=== PATIENT | female | born 1980 | race Caucasian/White ===

== ENCOUNTER 2018-01-19 08:30 | Emergency (ER) | payer MEDICAID, SELFPAY ==
[2018-01-19 09:30] VITALS: BP 139/98; PULSE 85; RESP 16; TEMP 37.9; O2SAT 98
--- NOTE | 2018-01-19 09:42 | DI.US_ITS ---
SYMPTOM/DIAGNOSIS: RT POST POPLITEAL PAIN, ? DVT DUPLEX VENOUS ULTRASOUND RIGHT LOWER EXTREMITY: Duplex venous ultrasound of the right lower extremity was performed according to the usual protocol. There is no evidence of deep venous thrombosis. There is a Robrets's cyst which contains septations and debris measuring about 55 by 36 by 21 mm. in diameter.
[2018-01-19] MEDS: Acetaminophen 500 MG TAB 1000 MG PO (10:02)
[2018-01-19] MEDS: Ibuprofen 800 MG TAB PO (10:02)
[2018-01-19 11:17] VITALS: BP 124/82; PULSE 75; RESP 16; TEMP 36.4; O2SAT 95
--- NOTE | 2018-01-19 11:31 | ED.GENADUL_ITS ---
Discharge Plan Disposition Patient Disposition: HOME Condition: Good Discharge Details Chief Complaint: Vascular Clinical Impression: Roberts cyst, Muscle strain Primary Care Provider: Carter Garcia ED Provider: Ezekiel Huff Home Meds and New Rx's Prescriptions: No Action lizness 150 mcg PO HS RF: 0 Discharge Instructions Instructions: Muscle Strain (ED), Bakers Cyst (ED) Additional Instructions: Please take 1000 mg of Tylenol every 6 hours and 800 mg of ibuprofen every 6 hours for improvement of your pain. Please use ice or warm compresses to the back aspect of your knee for the pain. Please avoid any straining, or significant vigorous physical activity utilizing your right lower leg. If you notice any worsening of your symptoms, or any new symptoms such as vomiting, you notice that your foot turns blue, worsening pain in your leg or your foot, lack of sensation in your foot, diarrhea, fever, chills, shortness of breath, chest pain, numbness, weakness, or fainting , please return immediately to the emergency department for reevaluation. Please follow up with your primary care provider as soon as possible for reassessment and reevaluation. As always, it was a pleasure participating in your medical care today. Referrals: Carter Garcia MD [Primary Care Provider] - Medical Decision Making This is a pleasant 37-year-old female with a past medical history of lupus and irritable bowel syndrome who presents today for evaluation of right posterior knee pain. It seemed to start after she was restraining a person at her work, and experienced a small amount of trauma at that time. Physical exam demonstrates mild swelling and tenderness in the posterior popliteal space, concerning for potential Roberts's cyst. However because of her questionable family history of DVT and her signs and symptoms we did get an ultrasound to rule this out. Ultrasound was performed and demonstrates no evidence of DVT, however there is evidence of a notable Roberts's cyst. I feel the patient is most likely suffering from a combination of superficial phlebitis with an associated Roberts's cyst. She may have a mild ligamentous injury from her initial inciting event which could be complicating her symptoms as well. I feel that she can be safely discharged home with Tylenol Motrin and ice. Patient is able to ambulate well, she will be discharged home with close follow- up with her PCP. We discussed red flags which to return I have extensively reviewed the treatment plan and discharge instructions with the patient. I have addressed all patient concerns at this time. The patient was made aware of what symptoms to monitor for that would warrant a return to the emergency department. Discussed the plan with the patient, they demonstrate verbal understanding and agreement with our assessment and plan at this time. HPI General Date/Time Provider Initiated Documentation: 01/19/18 09:42 . HPI Narrative: This is a pleasant 37-year-old female with a past medical history of hysterectomy with tubal ligation, lupus and irritable bowel syndrome, she takes no current medical therapy for her lupus. It is in the very mild early stages. Patient presents today with right posterior knee pain. 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 It is worsened with palpation and movement. It is slightly improved by Tylenol and Motrin last doses were last 90s. Denies PE risk factors such as recent long car rides, immobilization, recent surgery, prior history of DVT or PE, , morbid obesity, exogenous estrogen and smoking, hemoptysis, history of cancer. Patient does have a questionable family history of blood clots though. Patient denies any unilateral swelling of her lower extremity, except for some mild swelling and ropiness on her posterior right popliteal area. Patient denies any systemic symptoms of fever, chills, chest pain, shortness of breath, numbness. She has no other complaints at this time. She denies any aggravating or modifying factors. She denies any IV or illicit drug use. Related Data Home Medications Medication Instructions Recorded Confirmed Lizness 150 mcg PO HS 06/05/17 01/19/18 Allergies Allergy/AdvReac Type Severity Reaction Status Date / Time valerian Allergy Severe Unverified 01/19/18 11:01 zolpidem tartrate Allergy Severe Unverified 01/19/18 11:01 [From Fabricio] Latex, Natural Rubber Allergy Mild Unverified 01/19/18 11:01 Penicillins Allergy Mild Unverified 01/19/18 11:01 codeine Allergy critical Unverified 01/19/18 11:01 General Stated Complaint: Vascular ARLETTE: 4 Review of Systems Review of Systems All systems reviewed & are unremarkable except as noted in HPI and below PFSH Chest pain Dysuria Female pelvic inflammatory disease Night sweats Polycystic ovarian syndrome Vaginal high risk human papillomavirus (HPV) DNA test positive Family History Mother Colitis Depression Diverticula of colon Mental disorder Cerebrovascular accident Thyroid disease Father Diabetes Depression Heart disease Mental disorder Sister Diverticula of colon Fibromyalgia Section with Tubal ligation (04/27/10) section Cholecystectomy (01/07/98) Colonoscopy - MAC (07/03/08) D+C (09/17/13) Dilation and curettage EGD - MAC Endometrial Ablation (10/17/14) Repair of umbilical hernia (05/21/09) Family History Mother Colitis Depression Diverticula of colon Mental disorder Cerebrovascular accident Thyroid disease Father Diabetes Depression Heart disease Mental disorder Sister Diverticula of colon Fibromyalgia Medical History Chest pain Dysuria Female pelvic inflammatory disease Night sweats Polycystic ovarian syndrome Vaginal high risk human papillomavirus (HPV) DNA test positive Social History Smoking/Tobacco Use Status: Never Surgical History Section with Tubal ligation (04/27/10) section Cholecystectomy (01/07/98) Colonoscopy - MAC (07/03/08) D+C (09/17/13) Dilation and curettage EGD - MAC Endometrial Ablation (10/17/14) Repair of umbilical hernia (05/21/09) Social History Smoking/Tobacco Use Status: Never Exam Narrative Exam Narrative: 1.Const: Well-nourished, Well-developed, appearing stated age 2.Eyes: PERRL, no conjunctival injection, and symmetrical lids. 3.ENT: Atraumatic external nose and ears. Moist MM. Neck: Symmetric, trachea midline, No thyromegaly. 4.CVS: +S1/S2, No murmurs or gallops. Peripheral pulses 2+ and equal in all extremities. Brisk capillary refill in all extremities. 5.RESP: Unlabored respiratory effort. Clear to auscultation bilaterally. No wheezes rales or rhonchi 6.GI: Soft, Nontender/Nondistended, No hepatosplenomegaly. No guarding or rebound. 7.MSK: Normocephalic/Atraumatic, Extremities w/o deformity. No cyanosis or clubbing, Normal movement of all extremities, however there is some limited range of motion for flexion and extension of the knee secondary to pain. Pain in the posterior popliteal space is worsened with dorsiflexion and plantarflexion of the foot. Range of motion is otherwise normal, no evidence of ligamentous laxity for varus, valgus, anterior and posterior stressing. Compartments are all soft. Dorsalis pedis and posterior tibial pulses are +2 bilaterally. No evidence of cyanosis, capillary refill is brisk. No tenderness over the foot, or proximal thigh. There is a small amount of swelling in the posterior popliteal space suggestive of Roberts's cyst, with an associated small amount of tender ropiness just medial to that as well. No evidence of bruising or trauma. Normal sensation throughout otherwise. Patient does have 2 or 3 small punctate lesions on her toes bilaterally, which she states is synonymous with her history of lupus. She states these are chronic and not acute. No evidence of Osler nodes or Janeway lesions. 8.Skin: Warm, Dry. No rashes or lesions. 9.Neuro: court reporter II-XII grossly intact. Sensation grossly intact, no focal neurologic deficits. 10.Psych: (AAO) x3. Appropriate mood and affect Course Vital Signs Temperature 37.9 C H 01/19/18 09:30 Pulse 85 01/19/18 09:30 Respiratory Rate 16 01/19/18 09:30 Blood Pressure 139/98 H 01/19/18 09:30 Pulse Oximetry 98 01/19/18 09:30 Temperature 37.9 C H 01/19/18 09:30 Temperature Source Skin 01/19/18 09:30 Pulse 85 01/19/18 09:30 Respiratory Rate 16 01/19/18 09:30 Respiratory Effort 01/19/18 11:02 Blood Pressure 139/98 H 01/19/18 09:30 Blood Pressure Position Sitting 01/19/18 09:30 Pulse Oximetry 98 01/19/18 09:30 Oxygen Delivery Method Room Air 01/19/18 09:30 Oxygen Flow Rate 0 01/19/18 09:30 Pain Level 5 01/19/18 09:30
== END 2018-01-19 11:24 | disposition home or self-care (01) ==
LOC: ER 11:22
PROVIDERS: Emergency Provider Student in an Organized Health Care Education/Training Program; PCP Internal Medicine
DX: M71.21 Synovial cyst of popliteal space [Baker], right knee (principal); S86.911A Strain of unspecified muscle(s) and tendon(s) at lower leg level, right leg, initial encounter; X50.9XXA Other and unspecified overexertion or strenuous movements or postures, initial encounter; Y99.0 Civilian activity done for income or pay
CPT/HCPCS: 99284; 93971; 99285

== ENCOUNTER 2018-02-08 09:38 | Outpatient (CLI) | payer MEDICAID, SELFPAY ==
--- NOTE | 2018-02-08 09:21 | DI.RAD_ITS ---
SYMPTOM/DIAGNOSIS: INJURY RIGHT KNEE: The joint spaces are well maintained. Minimal periarticular hypertrophic changes are noted. The findings are consistent with minimal DJD. There is no evidence of a superimposed acute fracture or dislocation.
== END 2018-02-08 09:58 ==
PROVIDERS: PCP Internal Medicine; Visit Provider Physician Assistant Surgical
DX: M25.561 Pain in right knee (principal); M17.11 Unilateral primary osteoarthritis, right knee
CPT/HCPCS: 73562

== ENCOUNTER 2018-05-14 14:26 | Outpatient (CLI) | payer MEDICAID, SELFPAY ==
[2018-05-14 15:08] LABS: Lactate-non-spesis 1.1 mmol/l (0.6-1.4)
[2018-05-15 09:38] LABS: Carboxyhemoglobin (LRH) 4.3 % (0.5-1.5%)
== END 2018-05-14 14:46 ==
PROVIDERS: PCP Internal Medicine; Visit Provider Nurse Practitioner Family
DX: Z77.29 Contact with and (suspected) exposure to other hazardous substances (principal)
CPT/HCPCS: 36415; 82375; 83605

== ENCOUNTER 2018-08-13 16:17 | Outpatient (REF) | payer MEDICAID, SELFPAY ==
[2018-08-13 21:23] LABS: Abs Immature Grans 0.03 k/cumm (0.0-0.09); Absolute Basophil Count 0.02 k/cumm (0.0-0.2); Absolute Eosinophil Count 0.23 k/cumm (0.0-0.7); Absolute Lymphocyte Count 1.52 k/cumm (1.2-3.4); Absolute Monocyte Count 0.63 k/cumm (0.11-0.7); Absolute Neutrophil Count 4.86 k/cumm (1.2-6.7); Basophils % 0.3; Eosinophils % 3.2; HCT 42.3 % (36.0-46.0); HGB 14.9 g/dL (12.0-15.5); Immature Grans % 0.4; Lymphocytes % 20.9; Mean Corp. HGB Concentration 35.2 g/dL (32.0-36.0); Mean Corpuscular Hemoglobin 31.5 pg (27.0-33.0); Mean Corpuscular Volume 89.4 fL (80-95); Mean Platelet Volume 10.4 fL (8.0-11.0); Monocytes % 8.6; Neutrophils % 66.6; Platelet Count 272 x1000/uL (130-400); RBC 4.73 m/cumm (4.00-5.20); RBC Distribution Width 12.9 % (11.7-14.6); White Blood Cell Count 7.29 k/cumm (4.4-10.8)
[2018-08-13 21:39] LABS: ALT 26 U/L (12-78); AST 18 U/L (15-37); Albumin 3.9 g/dL (3.4-5.0); Alkaline Phosphatase 69 U/L (46-116); Anion Gap 12.7 mmol/L (3-11); BUN 17 mg/dL (7-18); Bilirubin, Total 0.5 mg/dL (0.2-1.0); CO2 23.3 mmol/L (21.0-32.0); CREATININE 0.69 mg/dL (0.55-1.02); Calcium 9.1 mg/dL (8.5-10.1); Chloride 105 mmol/L (98-107); Glucose 96 mg/dL (70-100); Potassium 4.2 mmol/L (3.5-5.1); Sodium 141 mmol/L (136-145)
== END 2018-08-13 16:37 ==
LOC: NCHCN 16:17
PROVIDERS: PCP Internal Medicine; Visit Provider Nurse Practitioner Family
DX: R10.9 Unspecified abdominal pain (principal); R20.2 Paresthesia of skin
CPT/HCPCS: 80053; 85025

== ENCOUNTER 2018-08-20 00:58 | Outpatient (CLI) | payer MEDICAID, SELFPAY ==
--- NOTE | 2018-08-20 08:00 | DI.US_ITS ---
SYMPTOM/DIAGNOSIS: ABD PAIN, R10.9 UMBILICAL ABNORMALITY Q89.9 ? HERNIA ABDOMEN ULTRASOUND: The periumbilical region was scanned. No hernia was identified by ultrasound. The liver is normal in size. There may be slight fatty infiltration. The patient is status post cholecystectomy. There is no biliary dilatation. The kidneys, spleen and pancreas as well as aorta are unremarkable. There is no ascites. IMPRESSION: Negative abdomen ultrasound. No periumbilical hernia is identified.
== END 2018-08-20 01:18 ==
PROVIDERS: PCP Internal Medicine; Visit Provider Nurse Practitioner Family
DX: R10.33 Periumbilical pain (principal); Z90.49 Acquired absence of other specified parts of digestive tract
CPT/HCPCS: 76700

== ENCOUNTER 2018-09-07 01:05 | Outpatient (CLI) | payer MEDICAID, SELFPAY ==
--- NOTE | 2018-09-07 12:51 | DI.CT_ITS ---
SYMPTOM/DIAGNOSIS: H/O UMBILICAL HERNIA REPAIR WITH PAIN, R10.[address]: CT scan of the abdomen and pelvis was performed following the uneventful administration of intravenous and oral contrast material. There are no priors for comparison. The visualized lung bases are clear. The liver is normal in size. No suspicious hepatic mass is seen. The portal, superior mesenteric and splenic veins are patent. The patient is status post cholecystectomy. There is no biliary ductal dilatation. The pancreas, spleen and adrenal glands are unremarkable. The kidneys show normal and symmetric enhancement. No evidence of a solid renal mass or obstruction. The urinary bladder is intact. Reproductive organs are unremarkable. There are bilateral ovarian cysts present. The aorta is of normal caliber. No significant abdominal or pelvic adenopathy, ascites or pneumoperitoneum is present. The bowel shows no evidence of obstruction or inflammation. There are no findings of an acute appendicitis present. There is no evidence of an anterior abdominal wall hernia or umbilical hernia. Degenerative changes are seen in the spine. IMPRESSION: 1. No evidence of an umbilical hernia or umbilical abnormality. 2. No evidence of an acute abdomen or pelvis.
[2018-09-07] MEDS: Omnipaque 350 MG/ML 100 ML BTL IJ (14:36)
[2018-09-07] MEDS: Omnipaque 350 MG/ML 50 ML BTL PO (14:39)
== END 2018-09-07 01:25 ==
PROVIDERS: PCP Internal Medicine; Visit Provider Surgery
DX: R10.33 Periumbilical pain (principal); Z98.890 Other specified postprocedural states; Z90.49 Acquired absence of other specified parts of digestive tract
CPT/HCPCS: 74177; J3490; Q9967

== ENCOUNTER 2018-10-04 11:20 | Day surgery (SDC) | payer MEDICAID, SELFPAY ==
[2018-10-04 11:48] VITALS: BP 126/86; PULSE 66; RESP 18; TEMP 37.2; O2SAT 100
[2018-10-04] MEDS: Lactated Ringers 1,000 ML 80 ML IV ×2 (12:01→14:30)
[2018-10-04] MEDS: CLINDAMYCIN 900 MG/50 ML BAG 50 MG IVPB (13:36)
[2018-10-04] MEDS: Bupivacaine 0.5% Pres-Free 30 ML VIAL (14:33)
[2018-10-04] MEDS: Lidocaine 2% Multi-Dose 50 ML VIAL (14:33)
--- NOTE | 2018-10-04 14:50 | W.PM.DSUDISC ---
Discharge Plan Disposition Patient Disposition: HOME Condition: Good Discharge Details Attending Provider: Selena Goncalves Primary Care Provider: Carter Garcia Home Meds and New Rx's Prescriptions: Continued lizess 150 mcg PO HS RF: 0 Excedrin Tension Headache 500-65 mg Tablet 2 tab PO PRN PRNRF: 0 ibuprofen 200 mg Capsule 400 mg PO PRN PRNRF: 0 Discharge Instructions Additional Instructions: A small hernia was identified and repaired The skin is closed with a dissolvable stitch. The top dressing can be removed tomorrow and the steri strips stick for about a week. May use ice, ibuprofen and Tylenol for pain Activity:: Do not lift more than 15# for one month Remove Dressings/Wound Care:: 24 hours Shower/Bathe:: 24 hours Diet:: As Tolerated Discharge Orders Discharge Orders: Discharge Order (Routine); Ordered 10/04/18 Ordered By: Selena Goncalves DS: Diagnosis Discharge Diagnosis (1) Umbilical hernia without mention of obstruction or gangrene: Status: Acute (2) H/O umbilical hernia repair:
[2018-10-04 15:15] VITALS: BP 115/67; PULSE 59; RESP 16; TEMP 36.6; O2SAT 100
[2018-10-04] MEDS: HYDROcodone 5/Acetaminophen 325 TAB PO (15:19)
--- NOTE | 2018-10-05 10:15 | ROE_ITS ---
DATE OF PROCEDURE: October 04, 2018 PREOPERATIVE DIAGNOSIS: Umbilical pain. POSTOPERATIVE DIAGNOSIS: Recurrent umbilical hernia. PROCEDURE: Recurrent umbilical hernia repair. SURGEON: Selena Goncalves M.D. ANESTHESIA: Local and sedation. INDICATIONS: This is a 38-year-old woman who had a primary repair of an umbilical hernia in 2008. S he reports pain at the site, especially with lifting. She is more tender above the umbilicus, althou gh a recurrent hernia is not felt. She had a CT scan of the abdomen and pelvis that suggested a poss ible fascial defect, although it was fairly subtle. PROCEDURE: The patient was placed supine on the operating table and her periumbilical region was pre pped and draped sterilely. The prior incision was transverse just above the umbilicus. I utilized t he same incision to avoid a T-shaped scar. The skin here was infiltrated with local anesthetic and t he prior incision/scar excised with a small ellipse. Subcutaneous tissue was divided with cautery do wn to the level of the fascia. I at first inspected the area that had been marked preoperatively and did not find any abnormality here. A little bit lower there was a braided suture knot that I remove d as a possible source for pain. I then freed up the umbilicus from its posterior attachments using cautery, with care taken not to enter the umbilicus. Further exploration did reveal a fascial defect with preperitoneal fat coming through it. The size of defect was about that of an almond. This was freed up from the surrounding tissue and reduced through a fascial defect measuring about 5 mm. Thi s was closed with two interrupted #2-0 PDS sutures. The wound was irrigated. There was good hemosta sis. The subcutaneous tissue and dermis were closed with interrupted, buried #4-0 Monocryl sutures a nd the skin closed with a running #4-0 Monocryl subcuticular stitch. She tolerated the procedure wel l and was stable to recovery. cc: Carter Garcia M.D.
== END 2018-10-04 15:52 | disposition home or self-care (01) ==
PROVIDERS: PCP Internal Medicine; Visit Provider Surgery
PROC: (CPT 49585; principal; 2018-10-04 13:30)
DX: K42.9 Umbilical hernia without obstruction or gangrene (principal)
CPT/HCPCS: 49585

== ENCOUNTER 2018-10-05 13:44 | Emergency (ER) | payer MEDICAID, SELFPAY ==
[2018-10-05 13:49] VITALS: PULSE 77; TEMP 37.1
[2018-10-05 13:50] VITALS: BP 140/89; PULSE 80; RESP 16; O2SAT 99
--- NOTE | 2018-10-05 14:05 | W.ED.GENAD ---
Discharge Plan Disposition Patient Disposition: HOME Condition: Stable Discharge Details Chief Complaint: Abd Prob Clinical Impression: Postoperative abdominal pain Primary Care Provider: Carter Garcia ED Provider: Ricki Garcia Home Meds and New Rx's Prescriptions: New oxycodone-acetaminophen [Percocet] 5-325 mg tablet 1 tab PO Q6H PRN (Reason: pain) Qty: 8 RF: 0 ondansetron 4 mg tablet,disintegrating 4 mg PO Q6H PRN (Reason: nausea and vomiting) Qty: 10 RF: 0 Continued lizess 150 mcg PO HS RF: 0 Excedrin Tension Headache 500-65 mg Tablet 2 tab PO PRN PRNRF: 0 ibuprofen 200 mg Capsule 400 mg PO PRN PRNRF: 0 Discharge Instructions Instructions: Abdominal Pain (ED) Additional Instructions: Please slowly advance her diet as tolerated and stay well-hydrated. Return to the emergency department immediately for any new or significant worsening of symptoms otherwise take pain meds and nausea meds as needed. Follow-up with general surgery on Monday for reassessment. Referrals: Selena Goncalves MD [ [facility] STAFF PHYSICIAN] - (Follow-up with general surgeon on Monday for reassessment) Medical Decision Making Patient presenting to the emergency department chief complaint of abdominal pain and bloating postoperatively. Patient states that she had a hernia repair performed yesterday but has noted significant abdominal distention and bloating over the last 24 hours along with continuing to be unable to tolerate any p.o. intake without vomiting. Patient states subjective chills and fever. Patient denies any chest pain, difficulty breathing, or urinary symptoms. Plan to check labs, give IV fluids, treat pain and nausea symptomatically, speak with general surgeon Dr. Goncalves Spoke with Dr. Goncalves pending results of patient's information and she stated procedure was uneventful and otherwise non-worrisome so at this time did not recommend any CT imaging but did state plain film abdomen is reasonable to start with. Review of labs show a very mild elevation of WBCs and otherwise nondiagnostic CMP and normal lipase. Plain film imaging shows no acute findings noted. Patient was reassessed and states improvement of nausea but still significant amount of pain and chills. Dr. Goncalves was able to come see the patient the emergency department and feels this is typical postoperative pain and discomfort which I do not disagree with that. Patient was placed upon Percocet after coronary of the drug database which shows no worrisome findings. Patient also given prescription for Zofran. Close return precautions were discussed otherwise patient to follow-up with general surgery office on Monday. After discussion of diagnosis and plan of care patient has no further needs, questions, or concerns and states clear understanding to return to the emergency department for any worsening symptoms. HPI General Mode of arrival: ambulatory. Date/Time Provider Initiated Documentation: 10/05/18 14:02. Limitations to Documentation: no limitations. Information obtained by: patient and RN notes reviewed. History of Present Illness 38 year old F presents to the emergency department with the chief complaint of Postoperative abdominal pain, described as moderate, with intensity rated at 8. Quality is described as aching and sharp, and is localized to the abdomen. Patient started experiencing this day(s) (1) and it has been constant. Patient did receive the following treatments prior to arrival, NSAID Related Data Home Medications Medication Instructions Recorded Confirmed lizess 150 mcg PO HS 09/03/18 10/04/18 Excedrin Tension Headache 2 tab PO PRN PRN 10/04/18 10/04/18 ibuprofen 400 mg PO PRN PRN 10/04/18 10/04/18 ondansetron 4 mg PO Q6H PRN #10 tab 10/05/18 oxycodone-acetaminophen [Percocet] 1 tab PO Q6H PRN #8 tab 10/05/18 Previous Rx's Medication Instructions Recorded ondansetron 4 mg PO Q6H PRN #10 tab 10/05/18 oxycodone-acetaminophen [Percocet] 1 tab PO Q6H PRN #8 tab 10/05/18 Allergies Allergy/AdvReac Type Severity Reaction Status Date / Time codeine Allergy Severe Hives, Verified 10/04/18 11:45 violent angry Latex, Natural Rubber Allergy Severe If its Verified 10/04/18 11:45 around my mouth I swell, any other area, I swell valerian Allergy Severe Hives Verified 10/04/18 11:45 zolpidem tartrate Allergy Severe minor Verified 10/04/18 11:45 [From Ambien] stroke Penicillins Allergy Mild internal Verified 10/04/18 11:45 bleeding, constipation General Stated Complaint: Abd Prob ARLETTE: 2 Review of Systems Constitutional Reports chills, Reports fever(s) and Reports poor appetite Cardiovascular Denies chest pain and Denies dyspnea Respiratory Denies cough and Denies dyspnea Gastrointestinal Reports as per HPI, Reports abdominal pain, Denies melena, Denies change in bowel habits, Denies constipation, Denies diarrhea, Reports nausea and Reports vomiting Genitourinary Denies dysuria Integumentary/Breasts Denies rash [facility] Medical History Abdominal pain (Acute) Anxiety and depression (Acute) Carbon monoxide exposure (Acute) Chest pain Dyspepsia (Acute) Dysuria Fatigue (Acute) Female pelvic inflammatory disease Generalized headaches (Acute) IBS (irritable bowel syndrome) (Chronic) Natural gas exposure (Acute) Night sweats Paresthesia of both hands (Acute) Polycystic ovarian syndrome Umbilical abnormality (Acute) Umbilical hernia without mention of obstruction or gangrene (Acute) Vaginal high risk human papillomavirus (HPV) DNA test positive Surgical History section Section with Tubal ligation (04/27/10) Cholecystectomy (01/07/98) Colonoscopy - MAC (07/03/08) D+C (09/17/13) Dilation and curettage EGD - MAC Endometrial Ablation (10/17/14) H/O umbilical hernia repair (Acute) Repair of umbilical hernia (05/21/09) Family History Mother Colitis Depression Diverticula of colon Mental disorder Stroke Thyroid disease Father Diabetes Depression Heart disease Mental disorder Sister Diverticula of colon Fibromyalgia Social History Smoking/Tobacco Use Status: Never Alcohol Intake: current Alcohol Intake frequency: holidays/special occasions only Alcohol type: wine Drug use: Never Substance use type: does not use Details: last night wine 1 glass Do you feel safe at home: Yes Do you feel safe in your relationship?: Yes Exam Const General: cooperative Orientation: alert, awake and oriented x3 Resp Effort & Inspection: normal respiratory effort and able to speak in complete sentences Auscultation: clear to auscultation bilaterally Cardio Rate: regular rate Rhythm: regular rhythm Heart Sounds: S1 normal and S2 normal GI Inspection: incision (Surgical hernia with ecchymosis surrounding area) Palpation: soft, no hepatosplenomegaly, not firm, no masses, no pulsatile masses, not rigid, no splenomegaly and tender (Diffuse) Auscultation: normal bowel sounds Back/Spine/Pelvis Back: no CVA tenderness Neuro General: alert, awake, oriented x3, gait normal and moves all extremities Course Vital Signs Temperature 37.1 C 10/05/18 13:49 Pulse 77 10/05/18 13:49 Temperature 37.1 C 10/05/18 13:49 Pulse 77 10/05/18 13:49
--- NOTE | 2018-10-05 14:10 | DI.RAD_ITS ---
SYMPTOMS/DIAGNOSIS: ABDOMINAL PAIN AND BLOATING 1 DAY POSTOP PA CHEST: The heart is normal in size. The lungs are clear. The mediastinal structures and pleura appear intact. CONCLUSION: Normal chest. ABDOMEN: Two views were obtained. There are vascular clips in the right upper quadrant consistent with previous cholecystectomy. The bowel gas pattern is unremarkable. No organomegaly seen. No urinary tract calcification seen. CONCLUSION: No evidence of acute disease.
[2018-10-05] MEDS: Ondansetron 4 MG/2 ML VIAL IVP (14:12)
[2018-10-05] MEDS: Normal Saline 1,000 ML 1000 ML IV (14:13)
[2018-10-05] MEDS: MORPHine 10 MG/ML VIAL 4 MG IVP (14:13)
[2018-10-05 14:28] LABS: Abs Immature Grans 0.03 k/cumm (0.0-0.09); Absolute Basophil Count 0.01 k/cumm (0.0-0.2); Absolute Lymphocyte Count 1.59 k/cumm (1.2-3.4); Absolute Monocyte Count 0.89 k/cumm (0.11-0.7); Basophils % 0.1; Eosinophils % 0.4; HCT 39.7 % (36.0-46.0); HGB 13.6 g/dL (12.0-15.5); Immature Grans % 0.3; Lymphocytes % 14.1; Mean Corp. HGB Concentration 34.3 g/dL (32.0-36.0); Mean Corpuscular Hemoglobin 30.7 pg (27.0-33.0); Mean Corpuscular Volume 89.6 fL (80-95); Mean Platelet Volume 10.2 fL (8.0-11.0); Monocytes % 7.9; Neutrophils % 77.2; Platelet Count 236 x1000/uL (130-400); RBC 4.43 m/cumm (4.00-5.20); RBC Distribution Width 12.7 % (11.7-14.6); White Blood Cell Count 11.26 k/cumm (4.4-10.8)
[2018-10-05 14:32] LABS: Absolute Eosinophil Count 0.05 k/cumm (0.0-0.7); Absolute Neutrophil Count 8.69 k/cumm (1.2-6.7)
[2018-10-05 14:43] LABS: ALT 23 U/L (12-78); AST 8 U/L (15-37); Albumin 3.4 g/dL (3.4-5.0); Alkaline Phosphatase 51 U/L (46-116); Anion Gap 8.6 mmol/L (3-11); BUN 11 mg/dL (7-18); Bilirubin, Total 0.5 mg/dL (0.2-1.0); CO2 25.4 mmol/L (21.0-32.0); CREATININE 0.92 mg/dL (0.55-1.02); Calcium 8.3 mg/dL (8.5-10.1); Chloride 107 mmol/L (98-107); Glucose 91 mg/dL (70-100); Lipase 245 U/L (73-393); Potassium 3.6 mmol/L (3.5-5.1); Sodium 141 mmol/L (136-145); Total Protein 6.7 g/dL (6.4-8.2)
[2018-10-05 15:41] VITALS: BP 138/67; PULSE 67; RESP 14; TEMP 36.6; O2SAT 99
== END 2018-10-05 15:41 | disposition home or self-care (01) ==
PROVIDERS: Emergency Provider Nurse Practitioner Family; PCP Internal Medicine
DX: G89.18 Other acute postprocedural pain (principal)
CPT/HCPCS: 36415; 80053; 83690; 96361; 96374; 96375; 99284; 74022; 81003; 85025; J2270; J2405

== ENCOUNTER 2018-10-15 16:30 | Outpatient (REF) | payer MEDICAID, SELFPAY ==
--- NOTE | 2018-10-15 16:00 | PAPFT_PTH ---
PATIENT: Jenise Ortiz LOC: [facility] U#:[id number] AGE/SX: 38/F ROOM: RE10/15/[address]: Candy Rogel : 1980 BED: DIS: 10/15/2018 SPEC #: [id number] RECD: 10/15/18 17:37 STATUS: NAINA REMaisha #: [id number] VINCE: 10/15/18 16:[address]: Candy Rogel DEPT: [facility] Cytology RECD BY: Marisol Portillo ENTERED: 10/15/18 17:37 SP TYPE: PAPFT OTHR DR: Carter Garcia Tissues: 1 - CX/ENDOCX FOR PAP SMEARS Procedures: PAP THIN PREP/UVM Screening HPV DNA PROBE Comments: [id number]
== END 2018-10-15 16:50 ==
LOC: LBN 16:30
PROVIDERS: PCP Internal Medicine; Visit Provider Obstetrics & Gynecology Gynecology
DX: Z12.4 Encounter for screening for malignant neoplasm of cervix (principal); Z11.51 Encounter for screening for human papillomavirus (HPV)
CPT/HCPCS: 88142; 87624

== ENCOUNTER 2018-10-19 00:24 | Outpatient (CLI) | payer MEDICAID, SELFPAY ==
--- NOTE | 2018-10-19 13:06 | DI.COMBO_ITS ---
SYMPTOM/DIAGNOSIS: LT BREAST LUMP,N63.20 MAMMOGRAMS AND LEFT BREAST ULTRASOUND: Mammograms were interpreted according to the usual protocol including computer analysis with CAD system, tomosynthesis and C view imaging. The patient notes a palpable abnormality in the upper outer quadrant of the left breast. This is a baseline exam. A marker was placed over the palpable abnormality. The breasts are composed of heterogeneously dense fibroglandular tissue, breast density, Category C. In the area marked, there are two adjacent circumscribed nodules versus a single bi-lobed nodule. There are no suspicious features. The findings could represent an intramammary lymph node versus two small adjacent cysts. Left breast ultrasound shows a superficial hypoechoic, ovoid, circumscribed nodule measuring 8 by 7 by 4 cm. The findings could represent a proteinaceous cyst, fibroadenoma or lymph node. IMPRESSION: Category 3, probably benign mammogram and left breast ultrasound. A 6 month follow up ultrasound is recommended. MQSA ASSESSMENT OF FINDINGS: Probably benign. Six month follow-up recommended. Category 3. Patient will receive a letter notifying them of these results. Bi-RADS category C. The breasts are heterogeneously dense, which may obscure small masses.
== END 2018-10-19 00:44 ==
PROVIDERS: PCP Internal Medicine; Visit Provider Obstetrics & Gynecology Gynecology
DX: N63.20 Unspecified lump in the left breast, unspecified quadrant (principal); R92.8 Other abnormal and inconclusive findings on diagnostic imaging of breast
CPT/HCPCS: 76642; 77062; 77066; G0279

== ENCOUNTER 2018-11-16 16:21 | Outpatient (REF) | payer MEDICAID, SELFPAY ==
--- NOTE | 2018-11-16 14:40 | ENDO_PTH ---
PATIENT: Jenise Ortiz LOC: [facility] U#:[id number] AGE/SX: 38/F ROOM: RE11/16/[address]: Candy Rogel : 1980 BED: DIS: 11/16/2018 SPEC #: [id number] RECD: 11/16/18 16:25 STATUS: NAINA REMaisha #: [id number] VINCE: 11/16/18 14:[address]: Candy Rogel DEPT: Surgical Specimen RECD BY: Marisol Portlilo ENTERED: 11/16/18 16:25 SP TYPE: Endo OTHR DR: Carter Garcia Tissues: 1 - ENDOCERVICAL BX/CURRETTE Procedures: GROSS AND MICRO LEVEL 4 Comments: [id number]
== END 2018-11-16 16:41 ==
LOC: LBN 16:21
PROVIDERS: PCP Internal Medicine; Visit Provider Obstetrics & Gynecology Gynecology
DX: N88.8 Other specified noninflammatory disorders of cervix uteri (principal); R87.610 Atypical squamous cells of undetermined significance on cytologic smear of cervix (ASC-US); R87.810 Cervical high risk human papillomavirus (HPV) DNA test positive
CPT/HCPCS: 88305

== ENCOUNTER 2019-03-03 14:10 | Emergency (ER) | payer MEDICAID, SELFPAY ==
[2019-03-03 14:14] VITALS: BP 140/79; PULSE 65; RESP 18; TEMP 36.2; O2SAT 100
--- NOTE | 2019-03-03 14:16 | W.ED.GENAD ---
Discharge Plan Disposition Patient Disposition: HOME Condition: Good Discharge Details Chief Complaint: Orthopedic Clinical Impression: Pain in right shoulder Primary Care Provider: Carter Garcia ED Provider: Tonia Palomo Home Meds and New Rx's Prescriptions: New prednisone 50 mg tablet 50 mg PO DAILY Qty: 4 RF: 0 Continued Ex-Lax Maximum Strength 25 mg tablet 50 mg PO DAILY RF: 0 linzess 150 mcg PO HS RF: 0 Excedrin Tension Headache 500-65 mg Tablet 2 tab PO PRN PRNRF: 0 ibuprofen 200 mg Capsule 400 mg PO PRN PRNRF: 0 Discharge Instructions Instructions: Prednisone (By mouth), Shoulder Pain (ED) Additional Instructions: Encourage water intake. Encourage rest of your shoulder. Try to avoid overhead activities, particularly lifting. I would like you to continue with the passive exercises as demonstrated to help prevent frozen shoulder. Please take the prednisone as prescribed to help with inflammatory source of discomfort. You may use a sling if in public or concerned for overuse but otherwise, please try to abstain. Referral for orthopedics has been placed. Please call them tomorrow to schedule follow-up appointment, number listed below. Referral for physical therapy is attached. If you develop fever/chills, increased pain, weakness or other new/worsening symptoms please seek care urgently once again. Stand Alone Forms: Physical Therapy Referral Referrals: Carlo Corea MD [ [facility] STAFF PHYSICIAN] - Discharge Data Discharge Date/Time-TO BE ENTERED AT DEPARTURE: 03/03/19 16:19 Medical Decision Making Patient is a 38-year-old [id number]-vgdalpby female presents today with chief complaint of right shoulder pain. She reports that she has had intermittent right shoulder pain with popping over the past several months. She reports that this pain was greatly exacerbated today when she had a more severe pop. She denies any single inciting incident. Did not fall or have any known trauma. 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 She reports that she is had multiple dislocations. States that she is able to hit and the shoulder goes back into place. When further questioning the patient, she indicates the superior aspect of the shoulder is area of maximal discomfort and states that pressing on this or hitting this area can help with discomfort. She has been seen by a chiropractor for this. Patient reports that she has a known history of carpal tunnel in the right hand. She denies any recent fevers or chills. Patient is status post tubal ligation and ablation. On exam, patient does appear uncomfortable. Pain seems to be maximal with forward elevation. She is able to forward elevate to approximately 130 degrees but has stopped secondary to discomfort. Both external and internal rotation is limited. No notable deformity. Pain elicited maximally with palpation over the trapezius. She also has discomfort over the subacromial space and AC joint. Further testing of the shoulder is very difficult and limited secondary to the patient's discomfort. No neurologic deficit is noted on exam patient has been using Tylenol and ibuprofen help with discomfort. She has not been evaluated for this historically. No imaging has been obtained. Plan to obtain x-ray of the right shoulder. Discussed these findings with the patient. FINDINGS: Bones/joints: Normal. Soft tissues: Normal. IMPRESSION: No acute findings. Advised that the pain she is eliciting with movements as well as location is concerning for impingement syndrome, muscle spasm. Pain is so diffuse however, I am hesitant to perform any type of injection at this point I will refer her to orthopedics. As I believe this is likely inflammatory driven and secondary to overuse, plan for treatment with prednisone. She has been in this historically and believes she tolerated this well. We did discuss possible side effects. She was given first dose here. Advised to continue with ibuprofen Tylenol. Passive range of motion to help prevent adhesive capsulitis was given demonstrated for the patient. We will give her sling only to use and on public. She reports that today, while at a birthday constitution party multiple people try to shake her hand thus increasing her discomfort. However, advised that she try to keep this off as much possible. She will contact orthopedics tomorrow to schedule follow-up appointment. All of her questions and concerns were addressed and she is in agreement with this plan. [facility] General Mode of arrival: ambulatory. Date/Time Provider Initiated Documentation: 03/03/19 14:16. Limitations to Documentation: no limitations. Information obtained by: patient and RN notes reviewed. History of Present Illness 38 year old F presents to the emergency department with the chief complaint of right shoulder pain, described as moderate and similar to prior episodes (acute on chronic pain), with intensity rated at 7. Quality is described as stabbing, and is localized to the right and upper extremity. Patient reports no radiation. Patient started experiencing this month(s) and it has been intermittent. 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 Patient notes no other symptoms.; denies chest pain, fever/chills, rash and weakness. Patient did receive the following treatments prior to arrival, NSAID Related Data Home Medications Medication Instructions Recorded Confirmed Excedrin Tension Headache 2 tab PO PRN PRN 10/04/18 03/03/19 ibuprofen 400 mg PO PRN PRN 10/04/18 03/03/19 sennosides 25 mg tablet 50 mg PO DAILY tab 11/27/18 03/03/19 linzess 150 mcg PO HS 12/05/18 03/03/19 prednisone 50 mg PO DAILY #4 tab 03/03/19 Previous Rx's Medication Instructions Recorded prednisone 50 mg PO DAILY #4 tab 03/03/19 Allergies Allergy/AdvReac Type Severity Reaction Status Date / Time codeine Allergy Severe Hives, Verified 03/03/19 14:18 violent angry Latex, Natural Rubber Allergy Severe If its Verified 03/03/19 14:18 around my mouth I swell, any other area, I swell valerian Allergy Severe Hives Verified 03/03/19 14:18 zolpidem tartrate Allergy Severe minor Verified 03/03/19 14:18 [From Ambien] stroke Penicillins Allergy Mild internal Verified 03/03/19 14:18 bleeding, constipation General ARLETTE: 3 Review of Systems Constitutional Constitutional: Reports as per HPI, Denies chills, Denies fever(s), Denies headache(s) and Denies weakness ENT Ears, Nose, Mouth, and Throat: Denies headache(s) Cardiovascular Cardiovascular: Reports as per HPI Respiratory Respiratory: Reports as per HPI and Denies cough Musculoskeletal Musculoskeletal: Reports as per HPI and Denies tingling Integumentary/Breasts Skin/Breast: Reports as per HPI, Denies rash and Denies wounds Neurologic Neurologic: Reports as per HPI, Denies headache(s), Denies tingling, Denies paresthesias and Denies weakness [facility] Medical History Abdominal pain (Acute) Anxiety and depression (Acute) Bilateral carpal tunnel syndrome (Acute) Carbon monoxide exposure (Acute) Chest pain Dyspepsia (Acute) Dysuria Fatigue (Acute) Female pelvic inflammatory disease Generalized headaches (Acute) IBS (irritable bowel syndrome) (Chronic) Left breast lump (Acute ~10/2018) 6x4mm. Pt will have repeat mammo 04/2019. Natural gas exposure (Acute) Night sweats Pap smear of cervix shows high risk HPV present (Acute ~10/2018) 10/2018. ECC benign. Plan: repeat test 2019. Paresthesia of both hands (Acute) Polycystic ovarian syndrome Umbilical abnormality (Acute) Umbilical hernia without mention of obstruction or gangrene (Acute) Vaginal candidiasis (Acute) Vaginal high risk human papillomavirus (HPV) DNA test positive Surgical History section Section with Tubal ligation (04/27/10) Cholecystectomy (01/07/98) Colonoscopy - MAC (07/03/08) D+C (09/17/13) Dilation and curettage Pt reports 4 D&Cs. 3 pregnancies, 2 c/s. EGD - MAC Endometrial Ablation (10/17/14) Pt has referred to the ablation as a partial hysterectomy. H/O umbilical hernia repair (Acute) 10/04/18, Dr Selena Goncalves, [facility] Repair of umbilical hernia (05/21/09) Social History Smoking/Tobacco Use Status: Never Alcohol Intake: current Alcohol Intake frequency: holidays/special occasions only Alcohol type: wine Drug use: Never Substance use type: does not use Number of Children: 2 Seatbelt use: always Do you feel safe at home: Yes Do you feel safe in your relationship?: Yes History History 3 Para Hx # Term Pregnancies 2 Multiple births Hx # Pregnancies Ectopic pregnancies AB induced Hx Number of Living Children AB spontaneous Exam Const General: cooperative, healthy appearing, uncomfortable (patient appears uncomfrotable), no acute distress, well developed and well groomed Nutritional Appearance: average body habitus and well nourished Orientation: alert and awake Resp Effort & Inspection: normal respiratory effort, able to speak in complete sentences and no respiratory distress Cardio Rate: regular rate Rhythm: regular rhythm Skin General skin exam: no rashes or lesions noted Lesions: no lesions Rashes: no rashes Trauma: no lacerations or abrasions Neuro General: alert and awake Cognition: normal cognition Speech: speech normal Gait: normal gait Motor: muscle tone normal throughout Sensory Exam: no sensory deficits noted Extrem Right upper extremity: normal to inspection, normal capillary refill, no joint enlargement, shoulder/upper arm (initially had kinesiotaping in place) Details: normal to inspection, tenderness (Diffusely tender, and maximal on superior aspect of the trapezius) and axillary nerve sensory function normal; no swelling, ROM limited (Limited forward elevation to approximately 130 degrees. External rotation and internal rotation limited), no abrasions, no lacerations, no ecchymosis, no crepitus, no deformity and no unusual warmth, elbow/forearm Details: normal to inspection, normal ROM and distal pulses intact; no tenderness, no swelling and no deformity, wrist Details: normal to inspection, normal ROM, normal vascular exam, radial pulse present and ulnar pulse present; no tenderness and no swelling and hand Details: normal to inspection, normal capillary refill, neuromotor exam normal, neurosensory exam normal and tendon exam normal; no tenderness; ROM limited Psych Appearance: grossly normal and well kempt Mental Status: mental status grossly normal Speech and Movement: speech and movement normal
--- NOTE | 2019-03-03 15:12 | DI.RAD_ITS ---
EXAM: XR SHOULDER RT COMPLETE 2+V INDICATION: acute on chronic pain. COMPARISON: No exams were available for comparison TECHNIQUE: 2D digital imaging was performed. FINDINGS: No acute fracture or dislocation is present. There are mild degenerative changes at the right acromi oclavicular joint. The glenohumeral joint is unremarkable. Bones are normally mineralized. The sof t tissues are unremarkable. IMPRESSION: No acute abnormality.
--- NOTE | 2019-03-03 15:41 | DI.VRAD_ITS ---
PROCEDURE INFORMATION: Exam: XR Right Shoulder Exam date and time: 03/03/2019 3:16 PM Age: 38 years old Clinical indication: Other: Acute on chronic pain TECHNIQUE: Imaging protocol: XR Right shoulder. Views: 2 or more views. COMPARISON: No relevant prior studies available. FINDINGS: Bones/joints: Normal. Soft tissues: Normal. IMPRESSION: No acute findings. Dictated and Authenticated by: Mayra Saravia MD. Ordering:TONI Randall MD
[2019-03-03] MEDS: predniSONE 10 MG TAB 50 MG PO (16:13)
== END 2019-03-03 16:19 | disposition home or self-care (01) ==
PROVIDERS: Emergency Provider Physician Assistant; PCP Internal Medicine
DX: M25.511 Pain in right shoulder (principal)
CPT/HCPCS: 99284; 73030; 99283; J7512; L3650

== ENCOUNTER 2019-03-20 08:25 | Outpatient (CLI) | payer MEDICAID, SELFPAY ==
--- NOTE | 2019-03-20 16:16 | DI.RAD_ITS ---
EXAM: XR CERVICAL SP GODINEZ TRAUMA 2-3V CLINICAL HISTORY: neck and shoulder pain TECHNIQUE: COMPARISON: No exams were available for comparison FINDINGS: Two views were obtained. There is a slight cervical kyphosis. Intervertebral disc spaces are well m aintained. No significant bony seen. IMPRESSION:
== END 2019-03-20 08:45 ==
PROVIDERS: PCP Internal Medicine; Visit Provider Physician Assistant
DX: M54.2 Cervicalgia (principal); M25.519 Pain in unspecified shoulder; M40.202 Unspecified kyphosis, cervical region
CPT/HCPCS: 72040

== ENCOUNTER 2019-03-28 01:34 | Outpatient (CLI) | payer MEDICAID, SELFPAY ==
--- NOTE | 2019-03-28 10:23 | DI.MRI_ITS ---
EXAM: MR CERVICAL SPINE WO CLINICAL HISTORY: cervical radiculopathy, M54.12. TECHNIQUE: Multiplanar multisequence MRI was performed. COMPARISON: No exams were available for comparison FINDINGS: MR examination of the cervical region was performed according to the usual protocol. No significant bony signal abnormality seen. Incidental presumed small hemangioma or fatty rest of T1 vertebral bod y. No bony central canal spinal stenosis seen. No neural foraminal stenosis. No disc herniation identi fied. Spinal cord shows normal signal and is of normal diameter throughout. Visualized posterior fo ssa structures appear intact. IMPRESSION: Negative cervical spine MRI.
--- NOTE | 2019-03-28 10:25 | DI.MRI_ITS ---
EXAM: MR UPPER JOINT RT WO CLINICAL HISTORY: right shoulder pain, M25.511. TECHNIQUE: Multiplanar multisequence MRI was performed. COMPARISON: No exams were available for comparison FINDINGS: There is hypertrophic change at the acromioclavicular joint with associated small joint effusion and abnormal signal of the distal aspect of the clavicle and the acromion. Inferior osteophytes impinge on myotendinous junction region of supraspinatus. No subscapularis bursa collection. No significant tendinosis of the supraspinatus. No other bony signal abnormality seen. Glenoid labrum grossly intact by noncontrast criteria. Subsc apularis and infraspinatus appear intact, no significant tendinosis, no tear seen. Biceps tendon and anchor appear normal. Normal appearance of the bicipital tendon in the bicipital g roove. IMPRESSION: AC joint hypertrophic changes with impingement on supraspinatus myotendinous junction region. No oth er significant findings.
== END 2019-03-28 01:54 ==
PROVIDERS: PCP Internal Medicine; Visit Provider Physician Assistant
DX: M25.511 Pain in right shoulder (principal); M19.011 Primary osteoarthritis, right shoulder; M75.41 Impingement syndrome of right shoulder; M54.12 Radiculopathy, cervical region; M54.2 Cervicalgia
CPT/HCPCS: 72141; 73221

== ENCOUNTER 2019-06-26 16:05 | Outpatient (CLI) | payer MEDICAID, SELFPAY ==
--- NOTE | 2019-06-26 15:30 | DI.US_ITS ---
EXAM: US PELVIS TRANSVAGINAL CLINICAL HISTORY: Severe Right Lower Quadrant pain, pelvic AND PERINEAL pain, R10.2. TECHNIQUE: Transabdominal and transvaginal pelvic ultrasound was performed using standard protocol. COMPARISON: No exams were available for comparison FINDINGS: KIDNEYS: Kidneys are symmetric in size. No evidence of renal calculi. No evidence of hydronephrosis. No renal mass or cyst identified. UTERUS: Position: Retroverted. Size: 6.2 x 3.5 x 5.7 cm Endometrium: 0.6 cm. Normal for patient's menstrual status. Myometrium: Well-circumscribed 1.5 x 1.5 x 1.3 cm hyperechoic mass within the myometrium. This likel y reflects a uterine fibroid. Cervix: Unremarkable. OVARIES: Right: 3.2 x 2 x 1.8 cm Cyst or mass: Small follicular cysts are present. Left: 3.2 x 1.6 x 1.7 cm Cyst or mass: Small follicular cysts are present. DOPPLER: Color: Symmetric and uniform flow to both ovaries. No hyperemia. Duplex: Normal ovarian arterial waveforms visualized. CUL-DE-SAC: Free fluid: None. Other: There is a tubular structure medial to the right ovary containing debris and a fluid debris le rodrigo. IMPRESSION: 1. Normal sonographic appearance of the kidneys. 2. Normal-appearing uterus with endometrial stripe within normal limits. 1.5 cm hyperechoic mass wit hin the myometrium suspicious for uterine fibroid. 3. Unremarkable bilateral ovaries. 4. Tubular structure in the right adnexa medial to the right ovary containing debris and fluid debris level. Findings are suspicious for pyosalpinx/salpingitis/PID. Abscess cannot be excluded. DATA REPOSITORY:
== END 2019-06-26 16:25 ==
PROVIDERS: PCP Internal Medicine; Visit Provider Obstetrics & Gynecology
DX: R10.2 Pelvic and perineal pain (principal); R10.31 Right lower quadrant pain; D25.9 Leiomyoma of uterus, unspecified
CPT/HCPCS: 76830; 76856

== ENCOUNTER 2019-07-02 13:57 | Inpatient (IN) | payer MEDICAID, SELFPAY ==
--- NOTE | 2019-07-02 | DI.CT_ITS ---
EXAM: CT ABDOMEN PELVIS W CLINICAL HISTORY: TUBO-OVARIAN ABSCESS COMPARISON: CT CT ABDOMEN PELVIS W from 09/07/2018 FINDINGS: CT examination of the abdomen and pelvis was performed with a bolus infusion of 100 cc of Omnipaque 3 50 and ingestion of dilute barium. Images obtained through the lung bases are unremarkable. Liver and spleen appear normal. Gallbladder has been surgically removed. No biliary dilatation. Un remarkable appearance of the pancreas. Adrenals and kidneys appear normal. No evidence of urinary tract calcification or obstruction. Abdominal aorta is of normal diameter and major visceral branches appear intact. No significant abdominal wall hernia. No significant abdominal or pelvic adenopathy. Appendix is normal. No evidence of diverticulitis or bowel obstruction. Uterus contains small enhancing lesions posteriorly consistent with fibroids. There is fluid attenua tion in what appears to be a dilated right fallopian tube consistent with pyosalpinx, as clinically s uggested. Left fallopian tube may be dilated as well, left pyosalpinx not excluded. Left ovarian cyst noted me asuring about 21 millimeters, small functional cysts versus dominant follicle. No significant free fluid identified in the pelvis or elsewhere in the peritoneal cavity. IMPRESSION: Findings consistent with right pyosalpinx, as clinically suspected. Left pyosalpinx not excluded but less likely. No free fluid or abscess of the pelvis. No adenopathy identified.
[2019-07-02 14:27] VITALS: BP 136/85; PULSE 67; RESP 18; TEMP 36.7; O2SAT 97
--- NOTE | 2019-07-02 14:34 | HPE_ITS ---
Date of service: 07/02/19 Time of Service: 14:34 Assessment and Plan Assessment and plan (1) Pelvic pain: Start date: 06/18/19 Status: Acute (2) Tubo-ovarian abscess: Start date: 06/26/19 Status: Acute Assessment and plan: Finally admitted to the hospital for IV hydration, IV pain medication, antiemetics, laboratory studies, diagnostic imaging. Should be converted from oral to IV antibiotic therapy. She has the potential for surgical intervention including total abdominal hysterectomy with or without bilateral early salpingectomy possible salpingo-oophorectomy. (3) Pelvic fullness: Start date: 06/18/19 Status: Acute History of Present Illness History of Present Illness Chief Complaint: Severe abdominal pain Narrative: Jenise is a 39-year-old female who I saw in the office late last week with right pelvic and ovarian pain. She describes this as severe in nature and worsening over approximately the past 10 days. She denied fever or chills at that point she was able to tolerate oral intake and her initial work-up for her pelvic pain included pelvic ultrasound. There was suspicion of a right-sided fluid collection with some debris possibility of tubo-ovarian abscess. In light of this fact she was placed empirically on oral antibiotic therapy including Flagyl and doxycycline. I did check in on her over the weekend she was having no fevers at that point though feeling somewhat chilled. Subsequent to this she was unable to tolerate the remainder of her antibiotics and presented for her follow-up visit today. On her way up to the office she did have a syncopal episode with no injury noted. Due to this, and failed outpatient conservative management meant for suspected tubo-ovarian abscess decision was made to admit her to the hospital for IV antibiotics, imaging, and the potential for surgical intervention in the next 24 to 48 hours. Review of Systems Narrative: Bg is it worsening of her abdominal pain. She is currently unable to tolerate p.o. intake. Her most recent bowel movement was this morning, which was somewhat abnormal for her. She does have irritable bowel syndrome and has been running more towards constipation than diarrhea recently. She states that she has had chills though no documented fever of greater than 100. Constitutional Constitutional: Reports anorexia, Reports chills, Reports lethargy, Reports malaise, Reports night sweats and Reports poor appetite ENT Ears, Nose, Mouth, and Throat: Reports system reviewed and no additional complaints, except as documented and Reports dizziness Cardiovascular Cardiovascular: Reports system reviewed and no additional complaints, except as documented, Reports syncope and Denies dyspnea Respiratory Respiratory: Denies chest congestion, Denies cough and Denies dyspnea Gastrointestinal Gastrointestinal: Reports abdominal pain, Reports bloating, Reports constipation, Reports cramping, Reports early satiety, Denies loose stools and Reports nausea Genitourinary Genitourinary: Reports amenorrhea and Reports vaginal discharge (Watery) Musculoskeletal Musculoskeletal: Reports system reviewed and no additional complaints, except as documented Neurologic Neurologic: Reports dizziness and Reports syncope Psychiatric Psychiatric: Reports system reviewed and no additional complaints, except as documented Hematologic/Lymphatic Hematologic/Lymphatic: Reports system reviewed and no additional complaints, except as documented Allergic/Immunologic Allergic/Immunologic: Reports system reviewed and no additional complaints, except as documented [facility] Medical History Abdominal pain (Acute) Anxiety and depression (Acute) Biceps tendonitis on right (Acute) Bilateral carpal tunnel syndrome (Acute) Bursitis of right shoulder (Acute) Carbon monoxide exposure (Acute) Cervical radiculopathy (Acute) Chest pain Cubital 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 Pt will have repeat mammo 04/2019. Natural gas exposure (Acute) Night sweats Pap smear of cervix shows high risk HPV present (Acute ~10/2018) 10/2018. ECC benign. Plan: repeat test 2019. Paresthesia of both hands (Acute) Polycystic ovarian syndrome Rotator cuff impingement syndrome of right shoulder (Acute) Umbilical abnormality (Acute) Umbilical hernia without mention of obstruction or gangrene (Acute) Vaginal candidiasis (Acute) Vaginal high risk human papillomavirus (HPV) DNA test positive Surgical History section Section with Tubal ligation (04/27/10) Cholecystectomy (01/07/98) Colonoscopy - MAC (07/03/08) D+C (09/17/13) Dilation and curettage Pt reports 4 D&Cs. 3 pregnancies, 2 c/s. EGD - MAC Endometrial Ablation (10/17/14) Pt has referred to the ablation as a partial hysterectomy. H/O umbilical hernia repair (Acute) 10/04/18, Dr Selena Goncalves, [facility] Repair of umbilical hernia (05/21/09) Social History Smoking/Tobacco Use Status: Never Alcohol Intake: current Alcohol Intake frequency: holidays/special occasions only Alcohol type: wine Drug use: Never Substance use type: does not use Details: Number of Children: 2 Seatbelt use: always Do you feel safe at home: Yes Do you feel safe in your relationship?: Yes Female Reproductive History Menstrual Age of Menarche: 12 control method: permanent sterilization History History 3 Para Hx # Term Pregnancies 2 Multiple births Hx # Pregnancies Ectopic pregnancies AB induced Hx Number of Living Children AB spontaneous Meds Home Medications and Allergies Home Medications Medication Instructions Recorded Confirmed Type Excedrin Tension Headache 2 tab PO PRN PRN 10/04/18 07/02/19 History ibuprofen 400 mg PO PRN PRN 10/04/18 07/02/19 History linzess 150 mcg PO HS 12/05/18 07/02/19 History oxycodone-acetaminophen 5 mg-325 1 tab PO Q6H PRN #14 tab MDD 6 06/26/19 07/02/19 Rx mg tablet doxycycline hyclate 100 mg capsule 100 mg PO BID #28 cap 06/27/19 07/02/19 Rx fluconazole 150 mg tablet 150 mg PO ONCE #2 tab 06/27/19 07/02/19 Rx metronidazole 500 mg tablet 500 mg PO Q12H #28 tab 06/27/19 07/02/19 Rx Allergies Allergy/AdvReac Type Severity Reaction Status Date / Time codeine Allergy Severe Hives, Verified 07/02/19 13:18 violent angry Latex, Natural Rubber Allergy Severe If its Verified 07/02/19 13:18 around my mouth I swell, any other area, I swell valerian Allergy Severe Hives Verified 07/02/19 13:18 zolpidem tartrate Allergy Severe minor Verified 07/02/19 13:18 [From Ambien] stroke Penicillins Allergy Mild internal Verified 07/02/19 13:18 bleeding, constipation prednisone Allergy Mild Blisters Verified 07/02/19 13:18 in mouth, abdominal pain Exam Const General: well groomed, in distress, ill appearing and well hydrated Nutritional Appearance: average body habitus Orientation: alert and oriented x3 HENMT Head: normal to inspection, atraumatic and no abrasions Face and sinus: normal facial exam Eyes General: appearance normal, both eyes and all related structures Neck Neck: normal visual inspection Thyroid: thyroid normal Chest Chest: normal inspection of the chest Resp Effort & Inspection: normal respiratory effort Auscultation: clear to auscultation bilaterally, no crackles, no rales, no rhonchi and no wheezes Cardio Rhythm: regular rhythm Heart Sounds: S1 normal and S2 normal GI Inspection: normal to inspection, distended and incision Palpation: guarding and tender Neuro General: patient alert and patient oriented x3 Extrem General: edema (minimal) Psych Appearance: grossly normal and well kempt Results Labs Result diagrams: 07/02/19 14:08 07/02/19 14:09 Last Vital Signs Temp 98.1 F 07/02/19 14:27 Pulse 67 07/02/19 14:27 Resp 18 07/02/19 14:27 BP 136/85 07/02/19 14:27 Pulse Ox 97 07/02/19 14:27 COVID-19 Screening Traveled to [place] from one of the affected countries or regions?: NO Recent travel in the [place] within the last 14 days?: No Recent out of the country travel within the last 14 days?: No Exposure or possible exposure to illness during travel?: No Had IN PERSON contact w/suspected or confirmed C-19 person: No Have you had the following symptoms in the past few days?: No Symptoms noted since travel?: No Symptoms
[2019-07-02] MEDS: MORPHine 2 MG/ML SYR IVP ×3 (15:11→22:14)
[2019-07-02] MEDS: Ondansetron 4 MG/2 ML VIAL IVP (15:11)
[2019-07-02 15:19] LABS: Lactate 0.9 mmol/L (0.6-1.4)
[2019-07-02 15:21] LABS: Abs Immature Grans 0.03 k/cumm (0.0-0.09); Absolute Basophil Count 0.02 k/cumm (0.0-0.2); Absolute Eosinophil Count 0.11 k/cumm (0.0-0.7); Absolute Lymphocyte Count 1.28 k/cumm (1.2-3.4); Absolute Monocyte Count 0.67 k/cumm (0.11-0.7); Absolute Neutrophil Count 4.33 k/cumm (1.2-6.7); Basophils % 0.3; Eosinophils % 1.7; HCT 45.2 % (36.0-46.0); HGB 15.4 g/dL (12.0-15.5); Immature Grans % 0.5 %; Lymphocytes % 19.9; Mean Corp. HGB Concentration 34.1 g/dL (32.0-36.0); Mean Corpuscular Hemoglobin 31.1 pg (27.0-33.0); Mean Corpuscular Volume 91.3 fL (80-95); Mean Platelet Volume 9.8 fL (8.0-11.0); Monocytes % 10.4; Neutrophils % 67.2; Platelet Count 213 x1000/uL (130-400); RBC 4.95 m/cumm (4.00-5.20); RBC Distribution Width 12.9 % (11.7-14.6); White Blood Cell Count 6.44 k/cumm (4.4-10.8)
[2019-07-02] MEDS: Lactated Ringers 250 ML 500 ML IV (15:24)
[2019-07-02 15:37] LABS: ALT 42 U/L (14-59); AST 24 U/L (15-37); Albumin 3.9 g/dL (3.4-5.0); Alkaline Phosphatase 56 U/L (46-116); Anion Gap 6.3 mmol/L (3-11); BUN 10 mg/dL (7-18); Bilirubin, Total 0.5 mg/dL (0.2-1.0); CO2 28.7 mmol/L (21.0-32.0); CREATININE 0.75 mg/dL (0.55-1.02); Calcium 8.9 mg/dL (8.5-10.1); Chloride 102 mmol/L (98-107); Glucose 92 mg/dL (74-106); Potassium 3.9 mmol/L (3.5-5.1); Sodium 137 mmol/L (136-145); Total Protein 7.3 g/dL (6.4-8.2)
[2019-07-02] MEDS: Lactated Ringers 1,000 ML 125 ML IV (16:00)
[2019-07-02 16:02] LABS: HCG Qual (Serum) Negative
[2019-07-02] MEDS: cefOXitin 2 GM in Normal Saline 50 ML 100 ML IVPB ×2 (16:11→22:14)
[2019-07-02] MEDS: Omnipaque 350 MG/ML 100 ML BTL IV (16:27)
[2019-07-02] MEDS: Normal Saline - Diluent 50 ML VIAL IV (17:01)
[2019-07-02] MEDS: Normal Saline Flush 10 ML SYR IVP (17:26)
--- NOTE | 2019-07-02 17:37 | DI.VRAD_ITS ---
PROCEDURE INFORMATION: Exam: CT Abdomen And Pelvis With Contrast Exam date and time: 07/02/2019 2:11 PM Age: 39 years old Clinical indication: Abdominal tenderness; Abdominal pain; Patient HX: Tubal ovarian abcess TECHNIQUE: Imaging protocol: Computed tomography of the abdomen and pelvis with intravenous contrast. Radiation optimization: All CT scans at this facility use at least one of these dose optimization techniques: automated exposure control; mA and/or kV adjustment per patient size (includes targeted exams where dose is matched to clinical indication); or iterative reconstruction. Contrast material: OMNIPAQUE 350; Contrast volume: 100 ml; Contrast route: IV; Other contrast: Oral, ; COMPARISON: CT ABDOMEN PELVIS W 09/07/2018 2:14 PM FINDINGS: Lungs: Bibasilar atelectasis. Liver: The liver is normal. Gallbladder and bile ducts: The gallbladder is surgically absent. Mild intrahepatic biliary ductal dilation is within normal limits for post cholecystectomy state. Pancreas: The pancreas is normal. Spleen: The spleen is normal. Adrenals: The adrenal glands are normal. Kidneys and ureters: The kidneys are normal. Stomach and bowel: Unremarkable. No obstruction. No mucosal thickening. Appendix: No evidence of appendicitis. Intraperitoneal space: Trace pelvic free fluid. Vasculature: Unremarkable. No abdominal aortic aneurysm. Lymph nodes: Unremarkable. No enlarged lymph nodes. Bladder: Unremarkable as visualized. Reproductive: Hyperenhancement of the mildly dilated fluid-filled right fallopian tube (best appreciated on coronal series 6 image 77 through 63). Similar appearing 1.6 cm peripherally enhancing hypodense lesion in the right posterior myometrium favored to represent a fibroid. Additional subcentimeter peripherally enhancing hypodense lesion within the left posterior aspect of the myometrium. Left adnexal cyst is likely physiologic. Bones/joints: Unremarkable. No acute fracture. Soft tissues: Unremarkable. IMPRESSION: Mildly dilated hyperenhancing fluid-filled right fallopian tube suggestive of pyosalpinx in the setting reported pelvic infection. Dictated and Authenticated by: Dante Ward MD. Ordering:NATASHA Pineda MD
[2019-07-02] MEDS: DOXYCYCLINE 100 MG in Normal Saline 100 ML IVPB (18:06)
[2019-07-02 19:05] LABS: Lactate 0.7 mmol/L (0.6-1.4)
[2019-07-02 19:41] VITALS: BP 136/77; PULSE 61; RESP 19; TEMP 36.8; O2SAT 98
[2019-07-02 22:02] LABS: Lactate 0.6 mmol/L (0.6-1.4)
[2019-07-02 23:11] VITALS: BP 138/93; PULSE 62; RESP 19; TEMP 36.9; O2SAT 98
[2019-07-03] MEDS: MORPHine 2 MG/ML SYR IVP ×3 (00:08→06:15)
[2019-07-03] MEDS: Normal Saline Flush 10 ML SYR IVP ×2 (00:08→16:00)
[2019-07-03] MEDS: Lactated Ringers 1,000 ML 125 ML IV ×3 (00:08→17:59)
[2019-07-03] MEDS: Ondansetron 4 MG/2 ML VIAL IVP (03:09)
[2019-07-03] MEDS: cefOXitin 2 GM in Normal Saline 50 ML 100 ML IVPB ×4 (03:37→22:23)
[2019-07-03 03:42] VITALS: BP 101/64; PULSE 56; RESP 19; TEMP 36.9; O2SAT 98
[2019-07-03] MEDS: DOXYCYCLINE 100 MG in Normal Saline 100 ML IVPB (06:15)
[2019-07-03 07:58] VITALS: BP 129/79; PULSE 66; RESP 18; TEMP 36.4; O2SAT 96
--- NOTE | 2019-07-03 08:18 | W.PM.PROGNOT ---
Date of Service Date of service: 07/03/19 Time of Service: 08:19 Assessment and Plan Assessment and plan (1) Tubo-ovarian abscess: Status: Acute Assessment and plan: Continue antibiotic therapy today. Her doxycycline will be transitioned to oral to assess both tolerance and decrease irritation from her IV site. Await her morning CBC to evaluate her white blood cell count. Continue strict I and O. Continue IV hydration. We will continue to evaluate her vital signs, and pain level. If she has significant improvement with clearance of her bowels, we will wait surgical intervention until a further date. (2) Pelvic fullness: Status: Acute (3) Pelvic pain: Status: Acute (4) IBS (irritable bowel syndrome): Status: Chronic Assessment and plan: We will add her home medication, Linzess on a nightly basis (5) Constipation by delayed colonic transit: Status: Acute Assessment and plan: Magnesium citrate once now and once this afternoon to assist in bowel movements Subjective Subjective Interval history since last seen: Patient was seen and examined this morning. She states that throughout the night she has had continued pain however it is somewhat better with pain medication and antiemetics. She states that she is ravenously hungry this morning and denies fevers or chills. She does have a mild frontal headache, which may be related to her her morphine use and lack of caffeine this morning. She does have concerns that her son's birthday is tomorrow, he turns 11, and she is hopeful that she will be able to be present with him. She did sleep last night without significant difficulty. Exam Const General: cooperative, healthy appearing and no acute distress Nutritional Appearance: average body habitus Eyes General: appearance normal, both eyes and all related structures Resp Effort & Inspection: normal respiratory effort, no cough and not tachypneic Auscultation: clear to auscultation bilaterally, no rales, no rhonchi and no wheezes Cardio Palpation: normal PMI Rate: regular rate Rhythm: regular rhythm Heart Sounds: S1 normal, S2 normal and no murmurs GI Inspection: normal to inspection Palpation: soft, not firm, no guarding and tender in the LLQ and in the RLQ Percussion: normal to percussion Auscultation: normal bowel sounds Psych Appearance: grossly normal Mental Status: mental status grossly normal Speech and Movement: speech and movement normal Objective Objective Clinical Data: Vital Signs Temperature 97.5 F L 07/03/19 07:58 Temperature Source Tympanic 07/03/19 07:58 Pulse 66 07/03/19 07:58 Pulse Rhythm Regular 07/03/19 05:10 Respiratory Rate 18 07/03/19 07:58 Respiratory Effort Non-Labored 07/03/19 05:10 Respiratory Depth Normal 07/03/19 05:10 Respiratory Pattern Normal 07/03/19 05:10 Blood Pressure 129/79 07/03/19 07:58 Pulse Oximetry 96 07/03/19 07:58 Oxygen Delivery Method Room Air 07/03/19 07:58 Oxygen Flow Rate 0 07/03/19 07:58 Pain Level 10 07/03/19 07:58 Intake & Output 07/02/19 07/02/19 07/03/19 11:59 23:59 11:59 Intake Total 1093.750 / 1093.750 677.084 / 677.084 Output Total 1150 / 1150 Balance -56.250 / -56.250 677.084 / 677.084 Weight 170 lb 6.677 oz Intake: IV 1093.750 / 1093.750 677.084 / 677.084 Output: Urine 1150 / 1150 Other: Urine Color Yellow Urine Appearance Clear Clear Voiding Methods Toilet Laboratory Results WBC 6.44 k/cumm (4.4-10.8) 07/02/19 15:00 RBC 4.95 m/cumm (4.00-5.20) 07/02/19 15:00 Hgb 15.4 g/dL (12.0-15.5) 07/02/19 15:00 Hct 45.2 % (36.0-46.0) 07/02/19 15:00 MCV 91.3 fL (80-95) 07/02/19 15:00 MCH 31.1 pg (27.0-33.0) 07/02/19 15:00 MCHC 34.1 g/dL (32.0-36.0) 07/02/19 15:00 RDW 12.9 % (11.7-14.6) 07/02/19 15:00 Plt Count 213 x1000/uL (130-400) 07/02/19 15:00 MPV 9.8 fL (8.0-11.0) 07/02/19 15:00 Immature Gran % 0.5 % 07/02/19 15:00 Neutrophils % 67.2 07/02/19 15:00 Lymphocytes % 19.9 07/02/19 15:00 Monocytes % 10.4 07/02/19 15:00 Eosinophils % 1.7 07/02/19 15:00 Basophils % 0.3 07/02/19 15:00 Absolute Neutrophils 4.33 k/cumm (1.2-6.7) 07/02/19 15:00 Absolute Lymphocytes 1.28 k/cumm (1.2-3.4) 07/02/19 15:00 Absolute Monocytes 0.67 k/cumm (0.11-0.7) 07/02/19 15:00 Absolute Eosinophils 0.11 k/cumm (0.0-0.7) 07/02/19 15:00 Absolute Basophils 0.02 k/cumm (0.0-0.2) 07/02/19 15:00 Sodium 137 mmol/L (136-145) 07/02/19 15:00 Potassium 3.9 mmol/L (3.5-5.1) 07/02/19 15:00 Chloride 102 mmol/L (98-107) 07/02/19 15:00 Carbon Dioxide 28.7 mmol/L (21.0-32.0) 07/02/19 15:00 Anion Gap 6.3 mmol/L (3-11) 07/02/19 15:00 BUN 10 mg/dL (7-18) 07/02/19 15:00 Creatinine 0.75 mg/dL (0.55-1.02) 07/02/19 15:00 Estimated GFR/1.73 m2 >= 60.00 (mL/min/1.73m2) 07/02/19 15:00 Glucose 92 mg/dL (74-106) 07/02/19 15:00 Lactate 0.6 mmol/L (0.6-1.4) 07/02/19 22:00 Calcium 8.9 mg/dL (8.5-10.1) 07/02/19 15:00 Total Bilirubin 0.5 mg/dL (0.2-1.0) 07/02/19 15:00 AST 24 U/L (15-37) 07/02/19 15:00 ALT 42 U/L (14-59) 07/02/19 15:00 Alkaline Phosphatase 56 U/L (46-116) 07/02/19 15:00 Total Protein 7.3 g/dL (6.4-8.2) 07/02/19 15:00 Albumin 3.9 g/dL (3.4-5.0) 07/02/19 15:00 Serum HCG, Qual Negative 07/02/19 15:00 Beta HCG, Quant Cancelled 07/02/19 14:11
[2019-07-03 08:29] LABS: COVID-19 RT-PCR UVMMC Result Negative (Negative)
[2019-07-03 09:39] LABS: HCT 38.5 % (36.0-46.0); HGB 12.8 g/dL (12.0-15.5); Mean Corp. HGB Concentration 33.2 g/dL (32.0-36.0); Mean Corpuscular Hemoglobin 30.8 pg (27.0-33.0); Mean Corpuscular Volume 92.5 fL (80-95); Mean Platelet Volume 9.6 fL (8.0-11.0); Platelet Count 185 x1000/uL (130-400); RBC 4.16 m/cumm (4.00-5.20); RBC Distribution Width 12.7 % (11.7-14.6); White Blood Cell Count 4.21 k/cumm (4.4-10.8)
[2019-07-03] MEDS: Doxycycline Hyclate 100 MG CAP PO ×2 (09:43→19:29)
[2019-07-03] MEDS: Magnesium Citrate 300 ML BTL 150 ML PO (09:44)
[2019-07-03 12:00] VITALS: BP 116/56; PULSE 58; RESP 16; TEMP 36.5; O2SAT 98
--- NOTE | 2019-07-03 12:02 | INITIAL_ITS ---
- If Service Date Differs Date of service: 07/03/19 Time of Service: 16:36 Care Management Initial Assess REASON FOR HOSPITALIZATION:: Turbo Ovarian Abcess PAST MEDICAL HISTORY/PAST SURGICAL HISTORY:: Abdominal pain, anxiety and depression, bicep tendonitis on right, bilat carpal tunnel syndrome, bursitis of right shoulder, carbon monoxide exposure, cervical radiculopathy, chest pain, constipation by delayed colonic transit, cubital tunnel syndrome on right, dyspepsia, dysuria, fatigue, female pelvic inflammatory disease, generalized headache, IBS, left breast lump, natural gas exposure, night sweats, HPV, paresthesia of both hands, plycystic ovarian syndrome, rotator cuff impingement syndrome of right shoulder, tubo-ovarian abscess, umbilical abnormality, umbilical hernia without obstruction or gangrene, vaginal candidiasis, with tubal ligation, cholecystectomy, colonoscopy MAC, D+C, EGD MAC, endometrial ablation, umbilical hernia repair PREVIOUS FUNCTIONAL STATUS/SOCIAL/FAMILY SUPPORTS:: Jenise resides in [place], with her four children and her fiance. Her mother resides right down the road from her and is supportive. 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 CURRENT FUNCTIONAL STATUS:: Jenise is sitting up in bed, pleasant in interaction and forthcoming with information. She reports this was an unplanned admission as she lost consiousness at [facility] at an outpatient appointment. Has patient been provided with information about the portal?: Yes Did the patient sign up for the portal?: No CODE STATUS:: Full Code INSURANCE COVERAGE / FINANCIAL ISSUES:: [employer] CURRENT HOME/COMMUNITY SERVICES/EQUIPMENT:: No current services or equipment. PRIMARY CARE PHYSICIAN:: Carter Garcia POTENTIAL DISCHARGE NEEDS:: Follow up appointment with PCP. PATIENT/FAMILY EDUCATION NEEDS:: Review discharge instructions, discuss Ask Me Three. ANTICIPATED BARRIERS TO DISCHARGE:: None identified at this time. TRANSPORTATION:: Via private vehicle with family. PLAN:: Jenise will return home when ready per MD. She will follow up with her PCP and plan of care as prescribed, she will transport via private vehicle with family.
--- NOTE | 2019-07-03 12:52 | PGE_ITS ---
Date of Service Date of service: 07/03/19 Time of Service: 12:52 Subjective Subjective Interval history since last seen: Patient is seen this afternoon. She is feeling somewhat better. Her abdominal pain and discomfort is improving. She does have a mild headache which is also improving after caffeine. She is eating a regular diet which she is tolerating nicely. She has had 1 dose of magnesium citrate and will take her Linzess shortly. She is hopeful that she will continue to feel better and be able to be discharged home tomorrow. We will continue to monitor her vital signs I's and O's and repeat CBC tomorrow. If these are all stable, we would consider discharge on oral medications with follow-up shortly in the office for planning of surgical intervention in the next 2 to 3 weeks. Objective Objective Clinical Data: Abnormal lab results 07/03/19 Range/Units 09:33 WBC 4.21 L D (4.4-10.8) k/cumm Vital Signs Temperature 97.7 F 07/03/19 12:00 Temperature Source Tympanic 07/03/19 12:00 Pulse 58 L 07/03/19 12:00 Pulse Rhythm Regular 07/03/19 08:30 Respiratory Rate 16 07/03/19 12:00 Respiratory Effort Non-Labored 07/03/19 08:30 Respiratory Depth Normal 07/03/19 08:30 Respiratory Pattern Normal 07/03/19 08:30 Blood Pressure 116/56 L 07/03/19 12:00 Pulse Oximetry 98 07/03/19 12:00 Oxygen Delivery Method Room Air 07/03/19 12:00 Oxygen Flow Rate 0 07/03/19 12:00 Pain Level 8 07/03/19 12:00 Intake & Output 07/02/19 07/03/19 07/03/19 23:59 11:59 23:59 Intake Total 1093.750 / 0584.755 3211.084 / 1442.084 Output Total 1150 / 1150 900 / 900 Balance -56.250 / -56.250 542.084 / 542.084 Weight 170 lb 6.677 oz Intake: IV 1093.750 / 0778.244 0604.084 / 1202.084 Oral 240 / 240 Output: Urine 1150 / 1150 900 / 900 Other: Urine Color Yellow Yellow Urine Appearance Clear Clear Urine Odor None Voiding Methods Toilet Toilet Laboratory Results WBC 4.21 k/cumm (4.4-10.8) L D 07/03/19 09:33 RBC 4.16 m/cumm (4.00-5.20) 07/03/19 09:33 Hgb 12.8 g/dL (12.0-15.5) D 07/03/19 09:33 Hct 38.5 % (36.0-46.0) 07/03/19 09: MCV 92.5 fL (80-95) 07/03/19 09: MCH 30.8 pg (27.0-33.0) 07/03/19 09: MCHC 33.2 g/dL (32.0-36.0) 07/03/19 09: RDW 12.7 % (11.7-14.6) 07/03/19 09:33 Plt Count 185 x1000/uL (130-400) 07/03/19 09: MPV 9.6 fL (8.0-11.0) 07/03/19 09:33 Immature Gran % 0.5 % 07/02/19 15:00 Neutrophils % 67.2 07/02/19 15:00 Lymphocytes % 19.9 07/02/19 15:00 Monocytes % 10.4 07/02/19 15:00 Eosinophils % 1.7 07/02/19 15:00 Basophils % 0.3 07/02/19 15:00 Absolute Neutrophils 4.33 k/cumm (1.2-6.7) 07/02/19 15:00 Absolute Lymphocytes 1.28 k/cumm (1.2-3.4) 07/02/19 15:00 Absolute Monocytes 0.67 k/cumm (0.11-0.7) 07/02/19 15:00 Absolute Eosinophils 0.11 k/cumm (0.0-0.7) 07/02/19 15:00 Absolute Basophils 0.02 k/cumm (0.0-0.2) 07/02/19 15:00 Sodium 137 mmol/L (136-145) 07/02/19 15:00 Potassium 3.9 mmol/L (3.5-5.1) 07/02/19 15:00 Chloride 102 mmol/L (98-107) 07/02/19 15:00 Carbon Dioxide 28.7 mmol/L (21.0-32.0) 07/02/19 15:00 Anion Gap 6.3 mmol/L (3-11) 07/02/19 15:00 BUN 10 mg/dL (7-18) 07/02/19 15:00 Creatinine 0.75 mg/dL (0.55-1.02) 07/02/19 15:00 Estimated GFR/1.73 m2 >= 60.00 (mL/min/1.73m2) 07/02/19 15:00 Glucose 92 mg/dL (74-106) 07/02/19 15:00 Lactate 0.6 mmol/L (0.6-1.4) 07/02/19 22:00 Calcium 8.9 mg/dL (8.5-10.1) 07/02/19 15:00 Total Bilirubin 0.5 mg/dL (0.2-1.0) 07/02/19 15:00 AST 24 U/L (15-37) 07/02/19 15:00 ALT 42 U/L (14-59) 07/02/19 15:00 Alkaline Phosphatase 56 U/L (46-116) 07/02/19 15:00 Total Protein 7.3 g/dL (6.4-8.2) 07/02/19 15:00 Albumin 3.9 g/dL (3.4-5.0) 07/02/19 15:00 Serum HCG, Qual Negative 07/02/19 15:00 Beta HCG, Quant Cancelled 07/02/19 14:11 COVID-19 PCR Negative (Negative) 07/02/19 17:45 Nasopharyn COVID-19 PCR Not Applicable 07/02/19 17:45 Ref Test Perform Site [facility] hospital lab 07/02/19 17:45
--- NOTE | 2019-07-03 13:20 | CHAPLAIN ---
Jenise was sitting up in bed when I visited. She was pleasant and thanked me for checking in, but did not seem interested in further conversation. She said she has been in touch with her children by phone and that has been helpful to her.
--- NOTE | 2019-07-03 13:43 | PHA.REVIEW ---
Pharmacy Admission Review - Admission Clinical Review (Last Updated 07/03/19 @ 08:22 by Miriam Saravia DO) Constipation by delayed colonic transit (Acute) Tubo-ovarian abscess (Acute) Pelvic fullness (Acute) Pelvic pain (Acute) codeine Allergy (Severe, Verified 07/02/19 13:18) Hives, violent angry Latex, Natural Rubber Allergy (Severe, Verified 07/02/19 13:18) If its around my mouth I swell, any other area, I swell valerian Allergy (Severe, Verified 07/02/19 13:18) Hives zolpidem tartrate [From Ambien] Allergy (Severe, Verified 07/02/19 13:18) minor stroke Penicillins Allergy (Mild, Verified 07/02/19 13:18) internal bleeding, constipation prednisone Allergy (Mild, Verified 07/02/19 13:18) Blisters in mouth, abdominal pain Height 6 ft Weight 77.3 kg - Comments Comments/Follow Ups: Doxycycline transitioned to PO today. IV CEfoxitn continues - Renal Dosing Renal Dosing: BUN 10 mg/dL (7-18) 07/02/19 15:00 Creatinine 0.75 mg/dL (0.55-1.02) 07/02/19 15:00 - Anticoagulation Anticoagulation: Hgb 12.8 g/dL (12.0-15.5) D 07/03/19 09:33 Hct 38.5 % (36.0-46.0) 07/03/19 09:33 Plt Count 185 x1000/uL (130-400) 07/03/19 09:33 Creatinine 0.75 mg/dL (0.55-1.02) 07/02/19 15:00 DVT Prohphylaxis: N/A Therapeutic Anticoagulation: N/A - Opiate Usage Evaluate Pain Scale/Pains Meds: Reviewed (IV Morphine) Scheduled Bowel Reg ordered if on Opiates?: Yes - Relevant Labs Sodium 137 mmol/L (136-145) 07/02/19 15:00 Potassium 3.9 mmol/L (3.5-5.1) 07/02/19 15:00 Chloride 102 mmol/L (98-107) 07/02/19 15:00 - DM Control DM Control: Glucose 92 mg/dL (74-106) 07/02/19 15:00 Insulin Dosing: N/A - Heart Failure/CO EF%, CRYSTAL's, B-Blockers, Diuretics: N/A - BP Control BP Control: Blood Pressure 116/56 Blood Pressure 129/79 Blood Pressure 101/64 If elevated: N/A - Qtc Review If Elevated: N/A - IV to PO Switch IV Medications: Reviewed (Cefoxitin still IV) - Current meds Current Medication Order Review: Reviewed (Emily PLASENCIA & Kahlil) - Comments Comments/Follow Ups: PROBABLE DISCHARGE HOME TOMORROW
[2019-07-03 15:23] VITALS: BP 136/84; PULSE 49; RESP 18; TEMP 36.6; O2SAT 98
[2019-07-03 18:57] VITALS: BP 117/73; PULSE 50; RESP 18; TEMP 37.1; O2SAT 100
[2019-07-03 20:31] VITALS: PULSE 58
[2019-07-04 00:07] VITALS: BP 133/85; PULSE 54; RESP 19; TEMP 36.8; O2SAT 98
[2019-07-04] MEDS: Lactated Ringers 1,000 ML 125 ML IV (02:03)
[2019-07-04] MEDS: cefOXitin 2 GM in Normal Saline 50 ML 100 ML IVPB (04:11)
[2019-07-04 04:20] VITALS: BP 126/77; PULSE 60; RESP 16; TEMP 36.6; O2SAT 96
--- NOTE | 2019-07-04 06:49 | PGE_ITS ---
Date of Service Date of service: 07/04/19 Time of Service: 06:49 Assessment and Plan Assessment and plan (1) Tubo-ovarian abscess: Status: Acute Assessment and plan: She is tolerating antibiotics without difficulty. She will complete a 14-day course of antibiotic therapy. She will be seen back in the office in approximately 2 weeks time for further evaluation. She underst ands to call the office sooner if she has any concerns or issues. We will plan on surgical exploration with at minimum bilateral salpingectomy, possible hysterectomy in the future. (2) Pelvic fullness: Status: Acute Assessment and plan: Resolved (3) Pelvic pain: Status: Acute Assessment and plan: Resolved (4) IBS (irritable bowel syndrome): Status: Chronic Assessment and plan: Improved. Continues on Linzess. 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 We may be able to optimize her irritable bowel syndrome regime with outpatient therapy. (5) Constipation by delayed colonic transit: Status: Acute Assessment and plan: Resolved Subjective Subjective Patient reports: feels better, tolerating a regular diet and voiding w/o difficulty Interval history since last seen: Son was seen this morning. She states that she is feeling fantastic. She has had bowel movements, is voiding well, and tolerating an oral diet without. She has no fevers or chills. She has had no nausea or vomiting. Her abdominal discomfort is nearly resolved. Exam Narrative Exam Narrative: On examination this morning and review of her vital signs, vital signs are stable she is alert and oriented. She is comfortable and in no acute distress her abdomen is soft and nontender there is no evidence of rebound rigidity or guarding. Extremities show scant edema which is improved since previous admission. Objective Objective Clinical Data: Abnormal lab results 07/03/19 Range/Units 09:33 WBC 4.21 L D (4.4-10.8) k/cumm Vital Signs Temperature 97.9 F 07/04/19 04:20 Temperature Source Tympanic 07/04/19 04:20 Pulse 60 07/04/19 04:20 Pulse Rhythm Regular 07/04/19 04:20 Respiratory Rate 16 07/04/19 04:20 Respiratory Effort 07/04/19 04:20 Respiratory Depth Normal 07/04/19 04:20 Respiratory Pattern Normal 07/04/19 04:20 Blood Pressure 126/77 07/04/19 04:20 Pulse Oximetry 96 07/04/19 04:20 Oxygen Delivery Method Room Air 07/04/19 04:20 Oxygen Flow Rate 0 07/04/19 04:20 Pain Level 0 07/04/19 04:20 Intake & Output 07/03/19 07/03/19 07/04/19 11:59 23:59 11:59 Intake Total 1442.084 / 3682.084 2240 / 3682.084 1450 / 1450 Output Total 900 / 2300 1400 / 2300 1450 / 1450 Balance 542.084 / 1382.084 840 / 1382.084 0 / 0 Intake: IV 1202.084 / 2352.084 1150 / 2352.084 1000 / 1000 Oral 240 / 1330 1090 / 1330 450 / 450 Output: Urine 900 / 2300 1400 / 2300 1450 / 1450 Other: Urine Color Yellow Yellow Yellow Urine Appearance Clear Clear Clear Urine Odor None Normal Comment PUT OUT 1,450CC CLEAR YELLOW URINE FROM 2300 TO NOW 0420. Stool Size Small Stool Characteristics Liquid Brown Voiding Methods Toilet Toilet Toilet Laboratory Results WBC 4.21 k/cumm (4.4-10.8) L D 07/03/19 09:33 RBC 4.16 m/cumm (4.00-5.20) 07/03/19 09:33 Hgb 12.8 g/dL (12.0-15.5) D 07/03/19 09:33 Hct 38.5 % (36.0-46.0) 07/03/19 09:33 MCV 92.5 fL (80-95) 07/03/19 09:33 MCH 30.8 pg (27.0-33.0) 07/03/19 09:33 MCHC 33.2 g/dL (32.0-36.0) 07/03/19 09:33 RDW 12.7 % (11.7-14.6) 07/03/19 09:33 Plt Count 185 x1000/uL (130-400) 07/03/19 09:33 MPV 9.6 fL (8.0-11.0) 07/03/19 09:33 Immature Gran % 0.5 % 07/02/19 15:00 Neutrophils % 67.2 07/02/19 15:00 Lymphocytes % 19.9 07/02/19 15:00 Monocytes % 10.4 07/02/19 15:00 Eosinophils % 1.7 07/02/19 15:00 Basophils % 0.3 07/02/19 15:00 Absolute Neutrophils 4.33 k/cumm (1.2-6.7) 07/02/19 15:00 Absolute Lymphocytes 1.28 k/cumm (1.2-3.4) 07/02/19 15:00 Absolute Monocytes 0.67 k/cumm (0.11-0.7) 07/02/19 15:00 Absolute Eosinophils 0.11 k/cumm (0.0-0.7) 07/02/19 15:00 Absolute Basophils 0.02 k/cumm (0.0-0.2) 07/02/19 15:00 Sodium 137 mmol/L (136-145) 07/02/19 15:00 Potassium 3.9 mmol/L (3.5-5.1) 07/02/19 15:00 Chloride 102 mmol/L (98-107) 07/02/19 15:00 Carbon Dioxide 28.7 mmol/L (21.0-32.0) 07/02/19 15:00 Anion Gap 6.3 mmol/L (3-11) 07/02/19 15:00 BUN 10 mg/dL (7-18) 07/02/19 15:00 Creatinine 0.75 mg/dL (0.55-1.02) 07/02/19 15:00 Estimated GFR/1.73 m2 >= 60.00 (mL/min/1.73m2) 07/02/19 15:00 Glucose 92 mg/dL (74-106) 07/02/19 15:00 Lactate 0.6 mmol/L (0.6-1.4) 07/02/19 22:00 Calcium 8.9 mg/dL (8.5-10.1) 07/02/19 15:00 Total Bilirubin 0.5 mg/dL (0.2-1.0) 07/02/19 15:00 AST 24 U/L (15-37) 07/02/19 15:00 ALT 42 U/L (14-59) 07/02/19 15:00 Alkaline Phosphatase 56 U/L (46-116) 07/02/19 15:00 Total Protein 7.3 g/dL (6.4-8.2) 07/02/19 15:00 Albumin 3.9 g/dL (3.4-5.0) 07/02/19 15:00 Serum HCG, Qual Negative 07/02/19 15:00 Beta HCG, Quant Cancelled 07/02/19 14:11 COVID-19 PCR Negative (Negative) 07/02/19 17:45 Nasopharyn COVID-19 PCR Not Applicable 07/02/19 17:45 Ref Test Perform Site [facility] hospital lab 07/02/19 17:45
--- NOTE | 2019-07-04 07:13 | DSE_ITS ---
Date of service: 07/04/19 Time of Service: 07:13 DS: Diagnosis Discharge Diagnosis (1) Tubo-ovarian abscess: Status: Acute (2) Pelvic fullness: Status: Acute (3) Pelvic pain: Status: Acute (4) IBS (irritable bowel syndrome): Status: Chronic (5) Constipation by delayed colonic transit: Status: Acute Discharge Plan Disposition Patient Disposition: HOME Condition: Good Discharge Details Reason For Visit: TUBO OVARIAN ABCESS Admit Date/Time: 07/02/19 13:57 Admit Provider: Miriam Saravia Attending Provider: Miriam Saravia Primary Care Provider: Carter Garcia Hospital Course Hospital Course: Jenise was admitted to the hospital after failed outpatient management for suspected tubo-ovarian abscess. Her outpatient course was complicated by the fact that she also has irritable bowel syndrome and is prone to constipation. At home she was unable to tolerate oral intake including antibiotics and pain medication. She was admitted for IV hydration, IV antibiotic therapy, serial laboratory studies, and pain control. She had a good response to IV pain medication. CT scan that was performed revealed fluid collection in the right adnexa consistent with small possible tubo-ovarian abscess. She also had a significant amount of colonic stool. She had bowel preparation done which relieved her constipation and her abdominal pain. She was able to tolerate oral antibiotics oral pain medication and a regular diet and was discharged to home to complete her course of therapy. Home Meds and New Rx's Prescriptions: New amoxicillin-pot clavulanate 1,000-62.5 mg tablet extended release 12 hr 1 tab PO BID 7 Days Qty: 14 RF: 0 oxycodone-acetaminophen [Percocet] 5-325 mg tablet 1 tab PO Q6H PRNQty: 10 RF: 0 Continued oxycodone-acetaminophen [Percocet] 5-325 mg tablet 1 tab PO Q6H MDD 6 PRN (Reason: pain) Qty: 14 RF: 0 doxycycline hyclate 100 mg capsule 100 mg PO BID Qty: 28 RF: 0 fluconazole [Diflucan] 150 mg tablet 150 mg PO ONCE Qty: 2 RF: 2 linzess 150 mcg PO HS RF: 0 Excedrin Tension Headache 500-65 mg Tablet 2 tab PO PRN PRNRF: 0 ibuprofen 200 mg Capsule 400 mg PO PRN PRNRF: 0 Discontinued metronidazole [Flagyl] 500 mg tablet 500 mg PO Q12H Qty: 28 RF: 0 Discharge Instructions Instructions: Ovarian Abscess (DC) Care Plan Goals: Completion of 14 days of oral antibiotics Stand Alone Forms: Nursing Discharge Form Referrals: Miriam Saravia DO [OSTEOPATHIC DOCTOR] - (Call the office after 8:00 to be seen within 2 weeks) Activity:: Activity as Tolerated Activity:: Activity as Tolerated Equipment/Supplies:: No Equipment Needed Diet:: As Tolerated Discharge Orders Discharge Orders: Discharge Order (Routine); Ordered 07/04/19 Ordered By: Miriam Saravia Discharge Data Discharge Comment: Discharge to home today. Discharge Physician: Miriam Saravia DS: Summary Status at Discharge Functional status at discharge: independent ambulation Overall status at discharge: patient is back to baseline Mental Status: mental status grossly normal Speech and Movement: speech and movement normal Mood: congruent mood Affect: normal affect Exam Psych Mental Status: mental status grossly normal Speech and Movement: speech and movement normal Mood: congruent mood Affect: normal affect DS: Data Vitals/I&O Vitals and I&O: Vital Signs Temperature 97.9 F 07/04/19 04:20 Temperature Source Tympanic 07/04/19 04:20 Pulse 60 07/04/19 04:20 Pulse Rhythm Regular 07/04/19 04:20 Respiratory Rate 16 07/04/19 04:20 Respiratory Effort 07/04/19 04:20 Respiratory Depth Normal 07/04/19 04:20 Respiratory Pattern Normal 07/04/19 04:20 Blood Pressure 126/77 07/04/19 04:20 Pulse Oximetry 96 07/04/19 04:20 Oxygen Delivery Method Room Air 07/04/19 04:20 Oxygen Flow Rate 0 07/04/19 04:20 Pain Level 0 07/04/19 04:20 Intake & Output 07/03/19 07/03/19 07/04/19 11:59 23:59 11:59 Intake Total 1442.084 / 3682.084 2240 / 3682.084 1450 / 1450 Output Total 900 / 2300 1400 / 2300 1450 / 1450 Balance 542.084 / 1382.084 840 / 1382.084 0 / 0 Intake: IV 1202.084 / 2352.084 1150 / 2352.084 1000 / 1000 Oral 240 / 1330 1090 / 1330 450 / 450 Output: Urine 900 / 2300 1400 / 2300 1450 / 1450 Other: Urine Color Yellow Yellow Yellow Urine Appearance Clear Clear Clear Urine Odor None Normal Comment PUT OUT 1,450CC CLEAR YELLOW URINE FROM 2300 TO NOW 0420. Stool Size Small Stool Characteristics Liquid Brown Voiding Methods Toilet Toilet Toilet Data Completed and Pending Labs on day of discharge: Labs from last 24 hours 07/03/19 07/02/19 09:33 17:45 WBC 4.21 L D RBC 4.16 Hgb 12.8 D Hct 38.5 MCV 92.5 MCH 30.8 MCHC 33.2 RDW 12.7 Plt Count 185 MPV 9.6 COVID-19 PCR Negative Nasopharyn COVID-19 PCR Not Applicable Ref Test Perform Site [facility] Medical History Abdominal pain (Acute) Anxiety and depression (Acute) Biceps tendonitis on right (Acute) Bilateral carpal tunnel syndrome (Acute) Bursitis of right shoulder (Acute) Carbon monoxide exposure (Acute) Cervical radiculopathy (Acute) Chest pain Constipation by delayed colonic transit (Acute) Cubital tunnel syndrome on right (Acute) Dyspepsia (Acute) Dysuria Fatigue (Acute) Female pelvic inflammatory disease Generalized headaches (Acute) IBS (irritable bowel syndrome) (Chronic) IBS (irritable bowel syndrome) (Chronic) Left breast lump (Acute ~10/2018) 6x4mm. Pt will have repeat mammo 04/2019. Natural gas exposure (Acute) Night sweats Pap smear of cervix shows high risk HPV present (Acute ~10/2018) 10/2018. ECC benign. Plan: repeat test 2019. Paresthesia of both hands (Acute) Polycystic ovarian syndrome Rotator cuff impingement syndrome of right shoulder (Acute) Tubo-ovarian abscess (Acute) Umbilical abnormality (Acute) Umbilical hernia without mention of obstruction or gangrene (Acute) Vaginal candidiasis (Acute) Vaginal high risk human papillomavirus (HPV) DNA test positive Surgical History section Section with Tubal ligation (04/27/10) Cholecystectomy (01/07/98) Colonoscopy - MAC (07/03/08) D+C (09/17/13) Dilation and curettage Pt reports 4 D&Cs. 3 pregnancies, 2 c/s. EGD - MAC Endometrial Ablation (10/17/14) Pt has referred to the ablation as a partial hysterectomy. H/O umbilical hernia repair (Acute) 10/04/18, Dr Selena Goncalves, [facility] Repair of umbilical hernia (05/21/09) Family History Mother Colitis Depression Diverticula of colon Mental disorder Stroke Grandparents on mother and father's size Thyroid disease Father Diabetes Depression Heart disease Mental disorder Sister Diverticula of colon Fibromyalgia Social History Smoking/Tobacco Use Status: Never Alcohol Intake: current Alcohol Intake frequency: holidays/special occasions only Alcohol type: wine Drug use: Never Substance use type: does not use Details: Number of Children: 2 Seatbelt use: always Do you feel safe at home: Yes Do you feel safe in your relationship?: Yes Female Reproductive History Menstrual Age of Menarche: 12 control method: permanent sterilization History History 3 Para Hx # Term Pregnancies 2 Multiple births Hx # Pregnancies Ectopic pregnancies AB induced Hx Number of Living Children AB spontaneous
--- NOTE | 2019-07-04 08:55 | PDOC.CMDIS ---
LACE Index Scoring Tool - Questions: Length of Stay (in days): 2 Acuity (Admit via E.D.?): No Comorbidities: Any Tumor E.D. Visits: 1 - Answers: Total Score: 5 Risk of Readmission: Low Risk Care Management Discharge Reason for Hospitalization: Turbo Ovarian Abcess Discharge Plan: Jenise will return home when ready per MD. She will continue oral antibiotic course, follow up with her PCP and Surgical services, as well as her plan of care as prescribed. She will transport via private vehicle with her fiance. Patient/Family Education Needs: Review discharge instructions, discuss Ask Me Three.
== END 2019-07-04 07:36 | disposition home or self-care (01) | DRG 759 ==
PROVIDERS: Admitting Provider Obstetrics & Gynecology; PCP Internal Medicine; Visit Provider Obstetrics & Gynecology
DX: N70.03 Acute salpingitis and oophoritis (principal); R10.2 Pelvic and perineal pain; K58.1 Irritable bowel syndrome with constipation; R51 Headache
CPT/HCPCS: 80053; 85027; 99222; 99232; 99238; NC; U0003; 74177; 83605; 84702; 84703; 85025; J2270; J2405; J3490

== ENCOUNTER 2019-07-19 02:38 | Outpatient (CLI) | payer MEDICAID, SELFPAY | END 2019-07-19 02:58 | PROVIDERS: PCP Internal Medicine; Visit Provider Obstetrics & Gynecology | DX: R55 Syncope and collapse (principal) | CPT/HCPCS: 93005; 93010 ==

== ENCOUNTER 2019-07-29 03:10 | Outpatient (CLI) | payer MEDICAID, SELFPAY ==
[2019-07-29 11:24] LABS: Abs Immature Grans 0.03 k/cumm (0.0-0.09); Absolute Basophil Count 0.01 k/cumm (0.0-0.2); Absolute Eosinophil Count 0.11 k/cumm (0.0-0.7); Absolute Lymphocyte Count 1.26 k/cumm (1.2-3.4); Absolute Monocyte Count 0.49 k/cumm (0.11-0.7); Absolute Neutrophil Count 4.37 k/cumm (1.2-6.7); Basophils % 0.2; Eosinophils % 1.8; HCT 41.1 % (36.0-46.0); HGB 14.3 g/dL (12.0-15.5); Immature Grans % 0.5 %; Lymphocytes % 20.1; Mean Corp. HGB Concentration 34.8 g/dL (32.0-36.0); Mean Corpuscular Hemoglobin 31.3 pg (27.0-33.0); Mean Corpuscular Volume 89.9 fL (80-95); Mean Platelet Volume 9.7 fL (8.0-11.0); Monocytes % 7.8; Neutrophils % 69.6; Platelet Count 221 x1000/uL (130-400); RBC 4.57 m/cumm (4.00-5.20); RBC Distribution Width 12.8 % (11.7-14.6); White Blood Cell Count 6.27 k/cumm (4.4-10.8)
[2019-07-29 11:43] LABS: HCG Qual (Urine) Negative
== END 2019-07-29 03:30 ==
PROVIDERS: PCP Internal Medicine; Visit Provider Obstetrics & Gynecology
DX: N70.93 Salpingitis and oophoritis, unspecified (principal); Z01.818 Encounter for other preprocedural examination
CPT/HCPCS: 86850; 86900; 86901; 81025; 85025

== ENCOUNTER 2019-07-29 08:02 | Outpatient (CLI) | payer MEDICAID, SELFPAY ==
[2019-07-29 21:20] LABS: COVID-19 RT-PCR UVMMC Result Negative (Negative)
== END 2019-07-29 08:22 ==
PROVIDERS: PCP Internal Medicine; Visit Provider Obstetrics & Gynecology
DX: Z11.59 Encounter for screening for other viral diseases (principal); Z01.818 Encounter for other preprocedural examination
CPT/HCPCS: U0003

== ENCOUNTER 2019-07-31 07:07 | Inpatient (IN) | payer MEDICAID, SELFPAY ==
--- NOTE | 2019-07-30 06:55 | HPE_ITS ---
Date of service: 07/16/19 Assessment and Plan Assessment and plan (1) Tubo-ovarian abscess: Status: Acute Assessment and plan: Plan is for laparoscopically assisted vaginal hysterectomy with bilateral salpingectomy, possible total abdominal hysterectomy with bilateral helping oophorectomy. Risks benefits and alternatives of the procedure have been explained to the patient including infection, bleeding, injury to surrounding organs, risk of anesthesia, risk of thromboembolic disorders, potential . Patient also understands that if there is significant scar tissue conversion to an open laparotomy for completion of hysterectomy with bilateral salpingectomy, possible bilateral salpingo- oophorectomy will be performed. Baseline laboratory studies including CBC type and screen will be performed along with urine test and EKG. (2) Pelvic pain: Status: Acute Assessment and plan: As above (3) Pelvic fullness: Status: Acute Assessment and plan: As above History of Present Illness History of Present Illness Chief Complaint: Pelvic pain, suspect tubo-ovarian abscess Narrative: Patient is a 39-year-old female who was initially seen by me in the office approximately 6 weeks prior. She presented with exquisite right lower quadrant pain and discomfort. On her evaluation pelvic ultrasound confirmed approximately 3 cm fluid collection in the right adnexa suspicious for tubo-ovarian abscess. Do this fact she was initially treated empirically with outpatient therapy which she failed due to poor pain control and inability to tolerate oral antibiotics due to nausea and vomiting. Subsequent to that she was admitted to the hospital, received 48 hours of IV antibiotics and had market improvement. Her clinical presentation is confounded by the fact that she has irritable bowel syndrome with slow motility transit and chronic constipation which may can be contributing to her pain. CT of the pelvis confirmed fluid collection and significant amount of stool present throughout the GI tract. She did receive a bowel prep at that point and had significant improvement in her pain. She was discharged home to complete her 14-day course of oral antibiotic therapy. She was seen back in the office with persistent crampy lower pelvic pain and discomfort and wishes definitive therapy. The discussion regarding hysterectomy with bilateral salpingectomy and possible total abdominal hysterectomy with bilateral salpingo-oophorectomy were discussed. Full informed consent was obtained. Review of Systems Narrative: Significant right lower quadrant and lower pelvic pain and discomfo rt. Occasional chills. No documented fever. Good regulation of her bowel movements with the use of Linzess. Patient has had no menstrual cycles due to previous endometrial ablation. Constitutional Constitutional: Reports night sweats and Reports poor appetite Eyes Eyes: Reports system reviewed and no additional complaints, except as documented and Denies loss of vision ENT Ears, Nose, Mouth, and Throat: Reports system reviewed and no additional complaints, except as documented Cardiovascular Cardiovascular: Reports system reviewed and no additional complaints, except as documented, Denies chest pain, Reports syncope and Denies dyspnea Respiratory Respiratory: Reports system reviewed and no additional complaints, except as documented and Denies dyspnea Gastrointestinal Comments: Patient has history of chronic constipation. More recently her bowel movements have been better controlled with the use of Linzess. She occasionally feels bloated and has significant abdominal crampiness. Genitourinary Genitourinary: Denies abnormal vaginal bleeding, Reports amenorrhea, Reports pelvic pain, Denies urinary urgency, Denies vaginal discharge and Denies vaginal odor Musculoskeletal Musculoskeletal: Reports system reviewed and no additional complaints, except as documented Integumentary/Breasts Skin/Breast: Reports system reviewed and no additional complaints, except as documented Neurologic Neurologic: Reports system reviewed and no additional complaints, except as documented, Reports syncope, Denies localized weakness, Denies loss of vision and Denies convulsions Comments: Patient is occasional syncopal episodes associated with severe crampy lower abdominal pain. Psychiatric Psychiatric: Reports system reviewed and no additional complaints, except as doc umented Endocrine Endocrine: Reports system reviewed and no additional complaints, except as documented Hematologic/Lymphatic Hematologic/Lymphatic: Reports system reviewed and no additional complaints, except as documented [facility] Medical History Abdominal pain (Acute) Anxiety and depression (Acute) Biceps tendonitis on right (Acute) Bilateral carpal tunnel syndrome (Acute) Bursitis of right shoulder (Acute) Carbon monoxide exposure (Acute) Cervical radiculopathy (Acute) Chest pain With high anxiety would give me chest pain Constipation by delayed colonic transit (Acute) Cubital tunnel syndrome on right (Acute) Dyspepsia (Acute) Dysuria Fatigue (Acute) Female pelvic inflammatory disease Generalized headaches (Acute) IBS (irritable bowel syndrome) (Chronic) IBS (irritable bowel syndrome) (Chronic) Left breast lump (Acute ~10/2018) 6x4mm. Pt will have repeat mammo 04/2019. Natural gas exposure (Acute) Night sweats Pap smear of cervix shows high risk HPV present (Acute ~10/2018) 10/2018. ECC benign. Plan: repeat test 2019. Paresthesia of both hands (Acute) Polycystic ovarian syndrome Rotator cuff impingement syndrome of right shoulder (Acute) Tubo-ovarian abscess (Acute) Umbilical abnormality (Acute) Umbilical hernia without mention of obstruction or gangrene (Acute) Vaginal candidiasis (Acute) Vaginal high risk human papillomavirus (HPV) DNA test positive Surgical History section Section with Tubal ligation (04/27/10) Cholecystectomy (01/07/98) Colonoscopy - MAC (07/03/08) D+C (09/17/13) Dilation and curettage Pt reports 4 D&Cs. 3 pregnancies, 2 c/s. EGD - MAC Endometrial Ablation (10/17/14) Pt has referred to the ablation as a partial hysterectomy. H/O umbilical hernia repair (Acute) 10/04/18, Dr Selena Goncalves, [facility] Repair of umbilical hernia (05/21/09) Social History Smoking/Tobacco Use Status: Former Tobacco Use Quit Date: 02/21/12 Alcohol Intake: current Alcohol Intake frequency: a few times a month Alcohol type: wine Drug use: Never Substance use type: does not use Details: Number of Children: 2 Seatbelt use: always Do you feel safe at home: Yes Do you feel safe in your relationship?: Yes Female Reproductive History Menstrual Age of Menarche: 12 control method: permanent sterilization History History 3 Para Hx # Term Pregnancies 2 Multiple births Hx # Pregnancies Ectopic pregnancies AB induced Hx Number of Living Children AB spontaneous Meds Home Medications and Allergies Home Medications Medication Instructions Recorded Confirmed Type Excedrin Tension Headache 2 tab PO PRN PRN 10/04/18 07/29/19 History ibuprofen 400 mg PO PRN PRN 10/04/18 07/29/19 History linzess 150 mcg PO HS 12/05/18 07/29/19 History doxycycline hyclate 100 mg capsule 100 mg PO BID #28 cap 06/27/19 07/29/19 Rx fluconazole 150 mg tablet 150 mg PO ONCE #2 tab 06/27/19 07/29/19 Rx oxycodone-acetaminophen 5 mg-325 1 tab PO Q6H PRN #10 tab MDD 6 07/25/19 07/29/19 Rx mg tablet Allergies Allergy/AdvReac Type Severity Reaction Status Date / Time codeine Allergy Severe Hives, Verified 07/29/19 14:44 violent angry Latex, Natural Rubber Allergy Severe If its Verified 07/29/19 14:44 around my mouth I swell, any other area, I swell valerian Allergy Severe Hives Verified 07/29/19 14:44 zolpidem tartrate Allergy Severe minor Verified 07/29/19 14:44 [From Ambien] stroke Penicillins Allergy Mild internal Verified 07/29/19 14:44 bleeding, constipation prednisone Allergy Mild Blisters Verified 07/29/19 14:44 in mouth, abdominal pain Exam Const General: healthy appearing and comfortable Nutritional Appearance: average body habitus Orientation: alert and oriented x3 HENMT Head: normal to inspection Eyes General: appearance normal, both eyes and all related structures Neck Neck: normal visual inspection Thyroid: thyroid normal and no masses Resp Effort & Inspection: normal respiratory effort Auscultation: clear to auscultation bilaterally, no rales, no rhonchi and no wheezes Cardio Rate: regular rate Heart Sounds: S1 normal, S2 normal and no murmurs GI Inspection: normal to inspection Palpation: soft, not firm, no guarding and no hernias Auscultation: normal bowel sounds Other: Prior section and umbilical hernia repair scars are present External Female Exam: normal external appearance Speculum Exam - Vagina: normal appearance of the vagina Speculum Exam - Cervix: normal appearance of the cervix Bimanual Exam- Vagina & Uterus: uterine size normal Bimanual Exam- Adnexa, other: normal, tender, No cystocele and No vaginal apex descent Other: Generalized tenderness with deep palpation particularly in the right lower quadrant Skin General skin exam: no rashes or lesions noted Neuro General: patient alert, patient awake and patient oriented x3 Cognition: normal cognition Speech: speech normal Gait: normal gait Motor: muscle tone normal throughout Extrem General: normal to inspection Psych Appearance: grossly normal Mental Status: mental status grossly normal Speech and Movement: speech and movement normal Mood: congruent mood Affect: normal affect Attitude: cooperative Thought Process: normal COVID-19 Screening In the past 14 days, have you traveled outside of [place] or [place]?: NO Had IN PERSON contact w/suspected or confirmed C-19 person: No
[2019-07-31] VITALS (18 sets, daily range): BP systolic 86–119; BP diastolic 35–82; PULSE 59–74; RESP 12–24; TEMP 36.4–36.7; O2SAT 95–100
[2019-07-31] MEDS: Lactated Ringers 1,000 ML 125 ML IV ×3 (08:07→20:22)
[2019-07-31] MEDS: Sodium Citrate 30 ML CUP PO (08:17)
[2019-07-31] MEDS: ceFAZolin 2 GM/50 ML BAG IVPB (10:40)
--- NOTE | 2019-07-31 12:34 | UTER_PTH ---
PATIENT: Jenise Ortiz LOC: OBS U#:[id number] AGE/SX: 39/F ROOM: OBS.306 RE07/31/[address]: Miriam Saravia DO : 1980 BED: A DIS: 08/01/2019 SPEC #: [id number] RECD: 07/31/19 15:48 STATUS: SOUT REQ #: [id number] VINCE: 07/31/19 12:[address]: Miriam Saravia DEPT: Surgical Specimen RECD BY: Marisol Portillo ENTERED: 07/31/19 15:49 SP TYPE: UTER OTHR DR: Carter Garcia Tissues: 1 - UTERUS W OR W/O OVARIES(NOT TUMOR/PROLAPSE) Procedures: IMMUNOPEROXIDASE STAIN GROSS AND MICRO LEVEL 5 Comments: [id number]
[2019-07-31] MEDS: Ketorolac 30 MG/ML VIAL IVP (13:42)
--- NOTE | 2019-07-31 13:44 | W.PM.OP ---
Date of service: 07/31/19 Time of Service: 13:45 Operative Note Operative Note DATE OF PROCEDURE: 07/31/19 PRE-OP DIAGNOSIS: Pelvic Pain. Tubo-ovarian abscess POST-OP DIAGNOSIS: same Pelvic adhesions PROCEDURE: Laparoscopically assisted vaginal hysterectomy with bilateral salpingectomy, intraoperative cystoscopy SURGEON: Miriam Saravia ASSISTING SURGEON: Chau Marroquin ANESTHESIA: GETA ESTIMATED BLOOD LOSS: 100 PATHOLOGY: other (Bilateral tubes, uterus, cervix) COMPLICATIONS: None Patient was transported to: PACU Patient's condition: stable Indications: Significant pelvic pain and suspicion for tubo-ovarian abscess Findings: Normal ovaries bilaterally, 2 cm dilation of the right fallopian tube, left ovarian tube normal with evidence of bilateral tubal ligation. Retroverted uterus with evidence of intramural fibroid. Adhesions of bladder to the lower uterine segment. Small omental adhesion to the anterior abdominal wall Procedure Description: After full informed consent was obtained, patient was taken the operating room with IV running. She was placed in the seated position an intrathecal narcotic administration for postoperative pain control was performed. She is then placed in the dorsal supine position and endotracheal intubation performed with administration of general anesthesia with ease. She at this point she is placed in the modified dorsal lithotomy position and prepped and draped in usual sterile fashion. Exam under anesthesia revealed a uterus that was a small mobile and midline. Flores catheter was inserted for continuous bladder drainage. At this point weighted speculum was placed in the posterior vaginal vault and a single-tooth tenaculum used to grasp the anterior lip of the cervix. A Hulka uterine manipulator was inserted through the cervical loss for uterine manipulation. At this point attention was then turned to the abdomen where a small infraumbilical skin incision was made. The fascia was then identified tented up and entered sharply. The posterior fascial sheath was also visualized tented up and entered sharply and S retractors placed. The Saldana sleeve was placed directly into the abdomen and with a CO2 gas of maximum pressure of 15 mmHg pneumoperitoneum was created. With direct visualization the camera the abdomen was found to be completely atraumatic. There is noted to be a very small adhesion of the anterior omentum to the anterior abdominal wall. At this point a left and right lower quadrant trocar site was placed under direct visualization after infiltration of 2% Marcaine with epinephrine. At this point the uterus was then elevated and to the entire abdomen and pelvis inspected. Findings were as above. The right fallopian tube was then elevated and its pedicle pedicle cauterized and transected. Right round ligament was identified cauterized and transected allowing entry into the broad ligament the anterior sheath of the broad ligament was and with meticulous sharp dissection the bladder flap was created. Attention at this point was then turned to the left fallopian tube which was elevated transected and ligated at its pedicle. Left round ligament identified tented up and entered at cautery used subsequent transection allowed entry into the broad ligament. At this point the anterior sheath again was elevated and the remainder of the bladder flap was created. With gentle dissection the bladder was dissected away from the lower uterine segment. At this point attention was then turned to the vaginal vault CO2 gas and lites have been turned off and discontinued and vaginally a posterior weighted speculum was placed into the posterior vaginal vault. The previous manipulator was removed and the anterior and posterior leaf of the cervix was grasped with a Royal clamp. A circumferential incision was made with the cautery and extended. At this point the posterior peritoneum was identified and entered sharply and the weighted speculum was placed within. The right and left uterosacral cardinal complex were clamped transected and ligated a tag was placed. Attention was then turned to the right uterine vessels which were clamped transected and ligated similar procedure carried on the left uterine pedicle. This allowed delivery of the cervix uterus and attached fallopian tubes through the vaginal vault. All pedicles were inspected and found to be hemostatic. The vaginal cuff was then closed using 0 Vicryl suture in a running locked fashion and found to be hemostatic. Patient had received 1 ampoule of indigo carmine for ease in identifying ureteric orifices during cystoscopy. Attention was then turned to the abdomen where CO2 gas was used to insufflate the abdomen all pedicles were inspected and found to be hemostatic pneumoperitoneum was then released and CO2 gas discontinued. Cystoscopy performed with a 70 degree scope showing intact bladder and dome without evidence of trauma and appropriately functioning bilateral ureteric orifices. The abdominal incisions were closed using 4-0 Monocryl suture in a subcuticular fashion after the Saldana port was closed with Vicryl suture. Steri-Strips and Band-Aids were placed. Patient returned to the supine position and was taken to recovery room in stable condition. Findings were as previous Blood loss [address] catheter in [address] draining blue-tinged urine Complications are none apparent
[2019-07-31] MEDS: oxyCODONE 5 mg/Acetaminophen 325 mg TAB PO (16:25)
--- NOTE | 2019-07-31 16:54 | W.PM.PROGNOT ---
Date of Service Date of service: 07/31/19 Time of Service: 16:54 Assessment and Plan Assessment and plan (1) S/P laparoscopic assisted vaginal hysterectomy (LAVH): Status: Acute Assessment and plan: Postoperative day #0 status post laparoscopically assisted vaginal hysterectomy with bilateral salpingectomy, doing well. Subjective Subjective Patient reports: pain is less; denies diarrhea and shortness of breath Interval history since last seen: Patient was seen this evening. Vital signs reviewed and are normal. Urine output is brisk. She is having minimal pain. Her home medication, Linzess was ordered. Flores catheter will be discontinued later this evening. I encouraged ambulation, incentive spirometer, and diet as tolerated. Anticipation would be for discharge home in the morning if stable Objective Objective Clinical Data: Vital Signs Temperature 97.9 F 07/31/19 14:15 Pulse 61 07/31/19 15:20 Pulse Rhythm Regular 07/31/19 07:38 Respiratory Rate 16 07/31/19 15:20 Respiratory Depth Deep 07/31/19 07:38 Blood Pressure 86/51 L 07/31/19 15:20 Pulse Oximetry 100 07/31/19 15:20 Oxygen Delivery Method Room Air 07/31/19 15:00 Oxygen Flow Rate 0 07/31/19 15:00 Pain Level 8 07/31/19 16:25 Intake & Output 07/30/19 07/31/19 07/31/19 23:59 11:59 23:59 Intake Total 50 / 1150 1100 / 1150 Output Total 100 / 100 Balance 50 / 1050 1000 / 1050 Weight 175 lb 14.862 oz Intake: IV 50 / 1150 1100 / 1150 Output: Estimated Blood Loss 100 / 100 Other: Urine Color Yellow Urine Appearance Clear Emesis Description None
[2019-07-31] MEDS: Ibuprofen 600 MG TAB PO (22:13)
[2019-07-31] MEDS: oxyCODONE 5 mg/Acetaminophen 325 mg TAB 2 TAB PO (22:49)
--- NOTE | 2019-07-31 23:12 | NUR.NOTE ---
Spoke to Tejas Escalante regarding percocet order and if it was okay to give on top of intrathecal and he said yes per OBGYN's discretion and close monitoring. Spoke to Dr. Rogel and per Dr. Rogel okay to give one time 2 tab percocet dose now @ 6133.
[2019-08-01 00:49] VITALS: PULSE 60; RESP 16; O2SAT 97
[2019-08-01 01:07] VITALS: PULSE 677; RESP 18; O2SAT 98
[2019-08-01 03:36] VITALS: PULSE 58; RESP 16; O2SAT 97
[2019-08-01] MEDS: Lactated Ringers 1,000 ML 125 ML IV (04:01)
[2019-08-01] MEDS: Ketorolac 30 MG/ML VIAL IVP (04:02)
[2019-08-01 06:08] VITALS: BP 102/64; TEMP 36.5
[2019-08-01 07:06] LABS: Abs Immature Grans 0.05 k/cumm (0.0-0.09); Absolute Basophil Count 0.01 k/cumm (0.0-0.2); Absolute Lymphocyte Count 1.34 k/cumm (1.2-3.4); Absolute Monocyte Count 1.31 k/cumm (0.11-0.7); Absolute Neutrophil Count 8.99 k/cumm (1.2-6.7); Basophils % 0.1; Eosinophils % 0.3; HCT 35.6 % (36.0-46.0); HGB 11.8 g/dL (12.0-15.5); Immature Grans % 0.4 %; Lymphocytes % 11.4; Mean Corp. HGB Concentration 33.1 g/dL (32.0-36.0); Mean Corpuscular Hemoglobin 30.6 pg (27.0-33.0); Mean Corpuscular Volume 92.5 fL (80-95); Mean Platelet Volume 10.4 fL (8.0-11.0); Monocytes % 11.2; Neutrophils % 76.6; Platelet Count 188 x1000/uL (130-400); RBC 3.85 m/cumm (4.00-5.20); RBC Distribution Width 12.6 % (11.7-14.6); White Blood Cell Count 11.73 k/cumm (4.4-10.8)
[2019-08-01 07:08] LABS: Absolute Eosinophil Count 0.04 k/cumm (0.0-0.7)
--- NOTE | 2019-08-01 07:22 | W.PM.PROGNOT ---
Date of Service Date of service: 08/01/19 Time of Service: 07:22 Assessment and Plan Assessment and plan (1) S/P laparoscopic assisted vaginal hysterectomy (LAVH): Status: Acute Assessment and plan: Postoperative day 1 status post laparoscopically assisted vaginal hysterectomy with bilateral salpingectomy. Doing well, discharge home today. Subjective Subjective Interval history since last seen: Bg was seen in the office this morning she is doing well. She is having regular bowel movements and tolerating regular diet. She has no fevers or chills. Pain is well controlled Exam Const General: cooperative HENMT Head: normal to inspection Resp Effort & Inspection: normal respiratory effort Auscultation: no rales, no rhonchi and no wheezes Cardio Palpation: normal PMI Rhythm: regular rhythm Heart Sounds: S1 normal, S2 normal and no murmurs GI Inspection: normal to inspection Palpation: soft Auscultation: normal bowel sounds Other: Incisions are dressed and healing well minimal surrounding ecchymosis Objective Objective Clinical Data: Abnormal lab results 08/01/19 Range/Units 06:00 WBC 11.73 H (4.4-10.8) k/cumm RBC 3.85 L (4.00-5.20) m/cumm Hgb 11.8 L D (12.0-15.5) g/dL Hct 35.6 L (36.0-46.0) % Absolute Neutrophils 8.99 H (1.2-6.7) k/cumm Absolute Monocytes 1.31 H (0.11-0.7) k/cumm Vital Signs Temperature 97.7 F 08/01/19 06:08 Temperature Source Oral 08/01/19 06:08 Pulse 58 L 08/01/19 03:36 Pulse Rhythm Regular 07/31/19 19:20 Respiratory Rate 16 08/01/19 03:36 Respiratory Effort 07/31/19 21:25 Respiratory Depth Normal 07/31/19 21:25 Respiratory Pattern Normal 07/31/19 21:25 Blood Pressure 102/64 08/01/19 06:08 Pulse Oximetry 97 08/01/19 03:36 Oxygen Delivery Method Room Air 08/01/19 03:36 Oxygen Flow Rate 0 08/01/19 03:36 Pain Level 2 08/01/19 03:36 Comment 08/01/19 06:08 Intake & Output 07/31/19 07/31/19 08/01/19 11:59 23:59 11:59 Intake Total 50 / 2753.75 2703.75 / 2753.75 3581.25 / 3581.25 Output Total 700 / 700 600 / 600 Balance 50 2052.75 2002. / 2052.75 2981.25 / 2981.25 Weight 175 lb 14.862 oz Intake: IV 50 / 1892.75 1843.75 / 189.75 2831.25 / 2831.25 Oral 860 / 860 750 / 750 Output: Urine 600 / 600 600 / 600 Estimated Blood Loss 100 / 100 Other: Urine Color Yellow Indigo Dark Perlita Urine Appearance Clear Clear Clear Urine Odor Normal Comment blue Stool Size Moderate Emesis Description None Voiding Methods Indwelling Catheter Toilet Laboratory Results WBC 11.73 k/cumm (4.4-10.8) H 08/01/19 06:00 RBC 3.85 m/cumm (4.00-5.20) L 08/01/19 06:00 Hgb 11.8 g/dL (12.0-15.5) L D 08/01/19 06:00 Hct 35.6 % (36.0-46.0) L 08/01/19 06:00 MCV 92.5 fL (80-95) 08/01/19 06:00 MCH 30.6 pg (27.0-33.0) 08/01/19 06:00 MCHC 33.1 g/dL (32.0-36.0) 08/01/19 06:00 RDW 12.6 % (11.7-14.6) 08/01/19 06:00 Plt Count 188 x1000/uL (130-400) 08/01/19 06:00 MPV 10.4 fL (8.0-11.0) 08/01/19 06:00 Immature Gran % 0.4 % 08/01/19 06:00 Neutrophils % 76.6 08/01/19 06:00 Lymphocytes % 11.4 08/01/19 06:00 Monocytes % 11.2 08/01/19 06:00 Eosinophils % 0.3 08/01/19 06:00 Basophils % 0.1 08/01/19 06:00 Absolute Neutrophils 8.99 k/cumm (1.2-6.7) H 08/01/19 06:00 Absolute Lymphocytes 1.34 k/cumm (1.2-3.4) 08/01/19 06:00 Absolute Monocytes 1.31 k/cumm (0.11-0.7) H 08/01/19 06:00 Absolute Eosinophils 0.04 k/cumm (0.0-0.7) 08/01/19 06:00 Absolute Basophils 0.01 k/cumm (0.0-0.2) 08/01/19 06:00
--- NOTE | 2019-08-01 07:24 | W.PM.DSUDISC ---
Discharge Plan Discharge Details Reason For Visit: [facility] Admit Date/Time: 07/31/19 07:07 Admit Provider: Miriam Saravia Attending Provider: Miriam Saravia Primary Care Provider: Carter Garcia Home Meds and New Rx's Prescriptions: No Action doxycycline hyclate 100 mg capsule 100 mg PO BID Qty: 28 RF: 0 fluconazole [Diflucan] 150 mg tablet 150 mg PO ONCE Qty: 2 RF: 2 linzess 150 mcg PO HS RF: 0 oxycodone-acetaminophen [Percocet] 5-325 mg tablet 1 tab PO Q6H MDD 6 PRN (Reason: pain) Qty: 10 RF: 0 Excedrin Tension Headache 500-65 mg Tablet 2 tab PO PRN PRNRF: 0 ibuprofen 200 mg Capsule 400 mg PO PRN PRNRF: 0 DS: Diagnosis Discharge Diagnosis (1) S/P laparoscopic assisted vaginal hysterectomy (LAVH): Status: Acute
--- NOTE | 2019-08-01 07:25 | W.PM.DS.N ---
Date of service: 08/01/19 Time of Service: 07:25 DS: Diagnosis Discharge Diagnosis (1) S/P laparoscopic assisted vaginal hysterectomy (LAVH): Status: Acute Discharge Plan Disposition Patient Disposition: HOME Condition: Good Discharge Details Reason For Visit: LAVH Admit Date/Time: 07/31/19 07:07 Admit Provider: Miriam Saravia Attending Provider: Miriam Saravia Primary Care Provider: Carter Garcia Hospital Course Hospital Course: Patient underwent uncomplicated laparoscopically assisted vaginal hysterectomy with bilateral salpingectomy. She was ambulating, tolerating regular diet and oral pain medication with stable vital signs postoperative day #1 when she was discharged home. Home Meds and New Rx's Prescriptions: New ibuprofen [Motrin IB] 200 mg capsule 600 mg PO Q6H PRN (Reason: pain) Qty: 30 RF: 1 oxycodone-acetaminophen [Percocet] 5-325 mg tablet 1 tab PO Q6H PRNQty: 7 RF: 0 Continued linzess 150 mcg PO HS RF: 0 oxycodone-acetaminophen [Percocet] 5-325 mg tablet 1 tab PO Q6H MDD 6 PRN (Reason: pain) Qty: 10 RF: 0 Excedrin Tension Headache 500-65 mg Tablet 2 tab PO PRN PRNRF: 0 Discontinued doxycycline hyclate 100 mg capsule 100 mg PO BID Qty: 28 RF: 0 fluconazole [Diflucan] 150 mg tablet 150 mg PO ONCE Qty: 2 RF: 2 ibuprofen 200 mg Capsule 400 mg PO PRN PRNRF: 0 Discharge Instructions Additional Instructions: Pelvic rest for [address] while on narcotics. No heavy lifting greater than 10 pounds for 6 weeks. Activity:: Activity as Tolerated Equipment/Supplies:: No Equipment Needed Diet:: As Tolerated Discharge Orders Discharge Orders: Discharge Order (Routine); Ordered 08/01/19 Ordered By: Miriam Saravia DS: Summary Status at Discharge Functional status at discharge: independent ambulation Overall status at discharge: patient is back to baseline Mental Status: mental status grossly normal Speech and Movement: speech and movement normal Mood: congruent mood Affect: normal affect Exam Psych Mental Status: mental status grossly normal Speech and Movement: speech and movement normal Mood: congruent mood Affect: normal affect DS: Data Vitals/I&O Vitals and I&O: Vital Signs Temperature 97.7 F 08/01/19 06:08 Temperature Source Oral 08/01/19 06:08 Pulse 58 L 08/01/19 03:36 Pulse Rhythm Regular 07/31/19 19:20 Respiratory Rate 16 08/01/19 03:36 Respiratory Effort 07/31/19 21:25 Respiratory Depth Normal 07/31/19 21:25 Respiratory Pattern Normal 07/31/19 21:25 Blood Pressure 102/64 08/01/19 06:08 Pulse Oximetry 97 08/01/19 03:36 Oxygen Delivery Method Room Air 08/01/19 03:36 Oxygen Flow Rate 0 08/01/19 03:36 Pain Level 2 08/01/19 03:36 Comment 08/01/19 06:08 Intake & Output 07/31/19 07/31/19 08/01/19 11:59 23:59 11:59 Intake Total 50 / 2753.75 2703.75 / 2753.75 3581.25 / 3581.25 Output Total 700 / 700 600 / 600 Balance 50 / 2053.75 2003.75 / 3.75 2981.25 / 2981.25 Weight 175 lb 14.862 oz Intake: IV 50 / 1893.75 1843.75 / 1893.75 2831.25 / 2831.25 Oral 860 / 860 750 / 750 Output: Urine 600 / 600 600 / 600 Estimated Blood Loss 100 / 100 Other: Urine Color Yellow Indigo Dark Perlita Urine Appearance Clear Clear Clear Urine Odor Normal Comment blue Stool Size Moderate Emesis Description None Voiding Methods Indwelling Catheter Toilet Data Completed and Pending Labs on day of discharge: Labs from last 24 hours 08/01/19 06:00 WBC 11.73 H RBC 3.85 L Hgb 11.8 L D Hct 35.6 L MCV 92.5 MCH 30.6 MCHC 33.1 RDW 12.6 Plt Count 188 MPV 10.4 Immature Gran % 0.4 Neutrophils % 76.6 Lymphocytes % 11.4 Monocytes % 11.2 Eosinophils % 0.3 Basophils % 0.1 Absolute Neutrophils 8.99 H Absolute Lymphocytes 1.34 Absolute Monocytes 1.31 H Absolute Eosinophils 0.04 Absolute Basophils 0.01 PFSH Medical History Abdominal pain (Acute) Anxiety and depression (Acute) Biceps tendonitis on right (Acute) Bilateral carpal tunnel syndrome (Acute) Bursitis of right shoulder (Acute) Carbon monoxide exposure (Acute) Cervical radiculopathy (Acute) Chest pain With high anxiety would give me chest pain Constipation by delayed colonic transit (Acute) Cubital tunnel syndrome on right (Acute) Dyspepsia (Acute) Dysuria Fatigue (Acute) Female pelvic inflammatory disease Generalized headaches (Acute) IBS (irritable bowel syndrome) (Chronic) IBS (irritable bowel syndrome) (Chronic) Left breast lump (Acute ~10/2018) 6x4mm. Pt will have repeat mammo 04/2019. Natural gas exposure (Acute) Night sweats Pap smear of cervix shows high risk HPV present (Acute ~10/2018) 10/2018. ECC benign. Plan: repeat test 2019. Paresthesia of both hands (Acute) Polycystic ovarian syndrome Rotator cuff impingement syndrome of right shoulder (Acute) Tubo-ovarian abscess (Acute) Umbilical abnormality (Acute) Umbilical hernia without mention of obstruction or gangrene (Acute) Vaginal candidiasis (Acute) Vaginal high risk human papillomavirus (HPV) DNA test positive Surgical History section Section with Tubal ligation (04/27/10) Cholecystectomy (01/07/98) Colonoscopy - MAC (07/03/08) D+C (09/17/13) Dilation and curettage Pt reports 4 D&Cs. 3 pregnancies, 2 c/s. EGD - MAC Endometrial Ablation (10/17/14) Pt has referred to the ablation as a partial hysterectomy. H/O umbilical hernia repair (Acute) 10/04/18, Dr Selena Goncalves, [facility] Repair of umbilical hernia (05/21/09) S/P laparoscopic assisted vaginal hysterectomy (LAVH) (Acute) Family History Mother Colitis Depression Diverticula of colon Mental disorder Stroke Grandparents on mother and father's size Thyroid disease Father Diabetes Depression Heart disease Mental disorder Sister Diverticula of colon Fibromyalgia Social History Smoking/Tobacco Use Status: Former Tobacco Use Quit Date: 02/21/12 Alcohol Intake: current Alcohol Intake frequency: a few times a month Alcohol type: wine Drug use: Never Substance use type: does not use Details: Number of Children: 2 Seatbelt use: always Do you feel safe at home: Yes Do you feel safe in your relationship?: Yes Female Reproductive History Menstrual Age of Menarche: 12 control method: permanent sterilization History History 3 Para Hx # Term Pregnancies 2 Multiple births Hx # Pregnancies Ectopic pregnancies AB induced Hx Number of Living Children AB spontaneous
== END 2019-08-01 08:10 | disposition home or self-care (01) | DRG 743 ==
LOC: SUR 15:54 → PDS 15:58 → OBS 15:58
PROVIDERS: Admitting Provider Obstetrics & Gynecology; PCP Internal Medicine; Visit Provider Obstetrics & Gynecology
PROC: 0UT9FZZ Resection of Uterus, Via Natural or Artificial Opening With Percutaneous Endoscopic Assistance (ICD-10-PCS; CPT 58552; principal; 2019-07-31 09:00)
PROC: 0TJB8ZZ Inspection of Bladder, Via Natural or Artificial Opening Endoscopic (ICD-10-PCS; CPT 52000; 2019-07-31 09:00)
DX: N70.13 Chronic salpingitis and oophoritis (principal); R10.31 Right lower quadrant pain; D25.1 Intramural leiomyoma of uterus; Z90.710 Acquired absence of both cervix and uterus
CPT/HCPCS: 58552; 36415; 99233; 99238; NC; 85025; 88307; 88361; J0171; J0690; J1100; J1885; J2001; J2250; J2405; J2704; J3010; J3475

== ENCOUNTER 2019-09-08 20:59 | Emergency (ER) | payer MEDICAID, SELFPAY ==
[2019-09-08 21:06] VITALS: BP 134/91; PULSE 89; RESP 22; TEMP 37.2; O2SAT 99
--- NOTE | 2019-09-08 21:15 | DI.CT_ITS ---
EXAM: CT ABDOMEN PELVIS W CLINICAL HISTORY: periumbilical pain, recent hysto, febrile, vomitin TECHNIQUE: Imaging Protocol: Axial computed tomography images with coronal and sagittal reformatted images were created and reviewed CONTRAST MATERIAL: Intravenous: Omnipaque 350 Contrast volume:100 mL Oral: No COMPARISON: CT CT ABDOMEN PELVIS W from 07/02/2019 FINDINGS: ABDOMEN: Lung Bases: Dependent atelectasis in the lung bases. Liver: Normal density. No measurable mass. 19.7 cm in length. Portal, Superior Mesenteric, and Splenic Veins: Unremarkable. Gallbladder and Biliary Tract: Status post cholecystectomy. No biliary ductal dilatation. Pancreas: Normal density, no abnormal calcifications or inflammatory process. Spleen: Normal. 11.5 cm in length. Adrenals: No masses seen. Kidneys: Normal size, contour and axis. No radiodense stones or obstructive uropathy. No masses seen. Abdominal Aorta: Abdominal portion non-dilated. Mild atherosclerosis. Bowel: No evidence of bowel obstruction. Appendix is unremarkable. Apparent bowel wall thickening in the descending and sigmoid colon which likely reflects under distension. No pericolonic inflammator y changes are seen. Peritoneal Cavity: No ascites, collection or mesenteric inflammatory response. Lymph Nodes: No significant abdominal or pelvic adenopathy. Bones: Mild degenerative changes in the spine. Soft Tissues: Unremarkable. PELVIS: Bladder: Symmetric distention, no gross wall thickening. Reproductive Organs: Status post hysterectomy. Physiologic 1.6 cm right ovarian cyst. Lymph Nodes: Within normal limits. Bones: Degenerative changes are in the spine. IMPRESSION: 1. No definite acute abdominal or pelvic process. 2. Apparent bowel wall thickening in the colon which likely reflects under distension. No pericoloni c inflammatory changes are seen. 3. 1.6 cm physiologic right ovarian cyst. RADIATION DOSE DELIVERED: Total DLP DATA REPOSITORY: All CT scans at this facility are submitted to the National Radiology Data Registry (NRDR) Dose Index Registry (DIR) with the [employer] (A[employer]). RADIATION OPTIMIZATION: All CT scans at this facility use at least one of these dose optimization te chniques: automated exposure control; mA and/or kV adjustment per patient size (includes targeted exa ms where dose is matched to clinical indication); or iterative reconstruction.
[2019-09-08] MEDS: Normal Saline 1,000 ML 1000 ML IV (21:43)
[2019-09-08 21:58] LABS: Abs Immature Grans 0.04 k/cumm (0.0-0.09); Absolute Basophil Count 0.02 k/cumm (0.0-0.2); Absolute Eosinophil Count 0.16 k/cumm (0.0-0.7); Absolute Lymphocyte Count 1.65 k/cumm (1.2-3.4); Absolute Monocyte Count 0.72 k/cumm (0.11-0.7); Absolute Neutrophil Count 4.62 k/cumm (1.2-6.7); Basophils % 0.3; Eosinophils % 2.2; HCT 40.2 % (36.0-46.0); Immature Grans % 0.6 %; Lymphocytes % 22.9; Mean Corp. HGB Concentration 34.8 g/dL (32.0-36.0); Mean Corpuscular Hemoglobin 31.4 pg (27.0-33.0); Mean Corpuscular Volume 90.1 fL (80-95); Platelet Count 242 x1000/uL (130-400); RBC 4.46 m/cumm (4.00-5.20); RBC Distribution Width 13.4 % (11.7-14.6); White Blood Cell Count 7.21 k/cumm (4.4-10.8)
[2019-09-08 22:01] LABS: Lactate 0.9 mmol/L (0.6-1.4)
[2019-09-08] MEDS: ACETAMINOPHEN 1,000 MG/100 ML BTL 400 MG IVPB (22:13)
[2019-09-08] MEDS: Omnipaque 350 MG/ML 100 ML BTL IJ (22:14)
[2019-09-08] MEDS: Normal Saline - Diluent 50 ML VIAL IV (22:14)
[2019-09-08 22:16] LABS: ALT 21 U/L (14-59); AST 14 U/L (15-37); Albumin 3.8 g/dL (3.4-5.0); Alkaline Phosphatase 60 U/L (46-116); Anion Gap 13.2 mmol/L (3-11); BUN 17 mg/dL (7-18); Bilirubin, Total 0.5 mg/dL (0.2-1.0); CO2 21.8 mmol/L (21.0-32.0); Calcium 8.8 mg/dL (8.5-10.1); Chloride 103 mmol/L (98-107); Glucose 93 mg/dL (74-106); Potassium 3.8 mmol/L (3.5-5.1); Sodium 138 mmol/L (136-145); Total Protein 7.1 g/dL (6.4-8.2)
--- NOTE | 2019-09-08 22:26 | DI.VRAD_ITS ---
PROCEDURE INFORMATION: Exam: CT Abdomen And Pelvis With Contrast Exam date and time: 09/08/2019 9:19 PM Age: 39 years old Clinical indication: Localized; Other: Rlq and left sided abdominal pain; Prior surgery; Surgery date: 1-6 months; Surgery type: Hysterectomy 5 weeks ago, multiple hernia repair last being last year; Patient HX: Pain, bloating and burning in left side abdomen and rlq, febrile, vomiting, HX of ibs TECHNIQUE: Imaging protocol: Computed tomography of the abdomen and pelvis with intravenous contrast. Radiation optimization: All CT scans at this facility use at least one of these dose optimization techniques: automated exposure control; mA and/or kV adjustment per patient size (includes targeted exams where dose is matched to clinical indication); or iterative reconstruction. Contrast material: OMNIPAQUE 350; Contrast volume: 100 ml; Contrast route: INTRAVENOUS (IV); COMPARISON: CT ABDOMEN PELVIS W 07/02/2019 4:37 PM FINDINGS: Lungs: Linear opacities in the lung bases consistent with mild basilar atalectasis. Liver: Liver is at the upper limits of normal for size, 19.7 cm craniocaudad. No mass. Gallbladder and bile ducts: Gallbladder is surgically absent with mild, expected degree of common bile duct dilation. Pancreas: Unremarkable. No ductal dilation. Spleen: Spleen is at the upper limits of normal for size, 11.7 cm craniocaudad, stable to prior. No splenic mass. Adrenals: Unremarkable. No mass. Kidneys and ureters: Unremarkable. No hydronephrosis. Ureters are normal in course and caliber. Stomach and bowel: There are scattered areas of focal mural thickening of the descending and sigmoid colon, most pronounced within the proximal sigmoid colon (series 4, image 74), however predominantly involving segments of underdistended colon limiting evaluation. There is fecalization of the terminal ileum. No evidence of bowel obstruction. Appendix: Within normal limits. Intraperitoneal space: Trace low-attenuation free fluid in the pelvis, favor physiologic. No pneumoperitoneum or abdominal ascites Vasculature: Within normal limits. No abdominal aortic aneurysm or dissection. Lymph nodes: There are few scattered prominent but non pathologically enlarged retroperitoneal lymph nodes with preserved reniform shape and fatty chastity, possibly reactive lymph nodes. No mesenteric adenopathy. Bladder: Unremarkable as visualized. Reproductive: Uterus is surgically absent. There is crenulated, peripherally enhancing 1.6 cm hypodensity in the right adnexa most compatible with corpus luteum, benign finding. Bones/joints: Unremarkable. No acute fracture. Soft tissues: Postsurgical changes of prior ventral abdominal wall hernia repair with likely postsurgical fibrotic stranding of the ventral, midline subcutaneous fat at the umbilicus. IMPRESSION: 1. Scattered areas of nonfocal mural thickening of the descending colon and sigmoid colon, most pronounced within the proximal sigmoid colon concerning for acute colitis versus acute exacerbation of Inflammatory Bowel Disease with the appropriate clinical history. Correlate with symptoms. No significant pericolonic fluid collection. 2. Fecalization of the terminal ileum without evidence of bowel obstruction. Could represent incidental finding , however also could be seen in association with enteritis and/or inflammatory bowel disease. Correlate clinically. 3. Crenulated, peripherally enhancing 1.6 cm right adnexal hypodensity most compatible with corpus luteum, benign finding. 4. Unchanged borderline splenomegaly. Dictated and Authenticated by: Tejas Cuenca MD. Ordering:JUAN Falcon MD
[2019-09-08] MEDS: Ondansetron 4 MG/2 ML VIAL IVP (23:01)
[2019-09-08 23:46] VITALS: BP 133/85; PULSE 70; RESP 16; TEMP 36.6; O2SAT 99
--- NOTE | 2019-09-08 23:46 | W.ED.GENAD ---
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 Gradually advance her diet after this. Please take the antibiotic as directed. Please take the Zofran as needed for nausea. If you notice any worsening of your symptoms, or any new symptoms such as vomiting, diarrhea, fever, chills, shortness of breath, chest pain, numbness, weakness, or fainting , please return immediately to the emergency department for reevaluation. Please follow up with your primary care provider as soon as possible for reassessment and reevaluation. As always, it was a pleasure participating in your medical care today. Referrals: Carter Garcia MD [Primary Care Provider] - Discharge Data Discharge Date/Time-TO BE ENTERED AT DEPARTURE: 09/09/19 00:30 Medical Decision Making 39-year-old female with a past medical history of irritable bowel syndrome on Linzess, 2 C-sections, cholecystectomy, 2 hernia repairs, and a total hysterectomy 5 weeks ago. She presents today for evaluation abdominal pain. Patient states that for the last 5 days she has had mild abdominal pain nausea and some intermittent vomiting. It worsened tonight as she felt bloating in her abdomen, as well as what she describes as a burning sensation in her mid to upper abdomen. Vomiting has been nonbilious, she denies any hematemesis. She denies any severe diarrhea or hematochezia. She did increase her Linzess over the last day or so to help with the pain but this is not changed her symptoms. She denies any other sick contacts. She denies any other complaints with this story. She denies any urinary symptoms. She denies any recent antibiotics or foreign travel. Physical exam demonstrates a tender abdomen, no evidence of vaginal bleeding or discharge. No redness or signs of focal infection. Laboratory work-up demonstrates no white count, no bandemia. No left shift. Electrolytes stable. Anion gap slightly elevated at 13.2, she was rehydrated with 1 L of normal saline. Urinalysis negative. CT scan shows evidence concerning for mild colitis versus inflammatory bowel disease no evidence of clear obstruction. Suspect enteritis. After medications patient was feeling much better. She was rehydrated, she was able to tolerate p.o. well without complication. Out of an abundance of precaution we will start the patient on moxifloxacin for mild colitis. First dose was given here in the ED. Recommend liquid diet for the next few days, and close follow-up. I did discuss the option of admission, and at this time the patient would prefer to go home, and does agree to return if any of her symptoms worsen or do not improve. She does have follow-up with her PCP and surgeon outpatient already, recommend she maintain this and follow-up closely. I have extensively reviewed the treatment plan and discharge instructions with the patient. I have addressed all patient concerns at this time. The patient was made aware of what symptoms to monitor for that would warrant a return to the emergency department. Discussed the plan with the patient, they demonstrate verbal understanding and agreement with our assessment and plan at this time. IMPRESSION: 1. Scattered areas of nonfocal mural thickening of the descending colon and sigmoid colon, most pronounced within the proximal sigmoid colon concerning for acute colitis versus acute exacerbation of Inflammatory Bowel Disease with the appropriate clinical history. Correlate with symptoms. No significant pericolonic fluid collection. 2. Fecalization of the terminal ileum without evidence of bowel obstruction. Could represent incidental finding , however also could be seen in association with enteritis and/or inflammatory bowel disease. Correlate clinically. 3. Crenulated, peripherally enhancing 1.6 cm right adnexal hypodensity most compatible with corpus luteum, benign finding. 4. Unchanged borderline splenomegaly. Thank you for allowing us to participate in the care of your patient. Dictated and Authenticated by: Tejas Cuenca MD 09/08/2019 10:25 PM Eastern Time ([place] & [place]) HPI General Date/Time Provider Initiated Documentation: 09/08/19 21:09. HPI Narrative: 39-year-old female with a past medical history of irritable bowel syndrome on Linzess, 2 C-sections, cholecystectomy, 2 hernia repairs, and a total hysterectomy 5 weeks ago. She presents today for evaluation abdominal pain. Patient states that for the last 5 days she has had mild abdominal pain nausea and some intermittent vomiting. It worsened tonight as she felt bloating in her abdomen, as well as what she describes as a burning sensation in her mid to upper abdomen. Vomiting has been nonbilious, she denies any hematemesis. She denies any severe diarrhea or hematochezia. She did increase her Linzess over the last day or so to help with the pain but this is not changed her symptoms. She denies any other sick contacts. She denies any other complaints with this story. She denies any urinary symptoms. She denies any recent antibiotics or foreign travel. Related Data Home Medications Medication Instructions Recorded Confirmed Excedrin Tension Headache 2 tab PO PRN PRN 10/04/18 09/08/19 linzess 300 mcg PO HS 12/05/18 09/08/19 ibuprofen [Motrin IB] 600 mg PO Q6H PRN #30 cap 08/01/19 09/08/19 moxifloxacin 400 mg PO DAILY 7 Days #7 tab 09/08/19 ondansetron HCl [Zofran] 4 mg PO Q8H #7 tab 09/09/19 Previous Rx's Medication Instructions Recorded ibuprofen [Motrin IB] 600 mg PO Q6H PRN #30 cap 08/01/19 moxifloxacin 400 mg PO DAILY 7 Days #7 tab 09/08/19 ondansetron HCl [Zofran] 4 mg PO Q8H #7 tab 09/09/19 Allergies Allergy/AdvReac Type Severity Reaction Status Date / Time codeine Allergy Severe Hives, Verified 09/08/19 21:11 violent angry Latex, Natural Rubber Allergy Severe If its Verified 08/30/19 09:22 around my mouth I swell, any other area, I swell valerian Allergy Severe Hives Verified 09/08/19 21:11 zolpidem tartrate Allergy Severe minor Verified 09/08/19 21:11 [From Ambien] stroke Penicillins Allergy Mild internal Verified 09/08/19 21:11 bleeding, constipation prednisone AdvReac Mild Blisters Verified 09/08/19 21:11 in mouth, abdominal pain 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: 3 Review of Systems All systems reviewed & are unremarkable except as noted in HPI and below PFSH Medical History Abdominal pain (Acute) Anxiety and depression (Acute) Biceps tendonitis on right (Acute) Bilateral carpal tunnel syndrome (Acute) Bursitis of right shoulder (Acute) Carbon monoxide exposure (Acute) Cervical radiculopathy (Acute) Chest pain With high anxiety would give me chest pain Constipation by delayed colonic transit (Acute) Cubital tunnel syndrome on right (Acute) Dyspepsia (Acute) Dysuria Fatigue (Acute) Female pelvic inflammatory disease Generalized headaches (Acute) IBS (irritable bowel syndrome) (Chronic) IBS (irritable bowel syndrome) (Chronic) Left breast lump (Acute ~10/2018) 6x4mm. Pt will have repeat mammo 04/2019. Natural gas exposure (Acute) Night sweats Pap smear of cervix shows high risk HPV present (Acute ~10/2018) 10/2018. ECC benign. Plan: repeat test 2019. Paresthesia of both hands (Acute) Polycystic ovarian syndrome Rotator cuff impingement syndrome of right shoulder (Acute) Tubo-ovarian abscess (Acute) Umbilical abnormality (Acute) Umbilical hernia without mention of obstruction or gangrene (Acute) Vaginal candidiasis (Acute) Vaginal high risk human papillomavirus (HPV) DNA test positive Surgical History section Section with Tubal ligation (04/27/10) Cholecystectomy (01/07/98) Colonoscopy - MAC (07/03/08) D+C (09/17/13) Dilation and curettage Pt reports 4 D&Cs. 3 pregnancies, 2 c/s. EGD - MAC Endometrial Ablation (10/17/14) Pt has referred to the ablation as a partial hysterectomy. H/O umbilical hernia repair (Acute) 10/04/18, Dr Selena Goncalves, [facility] Repair of umbilical hernia (05/21/09) S/P laparoscopic assisted vaginal hysterectomy ([facility]) (Acute) Family History Mother Colitis Depression Diverticula of colon Mental disorder Stroke Grandparents on mother and father's size Thyroid disease Father Diabetes Depression Heart disease Mental disorder Sister Diverticula of colon Fibromyalgia Social History Smoking/Tobacco Use Status: Former Tobacco Use Quit Date: 02/21/12 Alcohol Intake: current Alcohol Intake frequency: a few times a month Alcohol type: wine Drug use: Never Substance use type: does not use Details: Number of Children: 2 Seatbelt use: always Do you feel safe at home: Yes Do you feel safe in your relationship?: Yes Female Reproductive History Menstrual Age of Menarche: 12 control method: permanent sterilization History History 3 Para Hx # Term Pregnancies 2 Multiple births Hx # Pregnancies Ectopic pregnancies AB induced Hx Number of Living Children AB spontaneous Exam Narrative Exam Narrative: 1.Const: Well-nourished, Well-developed, appearing stated age 2.Eyes: PERRL, no conjunctival injection, and symmetrical lids. 3.ENT: Atraumatic external nose and ears. Moist MM. Neck: Symmetric, trachea midline, No thyromegaly. 4.CVS: +S1/S2, No murmurs or gallops. Peripheral pulses 2+ and equal in all extremities. Brisk capillary refill in all extremities. 5.RESP: Unlabored respiratory effort. Clear to auscultation bilaterally. No wheezes rales or rhonchi 6.GI: Soft, minimal bloating but no distention, mild pain throughout, primarily in the supraumbilical regions bilaterally. No guarding or rebound. No flank or CVA tenderness. No suprapubic or pelvic tenderness whatsoever. Surgical incision sites are all clean dry intact with no evidence of infection. 7.MSK: Normocephalic/Atraumatic, Extremities w/o deformity or ttp No cyanosis or clubbing, Normal movement of all extremities 8.Skin: Warm, Dry. No rashes or lesions. 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 Sensation grossly intact, no focal neurologic deficits. 10.Psych: (AAO) x3. Appropriate mood and affect Course Vital Signs Vital signs: Vital Signs Temperature 37.2 C 09/08/19 21:06 Pulse 89 09/08/19 21:06 Respiratory Rate 22 09/08/19 21:06 Blood Pressure 134/91 H 09/08/19 21:06 Pulse Oximetry 99 09/08/19 21:06 Temperature 37.2 C 09/08/19 21:06 Temperature Source Skin 09/08/19 21:06 Pulse 89 09/08/19 21:06 Respiratory Rate 22 09/08/19 21:06 Respiratory Effort Non-Labored 09/08/19 21:15 Blood Pressure 134/91 H 09/08/19 21:06 Blood Pressure Position Sitting 09/08/19 21:06 Pulse Oximetry 99 09/08/19 21:06 Oxygen Delivery Method Room Air 09/08/19 21:06 Oxygen Flow Rate 0 09/08/19 21:06 Pain Level 10 09/08/19 21:49 Lab/Test Results Lab/Test Results: 09/08/19 21:32 Blood Blood Culture - Pending 09/08/19 21:32 Blood Blood Culture - Pending Laboratory Tests Range/Units 09/08/19 09/08/19 09/08/19 21:32 21:32 21:32 WBC (4.4-10.8) k/cumm 7.21 RBC (4.00-5.20) m/cumm 4.46 Hgb (12.0-15.5) g/dL 14.0 Hct (36.0-46.0) % 40.2 MCV (80-95) fL 90.1 MCH (27.0-33.0) pg 31.4 MCHC (32.0-36.0) g/dL 34.8 RDW (11.7-14.6) % 13.4 Plt Count (130-400) x1000/uL 242 MPV (8.0-11.0) fL 10.0 Immature Gran % % 0.6 Neutrophils % 64.0 Lymphocytes % 22.9 Monocytes % 10.0 Eosinophils % 2.2 Basophils % 0.3 Absolute Neutrophils (1.2-6.7) k/cumm 4.62 Absolute Lymphocytes (1.2-3.4) k/cumm 1.65 Absolute Monocytes (0.11-0.7) k/cumm 0.72 H Absolute Eosinophils (0.0-0.7) k/cumm 0.16 Absolute Basophils (0.0-0.2) k/cumm 0.02 Sodium (136-145) mmol/L 138 Potassium (3.5-5.1) mmol/L 3.8 Chloride (98-107) mmol/L 103 Carbon Dioxide (21.0-32.0) mmol/L 21.8 Anion Gap (3-11) mmol/L 13.2 H BUN (7-18) mg/dL 17 Creatinine (0.55-1.02) mg/dL 0.80 Estimated GFR/1.73 m2 (mL/min/1.73m2) >= 60.00 Glucose (74-106) mg/dL 93 Lactate (0.6-1.4) mmol/L 0.9 Calcium (8.5-10.1) mg/dL 8.8 Total Bilirubin (0.2-1.0) mg/dL 0.5 AST (15-37) U/L 14 L ALT (14-59) U/L 21 Alkaline Phosphatase (46-116) U/L 60 Total Protein (6.4-8.2) g/dL 7.1 Albumin (3.4-5.0) g/dL 3.8
[2019-09-09 00:21] LABS: Bilirubin Negative (Negative); Blood Negative (Negative); Clarity Clear (Clear); Glucose Negative (Negative); Ketones Negative (Negative); Leukocyte Esterase Negative (Negative); Nitrite Negative (Negative); Specific Gravity 1.015 (1.005-1.025); Urobilinogen 0.2 EU/dL (Up TO 0.2); pH 5.5 (5-8)
== END 2019-09-09 00:30 | disposition home or self-care (01) ==
PROVIDERS: Emergency Provider Student in an Organized Health Care Education/Training Program; PCP Internal Medicine
DX: R10.32 Left lower quadrant pain (principal); K52.9 Noninfective gastroenteritis and colitis, unspecified; R11.2 Nausea with vomiting, unspecified; K58.9 Irritable bowel syndrome, unspecified
CPT/HCPCS: 80053; 87040; 96361; 96374; 96375; 96376; 99285; 74177; 81003; 83605; 85025; J0131; J2405; J3490

== ENCOUNTER 2019-12-20 13:42 | Outpatient (REF) | payer MEDICAID, SELFPAY ==
[2019-12-25 02:31] LABS: Patient Race White; SARS-CoV-2 RNA Undetected (Undetected); SARS-CoV-2 Specimen Source Nasal
== END 2019-12-20 14:02 ==
LOC: NCHCN 13:42
PROVIDERS: PCP Internal Medicine; Visit Provider Nurse Practitioner Family
DX: Z20.828 Contact with and (suspected) exposure to other viral communicable diseases (principal)
CPT/HCPCS: U0003

== ENCOUNTER 2020-03-24 15:06 | Outpatient (REF) | payer MEDICAID, SELFPAY ==
[2020-03-24 14:19] LABS: Abs Immature Grans 0.03 10^3/uL (0.0-0.06); Absolute Basophil Count 0.03 10^3/uL (0.0-0.2); Absolute Lymphocyte Count 1.35 10^3/uL (1.2-3.4); Absolute Monocyte Count 0.49 10^3/uL (0.1-0.8); Absolute Neutrophil Count 4.03 10^3/uL (1.2-6.7); Basophils % 0.5; Eosinophils % 1.7; HCT 41.2 % (36.0-46.0); Immature Grans % 0.5; Lymphocytes % 22.4; MCH 30.4 pg (27.0-33.0); MCV 89.6 fL (80-95); MPV 10.1 fL (8.0-11.0); Monocytes % 8.1; Neutrophils % 66.8; Nucleated RBC 0 %; Platelet Count 249 10^3/uL (130-400); RDW 12.6 % (11.7-14.6); RDW-SD 41.1 fL; WBC 6.03 10^3/uL (4.4-10.8)
[2020-03-24 14:52] LABS: ALT 26 U/L (14-59); AST 17 U/L (15-37); Albumin 3.8 g/dL (3.4-5.0); Alkaline Phosphatase 60 U/L (46-116); BUN 16 mg/dL (7-18); Bilirubin, Total 0.4 mg/dL (0.2-1.0); C-Reactive Protein 0.19 mg/dL (0.0-0.3); CREATININE 0.7 mg/dL (0.55-1.02); Calcium 8.8 mg/dL (8.5-10.1); Chloride 105 mmol/L (98-107); Creatine Kinase 213 U/L (26-192); Glucose 102 mg/dL (74-106); Potassium 4.3 mmol/L (3.5-5.1); Sodium 139 mmol/L (136-145); TSH 1.56 uIU/mL (0.36-3.74); Total Protein 6.7 g/dL (6.4-8.2)
[2020-03-24 14:57] LABS: ESR 17 mm/hr (0-20)
[2020-03-25 09:30] LABS: Cyclic Citrullinated Peptide <2.5 U/mL (<5.0)
[2020-03-25 12:23] LABS: ANA Interpretation Negative (Negative)
== END 2020-03-24 15:07 | disposition home or self-care (01) ==
LOC: NCHCN 15:06
PROVIDERS: PCP Internal Medicine; Visit Provider Internal Medicine
DX: G47.01 Insomnia due to medical condition (principal); G56.03 Carpal tunnel syndrome, bilateral upper limbs; M25.511 Pain in right shoulder; M79.10 Myalgia, unspecified site
CPT/HCPCS: 80053; 82550; 85652; 86200; 84443; 85025; 86038; 86140

== ENCOUNTER 2020-05-05 15:47 | Outpatient (REF) | payer MEDICAID, SELFPAY ==
[2020-05-07 18:23] LABS: Myoglobin, S 55 mcg/L (<=90)
== END 2020-05-05 15:48 | disposition home or self-care (01) ==
LOC: NCHCN 15:47
PROVIDERS: PCP Internal Medicine; Visit Provider Internal Medicine
DX: R63.5 Abnormal weight gain (principal); G47.10 Hypersomnia, unspecified; M79.18 Myalgia, other site; M25.511 Pain in right shoulder
CPT/HCPCS: 82085; 83874

== ENCOUNTER 2020-07-03 08:32 | Outpatient (REF) | payer MEDICAID, SELFPAY ==
[2020-07-08 13:09] LABS: Midnight Cortisol 85 ng/dL (<100)
== END 2020-07-04 15:42 | disposition home or self-care (01) ==
LOC: NCHCN 08:32
PROVIDERS: PCP Internal Medicine; Visit Provider Internal Medicine
DX: R63.5 Abnormal weight gain (principal); M79.18 Myalgia, other site
CPT/HCPCS: 82530

== ENCOUNTER 2020-07-30 01:56 | Outpatient (CLI) | payer MEDICAID, SELFPAY ==
--- NOTE | 2020-07-30 08:15 | DI.MAMMO_ITS ---
Exam(s) MAMMO DIAGNOSTIC BI EXAM: MAMMO DIAGNOSTIC BI CLINICAL HISTORY: hx left breast lump, f/u,N63.20 TECHNIQUE: Mammograms were interpreted according to the usual protocol including computer analysis w [employer] CAD system, tomosynthesis and C-view imaging. COMPARISON: 2019 mammogram and ultrasound FINDINGS: The breasts are composed of heterogeneously dense fibroglandular densities, Breast Density category C . No suspicious masses or suspicious microcalcifications are seen. There has been interval decrease in size of the previously noted circumscribed nodule in the medial left breast. There are no suspiciou s features. No new masses are seen. No skin thickening or abnormal axillary lymph nodes are seen. IMPRESSION: BI-RADS Cat 2 - Benign Findings Yearly screening mammography is recommended. Breast Density Category C, heterogeneously Dense. The mammogram demonstrates the patient's breast tissue is dense. Dense breast tissue is very common a nd is not abnormal but dense breast tissue can make it harder to find cancer on a mammogram. Also, de nse breast tissue may increase breast cancer risk. This information about the result of the mammogram report was provided to the patient to raise their awareness. Use this report when you speak with the patient about their risks for breast cancer, which includes their family history. At that time, you may recommend additional screening tests (Ultrasound or MRI) as they might be useful based on their r isk. A negative radiographic report should not delay biopsy if a dominant or clinically suspicious mass is present. Up to ten percent of cancers are not identified on mammography. A negative report may reinforce clinical impression. Adenosis and dense breasts may obscure an underlying neoplasm. False positive reports average 6 to 10%.
--- NOTE | 2020-07-30 08:15 | DI.US_ITS ---
Exam(s) US PELVIS TRANSVAGINAL EXAM: US PELVIS TRANSVAGINAL CLINICAL HISTORY: s/p hyst, R sided pelvic pain, bloating,R10.2,R14.0 TECHNIQUE: Transabdominal and transvaginal imaging was performed using standard protocol. COMPARISON: CT CT ABDOMEN PELVIS W from 09/08/[address] ABDOMEN PELVIS W from 09/08/2019 FINDINGS: KIDNEYS: Kidneys are symmetric in size. No evidence of renal calculi. No evidence of hydronephrosis. No renal mass or cyst identified. UTERUS: Status post hysterectomy. . OVARIES: Right: Cyst or mass: 2.3 cm cyst versus dominant follicle. No suspicious mass. Left: Cyst or mass: None. DOPPLER: Color: Symmetric and uniform flow to both ovaries. No hyperemia. Duplex: Normal ovarian arterial waveforms visualized. CUL-DE-SAC: Free fluid: None. IMPRESSION: Status post hysterectomy. Unremarkable bilateral ovaries. DATA REPOSITORY:
== END 2020-07-30 02:16 ==
PROVIDERS: PCP Internal Medicine; Visit Provider Nurse Practitioner Women's Health
DX: R10.2 Pelvic and perineal pain (principal); R14.0 Abdominal distension (gaseous); Z90.710 Acquired absence of both cervix and uterus; N63.21 Unspecified lump in the left breast, upper outer quadrant
CPT/HCPCS: 77062; 77066; 76830; 76856; G0279

== ENCOUNTER 2020-10-07 11:08 | Emergency (ER) | payer MEDICAID, SELFPAY ==
[2020-10-07 11:15] VITALS: BP 166/104; PULSE 89; RESP 14; TEMP 36.8; O2SAT 96
--- NOTE | 2020-10-07 11:30 | DI.CT_ITS ---
Exam(s) CT HEAD CERVICAL SPINE WO EXAM: CT HEAD CERVICAL SPINE WO CLINICAL HISTORY: c4 tenderness. TECHNIQUE: Imaging Protocol: Axial computed tomography images with coronal and sagittal reformatted images were created and reviewed COMPARISON: No exams were available for comparison FINDINGS: BRAIN: There are no skull fractures nor fluid in the visualized paranasal sinuses. There is no evidence of intracranial hemorrhage, mass effect, or shift of midline structures. There are no extra-axial fluid collections. The ventricles are not enlarged or shifted and there is no blo od within the ventricular system nor within the basal cisterns. CERVICAL SPINE: There is no evidence of fracture nor listhesis. No significant prevertebral soft tissue swelling. There is no significant facet joint malalignment. No significant osseous lesions evident. IMPRESSION: No acute intracranial findings on this noninfused CT scan of the brain. No evidence of cervical spine fracture, malalignment, nor acute compromise of the cervical spinal can al. RADIATION DOSE DELIVERED: 1,153.19mGy.cm Total DLP DATA REPOSITORY: All CT scans at this facility are submitted to the National Radiology Data Registry (NRDR) Dose Index Registry (DIR) with the [employer] ([employer]). RADIATION OPTIMIZATION: All CT scans at this facility use at least one of these dose optimization te chniques: automated exposure control; mA and/or kV adjustment per patient size (includes targeted exa ms where dose is matched to clinical indication); or iterative reconstruction.
--- NOTE | 2020-10-07 11:30 | DI.RAD_ITS ---
Exam(s) XR LUMBAR SPINE COMPLETE EXAM: XR LUMBAR SPINE COMPLETE CLINICAL HISTORY: pain post fall. TECHNIQUE: 2D digital imaging was performed. COMPARISON: CR XR HIP LT COMPLETE AP PELVIS from 10/07/2020 CR XR HIP LT COMPLETE AP PELVIS from 10/07/2020 FINDINGS: No evidence of fracture or listhesis. No pars defect. No transverse process fractures. No scoliosis. Bone density normal. No osseous lesions. Disc spac es exhibit normal height. IMPRESSION: No fracture. DATA REPOSITORY: RADIATION DOSE DELIVERED:
--- NOTE | 2020-10-07 11:30 | DI.RAD_ITS ---
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 TECHNIQUE: 2D digital imaging was performed. COMPARISON: No exams were available for comparison FINDINGS: No evidence of pelvic nor hip fracture. No degenerative changes. Sacroiliac joints and symphysis pu bis appear unremarkable. IMPRESSION: No fracture evident DATA REPOSITORY: RADIATION DOSE DELIVERED:
--- NOTE | 2020-10-07 11:50 | ED.GENADUL_ITS ---
Discharge Plan Disposition Patient Disposition: HOME Condition: Stable Discharge Details Clinical Impression: Cervicalgia, Left hip pain, Lumbar spine pain Primary Care Provider: Carter Garcia ED Provider: Marisol Valencia Home Meds and New Rx's Prescriptions: New orphenadrine citrate 100 mg tablet extended release 100 mg PO BID Qty: 10 RF: 0 lidocaine [Lidoderm] 5 % adhesive patch,medicated 1 patch topical DAILY Qty: 15 RF: 0 Continued Linzess 290 mcg capsule 450 mcg PO DAILY PRNRF: 0 Ex-Lax Maximum Strength 25 mg tablet 50 mg PO QHS RF: 0 Excedrin Tension Headache 500-65 mg Tablet 2 tab PO PRN PRNRF: 0 ibuprofen [Motrin IB] 200 mg capsule 600 mg PO Q6H PRN (Reason: pain) Qty: 30 RF: 1 No Action bisacodyl [Dulcolax (bisacodyl)] 5 mg tablet,delayed release (DR/EC) 5 mg PO ONCE Qty: 4 RF: 0 polyethylene glycol 3350 17 gram/dose powder 17 g PO ONCE Qty: 238 RF: 0 Discharge Instructions Instructions: Low Back Strain (ED), Leg Pain (ED), Neck Pain (ED) Additional Instructions: Ibuprofen 600 mg every 8 hours with food Tylenol 1 g every 6 hours as needed for pain Take oxycodone sparingly, this medication is addictive and you should not operate a vehicle for 8 hours after taking Norflex or oxycodone Return earlier with new or worsening complaints Discharge Data Discharge Date/Time-TO BE ENTERED AT DEPARTURE: 10/07/20 13:06 Medical Decision Making X-ray results of lumbar spine and pelvis/left hip discussed with Dr. Arciniega, radiologist without evidence of acute process Patient ambulatory with antalgic but steady gait Cervical spine CT and head CT did not show acute abnormality Given 4 tabs of oxycodone for home should she need it, risk of addiction discussed Nurse prescription for musculoskeletal pain and Lidoderm applied Return precautions discussed and patient expressed understanding Discharged home in stable condition with stable vitals Medical Records Medical records reviewed: Yes I reviewed the patient's medical records. HPI General Mode of arrival: ambulatory . Date/Time Provider Initiated Documentation: 10/07/20 11:22 . Limitations to Documentation: no limitations . Information obtained by: patient . HPI Narrative: This 40-year-old female presents with reports of fall. She was rolling a large bale of hay and lost her balance, going backwards and hitting her head on the ground and her pelvis on the metal cable. Denies loss of consciousness. Denies any history of anticoagulation. Denies chance of . Denies any chest pain or short ness of breath. Did have a loss of consciousness. Reports cervical pain. Denies any strength or sensation change. Related Data Home Medications Medication Instructions Recorded Confirmed Excedrin Tension Headache 2 tab PO PRN PRN 10/04/18 10/08/20 ibuprofen [Motrin IB] 600 mg PO Q6H PRN #30 cap 08/01/19 10/08/20 linaclotide 290 mcg capsule 450 mcg PO DAILY PRN cap 07/01/20 10/08/20 sennosides 25 mg tablet 50 mg PO QHS tab 09/15/20 10/08/20 lidocaine [Lidoderm] 1 patch TOPICAL DAILY #15 ea 10/07/20 10/08/20 orphenadrine citrate 100 mg PO BID #10 tab 10/07/20 10/08/20 bisacodyl 5 mg tablet,delayed 5 mg PO ONCE #4 tab 10/08/20 release polyethylene glycol 3350 17 17 g PO ONCE #238 g 10/08/20 gram/dose oral powder Previous Rx's Medication Instructions Recorded ibuprofen [Motrin IB] 600 mg PO Q6H PRN #30 cap 08/01/19 lidocaine [Lidoderm] 1 patch TOPICAL DAILY #15 ea 10/07/20 orphenadrine citrate 100 mg PO BID #10 tab 10/07/20 bisacodyl 5 mg tablet,delayed 5 mg PO ONCE #4 tab 10/08/20 release polyethylene glycol 3350 17 17 g PO ONCE #238 g 10/08/20 gram/dose oral powder Allergies Allergy/AdvReac Type Severity Reaction Status Date / Time codeine Allergy Severe Hives, Verified 10/08/20 11:33 violent angry Latex, Natural Rubber Allergy Severe If its Verified 10/08/20 11:33 around my mouth I swell, any other area, I swell valerian Allergy Severe Hives Verified 10/08/20 11:33 zolpidem tartrate Allergy Severe minor Verified 10/08/20 11:33 [From Ambien] stroke Penicillins Allergy Mild internal Verified 10/08/20 11:33 bleeding, constipation prednisone AdvReac Mild Blisters Verified 10/08/20 11:33 in mouth, abdominal pain General Stated Complaint: Orthopedic ARLETTE: 3 Review of Systems All systems reviewed & are unremarkable except as noted in HPI and below [facility] Medical History (Updated 10/07/20 @ 12:44 by JOCELYN Delgado) Abdominal pain Anxiety and depression Biceps tendonitis on right Bilateral carpal tunnel syndrome Bursitis of right shoulder Carbon monoxide exposure Cervical radiculopathy Chest pain With high anxiety would give me chest pain Constipation by delayed colonic transit Cubital tunnel syndrome on right Fatigue Generalized headaches IBS (irritable bowel syndrome) Left breast lump (~10/2018) 6x4mm. Pt will have repeat mammo 04/2019. Natural gas exposure Night sweats Paresthesia of both hands Rotator cuff impingement syndrome of right shoulder Umbilical abnormality Umbilical hernia without mention of obstruction or gangrene Surgical History section Section with Tubal ligation (04/27/10) Cholecystectomy (01/07/98) Colonoscopy - MAC (07/03/08) D+C (09/17/13) Dilation and curettage Pt reports 4 D&Cs. 3 pregnancies, 2 c/s. EGD - MAC Endometrial Ablation (10/17/14) Pt has referred to the ablation as a partial hysterectomy. H/O umbilical hernia repair 10/04/18, Dr Selena Goncalves, [facility] Repair of umbilical hernia (05/21/09) S/P laparoscopic assisted vaginal hysterectomy ([facility]) Family History Mother Colitis Depression Diverticula of colon Mental disorder Stroke Grandparents on mother and father's size Thyroid disease Father Diabetes Depression Heart disease Mental disorder Sister Diverticula of colon Fibromyalgia Social History Smoking/Tobacco Use Status: Former Tobacco Use Quit Date: 02/21/12 Smoking risk assessment performed?: Yes Alcohol Intake: current Alcohol Intake frequency: holidays/special occasions only Alcohol type: wine Drug use: Never Substance use type: does not use Number of Children: 2 Current gender identity: female Seatbelt use: always Do you feel safe at home: Yes Do you feel safe in your relationship?: Yes Female Reproductive History Menstrual Age of Menarche: 12 control method: permanent sterilization Menopause type: surgical History History 3 Para Hx # Term Pregnancies 2 Multiple births Hx # Pregnancies Ectopic pregnancies AB induced Hx Number of Living Children AB spontaneous Exam Const General: cooperative and no acute distress HENMT Other: No hemotympanum, small hematoma noted to the occipital region, no bogginess or step-off Eyes Pupils: PERRL EOM: EOM intact bilaterally Neck Other: Mild paraspinal tenderness, no midline tenderness, no visible sign of trauma Chest Chest: normal inspection of the chest Other: No palpable tenderness or crepitus Resp Effort & Inspection: normal respiratory effort Auscultation: clear to auscultation bilaterally Other: Lungs clear to auscultation bilaterally No flail chest Cardio Rate: regular rate Rhythm: regular rhythm GI Other: No CVA tenderness, no abdominal bruit or pulsatile mass, no intra- abdominal tenderness, no visible evidence of trauma Back/Spine/Pelvis Other: Tenderness with palpation to lumbar spine and left hip, sacroiliac tenderness as well, no visible evidence of trauma Neuro General: patient alert and patient oriented x3 Cranial Nerves: CN's II-XI intact bilaterally Speech: speech normal Gait: normal gait Sensory Exam: no sensory deficits noted Other: GCS 15, alert and oriented x4, strength and sensation intact distally Psych Appearance: grossly normal and well kempt Speech and Movement: speech and movement normal Course Vital Signs Vital signs: Vital Signs Temperature 36.8 C 10/07/20 11:15 Pulse 89 10/07/20 11:15 Respiratory Rate 14 10/07/20 11:15 Blood Pressure 166/104 H 10/07/20 11:15 Pulse Oximetry 96 10/07/20 11:15 Temperature 36.8 C 10/07/20 11:15 Temperature Source Oral 10/07/20 11:15 Pulse 89 10/07/20 11:15 Respiratory Rate 14 10/07/20 11:15 Respiratory Effort Non-Labored 10/07/20 11:22 Blood Pressure 166/104 H 10/07/20 11:15 Blood Pressure Position Standing 10/07/20 11:15 Pulse Oximetry 96 10/07/20 11:15 Oxygen Delivery Method Room Air 10/07/20 11:15 Oxygen Flow Rate 0 10/07/20 11:15 Pain Level 6 10/07/20 11:24 Comment 10/07/20 11:15
[2020-10-07] MEDS: oxyCODONE 10 MG TAB PO (12:55)
[2020-10-07 12:56] VITALS: BP 148/60; PULSE 89; RESP 14; TEMP 36.8; O2SAT 96
== END 2020-10-07 13:06 | disposition home or self-care (01) ==
PROVIDERS: Emergency Provider Physician Assistant; PCP Internal Medicine
DX: M54.2 Cervicalgia (principal); M25.552 Pain in left hip; M54.5 Low back pain; W01.198A Fall on same level from slipping, tripping and stumbling with subsequent striking against other object, initial encounter
CPT/HCPCS: 99285; 70450; 72110; 72125; 73502; 99284

== ENCOUNTER 2020-10-16 08:11 | Day surgery (SDC) | payer MEDICAID, SELFPAY ==
--- NOTE | 2020-10-15 15:37 | PDOC.DSDIS_ITS ---
Discharge Plan Disposition Patient Disposition: HOME Condition: Good Discharge Details Reason For Visit: colon scope Attending Provider: Idalmis Addison Primary Care Provider: Carter Garcia Home Meds and New Rx's Prescriptions: No Action Linzess 290 mcg capsule 450 mcg PO DAILY PRNRF: 0 Ex-Lax Maximum Strength 25 mg tablet 50 mg PO QHS RF: 0 Excedrin Tension Headache 500-65 mg Tablet 2 tab PO PRN PRNRF: 0 ibuprofen [Motrin IB] 200 mg capsule 600 mg PO Q6H PRN (Reason: pain) Qty: 30 RF: 1 Discharge Instructions Additional Instructions: DSU Colonoscopy Post- Op Instructions Instructions for Everyone who is given Anesthesia: For your safety, please do the following for the next twenty-four (24) hours: *Do Not operate a motor vehicle (car, truck, motorcycle, etc.) *Do Not drink alcoholic beverages or use any recreational drugs for the first 24 hours or while taking pain medications. The medications in your body may have a reaction that can be dangerous. *Do Not make any important decisions or sign any important papers. Findings: x2 small polyps otherwise normal Follow up: My office will send a letter in 2 to 3 weeks detailing the findings of the biopsy's, and when to repeat the colonoscopy. 1. No lifting over 20 pounds or strenuous activity for the first 24 hours after your procedure. After 24 hours there are no restrictions on your activity but you may feel fatigued for a few days. 2. After you arrive home you may have a light meal and return to your normal diet as you can tolerate it without feeling sick to your stomach. 3. You may have a bloated, gaseous feeling in your belly (abdomen) after a colonoscopy. Passing gas and belching will help. Walking or lying down on your left side with your knees flexed may relieve the discomfort. Call the office at [phone] (Office) or [phone] (Hospital) right away if you notice any of the following: a.Vomiting of blood or ?coffee ground stools?. b.Rectal bleeding 1Tbsp, blood clots or continuous bleeding. c.Severe belly (abdominal) pain. d.A hard distended belly (abdomen) and an inability to pass gas. 4. Please don?t expect to have a normal BM (bowel movement) for 2-3 days after your procedure. 5. If there are questions regarding the findings of your procedure, please contact your doctor 6. If you are unable to contact your doctor with a problem, contact the hospital at [phone]. 7. Continue all your regular medications unless directed otherwise. I understand the above instructions and have no questions. Signature of Patient or Adult Escort Name of Responsible Adult Escort Signature of Nurse Date/Time Discharge Orders Discharge Orders: Discharge Order (Routine); Ordered 10/15/20 Ordered By: Idalmis Addison DS: Diagnosis Discharge Diagnosis (1) IBS (irritable bowel syndrome): Status: Chronic (2) Melanosis coli: Status: Acute (3) Colon polyp: Status: Acute
--- NOTE | 2020-10-15 15:37 | W.COLOREPORT ---
Date of service: 10/16/20 Time of Service: 09:54 Colonoscopy Report Date of procedure: 10/16/20 Pre-op diagnosis general: black tarry stools/IBS-C/abnl CT/RLQ pain Post-op diagnosis procedure note: same (x2 small polyps & melanosis coli ) Anesthesia Type: General LMA/ETT Estimated blood loss (mL): 0 Pathology: none sent Complications: None Disposition: same day Prep: Miralax/Dulcolax Retraction Time: 10 Procedure Description: After informed consent was obtained the patient was taken to the procedure room and placed in a left decubitous position. Monitors were applied and a time out was done. The patients name, date of , procedure, allergies to medications and metal in their body was reviewed. The patient was then sedated. Once sedated and comfortable a rectal exam was done. External exam: Shows x1 small external hemorrhoid. Internal exam revealed a normal sphincter tone and no palpable masses. The scope was then introduced and retrofelexed. Grade 1 internal hemorrhoids x1 were identified. The scope was then advanced to the cecum without difficulty. The TI and appendiceal orifice were identified. The prep was poor?the kwan of the colon were coated with thick material. 2 L of saline was used to lavage the colon, but polyps less than 5 mm may have been missed. She has signs of melanosis coli in the cecum. Biopsy was taken of the cecum. She is a<5 mm flat polyp in the cecum and one at 90 cm. These are removed with a cold biting forcep. Biopsies are taken of the cecum 70 cm 40 cm and the rectum. All specimens are removed and no bleeding is noted. There are no AVMs or Ddiverticula. The scope was then slowly retracted over 10 minutes back into the rectum. The scope was removed and the patient was woken up and taken back to Same day surgery in stable condition. The patient tolerated the procedure well and there were no immediate complications. Follow up: The patient should follow up in 10 years, path pd, unless they develop changes in bowel habits or other new gastrointestinal complaints.
[2020-10-16 08:22] VITALS: BP 131/86; PULSE 85; RESP 16; TEMP 36.7; O2SAT 95
[2020-10-16] MEDS: Lactated Ringers 1,000 ML 80 ML IV (08:51)
--- NOTE | 2020-10-16 08:52 | W.ANESPRE ---
General Info Date of Service Date Performed: 10/16/20 Height: 6 ft Weight: 89.5 kg Body Mass Index (BMI): 26.7 Surgical Procedure: Operation Date: 10/16/20 09:05 Proposed Procedures Side Surgeon kati Addison, Meds Allergies and Home Medications Allergies Allergy/AdvReac Type Severity Reaction Status Date / Time codeine Allergy Severe Hives, Verified 10/16/20 08:20 violent angry Latex, Natural Rubber Allergy Severe If its Verified 10/16/20 08:20 around my mouth I swell, any other area, I swell valerian Allergy Severe Hives Verified 10/16/20 08:20 zolpidem tartrate Allergy Severe minor Verified 10/16/20 08:20 [From Ambien] stroke Penicillins Allergy Mild internal Verified 10/16/20 08:20 bleeding, constipation prednisone AdvReac Mild Blisters Verified 10/16/20 08:20 in mouth, abdominal pain Home Medication Medication Instructions Recorded Excedrin Tension Headache 2 tab PO PRN PRN 10/04/18 ibuprofen [Motrin IB] 600 mg PO Q6H PRN #30 cap 08/01/19 linaclotide 290 mcg capsule 450 mcg PO DAILY PRN cap 07/01/20 sennosides 25 mg tablet 50 mg PO QHS tab 09/15/20 Current Visit Medications: Current Medications Generic Name Dose Route Start Last Admin Trade Name Freq PRN Reason Stop Dose Admin Hyoscyamine Sulfate 0.125 mg 10/15/20 15:37 Hyoscyamine 0.125 Mg Sl/Oral/Chew SL DIRECTED PRN Ringer's Solution 1,000 mls @ 80 mls/hr 10/16/20 06:00 10/16/20 08:51 IV 11/14/20 23:59 80 mls/hr INFUSION JOVANNY Administration IV Miscellaneous Supplies 1 each 10/16/20 06:00 Iv Access IV 11/14/20 23:59 DIRECTED JOVANNY Ondansetron HCl 4 mg 10/15/20 15:37 Ondansetron 4 Mg/2 Ml Vial IVP Q4H PRN PRN Nausea / Vomiting Sodium Chloride 0 ml 10/16/20 06:00 Normal Saline Flush 10 Ml Syr IV 11/14/20 23:59 PRN PRN PFSH Active Problems Active Problems: Problem Status Onset Code IBS (irritable bowel syndrome) K58.9 Weight gain R63.5 Myalgia M79.10 Pedal edema R60.0 Fatty liver disease, nonalcoholic K76.0 Bakers cyst M71.20 Chronic headaches R51.9, G89.29 Polycystic ovary disease E28.2 Cervicalgia M54.2 Left hip pain M25.552 Lumbar spine pain M54.5 Constipation by delayed colonic transit K59.01 Cubital tunnel syndrome on right G56.21 Rotator cuff impingement syndrome of right shoulder M75.41 Bursitis of right shoulder M75.51 Cervical radiculopathy M54.12 Biceps tendonitis on right M75.21 Bilateral carpal tunnel syndrome G56.03 Left breast lump ~10/2018 N63.20 Umbilical hernia without mention of obstruction or gangrene K42.9 Medical History Medical History Abdominal pain Anesthesia complication Per pt. stated when she had her hysterectomy, my heart stopped. 07/31/19 here @ [facility]. Anxiety and depression Biceps tendonitis on right Bilateral carpal tunnel syndrome Bursitis of right shoulder Carbon monoxide exposure Cervical radiculopathy Chest pain With high anxiety would give me chest pain Constipation by delayed colonic transit Cubital tunnel syndrome on right Fatigue Generalized headaches IBS (irritable bowel syndrome) Left breast lump (~10/2018) 6x4mm. Pt will have repeat mammo 04/2019. Natural gas exposure Night sweats Paresthesia of both hands Rotator cuff impingement syndrome of right shoulder Umbilical abnormality Umbilical hernia without mention of obstruction or gangrene Surgical History Surgical History section Section with Tubal ligation (04/27/10) Cholecystectomy (01/07/98) Colonoscopy - MAC (07/03/08) D+C (09/17/13) Dilation and curettage Pt reports 4 D&Cs. 3 pregnancies, 2 c/s. EGD - MAC Endometrial Ablation (10/17/14) Pt has referred to the ablation as a partial hysterectomy. H/O umbilical hernia repair 10/04/18, Dr Selena Goncalves, [facility] Repair of umbilical hernia (05/21/09) S/P laparoscopic assisted vaginal hysterectomy ([facility]) Tobacco Smoking/Tobacco Use Status: Former Tobacco Use Passive smoking exposure: No Alcohol Alcohol Intake: current Alcohol intake frequency: holidays/special occasions only Alcohol type: wine Substance Use Substance use: Never Substance use type: does not use Prental History History 3 Para Hx # Term Pregnancies 2 Multiple births Hx # Pregnancies Ectopic pregnancies AB induced Hx Number of Living Children AB spontaneous Vital Signs and Lab Results Vital Signs Most Recent Vital Signs in EMR: Most Recent Vital Signs Temp Pulse Resp BP Pulse Ox 36.7 C 85 16 131/86 95 10/16/20 08:22 10/16/20 08:22 10/16/20 08:22 10/16/20 08:22 10/16/20 08:22 Lab Results Result Diagrams: 10/16/20 09:00 Blood Type / Crossmatch: No Data to Display Complete Blood Count: No Data to Display Complete Metabolic Panel: No Data to Display Liver Function Panel: No Data to Display Coagulation Panel: No Data to Display Cardiac Panel: No Data to Display Arterial Blood Gas: No Data to Display Venous Blood Gas: No Data to Display Pancreas Panel: No Data to Display Thyroid Panel: No Data to Display Infectious Disease: No Data to Display Blood Cultures: No Data to Display Toxicology Panel: No Data to Display Panel: No Data to Display Anesthesia Assessment and Plan Anesthesia History Personal History: No History of Anesthesia Complications Family History: No Family History of Anesthesia Complications Exercise Tolerance Exercise Tolerance: Metabolic Equivalents>4 Pertinent Negatives Pertinent Negatives: No Symptoms of GERD, No Major Cardiovascular Symptoms or Complaints, No Major Pulmonary Symptoms or Complaints and No History of CVA/TIA Cardiac & Pulmonary Exam Cardiac Exam: Normal S1/S2 Heart Sounds Pulmonary Exam: Clear Bilateral Breath Sounds Airway Exam Known Difficult Airway: No Mallampati Class: 2 Mouth Opening: Normal (> 3cm) Thyromental Distance: Greater than 3 cm Neck Range of Motion: Full ROM Neck Circumference: Normal Teeth Condition: Normal Dentition ASA Classification ASA Score: ASA 2 Emergency Case?: No NPO Status NPO Status: NPO Clears >2 hours, Solids >8 hours Status Status: Not Relevant due to Medical History Anesthesia Plan Resuscitation Status: Full Code Anesthesia Technique: General Anesthesia Airway Planned: Natural Airway Monitors Used: Standard Monitors
[2020-10-16 09:03] VITALS: BMI 26.7
--- NOTE | 2020-10-16 09:30 | BOWEL_PTH ---
PATIENT: Jenise Ortiz LOC: [facility] U#:[id number] AGE/SX: 40/F ROOM: RE10/16/[address]: Idalmis Addison : 1980 BED: DIS: 10/16/2020 SPEC #: [id number] RECD: 10/16/20 12:25 STATUS: NAINA REMaisha #: [id number] VINCE: 10/16/20 09:[address]: Idalmis Addison DEPT: Surgical Specimen RECD BY: Marisol Portillo ENTERED: 10/16/20 12:27 SP TYPE: Bowel OTHR DR: Carter Garcia Tissues: 1 - BIOPSY BOWEL 2 - BIOPSY BOWEL 3 - BIOPSY BOWEL 4 - BIOPSY BOWEL 5 - BIOPSY BOWEL 6 - BIOPSY BOWEL Procedures: GROSS AND MICRO LEVEL 4 Comments: [id number]
[2020-10-16 09:54] VITALS: BP 100/63; PULSE 67; RESP 14; TEMP 36.5; O2SAT 100
[2020-10-16] MEDS: Hyoscyamine 0.125 MG SL/ORAL/CHEW SL (10:10)
--- NOTE | 2020-10-16 10:19 | W.ANESPOSTOP ---
Postoperative Evaluation Date, Time and Location Date Performed: 10/16/20 Time Performed: 09:55 Patient Location: Day Surgery Unit Vital Signs Most Recent Imported Vital Signs: Most Recent Vital Signs Temp Pulse Resp BP Pulse Ox 36.5 C 67 14 100/63 100 10/16/20 09:54 10/16/20 09:54 10/16/20 09:54 10/16/20 09:54 10/16/20 09:54 Pain Score Most Recent Pain Score: Most Recent Pain Score Pain Level 0 10/16/20 09:54 Assessment Mental Status: Awake (Alert & Oriented to Patient Baseline) Airway and Respiratory Function: Patent airway with normal (patient baseline) respiratory exam Cardiovascular Function: Hemodynamically Stable Hydration Status: Adequately Hydrated Nausea & Vomiting: No Nausea or Vomiting Pain: Pain is tolerable per patient Peripheral Nerve Block: Patient did not receive a nerve block
[2020-10-16 10:30] VITALS: BP 120/90; PULSE 78; RESP 16; TEMP 36.5; O2SAT 98
[2020-10-16 11:26] LABS: Abs Immature Grans 0.04 10^3/uL (0.0-0.06); Absolute Basophil Count 0.02 10^3/uL (0.0-0.2); Absolute Lymphocyte Count 1.39 10^3/uL (1.2-3.4); Absolute Monocyte Count 0.47 10^3/uL (0.1-0.8); Absolute Neutrophil Count 5.39 10^3/uL (1.2-6.7); Basophils % 0.3; Eosinophils % 1.3; HCT 39.9 % (36.0-46.0); HGB 13.4 g/dL (11.2-15.7); Immature Grans % 0.5; Lymphocytes % 18.8; MCH 29.8 pg (27.0-33.0); MCHC 33.6 % (32.0-36.0); MCV 88.7 fL (80-95); MPV 9.2 fL (8.0-11.0); Monocytes % 6.3; Neutrophils % 72.8; Nucleated RBC 0 %; Platelet Count 222 10^3/uL (130-400); RDW 12.7 % (11.7-14.6); RDW-SD 41.6 fL; WBC 7.41 10^3/uL (4.4-10.8)
== END 2020-10-16 11:30 | disposition home or self-care (01) ==
PROVIDERS: PCP Internal Medicine; Visit Provider Surgery
PROC: 0DJD8ZZ Inspection of Lower Intestinal Tract, Via Natural or Artificial Opening Endoscopic (ICD-10-PCS; CPT 45378; principal; 2020-10-16 09:00)
DX: K58.1 Irritable bowel syndrome with constipation (principal); D12.0 Benign neoplasm of cecum; D12.3 Benign neoplasm of transverse colon; K63.89 Other specified diseases of intestine
CPT/HCPCS: 45380; 36415; 88305; 85025; J3490

== ENCOUNTER 2020-10-28 02:45 | Outpatient (CLI) | payer MEDICAID, SELFPAY ==
--- NOTE | 2020-10-28 | DI.US_ITS ---
Exam(s) US ABDOMEN EXAM: US ABDOMEN CLINICAL HISTORY: FATTY LIVER DISEASE, K76.0 TECHNIQUE: Ultrasound of complete upper abdomen performed using standard protocol. COMPARISON: Abdominal CT scan August 2019 FINDINGS: There is no ascites evident. LIVER: Liver size is upper normal. There are no discrete focal hepatic lesions identified. GALLBLADDER/BILIARY: Gallbladder surgically absent. The common hepatic duct isnot dilated, measuring 2mm at the level of britt hepatis. PANCREAS: There is no evidence of pancreatic mass nor dilatation of the pancreatic duct. SPLEEN: The spleen is not enlarged and there are no intrasplenic lesions evident. KIDNEYS:Kidneys exhibit normal size with no evidence of solid mass, calculus, nor hydronephrosis. No cortical cysts evident. ABDOMINAL AORTA: There is no evidence of abdominal aortic aneurysm. IVC: Normal diameter where visualized. IMPRESSION: 1. The gallbladder surgically absent. The biliary tree is not dilated. 2. No other significant ultrasound findings in the upper abdomen. 3. There is no ascites. DATA REPOSITORY:
== END 2020-10-28 03:05 ==
PROVIDERS: PCP Internal Medicine; Visit Provider Nurse Practitioner Family
DX: K76.0 Fatty (change of) liver, not elsewhere classified (principal); Z90.49 Acquired absence of other specified parts of digestive tract
CPT/HCPCS: 76700

== ENCOUNTER 2020-11-23 17:02 | Outpatient (REF) | payer MEDICAID, SELFPAY | END 2020-11-23 17:03 | disposition home or self-care (01) | LOC: NCHCN 17:02 | PROVIDERS: PCP Internal Medicine; Visit Provider Nurse Practitioner Family | DX: N39.3 Stress incontinence (female) (male) (principal); R82.998 Other abnormal findings in urine | CPT/HCPCS: 87086 ==

== ENCOUNTER 2020-12-28 13:34 | Outpatient (CLI) | payer MEDICAID, SELFPAY ==
--- NOTE | 2020-12-28 13:30 | DI.RAD_ITS ---
Exam(s) XR KNEE LT 3V AP,LAT,CAESAR EXAM: XR KNEE LT 3V AP,LAT,CAESAR CLINICAL HISTORY: eval L knee pain/meeks's cyst. TECHNIQUE: 2D digital imaging was performed of the left knee. Four images were obtained. AP, later al and PA tunnel views were obtained. COMPARISON: CR XR KNEE RT 3V AP,LAT,CAESAR from 12/28/2020 FINDINGS: BONES: No acute fracture is present. No bony destructive lesion is seen. JOINTS: The knee is normally aligned. There is tricompartment periarticular spurring. There is mild narrowing of the medial femoral tibial joint. There is a small suprapatellar joint effusion. SOFT TISSUE: Normal. IMPRESSION: Mild degenerative changes of the left knee. DATA REPOSITORY: RADIATION DOSE DELIVERED:
--- NOTE | 2020-12-28 13:30 | DI.RAD_ITS ---
Exam(s) XR KNEE RT 3V AP,LAT,CAESAR EXAM: XR KNEE RT 3V AP,LAT,CAESAR CLINICAL HISTORY: f/u R knee pain, mekes's cyst. TECHNIQUE: 2D digital imaging was performed of the right knee. Three views obtained. AP, lateral an d PA tunnel views were obtained. COMPARISON: CR XR knee RT 3V AP,lat,caesar from 02/08/2018 CR XR knee RT 3V AP,lat,caesar from 02/08/2018 FINDINGS: BONES: No acute fracture is present. No bony destructive lesion is seen. JOINTS: The knee is normally aligned. Mild spurring is seen at the proximal tibia. No joint effusio n is seen. SOFT TISSUE: Normal. IMPRESSION: Mild degenerative changes of the right knee. DATA REPOSITORY: RADIATION DOSE DELIVERED:
== END 2020-12-28 13:35 | disposition home or self-care (01) ==
LOC: DIORS 13:34
PROVIDERS: PCP Internal Medicine; Referring Provider Internal Medicine; Visit Provider Student in an Organized Health Care Education/Training Program
DX: M25.561 Pain in right knee (principal); M25.562 Pain in left knee; M25.462 Effusion, left knee; M17.0 Bilateral primary osteoarthritis of knee
CPT/HCPCS: 73562

== ENCOUNTER 2021-01-13 02:04 | Outpatient (CLI) | payer MEDICAID, SELFPAY ==
--- NOTE | 2021-01-13 07:15 | DI.MRI_ITS ---
Exam(s) MR LOWER JOINT RT WO EXAM: MR LOWER JOINT RT WO CLINICAL HISTORY: RIGHT KNEE PAIN,M25.561 TECHNIQUE: Multiplanar multisequence MRI was performed.. COMPARISON: No exams were available for comparison FINDINGS: MR examination of the knee was performed according to the usual protocol. There is no significant knee joint effusion. There is Roberts's cyst with a multiloculated superior extension measuring up to about 9 x 2 cm in diam eter on sagittal images. No significant bony signal abnormality seen. Medial tibiofemoral joint: The articular cartilage of the femur and tibia appears well maintained. T he meniscus and attachments appear intact. The medial collateral ligament appears intact. No speech therapy teacher omedial corner injury seen. Lateral tibiofemoral joint: The articular cartilage of the femur and tibia appears well maintained. The lateral meniscus has an apparent nondisplaced posterior horn tear.. The lateral collateral ligam ent complex and posterolateral corner structures appear intact. Patellofemoral joint and extensor mechanism: The patellar articular are cartilage appears mildly roug h and with minimally abnormal signal. Trochlear cartilage grossly unremarkable.. The superior and i nferior patellar fat pads appear normal with no signal abnormality. The quadriceps tendon and patellar tendon appear intact with no evidence of a tear or significant nick ma. The medial and lateral retinacula appear intact. Cruciate ligaments: Cruciate ligaments and attachments appear normal with no evidence of a tear. Tibiofibular joint: No specific abnormality involving the tibiofibular joint. IMPRESSION: Lateral meniscal posterior horn nondisplaced tear. Roberts's cyst with loculated superior extension measuring up to about 9 x 2 cm in diameter on sagittal images. Grade 1 chondromalacia patellar cartilage. DATA REPOSITORY:
== END 2021-01-13 02:24 ==
PROVIDERS: PCP Internal Medicine; Visit Provider Student in an Organized Health Care Education/Training Program
DX: M25.561 Pain in right knee (principal); M22.41 Chondromalacia patellae, right knee; S83.281A Other tear of lateral meniscus, current injury, right knee, initial encounter; M71.21 Synovial cyst of popliteal space [Baker], right knee
CPT/HCPCS: 73721

== ENCOUNTER 2021-03-12 13:04 | Outpatient (REF) | payer MEDICAID, SELFPAY ==
[2021-03-12 19:42] LABS: Abs Immature Grans 0.02 10^3/uL (0.0-0.06); Absolute Basophil Count 0.01 10^3/uL (0.0-0.2); Absolute Eosinophil Count 0.07 10^3/uL (0.0-0.7); Absolute Lymphocyte Count 0.66 10^3/uL (1.2-3.4); Absolute Monocyte Count 0.45 10^3/uL (0.1-0.8); Absolute Neutrophil Count 3.09 10^3/uL (1.2-6.7); Basophils % 0.2; Eosinophils % 1.6; HCT 40.8 % (36.0-46.0); HGB 13.8 g/dL (11.2-15.7); Immature Grans % 0.5; Lymphocytes % 15.3; MCH 29.1 pg (27.0-33.0); MCHC 33.8 % (32.0-36.0); MCV 85.9 fL (80-95); MPV 10.1 fL (8.0-11.0); Monocytes % 10.5; Neutrophils % 71.9; Nucleated RBC 0 %; Platelet Count 244 10^3/uL (130-400); RBC 4.75 10^6/uL (3.93-5.22); RDW-SD 40.5 fL
[2021-03-12 20:16] LABS: ALT 39 U/L (14-59); AST 26 U/L (15-37); Albumin 3.7 g/dL (3.4-5.0); Alkaline Phosphatase 71 U/L (46-116); Anion Gap 10.7 mmol/L (3-11); BUN 12 mg/dL (7-18); Bilirubin, Total 0.7 mg/dL (0.2-1.0); CO2 23.3 mmol/L (21.0-32.0); CREATININE 0.8 mg/dL (0.55-1.02); Calcium 8.6 mg/dL (8.5-10.1); Chloride 105 mmol/L (98-107); Ferritin 88 ng/mL (8-252); Glucose 91 mg/dL (74-106); Potassium 3.8 mmol/L (3.5-5.1); Sodium 139 mmol/L (136-145); Total Protein 6.6 g/dL (6.4-8.2)
== END 2021-03-12 13:05 | disposition home or self-care (01) ==
LOC: NCHCN 13:04
PROVIDERS: PCP Internal Medicine; Visit Provider Nurse Practitioner Family
DX: K92.1 Melena (principal); R51.9 Headache, unspecified; R60.0 Localized edema; F41.8 Other specified anxiety disorders; K58.9 Irritable bowel syndrome, unspecified; R03.0 Elevated blood-pressure reading, without diagnosis of hypertension
CPT/HCPCS: 80053; 82728; 85025

== ENCOUNTER 2021-05-24 17:32 | Emergency (ER) | payer MEDICAID, SELFPAY ==
[2021-05-24 17:40] VITALS: BP 138/96; PULSE 73; RESP 16; TEMP 36.7; O2SAT 99
--- NOTE | 2021-05-24 18:00 | DI.RAD_ITS ---
Exam(s) XR PORTABLE CHEST AP EXAM: XR PORTABLE CHEST AP CLINICAL HISTORY: Cough, sputum production. TECHNIQUE: 2D digital imaging was performed. COMPARISON: CR XR ABD FLAT UPRIGHT PA CHEST from 10/05/2018 FINDINGS: Single AP portable view. Heart size is upper normal. The mediastinum is not widened. There is now prominent infiltrate in the right midlung zone and left infrahilar region also appears m ore prominent than previous. No pleural effusions. IMPRESSION: Prominent right mid lung infiltrate. Also left infrahilar infiltrate.No pleural effusions DATA REPOSITORY: RADIATION DOSE DELIVERED: All CT scans at this facility use at least one of these dose optimization techniques: automated exposure control; mA and/or kV adjustment per patient size (includes targeted e xams where dose is matched to clinical indication); or iterative reconstruction.
--- NOTE | 2021-05-24 18:16 | ED.GENADUL_ITS ---
Discharge Plan Disposition Patient Disposition: HOME Condition: Improving Discharge Details Clinical Impression: Right middle lobe pneumonia Primary Care Provider: Carter Garcia ED Provider: Rick Chahal Home Meds and New Rx's Prescriptions: New guaifenesin [Mucinex] 600 mg tablet extended release 12hr 600 mg PO Q12H PRNQty: 10 0RF cefdinir 300 mg capsule 300 mg PO Q12H 10 Days Qty: 20 0RF Continued ibuprofen [Motrin IB] 200 mg capsule 600 mg PO Q6H PRN (Reason: pain) Qty: 30 1RF acetaminophen 500 mg Tablet 1,000 mg PO Q6H PRN0RF amitriptyline 25 mg tablet 25 mg PO HS 0RF Label Comments: TAKE 1 TABLET BY MOUTH AT BEDTIME omega-3 fatty acids Capsule 2,000 mg PO HS 0RF magnesium Tablet 1,000 tab PO HS 0RF Linzess 145 mcg capsule 145 mcg PO HS 0RF Label Comments: TAKE 1 TO 2 CAPSULES BY MOUTH AT BEDTIME Discharge Instructions Instructions: Pneumonia (ED) Additional Instructions: Home to rest. Please take antibiotics as prescribed, next dose will be tomorrow. Tylenol if needed for aches, pains, fever. Return to the emergency department for any acute concerns. Follow-up with regular doctor if not improving in 1 week's time. Your SARS-CoV-2 PCR, RSV, influenza screen was negative this evening Medical Decision Making This is a 41-year-old female who presents with days of cough, congestion, production of sputum, general malaise, body ache, mild headache and sinus pain and pressure. No known sick contacts, she is immunized and boosted against COVID-19. She arrives to the ER alert, pleasant interactive, afebrile and oxygenating normally. Differential diagnosis includes bronchitis, viral syndrome, pneumonitis. Patient IV access established, fluids initiated, given ketorolac, referred for laboratories with urinalysis, COVID-19 swab, chest x-ray. Chest x-ray reveals right middle lobe infiltrate. Slight left infrahilar infiltrate. Laboratories: White blood cell count 5, hematocrit 40, platelets 240. Chemistries was reassuring, urinalysis unremarkable. SARS-CoV-2/influenza/RSV swabs were negative. Patient given ceftriaxone I will place her on oral cephalosporin. She is stable, improved, appropriate discharged home HPI General Mode of arrival: ambulatory . Date/Time Provider Initiated Documentation: 05/24/21 17:32 . Limitations to Documentation: no limitations . Information obtained by: patient . History of Present Illness 41 year old F presents to the emergency department with the chief complaint of Flulike illness for 3 days, described as moderate, Quality is described as dull, and is localized to the chest. Patient reports no radiation. Patient started experiencing this hour(s) and it has been constant. improves with No relieving factors improve symptom(s), No exacerbating factors reported . Patient notes cough, fever/chills, headaches, loss of appetite, malaise and weakness; denies shortness of breath and syncope. Patient did receive the following treatments prior to arrival, none Related Data Home Medications Medication Instructions Recorded Confirmed ibuprofen 200 mg capsule (Motrin 600 mg PO Q6H PRN #30 cap 08/01/19 05/24/21 IB) acetaminophen 500 mg tablet 1,000 mg PO Q6H PRN 05/24/21 05/24/21 amitriptyline 25 mg tablet 25 mg PO HS 05/24/21 05/24/21 cefdinir 300 mg capsule 300 mg PO Q12H 10 Days #20 cap 05/24/21 guaifenesin 600 mg tablet, 600 mg PO Q12H PRN #10 tab 05/24/21 extended release 12 hr (Mucinex) linaclotide 145 mcg capsule 145 mcg PO HS 05/24/21 05/24/21 (Linzess) magnesium 1,000 tab PO HS 05/24/21 05/24/21 omega-3 fatty acids 2,000 mg PO HS 05/24/21 05/24/21 Previous Rx's Medication Instructions Recorded ibuprofen 200 mg capsule (Motrin 600 mg PO Q6H PRN #30 cap 08/01/19 IB) cefdinir 300 mg capsule 300 mg PO Q12H 10 Days #20 cap 05/24/21 guaifenesin 600 mg tablet, 600 mg PO Q12H PRN #10 tab 05/24/21 extended release 12 hr (Mucinex) Allergies Allergy/AdvReac Type Severity Reaction Status Date / Time codeine Allergy Severe Hives, Verified 05/24/21 17:49 violent angry Latex, Natural Rubber Allergy Severe If its Verified 05/24/21 17:49 around my mouth I swell, any other area, I swell valerian Allergy Severe Hives Verified 05/24/21 17:49 zolpidem tartrate Allergy Severe minor Verified 05/24/21 17:49 [From Ambien] stroke Penicillins Allergy Mild internal Verified 05/24/21 17:49 bleeding, constipation prednisone AdvReac Mild Blisters Verified 05/24/21 17:49 in mouth, abdominal pain General Stated Complaint: [employer] ARLETTE: 3 Review of Systems Narrative: Immunized and boosted against COVID-19. No burning of urination. Had transient vaginal discharge yesterday, loose stool. No known sick contacts. No recent travel. Has positive cough, congestion, production of sputum, sinus pressure. 8 systems were reviewed and otherwise negative PFSH All Active Problems (Updated 05/24/21 @ 19:15 by Rick Chahal MD) Right middle lobe pneumonia (Acute) Synovial cyst of popliteal space [Roberts], left knee (Acute) Internal derangement of right knee (Acute) Tubular adenoma (Acute ~10/16/20) Colon polyp (Acute) Melanosis coli (Acute) IBS (irritable bowel syndrome) (Chronic) Weight gain (Acute) Myalgia (Acute) Pedal edema (Acute) Fatty liver disease, nonalcoholic (Acute) Bakers cyst (Acute) Chronic headaches (Acute) Polycystic ovary disease (Acute) Cervicalgia (Acute) Left hip pain (Acute) Lumbar spine pain (Acute) Constipation by delayed colonic transit (Acute) Cubital tunnel syndrome on right (Acute) Rotator cuff impingement syndrome of right shoulder (Acute) Bursitis of right shoulder (Acute) Cervical radiculopathy (Acute) Biceps tendonitis on right (Acute) Bilateral carpal tunnel syndrome (Acute) Left breast lump (Acute ~10/2018) 6x4mm. Pt will have repeat mammo 04/2019. Umbilical hernia without mention of obstruction or gangrene (Acute) Medical History Abdominal pain Anesthesia complication Per pt. stated when she had her hysterectomy, my heart stopped. 07/31/19 here @ [facility]. Anxiety and depression Anxiety with depression Arthralgia Roberts's cyst of knee Black stools Carbon monoxide exposure Carpal tunnel syndrome Chest pain With high anxiety would give me chest pain Cough Dysuria Elevated blood pressure reading Fatigue Fatty liver Generalized headaches Headache History of IBS Hx of head injury IBS (irritable bowel syndrome) Insomnia Memory loss Natural gas exposure Near syncope Night sweats Paresthesia of both hands Right shoulder pain Stress incontinence Umbilical abnormality Surgical History section Section with Tubal ligation (04/27/10) Cholecystectomy (01/07/98) Colonoscopy - MAC (07/03/08) D+C (09/17/13) Dilation and curettage Pt reports 4 D&Cs. 3 pregnancies, 2 c/s. EGD - MAC Endometrial Ablation (10/17/14) Pt has referred to the ablation as a partial hysterectomy. H/O umbilical hernia repair 10/04/18, Dr Selena Goncalves, [facility] H/O: hysterectomy History of colonoscopy with polypectomy (~10/16/20) Repair of umbilical hernia (05/21/09) S/P laparoscopic assisted vaginal hysterectomy ([facility]) Family History Mother Colitis Depression Diverticula of colon Mental disorder Stroke Grandparents on mother and father's size Thyroid disease Father Diabetes Depression Heart disease Mental disorder Sister Diverticula of colon Fibromyalgia Social History Smoking/Tobacco Use Status: Former Tobacco Use Quit Date: 02/21/12 Smoking risk assessment performed?: Yes Alcohol Intake: current Alcohol Intake frequency: holidays/special occasions only Alcohol type: wine Drug use: Never Substance use type: does not use Number of Children: 2 Current gender identity: female Seatbelt use: always Do you feel safe at home: Yes Do you feel safe in your relationship?: Yes Female Reproductive History Menstrual Age of Menarche: 12 control method: permanent sterilization Menopause type: surgical History History 3 Para Hx # Term Pregnancies 2 Multiple births Hx # Pregnancies Ectopic pregnancies AB induced Hx Number of Living Children AB spontaneous Exam Narrative Exam Narrative: GEN: awake, alert, oriented 3. Pleasant, well groomed, interactive. HEAD: Normocephalic, atraumatic ENT: Mucous membranes moist, oropharynx unremarkable, tympanic membranes slightly distended and fluid-filled, no erythema or bulging, external ear exam unremarkable EYES: PERRL, EOMI NECK: Full ROM, no WILLARD, no menigismus CHEST/RESP: Nontender, clear to auscultation bilateral, no wheeze/rhonchi/rales. Cough noted. CARDIOVASCULAR: RRR, no murmur, rub carla. 2+ Rad pulse bilateral ABDOMEN: Soft, nontender, no mass. +Bowel sounds EXT: Full ROM, no edema, no rash Neuro: Grossly normal neurologic exam, conversant, interactive. Psych: Speech fluent, thoughts congruent, affect normal Course Vital Signs Vital signs: Vital Signs Temperature 36.7 C 05/24/21 17:40 Pulse 73 05/24/21 17:40 Respiratory Rate 16 05/24/21 17:40 Blood Pressure 138/96 H 05/24/21 17:40 Pulse Oximetry 99 05/24/21 17:40 Temperature 36.7 C 05/24/21 17:40 Temperature Source Temporal Artery Scan 05/24/21 17:40 Pulse 73 05/24/21 17:40 Respiratory Rate 16 05/24/21 17:40 Respiratory Effort 05/24/21 18:09 Blood Pressure 138/96 H 05/24/21 17:40 Blood Pressure Position Sitting 05/24/21 17:40 Pulse Oximetry 99 05/24/21 17:40 Oxygen Delivery Method Room Air 05/24/21 17:40 Oxygen Flow Rate 0 05/24/21 17:40 Pain Level 4 05/24/21 17:40
[2021-05-24 18:54] VITALS: O2SAT 99
[2021-05-24 18:58] LABS: Abs Immature Grans 0.03 10^3/uL (0.0-0.06); Absolute Basophil Count 0.03 10^3/uL (0.0-0.2); Absolute Eosinophil Count 0.09 10^3/uL (0.0-0.7); Absolute Lymphocyte Count 0.74 10^3/uL (1.2-3.4); Absolute Neutrophil Count 4.25 10^3/uL (1.2-6.7); Basophils % 0.5; Eosinophils % 1.6; HGB 13.6 g/dL (11.2-15.7); Immature Grans % 0.5; Lymphocytes % 12.9; MCH 29.4 pg (27.0-33.0); MCV 86.4 fL (80-95); MPV 9.3 fL (8.0-11.0); Monocytes % 10.5; Nucleated RBC 0 %; Platelet Count 240 10^3/uL (130-400); RBC 4.63 10^6/uL (3.93-5.22); RDW 13.1 % (11.7-14.6); RDW-SD 40.9 fL; WBC 5.74 10^3/uL (4.4-10.8)
[2021-05-24 19:00] VITALS: O2SAT 98
--- NOTE | 2021-05-24 19:04 | DI.VRAD_ITS ---
PROCEDURE INFORMATION: Exam: XR Chest Exam date and time: 05/24/2021 6:36 PM Age: 41 years old Clinical indication: Patient HX: Cough, sputum production TECHNIQUE: Imaging protocol: XR of the chest. Views: 1 view. COMPARISON: CR XR ABD FLAT UPRIGHT PA CHEST 10/05/2018 2:29 PM FINDINGS: Lungs: There is a new small patchy consolidation in the right mid lung. Smaller patchy consolidations are seen in the left perihilar region and in the right upper lung. The appearance is suspicious for multifocal pneumonia. Pleural spaces: Unremarkable. No pleural effusion or pneumothorax. Heart/Mediastinum: Heart size is normal. Cardiomediastinal contours are stable and satisfactory. Bones/joints: No acute osseous abnormality. IMPRESSION: New bilateral pulmonary consolidations, most prominent in the right midlung, suspicious for multifocal pneumonia. Dictated and Authenticated by: Carolyn Smalls MD. Ordering:BERNY Cabrera MD
[2021-05-24] MEDS: Normal Saline 1,000 ML 1000 ML IV (19:35)
[2021-05-24] MEDS: cefTRIAXone 1 GM/50 ML BAG IVPB (19:35)
[2021-05-24] MEDS: Ketorolac 15 MG/ML VIAL IVP (19:35)
[2021-05-24 19:40] LABS: Bilirubin Negative (Negative); Blood Negative (Negative); Clarity Clear (Clear); Glucose Negative (Negative); Ketones Negative (Negative); Leukocyte Esterase Negative (Negative); Nitrite Negative (Negative); Specific Gravity 1.025 (1.005-1.025); Urobilinogen 0.2 EU/dL (Up TO 0.2)
[2021-05-24 19:48] LABS: ALT 31 U/L (14-59); AST 19 U/L (15-37); Albumin 3.7 g/dL (3.4-5.0); Alkaline Phosphatase 63 U/L (46-116); Anion Gap 10.2 mmol/L (3-11); BUN 13 mg/dL (7-18); Bilirubin, Total 0.4 mg/dL (0.2-1.0); CO2 25.8 mmol/L (21.0-32.0); CREATININE 0.7 mg/dL (0.55-1.02); Calcium 9.4 mg/dL (8.5-10.1); Chloride 103 mmol/L (98-107); Glucose 83 mg/dL (74-106); Potassium 4.1 mmol/L (3.5-5.1); Sodium 139 mmol/L (136-145); Total Protein 6.6 g/dL (6.4-8.2)
[2021-05-24 19:56] LABS: COVID-19 PCR Negative (Negative); Influenza A PCR Negative (Negative); Influenza B PCR Negative (Negative); RSV PCR Negative (Negative)
[2021-05-24 20:19] VITALS: BP 142/86; PULSE 65; TEMP 36.9; O2SAT 99
== END 2021-05-24 20:20 | disposition home or self-care (01) ==
PROVIDERS: Emergency Provider Emergency Medicine; PCP Internal Medicine
DX: J18.9 Pneumonia, unspecified organism (principal); R05.1 Acute cough; Z20.822 Contact with and (suspected) exposure to COVID-19
CPT/HCPCS: 80053; 87637; 96361; 96365; 96375; 99284; 71045; 81003; 85025; J0696; J1885

== ENCOUNTER 2021-07-23 16:15 | Outpatient (REF) | payer MEDICAID, SELFPAY ==
--- OUTSIDE RECORDS SUMMARY | 2021-07-23 16:17 | XMS_ITS | Encounter Summary ---
:1980 Author Organization [facility] Address [address] [place] [address] Care Team Providers Name Role Phone Harry Aguirre MD Primary Care Provider Unavailable Unknown, Provider Primary Care Provider Encounter Details Date Type Department Care Team Description 10/05/2016 Historical Results [facility] [place], Only [facility] [place] [facility] [place] [facility] [place] [address] [place] [address] [address] [place] [id number] Social History Tobacco Use Types Packs/Day Years Used Date Never Assessed Sex Assigned at Date Recorded Not on file documented as of this encounter Plan of Treatment Not on filedocumented as of this encounter Procedures Procedure Name Priority Date/Time Associated Comments Diagnosis HUMAN PAPILLOMAVIRUS Routine 10/05/2016 9:19 Resu lts for this (HPV) DETECTION-HIGH EDT procedu re are in RISK TYPES the results section. PAP TEST Routine 10/05/2016 Results for thi s procedure are i n the results section. documented in this encounter Results HUMAN PAPILLOMAVIRUS (HPV) DETECTION-HIGH RISK TYPES (10/05/2016 9:19 EDT) Human Papillomavirus POS [facility] (HPV) Detection-High Comment: [facility] Types Positive for one or more of HPV types 16, 18, 31, 33, 35, 39, 45, 51, 52, 56, 58, 59, 66, or 68. Method: Cervista HPV HR (High Risk) DNA test. Specimen Performing Organization Address City/State/[facility] Code Phon e Number [facility] [address] [place] [address] [facility] PAP TEST (10/05/2016) Specimen Narrative [facility] - 017 9:47 EDT Name: JENISE GARCIA ? : [birth year] ?Age/Sex: 38/F ?Unit#: [id number] ? Loc: AGO ? Status: REG POV ?? Reg Date: 10/05/16 ? Pt.Phone Number : ? Specimen: [id number] ?STA TUS: SOUT ?Spec Date:10/05/16 ? Physician Copies: ?[place] DO Tissues: ? Cervical/Endo Pap ?Carter Garcia ? CPT: 93775 ?? Units: ??1 ? CYTOLOGY DIAGNOSIS SPECIMEN ADEQUACY: ?Satisfactory for evaluation. Transformation zone component present. GENERAL CATEGORIZATION: ?Epithelial Cell Abnormality. 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 RECOMMENDATIONS/COMMENTS: ??Recommend gisella rosen the Updated consensus guidelines algorithms for managing abnormal cervical cancer sc reening tests and cancer precursors Management algorithms have been distributed and are also available online at www.ASCCP.org/consensus.shtml. ?HPV DNA RESULTS ? LABORATORY ?? Date ? Time Test ?Result ?? Flag ?Normal Range ?? 08/16/17 0919 HPV DNA RESULT ??POS ? Positive for on e or more of HPV types 16, 18, 31, 33, 35, ? 39, 45, 51, 52, 56, 58, 59, 66, or 68. ? Method: Cervist a HPV HR (High Risk) DNA test. ORDER QUERIES: LMP: 09/29/16- WNL ?Pregna nt? N Post ? N ??PREVIOUS ATYPICAL: Y BCP/HRT? N Rad Rx? N IUD? N ??PAP PLUS HPV? Y ??REFLEX TO HR-HPV IF ASCUS N REFLEX TO HPV 16/18 IF HPV POS/PAP NEG Y HPV REGARDLESS? N ??RFLX HPV IF LSIL ?? Signed ____(signature on file)____ Chitra Ferrell M.D. 10/12/16 ?? By the signature above, the attending ph ysician certifies that he/she has personally conducted a gross and/or microscopic exa mination of the described specimens and rendered or confirmed the above diagnosi s. Test Performed by [facility], [address] [place] [address] Charge Authorizer: Jacqueline Harden MD PHD Performing Organization Address City/State/ZIP Code Phon e Number [facility] [address] [place], [place] [id number] [place] [address] LAB documented in this encounter Visit Diagnoses Not on filedocumented in this encounter Care Teams Mask Inspector Relationship Specialty Start Date End Date Harry Aguirre MD PCP - General 06/21/08 Unknown, MD Stephen PCP - General 10/16/18 07/29/19 documented as of this encounter
--- OUTSIDE RECORDS SUMMARY | 2021-07-23 16:17 | XMS_ITS | Encounter Summary ---
:1980 Author Organization [facility] Address [address] [place] [address] Care Team Providers Name Role Phone Unavailable Primary Care Provider Unavailable Encounter Details Date Type Department Care Team Description 03/31/1999 Hospital Encounter [facility], Emergency Department - [place], Main [place] [address] [place] [address] Social History Tobacco Use Types Packs/Day Years Used Date Never Assessed Sex Assigned at Date Recorded Not on file documented as of this encounter Discharge Disposition Disposition Code Departure Means Destination Home or Self Care documented in this encounter Plan of Treatment Not on filedocumented as of this encounter Procedures Procedure Name Priority Date/Time Associated Comments Diagnosis RAD US TRANSVAGINAL Routine 03/31/1999 20:52 Resu lts for this EST procedure are i n the results section. documented in this encounter Results RAD US TRANSVAGINAL (03/31/1999 20:52 EST) Anatomical Region Laterality Modality Other Specimen Impressions [facility] - 12/30/2008 12 :10 EST IMPRESSION: 1. 1 cm, hyperechoic region within the l eft ovary, with possible small central hypoechoic core that suggests a cute hemorrhagic cyst. A follow-up ultrasound is recommended fol lowing the next menstrual period to confirm resolution and to exc lude other etiologies of this lesion.. 2. Otherwise, unremarkable ultrasound of the pelvis. The attending radiologist has reviewed t he images and concurs with the findings described above. /law Narrative [facility] - 12/30/2008 12 :10 EST LLQ PAIN R/O LT OV CYST TRANSVAGINAL ULTRASOUND OF THE PELVIS HISTORY: Left lower quadrant pain; rule out left ovarian cyst. History of ruptured cysts in the past. COMPARISON: There are no comparison film s. FINDINGS: An initial transabdominal view was unsatisfactory because of an empty bladder. The study was immed iately converted to a transvaginal ultrasound of the pelvis an d real-time ultrasonographic examination of the pelvic organs was con ducted. The uterus is homogeneous in echogenicity with a amanda l endometrial stripe. The uterus is markedly retroverted. The fund us measures approximately 3.9 cm transverse. The right ovary is id entified and measures approximately 2.7 x 1.8 x 2.2 cm. It is normal in echogenicity with several peripheral follicles. No free fl uid is seen around the adnexa or in the cul-de-sac. The left ovary is also identified and measures approximately 2.0 x 4.3 x 2.5 cm. There are several follicles at the periphery. There is also a small, ill-de fined, hyperechoic but uniform region within the parenchyma ally t measures approximately 1 cm. On several views, there appears to be a hypoechoic core. This is suggestive of an acute hemorrhagic cyst. There is a tiny amount of free fluid adjacent to the lef t adnexa. There is marked tenderness to probe pressure in the left ovary. There are good Doppler arterial and venous waveforms ob tained from both ovaries. The left ovary may appear mildly hyperemic g lobally when compared to the right. Both kidneys were examined and ap pear normal. The right kidney measures 10 cm in length and the left kidney 10.3 cm. There is no evidence for hydronephrosis. Procedure Note Carter Adair CNM / Fernando, Enid Garcia MD - 12/30/2008 LLQ PAIN R/O LT OV CYST TRANSVAGINAL ULTRASOUND OF THE PELVIS HISTORY: Left lower quadrant pain; rule out left ovarian cyst. History of ruptured cysts in the past. COMPARISON: There are no comparison film s. FINDINGS: An initial transabdominal view was unsatisfactory because of an empty bladder. The study was immed iately converted to a transvaginal ultrasound of the pelvis an d real-time ultrasonographic examination of the pelvic organs was con ducted. The uterus is homogeneous in echogenicity with a amanda l endometrial stripe. The uterus is markedly retroverted. The fund us measures approximately 3.9 cm transverse. The right ovary is id entified and measures approximately 2.7 x 1.8 x 2.2 cm. It is normal in echogenicity with several peripheral follicles. No free fl uid is seen around the adnexa or in the cul-de-sac. The left ovary is also identified and measures approximately 2.0 x 4.3 x 2.5 cm. There are several follicles at the periphery. There is also a small, ill-de fined, hyperechoic but uniform region within the parenchyma ally t measures approximately 1 cm. On several views, there appears to be a hypoechoic core. This is suggestive of an acute hemorrhagic cyst. There is a tiny amount of free fluid adjacent to the lef t adnexa. There is marked tenderness to probe pressure in the left ovary. There are good Doppler arterial and venous waveforms ob tained from both ovaries. The left ovary may appear mildly hyperemic g lobally when compared to the right. Both kidneys were examined and ap pear normal. The right kidney measures 10 cm in length and the left kidney 10.3 cm. There is no evidence for hydronephrosis. IMPRESSION IMPRESSION: 1. 1 cm, hyperechoic region within the l eft ovary, with possible small central hypoechoic core that suggests a cute hemorrhagic cyst. A follow-up ultrasound is recommended fol lowing the next menstrual period to confirm resolution and to exc lude other etiologies of this lesion.. 2. Otherwise, unremarkable ultrasound of the pelvis. The attending radiologist has reviewed t he images and concurs with the findings described above. /law Performing Organization Address City/State/ZIP Code Phon e Number [facility] [address] [facility] [place] [address] [facility] [address] [place], [place] [address] documented in this encounter Visit Diagnoses Not on filedocumented in this encounter
--- OUTSIDE RECORDS SUMMARY | 2021-07-23 16:17 | XMS_ITS | Clinical Summary ---
:1980 Author Organization [facility] Address [address] [place] [address] Care Team Providers Name Role Phone Carter Garcia MD Primary Care Provider Social History Tobacco Use Types Packs/Day Years Used Date Never Assessed Sex Assigned at Date Recorded Not on file Plan of Treatment Health Maintenance Due Date Last Done Comments COVID-19 Vaccine (1) 1992 Insurance Payer Benefit Plan Subscriber ID Effective Phone Address Typ e / Group Dates MEDICAID ACO MEDICAID ACO [id number] 2021-Pres [phone] [address] Medicaid [place] [address] [place] [id number] Care Teams Window Sash Installer Relationship Specialty Start Date End Date Carter Garcia MD PCP - General 07/30/19 [address] [place] [address]
--- OUTSIDE RECORDS SUMMARY | 2021-07-23 16:17 | XMS_ITS | Encounter Summary ---
:1980 Author Organization [facility] Address [address] [place] [address] Care Team Providers Name Role Phone Harry Aguirre MD Primary Care Provider Unavailable Unknown, Provider Primary Care Provider Encounter Details Date Type Department Care Team Description 07/09/2017 Historical Results [facility] - Ulices Umana, Hattie [facility] [facility] Lab - [place] Lorie Neil MD [address] [place] [address] [place] [phone] Social History Tobacco Use Types Packs/Day Years Used Date Never Assessed Sex Assigned at Date Recorded Not on file documented as of this encounter Plan of Treatment Not on filedocumented as of this encounter Procedures Procedure Name Priority Date/Time Associated Diagnosis Comme nts 5HIAAQ,URINE - [facility] Routine 07/09/2017 9:48 EDT R esults for this procedure are i n the results section. documented in this encounter Results 5HIAAQ,URINE - [facility] (07/09/2017 9:48 EDT) 5HIAA,URINE - 4.9 <=8.0 mg/24 [facility] h [facility] COLLECTION 24 () h [facility] D[facility]ATION [facility] URINE VOLUME 975 () mL [facility] Comment: [facility] ADDITIONAL INFORMATION ------ Liquid Chromatography-Tandem Mass Spectrometry (LC-MS/ MS). Values obtained from different assay methods or kits m ay be different and cannot be used interchangeably. The resu lts cannot be interpreted as absolute evidence for the pre sence or absence of malignant disease. This test was developed and its performance characteri stics determined by [facility] in a manner consistent with CLIA requirements. This test has not been cleared or approv ed by the U.S. Food and Drug Administration. Test Performed by: [facility] - [address] [facility] - 018 14:52 EDT STARTED 07/08 @0945 ENDED 07/09 @0948 Performing Organization Address City/State/[facility] Code Phon e Number [facility] [address] [place], [place] [id number] [place] [address] LAB documented in this encounter Visit Diagnoses Not on filedocumented in this encounter Care Teams Ratings Analyst Relationship Specialty Start Date End Date Harry Aguirre MD PCP - General 06/21/08 Unknown, MD Stephen PCP - General 10/16/18 07/29/19 documented as of this encounter
--- OUTSIDE RECORDS SUMMARY | 2021-07-23 16:17 | XMS_ITS | Encounter Summary ---
:1980 Author Organization [facility] Address [address] [place] [address] Care Team Providers Name Role Phone Harry Aguirre MD Primary Care Provider Unavailable Unknown, Provider Primary Care Provider Encounter Details Date Type Department Care Team Description 10/15/2018 Results Only [facility] Yolanda Blevins MD [phone] [facility] ,[address] [address] (Wo rk) Social History Tobacco Use Types Packs/Day Years Used Date Never Assessed Sex Assigned at Date Recorded Not on file documented as of this encounter Plan of Treatment Not on filedocumented as of this encounter Procedures Procedure Name Priority Date/Time Associated Diagnosis Comme nts PAP TEST- RESULT Routine 10/15/2018 0:00 EDT Resu lts for this ONLY procedure are i n the results section. documented in this encounter Results PAP TEST- RESULT ONLY (10/15/2018 0:00 EDT) Pathology Report: CYTOPATHOLOGY REPORT [facility] Reports generated via electronic interface contain marilee ginal data; SERVICES however they are lacking the format of the original re port. Caution should be taken when reading/interpreting unfo rmatted reports. Name: ? Virgil GARCIA ? Accession #: ? [id number] ? : ? 1980 (Age: [age]) ??F ?Collect Date: ? 10/15/2018 ? Location: ? [facility] ? Receive Date: ? 10/17/19 19 ? Provider: YOLANDA BLEVINS MD Copy to: LORA ESPINAL MD ? Final Report SPECIMEN ADEQUACY ? Satisfactory for Evaluation - transformation zone component present GENERAL CATEGORIZATION ? Negative for Intraepithelial Lesion or Malignan cy ?? Specimen/Source: ??Pap Test, Cervix/Endocervix, ThinPr ep Imaging System with manual evaluation Document reviewed and electronically signed by: ? Terri Stephens, [facility](ASCP) ? Report ??Date: 10/23/2018 08:25 HPV with Pap Test ? Date Ordered: ? 10/23/2018 ? Status: ?? S igned Out ?Date Complete: ? 10/24/2018 ? By: ??Sys tem Interface ? Date Reported: ? 10/24/2018 ? Interpretation RESULT: POSITIVE FOR HIGH OR INTERMEDIATE RISK HPV. E6 OR E7 mRNA from one or more types of HPV types 16,1 8,31, 33,35,39,45,51,52,56,58,59,66, and 68 is detected by stud master/mistress mediated amplification. High and intermediate risk HPV types are associated wi th most squamous intraepithelial lesions and cervical can cers. Comments Document reviewed and electronically signed by: ? System Interface ? Report date: 10/24/2018 By the signature above, the attending physician certif ies that he/she has personally conducted a gross and/or microscopic examin ation of the described specimens and rendered or confirmed the above diagnosi s. End of Report Specimen Performing Organization Address City/State/ZIP Code Phon e Number [facility] [address] [place] [address] SERVICES documented in this encounter Visit Diagnoses Not on filedocumented in this encounter Care Teams Special Events Director Relationship Specialty Start Date End Date Harry Aguirre MD PCP - General 06/21/08 Unknown, Provider, PCP - General 10/16/18 07/29/19 documented as of this encounter
--- OUTSIDE RECORDS SUMMARY | 2021-07-23 16:17 | XMS_ITS | Encounter Summary ---
:1980 Author Organization [facility] Address [address] [place] [address] Care Team Providers Name Role Phone Harry Aguirre MD Primary Care Provider Unavailable Unknown, Provider Primary Care Provider Encounter Details Date Type Department Care Team Description 06/25/2014 Historical Results [facility] - Stan Reaves, Only [facility] [place] Resul ts DO [address] [place] [address] [address], [address] [place] [address] Social History Tobacco Use Types Packs/Day Years Used Date Never Assessed Sex Assigned at Date Recorded Not on file documented as of this encounter Plan of Treatment Not on filedocumented as of this encounter Procedures Procedure Name Priority Date/Time Associated Comments Diagnosis US PELVIS 06/25/2014 11:56 Results for this TRANSVAGINAL EDT procedure are i n the results section. documented in this encounter Results US PELVIS TRANSVAGINAL (06/25/2014 11:56 EDT) Specimen Narrative [facility] - 06/25/2014 12:03 EDT ? EXAM: ULTRASOUND/TRANSVAGINAL - MANAGER SPANISH W/ DO EX. D/ (1051) ? CLINICAL INFORMATION: ? PELVIC PAIN ? INDICATION: Pain. ? TECHNIQUE: ?Transvaginal pelv ic ultrasound. Color flow Doppler ? imaging was obtained. ? COMPARISON: 10/22/2013. ? FINDINGS: ?The uterus measure s 8.2 x 4.5 x 6.6 centimeters. The ? endometrium measures 8.2 mm in th ickness. The uterine parenchyma is ? unremarkable. ??No free fluid is seen in the cul-de-sac. The right ? ovary measures 3.4 x 2.5 x 2.4 cm . Multiple bilateral small anechoic ? right ovarian follicles are noted . These follicles are peripherally ? aligned.The left ovary measures 4 .0 x 2.3 x 3.1 cm. there is a 2.4 cm ? involuting left ovarian cyst. ? IMPRESSION: ? 1. ??No uterine abnormality detec tiarra. ? 2. Subcentimeter peripherally arr anged bilateral ovarian follicles. ? This can be seen with PCOS. Pleas e correlate clinically. ? 3. Involuting 2.4 cm left ovarian cyst and tiny indeterminate 5 mm ? echogenic right ovarian focus. Th is may reflect a tiny hemorrhagic ? cyst. ? REPORT SIGNED IN OTHER VENDOR SYSTEM 06/25/2014 ?Reported B y: Marcos Collins MD ? CC: ? Transcribed Date/Time: 06/25/2014 (1203) ? Service Department Manager: ? Printed Date/Time: 07/30/2018 (22 00) ? PAGE 1 ? Jami d Report ? Procedure Note Marcos Collins MD - 12/25/2018 EXAM: ULTRASOUND/TRANSVAGINAL - MANAGER SPANISH W/ DO EX. D/ (1051) CLINICAL INFORMATION: PELVIC PAIN INDICATION: Pain. TECHNIQUE: Transvaginal pelvic ultrasou nd. Color flow Doppler imaging was obtained. COMPARISON: 10/22/2013. FINDINGS: The uterus measures 8.2 x 4.5 x 6.6 centimeters. The endometrium measures 8.2 mm in thicknes s. The uterine parenchyma is unremarkable. No free fluid is seen in the cul-de-sac. The right ovary measures 3.4 x 2.5 x 2.4 cm. Mult iple bilateral small anechoic right ovarian follicles are noted. Thes e follicles are peripherally aligned.The left ovary measures 4.0 x 2 .3 x 3.1 cm. there is a 2.4 cm involuting left ovarian cyst. IMPRESSION: 1. No uterine abnormality detected. 2. Subcentimeter peripherally arranged bilateral ovarian follicles. This can be seen with PCOS. Please tim elate clinically. 3. Involuting 2.4 cm left ovarian cyst and tiny indeterminate 5 mm echogenic right ovarian focus. This may reflect a tiny hemorrhagic cyst. REPORT SIGNED IN OTHER VENDOR SYSTEM 06/25/2014 Reported By: Marcos Collins MD CC: Transcribed Date/Time: 06/25/2014 (6777 ) Service Department Manager: Printed Date/Time: 07/30/2018 (7655) PAGE 1 Signed Report Performing Organization Address City/State/ZIP Code Phon e Number [facility] documented in this encounter Visit Diagnoses Not on filedocumented in this encounter Care Teams Publicity Agent Relationship Specialty Start Date End Date Harry Aguirre MD PCP - General 06/21/08 Unknown, MD Stephen PCP - General 10/16/18 07/29/19 documented as of this encounter
--- OUTSIDE RECORDS SUMMARY | 2021-07-23 16:17 | XMS_ITS | Encounter Summary ---
:1980 Author Organization [facility] Address [address] [place] [address] Care Team Providers Name Role Phone Harry Aguirre MD Primary Care Provider Unavailable Unknown, Provider Primary Care Provider Encounter Details Date Type Department Care Team Description 02/04/2016 Historical Results [facility] - Tarun Mott, Only [facility] Lab - Main [address] [facility] [address] [place] [address] [place], [place] [phone] (Wo rk) Social History Tobacco Use Types Packs/Day Years Used Date Never Assessed Sex Assigned at Date Recorded Not on file documented as of this encounter Plan of Treatment Not on filedocumented as of this encounter Procedures Procedure Name Priority Date/Time Associated Diagnosis Comme [facility] SURGICAL PATHOLOGY Routine 02/04/2016 11:10 Resul ts for this EST procedure are i n the results section. documented in this encounter Results SURGICAL PATHOLOGY (02/04/2016 11:10 EST) Specimen Narrative [facility] - 016 17:08 EST Name: PADMINI GARCIAN Anastasia ? : 80 ?Age/Sex: 38/F ?Unit#: [id number] ? Loc: END ? Status: DEP CLI ?? Reg Date: 02/04/16 ? Pt.Phone Number : ? Specimen: [id number] ? STA TUS: SOUT ?Spec Date:02/04/16 ? Physician Copies: ?Tarun Mott MD ?? Tissues: A ?? Endoscopy specimen (ESOPHA GEAL) ?Carter Garcia ? CPT: 83703 ?? Units: ??1 ?FINAL DIAGNOSIS ? ESOPHAGUS, BIOPSY; ? - Squamous mucosa with no specifi c pathologic features. ? - No histologic evidence of eosin ophilic esophagitis. ? GROSS DESCRIPTION ? Received in formalin labeled with the patient's name and Esophageal bx are ? seven mucosal tissue fragments ra nging in size from 0.3 to 0.8 cm. es 2 NM ?? PREOP DX/CLINICAL HISTORY ?DYSPHAGIA Signed ____(signature on file)____ Jacqueline Gilbert M.D. 02/10/16 By the signature above, the attending ph ysician certifies that he/she has personally conducted a gross and/or microscopic exa mination of the described specimens and rendered or confirmed the above diagnosi s. Test Performed by [facility], [address] [place] [address] [address] Handler/ Deputy: Jacqueline Harden MD PHD Performing Organization Address City/State/[facility] Code Phon e Number [facility] [address] [place] [address] LAB documented in this encounter Visit Diagnoses Not on filedocumented in this encounter Care Teams Claims Adjuster Relationship Specialty Start Date End Date Harry Aguirre MD PCP - General 06/21/08 Unknown, MD Stephen PCP - General 10/16/18 07/29/19 documented as of this encounter
--- OUTSIDE RECORDS SUMMARY | 2021-07-23 16:17 | XMS_ITS | Encounter Summary ---
:1980 Author Organization [facility] Address [address] [place] [address] Care Team Providers Name Role Phone Harry Aguirre MD Primary Care Provider Unavailable Unknown, Provider Primary Care Provider Encounter Details Date Type Department Care Team Description 07/04/2017 Historical Results [facility] - Ulices Umana, Only [facility] - Main [facility] Lorie Neil MD [address] [facility] [address] [place] [address] [place] [phone] Social History Tobacco Use Types Packs/Day Years Used Date Never Assessed Sex Assigned at Date Recorded Not on file documented as of this encounter Plan of Treatment Not on filedocumented as of this encounter Procedures Procedure Name Priority Date/Time Associated Comments Diagnosis LUTEINIZING HORMONE Routine 07/04/2017 7:19 Resul ts for this (LH) IHC CHG EDT procedure are i n the results section. documented in this encounter Results LUTEINIZING HORMONE (LH) IHC CHG (07/04/2017 7:19 EDT) Pathologist Sig nature LH 6.7 () mIU/ml [facility] Comment: [facility]ENTER LAB Follicular: ??1.9-12.5 Midcycle Peak: ??8.7-76.3 Luteal: ??0.5-16.9 Postmenopausal: ??15.9-54.0 Test Performed by: THE [address] [address] Specimen Narrative [facility] - 018 14:46 EDT Does PT Have a Latex Allergy? YES Performing Organization Address City/State/ZIP Code Phon e Number [facility] [address] [place] [address] [facility] documented in this encounter Visit Diagnoses Not on filedocumented in this encounter Care Teams Wire Loop Machine Operator Relationship Specialty Start Date End Date Harry Aguirre MD PCP - General 06/21/08 Unknown, Provider, PCP - General 10/16/18 07/29/19 documented as of this encounter
--- OUTSIDE RECORDS SUMMARY | 2021-07-23 16:17 | XMS_ITS | Encounter Summary ---
:1980 Author Organization [facility] Address [address] [place] [address] Care Team Providers Name Role Phone Harry Aguirre MD Primary Care Provider Unavailable Unknown, Provider Primary Care Provider Encounter Details Date Type Department Care Team Description 07/08/2017 Historical Results [facility] - Ulices Umana, Only [facility] Lab - [place] Lorie Neil MD [address] [facility] [address] [place] [address] [place] [phone] Social History Tobacco Use Types Packs/Day Years Used Date Never Assessed Sex Assigned at Date Recorded Not on file documented as of this encounter Plan of Treatment Not on filedocumented as of this encounter Procedures Procedure Name Priority Date/Time Associated Diagnosis Comme nts CREATININE, URINE Routine 07/08/2017 7:10 EDT Res ults for this 24HR procedure are i n the results section. documented in this encounter Results CREATININE, URINE 24HR (07/08/2017 7:10 EDT) Pathologist Sig nature Creatinine, Urine 24 1.67 0.6 - 2.49 [facility] hr g/24hr CENTER LAB Specimen Narrative [facility] - 018 14:27 EDT STARTED 07/07 @0830 ENDED 07/08 @0710 Performing Organization Address City/State/ZIP Code Phon e Number [facility] [address] [place] [address] [facility] documented in this encounter Visit Diagnoses Not on filedocumented in this encounter Care Teams Clinical Transformation Specialist Relationship Specialty Start Date End Date Harry Aguirre MD PCP - General 06/21/08 Unknown, Provider, PCP - General 10/16/18 07/29/19 documented as of this encounter
--- OUTSIDE RECORDS SUMMARY | 2021-07-23 16:17 | XMS_ITS | Encounter Summary ---
:1980 Author Organization [facility] Address [address] [place] [address] Care Team Providers Name Role Phone Harry Aguirre MD Primary Care Provider Unavailable Unknown, Provider Primary Care Provider Encounter Details Date Type Department Care Team Description 07/04/2017 Historical Results [facility] - Ulices Umana, [place]att[place] [facility] Lab - [place] Lorie Neil MD [address] [place] [address] [place] [phone] Social History Tobacco Use Types Packs/Day Years Used Date Never Assessed Sex Assigned at Date Recorded Not on file documented as of this encounter Plan of Treatment Not on filedocumented as of this encounter Procedures Procedure Name Priority Date/Time Associated Diagnosis Comme nts INSULIN-LIKE GROWTH Routine 07/04/2017 7:19 EDT R esults for this FACTOR 1 procedure are i n the results section. documented in this encounter Results INSULIN-LIKE GROWTH FACTOR 1 (07/04/2017 7:19 EDT) INSULIN-LIKE 251 54 - [address] [facility] GROWTH FACTOR I - ng/mL [facility] ILGF Z-SCORE - 1.96 -2.0 - 2.0 [facility] Comment: JONATHAN [facility] ADDITIONAL INFORMATION ------ This test was developed and its performance characteri stics determined by [facility] in a manner consistent with CLIA requirements. This test has not been cleared or approv ed by the U.S. Food and Drug Administration. Test Performed by: [facility] - [facility] [address] [place] [address] Specimen Narrative [facility] - 018 14:46 EDT Does PT Have a Latex Allergy? YES Performing Organization Address City/State/ZIP Code Phon e Number [facility] [address] [place] [address] [facility] documented in this encounter Visit Diagnoses Not on filedocumented in this encounter Care Teams Director Of Hotel Operations Relationship Specialty Start Date End Date Harry Aguirre MD PCP - General 06/21/08 Unknown, MD Stephen PCP - General 10/16/18 07/29/19 documented as of this encounter
--- OUTSIDE RECORDS SUMMARY | 2021-07-23 16:17 | XMS_ITS | Encounter Summary ---
:1980 Author Organization [facility] Address [address] [place] [address] Care Team Providers Name Role Phone Harry Aguirre MD Primary Care Provider Unavailable Unknown, Provider Primary Care Provider Encounter Details Date Type Department Care Team Description 07/04/2017 Historical Results [facility] - Ulices Umana, Only [facility] Lab - [place] Lorie Neil MD [address] [facility] [address] [place] [address] [place] [phone] Social History Tobacco Use Types Packs/Day Years Used Date Never Assessed Sex Assigned at Date Recorded Not on file documented as of this encounter Plan of Treatment Not on filedocumented as of this encounter Procedures Procedure Name Priority Date/Time Associated Diagnosis Comme nts FSH Routine 07/04/2017 7:19 EDT Results for this procedure are i n the results section . documented in this encounter Results FSH (07/04/2017 7:19 EDT) Pathologist Sig nature FSH - [facility] 3.5 () mIU/ml [facility] Comment: [facility]ENTER LAB Follicular: ??2.5-10.2 Mid-Cycle Peak: ??3.4-33.4 Luteal: ??1.5-9.1 Postmenopausal: ??23.0-116.3 Test Performed by: THE [address] [address] Specimen Narrative [facility] - 018 14:46 EDT Does PT Have a Latex Allergy? YES Performing Organization Address City/State/ZIP Code Phon e Number [facility] [address] [place], [place] [phone] [place] [address] LAB documented in this encounter Visit Diagnoses Not on filedocumented in this encounter Care Teams Pomology Teacher Relationship Specialty Start Date End Date Harry Aguirre MD PCP - General 06/21/08 Unknown, Provider, PCP - General 10/16/18 07/29/19 documented as of this encounter
--- OUTSIDE RECORDS SUMMARY | 2021-07-23 16:17 | XMS_ITS | Encounter Summary ---
:1980 Author Organization [facility] Address [address] [place] [address] Care Team Providers Name Role Phone Unavailable Primary Care Provider Unavailable Encounter Details Date Type Department Care Team Description 04/27/1999 Hospital Encounter [facility], Emergency Department - [place], Main [place] [address] [place], [place] [phone] Social History Tobacco Use Types Packs/Day Years Used Date Never Assessed Sex Assigned at Date Recorded Not on file documented as of this encounter Discharge Disposition Disposition Code Departure Means Destination Home or Self Care documented in this encounter Plan of Treatment Not on filedocumented as of this encounter Visit Diagnoses Not on filedocumented in this encounter
--- OUTSIDE RECORDS SUMMARY | 2021-07-23 16:17 | XMS_ITS | Encounter Summary ---
:1980 Author Organization [facility] Address [address] [place] [address] Care Team Providers Name Role Phone Harry Aguirre MD Primary Care Provider Unavailable Encounter Details Date Type Department Care Team Description 06/15/2015 Hospital Encounter [facility] - Unknown, [facility] [phone] [place] [address] (Work) [place] [address] Social History Tobacco Use Types Packs/Day Years Used Date Never Assessed Sex Assigned at Date Recorded Not on file documented as of this encounter Discharge Disposition Disposition Code Departure Means Destination Home or Self Half-Way documented in this encounter Plan of Treatment Not on filedocumented as of this encounter Visit Diagnoses Not on filedocumented in this encounter Care Teams Repair Manager Relationship Specialty Start Date End Date Harry Aguirre MD PCP - General 06/21/08 documented as of this encounter
--- OUTSIDE RECORDS SUMMARY | 2021-07-23 16:17 | XMS_ITS | Encounter Summary ---
:[address] [facility] Address [address] [place] [address] Care Team Providers Name Role Phone Harry Aguirre MD Primary Care Provider Unavailable Encounter Details Date Type Department Care Team Description 01/20/2015 Hospital Encounter [facility] [phone] [place] [address] (Work) [place] [address] Social History Tobacco Use Types Packs/Day Years Used Date Never Assessed Sex Assigned at Date Recorded Not on file documented as of this encounter Discharge Disposition Disposition Code Departure Means Destination Home or Self Assisted documented in this encounter Plan of Treatment Not on filedocumented as of this encounter Visit Diagnoses Not on filedocumented in this encounter Care Teams Engine Lathe Tender Relationship Specialty Start Date End Date Harry Aguirre MD PCP - General 06/21/08 documented as of this encounter
--- OUTSIDE RECORDS SUMMARY | 2021-07-23 16:17 | XMS_ITS | Encounter Summary ---
:1980 Author Organization [facility] Address [address] [place] [address] Care Team Providers Name Role Phone Harry Aguirre MD Primary Care Provider Unavailable Unknown, Provider Primary Care Provider Encounter Details Date Type Department Care Team Description 10/02/2009 Historical Results [facility] - Stan Reaves, Only [facility] [facility] Lab - Main [facility] DO [address] [place] [address] [address], [address] [place] [phone] Social History Tobacco Use Types Packs/Day Years Used Date Never Assessed Sex Assigned at Date Recorded Not on file documented as of this encounter Plan of Treatment Not on filedocumented as of this encounter Procedures Procedure Name Priority Date/Time Associated Diagnosis Comme nts PAP TEST Routine 10/02/2009 Results for thi s procedure are in the resu lts section. documented in this encounter Results PAP TEST (10/02/2009) Specimen Narrative [facility] - 010 15:36 EDT Name: JOSE,JENISE L ? : [birth year] ?Age/Sex: 38/F ?Unit#: [id number] ? Loc: AGO ? Status: REG POV ?? Reg Date: 10/02/09 ? Pt.Phone Number : ? Specimen: [id number] ?STA TUS: SOUT ?Spec Date:10/02/09 ? Physician Copies: ?Milton Reaves DO Tissues: ? Cervical/Endo Pap ?Carter Garcia ? CPT: 89291 ?? Units: ??1 ? CYTOLOGY DIAGNOSIS SPECIMEN ADEQUACY: ?Satisfactory for evaluation. Transformation zone component present. GENERAL CATEGORIZATION: ?Negative fo r Intraepithelial Lesion or Malignancy DESCRIPTIVE DIAGNOSIS: ? Negative fo r Intraepithelial Lesion or Malignancy. RECOMMENDATIONS/COMMENTS: ?None. ORDER QUERIES: LMP: 07/27/09- ?Preg nant? Y Post ? N ??PREVIOUS ATYPICAL: Y BCP/HRT? N Rad Rx? N IUD? N ??PAP PLUS HPV? N ??REFLEX TO HR-HPV IF ASCUS ?? REFLEX TO HPV 16/18 IF HPV POS/PAP NEG ?? HPV REGARDLESS?RFLX HPV IF LSIL ?? IF ASCUS DO HPV? N Signed Chase Michaels CT(ASCP) 10/06/09 By the signature above, the attending ph ysician certifies that he/she has personally conducted a gross and/or microscopic exa mination of the described specimens and rendered or confirmed the above diagnosi s. Test Performed by [facility], [address] [place] [address] Pivot End Polisher: Jacqueline Harden MD PHD Performing Organization Address City/State/ZIP Code Phon e Number [facility] [address] [place] [address] MED CENTER LAB documented in this encounter Visit Diagnoses Not on filedocumented in this encounter Care Teams Board Writer Relationship Specialty Start Date End Date Harry Aguirre MD PCP - General 06/21/08 Unknown, Provider, PCP - General 10/16/18 07/29/19 documented as of this encounter
--- OUTSIDE RECORDS SUMMARY | 2021-07-23 16:17 | XMS_ITS | Encounter Summary ---
:1980 Author Organization [facility] Address [address] [place] [address] Care Team Providers Name Role Phone Harry Aguirre MD Primary Care Provider Unavailable Unknown, Provider Primary Care Provider Encounter Details Date Type Department Care Team Description 09/17/2013 Historical Results [facility] - Stan Reaves, Only [facility] Lab - Main [facility] DO [address] [place] [address] [address], [address] [place] [address] Social History Tobacco Use Types Packs/Day Years Used Date Never Assessed Sex Assigned at Date Recorded Not on file documented as of this encounter Plan of Treatment Not on filedocumented as of this encounter Procedures Procedure Name Priority Date/Time Associated Diagnosis Comme [facility] SURGICAL PATHOLOGY Routine 09/17/2013 Results f or this procedure are i n the results section . documented in this encounter Results SURGICAL PATHOLOGY (09/17/2013) Specimen Narrative [facility] - 014 15:44 EDT Name: JENISE WALKER ?: [birth year] ?Age/Sex: 38/F ?Unit#: [id number] ? Loc: SDS ? Status: DEP SDC ?? Reg Date: 09/17/13 ? Pt.Phone Number : ? Specimen: [id number] ? STA TUS: SOUT ?Spec Date:09/17/13 ? Physician Copies: ?Milton Reaves DO Tissues: A ?? Female Reproductive System (ENDOCERVIX CURETTINGS) ? Crater Garcia ? B ?? Female Reproductive Sy stem (POLYPS) ? C ?? Female Reproductive Sy stem (ENDOMETRIUM) ? CPT: 72533 ?? Units: ??3 ?FINAL DIAGNOSIS ? A. Endocervix, curettage; ? - Benign endocervical tissue. ? B. Endometrium, polyps, biopsy; ? - Polypoid fragments of secretory endometrium. ? C. Endometrium, curettage; ? - Fragments of secretory endometr ium. ? GROSS DESCRIPTION ? A. Received in formalin labeled w ith the patient's name and ECC is an ? estimated 0.5 cc aggregate of moreno -pink tissue fragments, filtered, e.s. 1. ? B. Received in formalin labeled w ith the patient's name and polyp are ? moreno-pink tissue fragments aggrega ting 1 cc. ??Some of the fragments have ? polypoid contour, filtered, e.s. 1. ? C. Received in formalin labeled w ith the patient's name and endometrial ? curettings is an estimated 3 cc aggregate of moreno-pink tissue fragments, ? filtered, e.s. 2. ??CP ?? PREOP DX/CLINICAL HISTORY ?Dysfunctional uterine ble eding Signed ____(signature on file)____ Jacqueline Gilbert M.D. 09/18/13 By the signature above, the attending ph ysician certifies that he/she has personally conducted a gross and/or microscopic exa mination of the described specimens and rendered or confirmed the above diagnosi s. Test Performed by [facility], [address] [place] [address] Wire Chief: Jacqueline Harden MD PHD Performing Organization Address City/State/ZIP Code Phon e Number [facility] [address] [place], [place] [id number] [place] [address] LAB documented in this encounter Visit Diagnoses Not on filedocumented in this encounter Care Teams Flame Cutting Machine Operator Relationship Specialty Start Date End Date Harry Aguirre MD PCP - General 06/21/08 Unknown, Provider, PCP - General 10/16/18 07/29/19 documented as of this encounter
--- OUTSIDE RECORDS SUMMARY | 2021-07-23 16:17 | XMS_ITS | Encounter Summary ---
:1980 Author Organization [facility] Address [address] [place] [address] Care Team Providers Name Role Phone Harry Aguirre MD Primary Care Provider Unavailable Unknown, Provider Primary Care Provider Encounter Details Date Type Department Care Team Description 08/19/[address] [facility] - [place]qas [facility], Only [facility] Resul ts [address] [facility] [address] [place], [place] [address] [place] [address] [phone] Social History Tobacco Use Types Packs/Day Years Used Date Never Assessed Sex Assigned at Date Recorded Not on file documented as of this encounter Plan of Treatment Not on filedocumented as of this encounter Procedures Procedure Name Priority Date/Time Associated Diagnosis Comme nts XR ABDOMEN FLAT AND 08/19/2014 19:47 Resu lts for this UPRIGHT EDT procedure are i n the results section. documented in this encounter Results XR ABDOMEN FLAT AND UPRIGHT (08/19/2014 19:47 EDT) Specimen Narrative [facility] - 08/19/2014 19:47 EDT ? EXAM: RADIOLOGY/ABDOMEN FLAT AND UPRIGHT ??EX. D/ (1920) ? CLINICAL INFORMATION: ? ABD PAIN ? EXAM: ? XR Abdomen Complete W Decubitu s ??/Or Erect. ? CLINICAL HISTORY: ? 34 years old, female; Abd pain ? TECHNIQUE: ? X-ray abdomen complete w decub itus ??/or erect. ? EXAM DATE/TIME: ? Exam ordered 08/19/2014 6:18 PM ? COMPARISON: ? CT ABDOMEN PELVIS 09/20/2013 10: 41:49 AM ? FINDINGS: ? Included lung bases appear clear. ? No subdiaphragmatic free air. ? Surgical clips in the right upper quadrant compatible with ? cholecystectomy. ? Moderate amounts of stool and gas throughout the colon without ? signs of abnormal distention. ? No small bowel dilatation or worr isome air-fluid levels ? demonstrated. ? The liver and spleen do not appea r enlarged. ? The bones look intact and well mi neralized. ??Lumbar vertebral ? body stature is maintained. ??Casie nt calcified phleboliths within ? the left side of the pelvis. ? IMPRESSION: ? Bowel gas pattern at present not suggestive of mechanical bowel ? obstruction. ??No evidence of pne umoperitoneum. ? REPORT SIGNED IN OTHER VENDOR SYSTEM 08/19/2014 ?Reported B y: Camron Roche MD ? CC: ? Transcribed Date/Time: 08/19/2014 (1947) ? Graphic Design Intern: ? Printed Date/Time: 07/30/2018 (22 00) ? PAGE 1 ? Jami d Report ? Procedure Note Camron Roche - 12/25/2018 EXAM: RADIOLOGY/ABDOMEN FLAT AND UPRIGH T EX. D/ (192) CLINICAL INFORMATION: ABD PAIN EXAM: XR Abdomen Complete W Decubitus /Or Ere ct. CLINICAL HISTORY: 34 years old, female; Abd pain TECHNIQUE: X-ray abdomen complete w decubitus /or erect. EXAM DATE/TIME: Exam ordered 08/19/2014 6:18 PM COMPARISON: CT ABDOMEN PELVIS 09/20/2013 10:41:49 AM FINDINGS: Included lung bases appear clear. No subdiaphragmatic free air. Surgical clips in the right upper quadr ant compatible with cholecystectomy. Moderate amounts of stool and gas throu ghout the colon without signs of abnormal distention. No small bowel dilatation or worrisome air-fluid levels demonstrated. The liver and spleen do not appear enla rged. The bones look intact and well minerali zed. Lumbar vertebral body stature is maintained. Joint calci fied phleboliths within the left side of the pelvis. IMPRESSION: Bowel gas pattern at present not sugges tive of mechanical bowel obstruction. No evidence of pneumoperit oneum. REPORT SIGNED IN OTHER VENDOR SYSTEM 08/19/2014 Reported By: Camron Roche MD CC: Transcribed Date/Time: 08/19/2014 (1946 ) Graphic Design Intern: Printed Date/Time: 07/30/2018 (3992) PAGE 1 Signed Report Performing Organization Address City/State/ZIP Code Phon e Number [facility] documented in this encounter Visit Diagnoses Not on filedocumented in this encounter Care Teams Water Operator Relationship Specialty Start Date End Date Harry Aguirre MD PCP - General 06/21/08 Unknown, MD Stephen PCP - General 10/16/18 07/29/19 documented as of this encounter
--- OUTSIDE RECORDS SUMMARY | 2021-07-23 16:17 | XMS_ITS | Encounter Summary ---
:1980 Author Organization [facility] Address [address] [place] [address] Care Team Providers Name Role Phone Harry Aguirre MD Primary Care Provider Unavailable Unknown, Provider Primary Care Provider Encounter Details Date Type Department Care Team Description 07/23/2012 Historical Results [facility] - Stan Reaves, Only [facility] Lab - Main [facility] DO [address] [place] [address] [address], [address] [place] [phone] Social History Tobacco Use Types Packs/Day Years Used Date Never Assessed Sex Assigned at Date Recorded Not on file documented as of this encounter Plan of Treatment Not on filedocumented as of this encounter Procedures Procedure Name Priority Date/Time Associated Diagnosis Comme nts PAP TEST Routine 07/23/2012 8:33 EDT Results for this procedure are i n the results section . documented in this encounter Results PAP TEST (07/23/2012 8:33 EDT) Specimen Narrative [facility] - 013 12:20 EDT Name: JENISE GARCIA ? : [birth year] ?Age/Sex: 38/F ?Unit#: [id number] ? Loc: AGO ? Status: REG POV ?? Reg Date: 07/23/12 ? Pt.Phone Number : ? Specimen: [id number] ?STA TUS: SOUT ?Spec Date:07/23/12 ? Physician Copies: ?Milton Reaves DO Tissues: ? Cervical/Endo Pap ?Carter Garcia ? CPT: 54754 ?? Units: ??1 ? CYTOLOGY DIAGNOSIS SPECIMEN ADEQUACY: ?Satisfactory for evaluation. Transformation zone component present. GENERAL CATEGORIZATION: ?Negative fo r Intraepithelial Lesion or Malignancy DESCRIPTIVE DIAGNOSIS: ? Negative fo r Intraepithelial Lesion or Malignancy. RECOMMENDATIONS/COMMENTS: ?None. ORDER QUERIES: LMP: 07/11/12- WNL ?Pregna nt? N Post ? N ??PREVIOUS ATYPICAL: Y BCP/HRT? N Rad Rx? N IUD? N ??PAP PLUS HPV? N ??REFLEX TO HR-HPV IF ASCUS ?? REFLEX TO HPV 16/18 IF HPV POS/PAP NEG ?? HPV REGARDLESS?RFLX HPV IF LSIL ?? IF ASCUS DO HPV? Y Signed Goldy Zamora CT(ASCP) 07/26/12 By the signature above, the attending ph ysician certifies that he/she has personally conducted a gross and/or microscopic exa mination of the described specimens and rendered or confirmed the above diagnosi s. Test Performed by [facility], [address] [place] [id number] Investigator Cash Shortage: Jacqueline Harden MD PHD Performing Organization Address City/State/ZIP Code Phon e Number [facility] [address] [place] [id number] [facility] LAB documented in this encounter Visit Diagnoses Not on filedocumented in this encounter Care Teams Apple Peeler Operator Relationship Specialty Start Date End Date Harry Aguirre MD PCP - General 06/21/08 Unknown, Provider, PCP - General 10/16/18 07/29/19 documented as of this encounter
--- OUTSIDE RECORDS SUMMARY | 2021-07-23 16:17 | XMS_ITS | Encounter Summary ---
:[address] [facility] Address [address] [place] [address] Care Team Providers Name Role Phone Harry Aguirre MD Primary Care Provider Unavailable Unknown, Provider Primary Care Provider Encounter Details Date Type Department Care Team Description 05/23/2017 Historical Results [facility] - [place] Only [facility] Lab - Main [place], OPTICIAN [address] [place] [address] [address] [place] [address] Social History Tobacco Use Types Packs/Day Years Used Date Never Assessed Sex Assigned at Date Recorded Not on file documented as of this encounter Plan of Treatment Not on filedocumented as of this encounter Procedures Procedure Name Priority Date/Time Associated Comments Diagnosis BLOOD CULTURE - [facility] Routine 05/23/2017 16:15 Res ults for this EDT procedure are i n the results section. BLOOD CULTURE - [facility] Routine 05/23/2017 16:05 Res ults for this EDT procedure are i n the results section. COMPLETE BLOOD COUNT Routine 05/23/2017 16:05 Res ults for this WITH DIFFERENTIAL EDT procedure are in (AUTO) the results section. THYROID CASCADE Routine 05/23/2017 16:05 Results for this EDT procedure are i n the results section. MAGNESIUM Routine 05/23/2017 16:05 Results for this EDT procedure are i n the results section. COMPREHENSIVE Routine 05/23/2017 16:05 Results fo r this METABOLIC PANEL (CMP) EDT proced ure are in the results section. documented in this encounter Results BLOOD CULTURE - [facility] (05/23/2017 16:15 EDT) Pathologist Sig nature BLOOD CULTURE - [facility] LAB BLOOD CULTURE - NO GROWTH AT 5 [facility] LAB Specimen Narrative [facility] - 018 8:06 EDT COMMENT: JEFF RAMOS Does PT Have a Latex Allergy? YES Performing Organization Address City/[facility] Code Phon e Number [facility] [address] LAB BLOOD CULTURE - [facility] (05/23/2017 16:05 EDT) Pathologist Sig nature BLOOD CULTURE - [facility] LAB BLOOD CULTURE - NO GROWTH AT 5 [facility] LAB Specimen Narrative [facility] - 018 8:06 EDT COMMENT: JEFF RAMOS Does PT Have a Latex Allergy? YES Performing Organization Address [facility] Code Phon e Number [facility] [address] LAB MAGNESIUM (05/23/2017 16:05 EDT) Pathologist Sig nature Magnesium 1.70 1.7 - 2.8 mg/dL [facility] Specimen Narrative [facility] - 018 17:14 EDT Does PT Have a Latex Allergy? YES Performing Organization Address [facility] Phon e Number [facility] [address] LAB COMPREHENSIVE METABOLIC PANEL (CMP) (05/23/2017 16:05 EDT) ALBUMIN - [facility] 4.1 3.4 - 4.9 [facility] g/dL [facility] LAB ALKALINE 49 38 - 126 U/L [facility] PHOSPHATASE - [facility] LAB BILIRUBIN TOTAL 0.7 0.2 - 1.3 [facility] mg/dL [facility] BUN - [facility] 17 10 - 26 mg/dL [facility] CALCIUM - [facility] 9.7 8.5 - 10.5 [facility] mg/dL [facility] LAB Chloride 101 96 - 110 [facility] mmol/L [facility] LAB CO2 Total 26 22 - 32 mEq/L [facility] CREATININE 0.73 0.52 - 1.04 [facility] mg/dL [facility] LAB eGFR >60 [facility] Comment: [facility] Chronic renal impairment is defined as GFR <60 Multiply result by 1.210 for patients . eGFR calculated using the IDMS-traceable MDRD Study Equation. ??(effective 12/23/2013) Anion Gap 11 0 - 18 [facility] GLUCOSE - [facility] 86 70 - 100 [facility] mg/dL [facility] Potassium 4.2 3.5 - 5.0 [facility] mEq/L [facility] Sodium 138 136 - 145 [facility] mEq/L [facility] LAB TOTAL PROTEIN - 6.7 6.2 - 8.2 [facility] gm/dL [facility] LAB SGOT/AST - [facility] 28 14 - 36 U/L [facility] SGPT/ALT - [facility] 41 9 - 52 U/L [facility] Specimen Narrative [facility] - 018 17:14 EDT Does PT Have a Latex Allergy? YES Performing Organization Address City/[facility] Phon e Number [facility] [address] LAB THYROID CASCADE (05/23/2017 16:05 EDT) Pathologist Sig nature TSH 1.11 0.46 - 4.68 uIU/mL [facility] CE NTER LAB Specimen Narrative [facility] - 018 17:43 EDT COMMENT: PER RACHEL Does PT Have a Latex Allergy? YES Performing Organization Address City/[facility]/ZIP Code Phon e Number [facility] [address] LAB COMPLETE BLOOD COUNT WITH DIFFERENTIAL (AUTO) (05/23/2017 16:05 EDT) Pathologist Sig nature ABSOLUTE NEUTROPHIL 4.07 1.7 - 7.0 [facility] COUN - [facility] 10e3/ul CENTER LAB BASO # - [facility] 0.02 0.0 - 0.3 [facility] 10e3/uL CENTER LAB BASO % - [facility] 0 0 - 2 % [facility] EOS # - [facility] 0.16 0.05 - 0.5 [facility] 10e3/uL CENTER LAB EOS % - [facility] 3 0 - 5 % [facility] GRAN % - [facility] 64 40 - 80 % [facility] HEMATOCRIT - [facility] 42.3 34.0 - 47.0 % [facility] HEMOGLOBIN - [facility] 14.9 11.2 - 15.7 g/dl [facility] IG# - [facility] 0.03 0 - 0.07 10e3/uL [facility] IG% - [facility] 0.5 0 - 0.9 % [facility] LYMPH # - [facility] 1.66 0.9 - 2.9 [facility] 10e3/uL [place] [facility] LYMPH% - [facility] 26 20 - 40 % [facility] MEAN CORPUSCULAR HGB - 30.8 26 - 34 pg [facility] MEAN CORPUSCULAR HGB 35.2 31 - 36 g/dL [facility] CONC [facility] LAB MEAN CELL VOLUME - 87.6 77 - 100 fl [facility] MONO # - [facility] 0.40 0.3 - 0.9 [facility] 10e3/uL [facility] MONO% - [facility] 6 0 - 12 % [facility] PLATELET COUNT 219 150 - 400 [facility] 10e3/ul [facility] RED BLOOD COUNT - [facility] 4.83 3.8 - 5.2 [facility] 10e6/ul [facility] RED CELL DISTRI WIDTH 12.6 11.8 - 15.6 % [facility] WHITE BLOOD COUNT - 6.3 3.5 - 10.5 [facility] 10e3/ul [facility] Specimen Narrative [facility] - 018 16:42 EDT Does PT Have a Latex Allergy? YES Performing Organization Address City/State/ZIP Code Phon e Number [facility] [address] LAB documented in this encounter Visit Diagnoses Not on filedocumented in this encounter Care Teams Garden Machinery Mechanic Relationship Specialty Start Date End Date Harry Aguirre MD PCP - General 06/21/08 Unknown, MD Stephen PCP - General 10/16/18 07/29/19 documented as of this encounter
--- OUTSIDE RECORDS SUMMARY | 2021-07-23 16:17 | XMS_ITS | Encounter Summary ---
:1980 Author Organization [facility] Address [address] [place] [address] Care Team Providers Name Role Phone Harry Aguirre MD Primary Care Provider Unavailable Unknown, Provider Primary Care Provider Encounter Details Date Type Department Care Team Description 10/17/2016 Historical Results [facility] - Stan Re[place], Only [facility] Lab - Main [facility] DO [address] [place] [address] [address], [address] [place] [address] Social History Tobacco Use Types Packs/Day Years Used Date Never Assessed Sex Assigned at Date Recorded Not on file documented as of this encounter Plan of Treatment Not on filedocumented as of this encounter Procedures Procedure Name Priority Date/Time Associated Diagnosis Comme [facility] SURGICAL PATHOLOGY Routine 10/17/2016 14:43 Resul ts for this EDT procedure are i n the results section. documented in this encounter Results SURGICAL PATHOLOGY (10/17/2016 14:43 EDT) Specimen Narrative [facility] - 017 14:19 EDT PREOP LGSIL Procedure: COLPO Tissue Removed ECC AND CERVICAL BIOPSY @ 6 OCLOCK LMP: Prev.Abn Pap: NO CYCLES Name: JENISE GARCIA ? : 80 ?Age/Sex: 38/F ?Unit#: [id number] ? Loc: AGO ? Status: REG POV ?? Reg Date: 10/17/16 ? Pt.Phone Number : ? Specimen: [id number] ? STA TUS: SOUT ?Spec Date:10/17/16 ? Physician Copies: ?Milton Reaves DO Tissues: A ?? Endocervix, curettings ? Carter Garcia ? B ?? Cervix, biopsy (6 OCLO CK) ? CPT: 84582 ?? Units: ??2 ?FINAL DIAGNOSIS ? A. ??ENDOCERVIX, CURETTAGE; ? - Fragments of benign endocervica l and squamous tissue. ? - Negative for dysplasia. ? B. ??CERVIX, 6 OCLOCK, BIOPSY; ? 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 ? - See comment. ?COMMENT ? The most recent Pap smear ([id number]) s hows cells diagnostic for low-grade squamous intraepithelial lesion with a positive high risk HPV test. ??Today's biopsy shows transformation zone mucosa with a small area consistent with low-grade dysplasia. ??This area would correlate with those cells seen on Pap smear. ? GROSS DESCRIPTION ? A. ??Received in formalin labeled with the patient's name and ECC is a scant ? amount of moreno tissue fragments me asuring less than 0.1 cc, filtered. es 1 ? B. ??Received in formalin labeled with the patient's name and Cervix bx 6 ? o'clock is a piece of moreno tissue measuring 0.3 x 0.3 x 0.2 cm. es 1 NM ?? PREOP DX/CLINICAL HISTORY ?LGSIL Signed ____(signature on file)____ Chitra Ferrell M.D. 10/18/16 ?? By the signature above, the attending ph ysician certifies that he/she has personally conducted a gross and/or microscopic exa mination of the described specimens and rendered or confirmed the above diagnosi s. Test Performed by [facility], [address] [place] [address] Insurance Manager: Jacqueline Harden MD PHD Performing Organization Address City/State/ZIP Code Phon e Number [facility] [address] [place] [address] LAB documented in this encounter Visit Diagnoses Not on filedocumented in this encounter Care Teams Psychiatric Mental Health Nurse Relationship Specialty Start Date End Date Harry Aguirre MD PCP - General 06/21/08 Unknown, MD Stephen PCP - General 10/16/18 07/29/19 documented as of this encounter
--- OUTSIDE RECORDS SUMMARY | 2021-07-23 16:17 | XMS_ITS | Encounter Summary ---
:1980 Author Organization [facility] Address [address] [place] [address] Care Team Providers Name Role Phone Harry Aguirre MD Primary Care Provider Unavailable Unknown, Provider Primary Care Provider Encounter Details Date Type Department Care Team Description 04/30/2009 Historical Results [facility] - Carmen Cali, Only [facility] Lab - Main [facility] [address] [place] [address] [facility] [address] [place] [address] Social History Tobacco Use Types Packs/Day Years Used Date Never Assessed Sex Assigned at Date Recorded Not on file documented as of this encounter Plan of Treatment Not on filedocumented as of this encounter Procedures Procedure Name Priority Date/Time Associated Diagnosis Comme nts PAP TEST Routine 04/30/2009 Results for thi s procedure are in the resu lts section. documented in this encounter Results PAP TEST (04/30/2009) Specimen Narrative [facility] - 010 10:24 EDT Name: PADMINI GARCIAN Anastasia ? : 80 ?Age/Sex: 38/F ?Unit#: [id number] ? Loc: AGO ? Status: REG POV ?? Reg Date: 04/30/09 ? Pt.Phone Number : ? Specimen: [id number] ?STA TUS: SOUT ?Spec Date:04/30/09 ? Physician Copies: ?Carmen Cali ? Tissues: ? Cervical/Endo Pap ?Carter Garcia ? CPT: 58042 ?? Units: ??1 ? CYTOLOGY DIAGNOSIS SPECIMEN ADEQUACY: ?Satisfactory for evaluation. Transformation zone component present. GENERAL CATEGORIZATION: ?Negative fo r Intraepithelial Lesion or Malignancy DESCRIPTIVE DIAGNOSIS: ? Negative fo r Intraepithelial Lesion or Malignancy. RECOMMENDATIONS/COMMENTS: ?None. ORDER QUERIES: LMP: 02/01/09- ?Preg nant? Y Post ? N ??PREVIOUS ATYPICAL: Y BCP/HRT? N Rad Rx? N IUD? N ??PAP PLUS HPV? N ??REFLEX TO HR-HPV IF ASCUS ?? REFLEX TO HPV 16/18 IF HPV POS/PAP NEG ?? HPV REGARDLESS?RFLX HPV IF LSIL ?? IF ASCUS DO HPV? Y Signed Radha Koo CT(ASCP) 05/06/09 ? By the signature above, the attending ph ysician certifies that he/she has personally conducted a gross and/or microscopic exa mination of the described specimens and rendered or confirmed the above diagnosi s. Test Performed by [facility], [address] [place] [address] Production Planner Scheduler: Jacqueline Harden MD PHD Performing Organization Address City/State/ZIP Code Phon e Number [facility] [address] [place] [address] [facility] documented in this encounter Visit Diagnoses Not on filedocumented in this encounter Care Teams [employer] Relationship Specialty Start Date End Date Harry Aguirre MD PCP - General 06/21/08 Unknown, ProviderMD PCP - General 10/16/18 07/29/19 documented as of this encounter
--- OUTSIDE RECORDS SUMMARY | 2021-07-23 16:17 | XMS_ITS | Encounter Summary ---
:[address] [facility] Address [address] [place] [address] Care Team Providers Name Role Phone Harry Aguirre MD Primary Care Provider Unavailable Unknown, Provider Primary Care Provider Encounter Details Date Type Department Care Team Description 07/08/2017 Historical Results [facility] - Ulices Umana, Only [facility] - Main [facility] Lorie Neil MD [address] [facility] [address] [place] [address] [place] [id number] Social History Tobacco Use Types Packs/Day Years Used Date Never Assessed Sex Assigned at Date Recorded Not on file documented as of this encounter Plan of Treatment Not on filedocumented as of this encounter Procedures Procedure Name Priority Date/Time Associated Comments Diagnosis URINE COLLECTION Routine 07/08/2017 7:10 EDT Resu lts for this TIME - [facility] procedure are i n the results section. documented in this encounter Results URINE COLLECTION TIME - [facility] (07/08/2017 7:10 EDT) Pathologist Sig nature URINE COLLECTION TIME - 24 HOURS [facility] Specimen Narrative [facility] - 018 14:27 EDT STARTED 07/07 @0830 ENDED 07/08 @0710 Performing Organization Address City/State/ZIP Code Phon e Number [facility] [address] [place] [address] [facility] documented in this encounter Visit Diagnoses Not on filedocumented in this encounter Care Teams Bundle Tier Relationship Specialty Start Date End Date Harry Aguirre MD PCP - General 06/21/08 Unknown, Provider, PCP - General 10/16/18 07/29/19 documented as of this encounter
--- OUTSIDE RECORDS SUMMARY | 2021-07-23 16:17 | XMS_ITS | Encounter Summary ---
:1980 Author Organization [facility] Address [address] [place] [address] Care Team Providers Name Role Phone Harry Aguirre MD Primary Care Provider Unavailable Encounter Details Date Type Department Care Team Description 06/21/2008 Hospital Encounter [facility] Esme Kerr MD [facility] [address] [address] [address], [place] [id number] (Wo rk) Social History Tobacco Use Types Packs/Day Years Used Date Never Assessed Sex Assigned at Date Recorded Not on file documented as of this encounter Discharge Disposition Disposition Code Departure Means Destination Home or Self Care documented in this encounter Miscellaneous Notes ED Consult - HopkinsLuis Alberto joya - 06/21/2008 0000 EDT EMERGENCY ROOM CONSULTATION SERVICE DATE: 06/21/2008 Brittnee Rivas MD [facility] [address] [place] [address], [address] [place] [address] Rivas: Ms Carpio came to triage today because of a concern for increased weight gain. She is a 28-year-old G1, P0, at 36 weeks and 3 days, with an estimated date of confinement of July 16, 2008, based on her last menstrual period, consistent with a 9-week 5-day ultrasound. Currently, the patient presents to us because she has had a 30-pound weight gain over the last several weeks and some elevated blood pressures. She was seen by the [facility] in [facility] and has been monitored forelevated blood pressures. Entry blood pressures were normotensive, with blood pressures in the 1-teens to 120s over 60s-80s. Approximately two to three weeks ago, she had elevated blood pressures that were 140s/90s. On June 12, 2008, she completed a 24-hour urine. At that time it was 217 mg with a total volume of greater than 1.9 liters, with a creatinine level of greater than 1 gram. She had a normal HELLP (hemolysis, elevated liver enzymes, and low platelet count) panel. She sees them on a weekly basis with twice-weekly testing. Blood pressures are rarely above 140s over 80s-90s. She has had negative proteinuria. She had a growth ultrasound that was within normal limits. The plan was to continue the 24-hour urine anddiscuss possibility of development of preeclampsia. Today, the patient reports that she has no headache, visual changes, or shortness of breath. She does have a history of migraines but no history of that currently. She has no epigastric pain or right upper quadrant pain. Past Medical History: Depression, probable anxiety. Past Surgical History: Laparoscopic cholecystectomy and colonoscopy. Past Gynecologic History: History of ovarian cysts, with a history of abnormal Paps with a probable colposcopy and biopsy after delivery. No history of sexually transmitted diseases. Medications: vitamins. ALLERGIES: LATEX AND CODEINE. Objective: Vital signs: Blood pressure 118/81 to 119/90, pulse 100, temperature 36.9. General: No apparent distress. Abdomen: Soft, nontender, nondistended, no guarding, no rigidity. Extremity evaluation: 2+ edema, 2+ deep tendon reflexes. Sterile vaginal exam: Fingertip, 50%, posterior, and high. External monitor reveals a baseline of 140s, moderate variability, positive accelerations, no decelerations. Labs: UA: Specific gravity greater than 1.030, negative protein, nitrite, leukocyte esterase, negative blood. ALT 12, AST 27. LDH 451. Uric acid 5.5, BUN 9, creatinine 0.6. Fibrinogen 682. White count 1142, platelets 239, hematocrit 35.4. Assessment and Plan: The patient is a 28-year-old G1, P0, at 36 weeks and 3 days, here for concern for weight gain. The patient has some elevated blood pressures, with a diastolic of 90; however, the rest of her blood pressures are within normal limits. She has negative proteinuria. She has a 24-hour urine protein that is within normal limits at less than 300 mg and a negative HELLP panel. We discussed with her the diagnosis of gestational hypertension and the possibility of developing preeclampsia later on in . We would make the following recommendations: A. We would recommend checking a 24-hour urine protein to see if it is less than 300. If it is greater than 300, she has a diagnosis of preeclampsia. If less than 300, we would recommend that she havecontinued monitoring. B. If less than 300, we would recommend that she has testing twice-weekly and induction of labor with a favorable cervix beyond 39 weeks. We also would recommend that she has a HELLP panel withthe onset of epigastric pain or repeat 24-hour urine if she has proteinuria on dips in the office. C. If the patient has greater than 300 mg of protein, we would recommend twice- weekly testing and induction of labor at term, which would be between 37 and 38 weeks. She should have growth ultrasoundsevery three weeks. The patient was seen in our triage. She was sent home from triage on Monday, June 21, 2008, with precautions for symptoms of severe preeclampsia. Sincerely, Signed by uLis Alberto Hopkins MD 06/27/2008 13:18 Luis Alberto Hopkins MD - Luis Alberto Hopkins MD A - LW Job ID: [id number] Document ID: [id number] cc: Brittnee Rivas MD documented in this encounter Plan of Treatment Not on filedocumented as of this encounter Procedures Procedure Name Priority Date/Time Associated Comments Diagnosis URINALYSIS WITH Routine 06/21/2008 11:57 Results for this MICROSCOPIC IF EDT procedure are in POSITIVE the results section. UA REFLEX Routine 06/21/2008 11:57 Results for this EDT procedure are i n the results section. URINE CULTURE IF Routine 06/21/2008 11:57 Results for this POSITIVE EDT procedure are i n the results section. FIBRINOGEN Routine 06/21/2008 10:45 Results for this EDT procedure are i n the results section. COMPLETE BLOOD COUNT Routine 06/21/2008 10:45 Res ults for this AND DIFFERENTIAL EDT procedure a re in the results section. URIC ACID Routine 06/21/2008 10:45 Results for this EDT procedure are i n the results section. BUN Routine 06/21/2008 10:45 Results for this EDT procedure are i n the results section. ALT Routine 06/21/2008 10:45 Results for this EDT procedure are i n the results section. AST Routine 06/21/2008 10:45 Results for this EDT procedure are i n the results section. LDH Routine 06/21/2008 10:45 Results for this EDT procedure are i n the results section. CREATININE Routine 06/21/2008 10:45 Results for this EDT procedure are i n the results section. documented in this encounter Results UA REFLEX (06/21/2008 11:57 EDT) Pathologist Sig nature UA Billing Microscopic not [facility] indicated. Specimen Performing Organization Address City/[facility] Code Phon e Number [facility] [address] [place] [address] SERVICES [facility] [address] [place] [address] (ABNORMAL) URINALYSIS, CHEMICAL (06/21/2008 11:57 EDT) Color, UA Yellow [facility] Clarity, UA Clear [facility] Glucose, UA Norm NORM [facility] Bilirubin, UA Neg NEG [facility] Ketones, UA Neg NEG [facility] Specific Parks, Urine >1.030 (H) 1.005 - 1.02 [facility] Blood, UA Neg NEG [facility] pH, UA 5.0 5.0 - 9.0 [facility] Protein, UA Neg NEG [facility] Urobilinogen, Urine Norm NORM mg/dL [facility] Nitrite, UA Neg NEG [facility] Leuk Esterase Neg NEG [facility] Refractometer SG,Urine 1.022 1.005 - 1.02 [facility] Specimen Urine (substance) Performing Organization Address City/[facility]/ZIP Code Phon e Number [facility] [address] [place] [address] SERVICES [facility] [address] [place] [address] CULTURE IF UA POSITIVE (06/21/2008 11:57 EDT) Culture if Culture not [facility] Indicated indicated by urinalysis results. Specimen Urine (substance) Performing Organization Address City/State/ZIP Code Phon e Number [facility] [address] [place] [address] SERVICES [facility] [address] [place] [address] URIC ACID (06/21/2008 10:45 EDT) Pathologist Sig [facility] Uric Acid 5.5 2.2 - 7.7 mg/dl [facility] Specimen Blood specimen (specimen) Performing Organization Address City/[facility]/ZIP Code Phon e Number [facility] [address] [place] [address] SERVICES [facility] [address] [place] [address] LDH (06/21/2008 10:45 EDT) Pathologist Sig nature LDH 451 313 - 618 U/L [facility] Specimen Blood specimen (specimen) Performing Organization Address City/[facility]/ZIP Code Phon e Number [facility] [address] [place] [address] SERVICES [facility] [address] [place] [address] (ABNORMAL) HEMAGRAM AND DIFFERENTIAL (06/21/2008 10:45 EDT) Pathologist Sig nature WBC 11.48 4.0 - 12.4 K/cmm [facility] RBC 4.26 3.86 - 5.04 M/cmm [facility] Hemoglobin 12.5 11.6 - 15.2 gm/dl [facility] HCT 35.4 34.9 - 44.4 % [facility] MCV 83 81 - 98 fl [facility] MCH 29.4 26.7 - 33.3 pg [facility] MCHC 35.3 32.1 - 35.9 gm/dl [facility] PLT 239 141 - 320 K/cmm [facility] RDW-CV 15.8 (H) 11.7 - 14.6 % [facility] Neutrophils 76.0 45.5 - 79.7 % [facility] Lymphocytes 10.8 (L) 15.0 - 46.8 % [facility] Monocytes 10.9 1.8 - 12.0 % [facility] Eosinophils 1.9 0.6 - 6.9 % [facility] Basophils 0.4 0.2 - 1.4 % [facility] ABS Neutrophils 8.73 2.20 - 8.85 K/cmm [facility] ABS Lymphs 1.24 1.09 - 3.30 K/cmm [facility] ABS Monocytes 1.25 (H) 0.1 - 0.8 K/cmm [facility] ABS Eosinophils 0.22 0.03 - 0.61 K/cmm [facility] ABS Basophils 0.05 0.01 - 0.11 K/cmm [facility] Type of Diff: Automated [facility] Specimen Blood specimen (specimen) Performing Organization Address [facility]/ZIP Code Phon e Number [facility] [address] [place] [address] SERVICES [facility] [address] [place] [address] (ABNORMAL) FIBRINOGEN (06/21/2008 10:45 EDT) Pathologist Sig nature Fibrinogen 682 (H) 220 - 410 mg/dl [facility] Specimen Blood specimen (specimen) Performing Organization Address [facility]/ZIP [facility] Phon e Number [facility] [address] [place] [address] SERVICES [facility] [address] [place] [address] (ABNORMAL) CREATININE (06/21/2008 10:45 EDT) Pathologist Sig nature Creatinine 0.60 (L) 0.7 - 1.5 mg/dl [facility] GFR, Calculated >60 ml/min/1.73m2 [facility] Specimen Blood specimen (specimen) Performing Organization Address City/[facility]/ZIP Code Phon e Number [facility] [address] [place] [address] SERVICES [facility] [address] [place] [address] (ABNORMAL) BUN (06/21/2008 10:45 EDT) Pathologist Sig nature BUN 9 (L) 10 - 26 mg/dl [facility] Specimen Blood specimen (specimen) Performing Organization Address City/State/ZIP Code Phon e Number [facility] [address] [place] [address] SERVICES [facility] [address] [place] [address] AST (06/21/2008 10:45 EDT) Pathologist Sig nature AST 27 15 - 46 U/L [facility] Specimen Blood specimen (specimen) Performing Organization Address City/[facility]/ZIP Code Phon e Number [facility] [address] [place] [address] SERVICES [facility] [address] [place] [address] ALT (06/21/2008 10:45 EDT) Pathologist Sig nature ALT 12 9 - 52 U/L [facility] Specimen Blood specimen (specimen) Performing Organization Address City/[facility]/ZIP Code Phon e Number [facility] [address] [place] [address] SERVICES [facility] [address] [place] [address] documented in this encounter Visit Diagnoses Not on filedocumented in this encounter Care Teams Rn New Graduate Relationship Specialty Start Date End Date Harry Aguirre MD PCP - General 06/21/08 documented as of this encounter
--- OUTSIDE RECORDS SUMMARY | 2021-07-23 16:17 | XMS_ITS | Encounter Summary ---
:1980 Author Organization [facility] Address [address] [place] [address] Care Team Providers Name Role Phone Unavailable Primary Care Provider Unavailable Encounter Details Date Type Department Care Team Description 02/09/2000 Hospital Encounter [facility] Emergency, Emergency Department - [place], Main [place] [address] [place], [place] [id number] Social History Tobacco Use Types Packs/Day Years Used Date Never Assessed Sex Assigned at Date Recorded Not on file documented as of this encounter Discharge Disposition Disposition Code Departure Means Destination Home or Self Care documented in this encounter Plan of Treatment Not on filedocumented as of this encounter Procedures Procedure Name Priority Date/Time Associated Diagnosis Comme nts HEMAGRAM & DIFF Routine 02/09/2000 14:28 Results for this EST procedure are i n the results section. BACTERIAL CULTURE, Routine 02/09/2000 14:00 Resul ts for this GENITAL EST procedure are i n the results section. documented in this encounter Results (ABNORMAL) HEMAGRAM & DIFF (02/09/2000 14:28 EST) Pathologist Sig nature WBC 6.15 4.0 - 12.4 K/cmm [facility] RBC 4.91 3.86 - 5.04 M/cmm [facility] Hemoglobin 14.1 11.6 - 15.2 gm/dl [facility] HCT 40.5 34.9 - 44.4 % [facility] MCV 82 81 - 98 fl [facility] MCH 28.8 26.7 - 33.3 pg [facility] MCHC 34.9 32.1 - 35.9 gm/dl [facility] PLT 235 141 - 320 K/cmm [facility] RDW-CV 13.7 11.7 - 14.6 % [facility] Neutrophils 95 (H) 45.5 - 79.7 % [facility] Bands 1 % [facility] Lymphocytes 3 (L) 15.0 - 46.8 % [facility] Monocytes 1 (L) 1.8 - 12.0 % [facility] ABS Neutrophils 5.85 2.20 - 8.85 K/cmm [facility] ABS Bands 0.06 K/cmm [facility] ABS Lymphs 0.18 (L) 1.09 - 3.30 K/cmm [facility] ABS Monocytes 0.06 (L) 0.1 - 0.8 K/cmm [facility] RBC Morphology NRMA [facility] Type of Diff: Manual [facility] Specimen Performing Organization Address City/[facility]/ZIP Code Phon e Number [facility] [address] [place] [address] SERVICES [facility] [address] [place] [address] BACTERIAL CULTURE, GENITAL (02/09/2000 14:00 EST) Specimen Description Vagina [facility] Specimen submitted on a swab Result Usual vaginal [facility] molina Report Status Final [facility] [id number] Specimen Performing Organization Address City/[facility] Phon e Number [facility] [address] [place] [address] SERVICES [facility] [address] [place] [address] documented in this encounter Visit Diagnoses Not on filedocumented in this encounter
--- OUTSIDE RECORDS SUMMARY | 2021-07-23 16:17 | XMS_ITS | Encounter Summary ---
:1980 Author Organization [facility] Address [address] [place] [address] Care Team Providers Name Role Phone Harry Aguirre MD Primary Care Provider Unavailable Unknown, Provider Primary Care Provider Encounter Details Date Type Department Care Team Description 10/06/[address] [facility] - Stan Reaves, Only [facility] [place] Resul ts DO [address] [place] [address] [address], [address] [place] [address] Social History Tobacco Use Types Packs/Day Years Used Date Never Assessed Sex Assigned at Date Recorded Not on file documented as of this encounter Plan of Treatment Not on filedocumented as of this encounter Procedures Procedure Name Priority Date/Time Associated Comments Diagnosis US PELVIS 10/06/2014 16:08 Results for this TRANSVAGINAL EDT procedure are i n the results section. documented in this encounter Results US PELVIS TRANSVAGINAL (10/06/2014 16:08 EDT) Specimen Narrative RADIOLOGY - 10/06/2014 16:13 EDT ? EXAM: ULTRASOUND/TRANSVAGINAL - FORGING ROLL OPERATOR ? EX. D/ (1428) ? CLINICAL INFORMATION: ? DUB ? INDICATION: Dysfunctional uterine bleeding. ? TECHNIQUE: ?Transvaginal pelv ic ultrasound. Color flow Doppler ? imaging was obtained. ? COMPARISON: None. ? FINDINGS: ?The uterus measure s 8.2 x 5.5 x 4.4 centimeters. The ? endometrium measures 5 mm in thic kness. The uterus is retroverted. ? The uterine parenchyma is unremar kable. ??A small amount of deep ? pelvic free fluid is noted. The r ight ovary measures 3.2 x 2.3 x 2.2 ? cm. ?The left ovary measures 5.3 x 2.8 x 3.4 cm. ? The right ? ovarian parenchyma is normal in a ppearance. The left ovary contains a ? 3 cm oval simple cyst. ? IMPRESSION: ? 1. Retroverted uterus. Unremarkab le endometrial stripe. ? 2. Trace deep pelvic free fluid, can be physiologic in a patient of ? this age. ? 3. 3 cm left ovarian simple cyst. ? REPORT SIGNED IN OTHER VENDOR SYSTEM 10/06/2014 ?Reported B y: Marcos Collins MD ? CC: ? Transcribed Date/Time: 10/06/2014 (1613) ? Paper Cone Drying Machine Operator: ? Printed Date/Time: 07/31/2018 (14 06) ? PAGE 1 ? Jami d Report ? Procedure Note Marcos Collins MD - 12/25/2018 EXAM: ULTRASOUND/TRANSVAGINAL - FORGING ROLL OPERATOR EX. D/ (1428) CLINICAL INFORMATION: DUB INDICATION: Dysfunctional uterine bleed ing. TECHNIQUE: Transvaginal pelvic ultrasou nd. Color flow Doppler imaging was obtained. COMPARISON: None. FINDINGS: The uterus measures 8.2 x 5.5 x 4.4 centimeters. The endometrium measures 5 mm in thickness. The uterus is retroverted. The uterine parenchyma is unremarkable. A small amount of deep pelvic free fluid is noted. The right o vary measures 3.2 x 2.3 x 2.2 cm. The left ovary measures 5.3 x 2.8 x 3.4 cm. The right ovarian parenchyma is normal in appeara nce. The left ovary contains a 3 cm oval simple cyst. IMPRESSION: 1. Retroverted uterus. Unremarkable end ometrial stripe. 2. Trace deep pelvic free fluid, can be physiologic in a patient of this age. 3. 3 cm left ovarian simple cyst. REPORT SIGNED IN OTHER VENDOR SYSTEM 10/06/2014 Reported By: Marcos Collins MD CC: Transcribed Date/Time: 10/06/2014 (8229 ) Paper Cone Drying Machine Operator: Printed Date/Time: 07/31/2018 (9593) PAGE 1 Signed Report Performing Organization Address City/State/ZIP Code Phon e Number RADIOLOGY documented in this encounter Visit Diagnoses Not on filedocumented in this encounter Care Teams Family Specialist Relationship Specialty Start Date End Date Harry Aguirre MD PCP - General 06/21/08 Unknown, Provider, PCP - General 10/16/18 07/29/19 documented as of this encounter
--- OUTSIDE RECORDS SUMMARY | 2021-07-23 16:17 | XMS_ITS | Encounter Summary ---
:1980 Author Organization [facility] Address [address] [place] [address] Care Team Providers Name Role Phone Unknown, Provider Primary Care Provider Encounter Details Date Type Department Care Team Description 11/16/2018 Results Only [facility]- Yolanda Reeder MD [phone] [facility] ,[address] [place], [place] [phone] (Wo rk) Social History Tobacco Use Types Packs/Day Years Used Date Never Assessed Sex Assigned at Date Recorded Not on file documented as of this encounter Plan of Treatment Not on filedocumented as of this encounter Procedures Procedure Name Priority Date/Time Associated Diagnosis Comme nts SURGICAL PATHOLOGY Routine 11/16/2018 6:34 EDT Re sults for this procedure are i n the results section. documented in this encounter Results SURGICAL PATHOLOGY (11/16/2018 6:34 EDT) Pathology Report: SURGICAL PATHOLOGY REPORT [facility] Reports generated via electronic interface contain marilee ginal data; LABORATORY however they are lacking the format of the original re port. SERVICES Caution should be taken when reading/interpreting unfo rmatted reports. Name: ? Virgil GARCIA ? Accession #: ? [id number] ? : ? 1980 (Age: [age]) ??F ? Collect Date: ? 11/16/2018 ? Location: ? [facility] ? Receive Date: ? 11/17/19 19 ? Provider: YOLANDA BLEVINS MD Copy to: LORA ESPINAL MD ? Final Pathologic Diagnosis: ENDOCERVIX, CURETTAGE: - Benign endocervical glands, some with degenerative changes, and unremarkable superficial squamous cells. Document reviewed and electronically signed by: ROSA BRAMBILA MD Report ??Date: 11/21/2018 10:08 By the signature above, the attending physician certif ies that he/she has personally conducted a gross and/or microscopic examin ation of the described specimens and rendered or confirmed the above diagnosi s. Specimen(s) Received: ECC Clinical History: ASCUS (+) HPV Gross Description: ? Received in formalin labelled with proper patient identification (initials W, F) and Endo cx curettage is an aggregate of sligh tly blood tinged mucus (2.0 x 1.0 x 0.5 cm). Submitted in toto in block 1. JOCELYN Peterson (ASCP) 11/19/2018 7:37 AM End of Report Specimen Performing Organization Address City/State/ZIP Code Phon e Number [facility] [address] [place] [address] SERVICES documented in this encounter Visit Diagnoses Not on filedocumented in this encounter Care Teams Maintenance Inspector Relationship Specialty Start Date End Date Unknown, Provider, PCP - General 10/16/18 07/29/19 documented as of this encounter
--- OUTSIDE RECORDS SUMMARY | 2021-07-23 16:17 | XMS_ITS | Encounter Summary ---
:1980 Author Organization [facility] Address [address] [place] [address] Care Team Providers Name Role Phone Harry Aguirre MD Primary Care Provider Unavailable Unknown, Provider Primary Care Provider Encounter Details Date Type Department Care Team Description 07/04/2017 Historical Results [facility] - Ulices Umana, Hattie [facility] [place] [place] Lab - [place] Lorie Neil MD [address] [place] [address] [place] [phone] Social History Tobacco Use Types Packs/Day Years Used Date Never Assessed Sex Assigned at Date Recorded Not on file documented as of this encounter Plan of Treatment Not on filedocumented as of this encounter Procedures Procedure Name Priority Date/Time Associated Diagnosis Comme nts METANEPHRINES, Routine 07/04/2017 7:19 EDT Result s for this PLASMA procedure are i n the results section. TEST CANCELLED - Routine 07/04/2017 7:15 EDT Resu lts for this [facility] [place] [place] procedure are i n the results section. documented in this encounter Results METANEPHRINES, PLASMA (07/04/2017 7:19 EDT) METANEPHRINES,HECTOR <0.20 <0.50 nmol/L [facility] E PLASMA - [facility] [place] [place] Comment: MED CENTER LAB ADDITIONAL INFORMATION ------ This test was developed and its performance characteri stics determined by [facility] in a manner consistent with CLIA requirements. This test has not been cleared or approv ed by the U.S. Food and Drug Administration. Test Performed by: [facility] Laboratories - [facility] [address] [facility], [place] [address] NORMETANEPHRINES, 0.59 <0.90 nmol/L [facility] FREE PLASMA - MED CENTER LAB [facility] [place] [place] Specimen Narrative [facility] - 018 14:46 EDT Does PT Have a Latex Allergy? YES Performing Organization Address City/[facility] Phon e Number [facility] [address] [place] [address] [facility] TEST CANCELLED - [facility] [place] [place] (07/04/2017 7:15 EDT) TEST CANCELLED - SEE NOTE [facility] Comment: [facility] The following test(s) have been cancelled: TEST: ??24HR UMA,5HIAAQ,CRE REASON FOR CANCELLATION: ??SAMPLES NOT COLLECTED FOR FULL 24 HOURS OFFICE/MD NOTIFIED ??DR BENNETT Specimen Performing Organization Address City/[facility] Code Phon e Number [facility] [address] [place] [address] [facility] documented in this encounter Visit Diagnoses Not on filedocumented in this encounter Care Teams Oyster Farmer Relationship Specialty Start Date End Date Harry Aguirre MD PCP - General 06/21/08 Unknown, Provider, PCP - General 10/16/18 07/29/19 documented as of this encounter
--- OUTSIDE RECORDS SUMMARY | 2021-07-23 16:17 | XMS_ITS | Encounter Summary ---
:1980 Author Organization [facility] Address [address] [place] [address] Care Team Providers Name Role Phone Harry Aguirre MD Primary Care Provider Unavailable Unknown, Provider Primary Care Provider Encounter Details Date Type Department Care Team Description 07/20/2011 Historical Results [facility] - Stan Reaves, Only [facility] [place] [facility] DO [address] [place] [address] [address], [address] [place] [phone] Social History Tobacco Use Types Packs/Day Years Used Date Never Assessed Sex Assigned at Date Recorded Not on file documented as of this encounter Plan of Treatment Not on filedocumented as of this encounter Procedures Procedure Name Priority Date/Time Associated Diagnosis Comme nts PAP TEST Routine 07/20/2011 Results for thi s procedure are in the resu lts section. documented in this encounter Results PAP TEST (07/20/2011) Specimen Narrative [facility] - 012 12:42 EDT Name: JOSE,JENISE L ? : [birth year] ?Age/Sex: 38/F ?Unit#: [id number] ? Loc: AGO ? Status: REG POV ?? Reg Date: 07/20/11 ? Pt.Phone Number : ? Specimen: [id number] ?STA TUS: SOUT ?Spec Date:07/20/11 ? Physician Copies: ?Milton Reaves DO Tissues: ? Cervical/Endo Pap ?Carter Garcia ? CPT: 56456 ?? Units: ??1 ? CYTOLOGY DIAGNOSIS SPECIMEN ADEQUACY: ?Satisfactory for evaluation. Transformation zone component present. GENERAL CATEGORIZATION: ?Negative fo r Intraepithelial Lesion or Malignancy DESCRIPTIVE DIAGNOSIS: ? Negative fo r Intraepithelial Lesion or Malignancy. RECOMMENDATIONS/COMMENTS: ?None. ORDER QUERIES: LMP: 05/30/11 ??- IRREGULAR/ ?? ? N Post ? N ??PREVIOUS ATYPICAL: Y BCP/HRT? N Rad Rx? N IUD? Y ??PAP PLUS HPV? N ??REFLEX TO HR-HPV IF ASCUS ?? REFLEX TO HPV 16/18 IF HPV POS/PAP NEG ?? HPV REGARDLESS?RFLX HPV IF LSIL ?? IF ASCUS DO HPV? Y Signed Chase Michaels CT(ASCP) 07/22/11 By the signature above, the attending ph ysician certifies that he/she has personally conducted a gross and/or microscopic exa mination of the described specimens and rendered or confirmed the above diagnosi s. Test Performed by [facility], [address] [place] [address] Insect Control Inspector: Jacqueline Harden MD PHD Performing Organization Address City/State/ZIP Code Phon e Number [facility] [address] [place] [address] LAB documented in this encounter Visit Diagnoses Not on filedocumented in this encounter Care Teams Passenger Brakeman Relationship Specialty Start Date End Date Harry Aguirre MD PCP - General 06/21/08 Unknown, Provider, PCP - General 10/16/18 07/29/19 documented as of this encounter
--- OUTSIDE RECORDS SUMMARY | 2021-07-23 16:17 | XMS_ITS | Encounter Summary ---
:1980 Author Organization [facility] Address [address] [place] [address] Care Team Providers Name Role Phone Unavailable Primary Care Provider Unavailable Encounter Details Date Type Department Care Team Description 09/16/[address] [facility] Emergency, Emergency Department - MD [place] [facility] [place] [address] [place], [place] [id number] Social History Tobacco Use Types Packs/Day Years Used Date Never Assessed Sex Assigned at Date Recorded Not on file documented as of this encounter Discharge Disposition Disposition Code Departure Means Destination Home or Self Care documented in this encounter Plan of Treatment Not on filedocumented as of this encounter Procedures Procedure Name Priority Date/Time Associated Diagnosis Comme nts ELBOW 3 OR MORE Routine 09/16/2002 13:59 Results for this VIEWS EDT procedure are i n the results section. documented in this encounter Results ELBOW 3 OR MORE VIEWS (09/16/2002 13:59 EDT) Anatomical Region Laterality Modality Other Specimen Impressions [facility] - 11/04/2008 5: 37 EDT IMPRESSION: Normal elbow. /sb Narrative [facility] - 11/04/2008 5: 37 EDT FALL TRAUMATIC INJURY WITH PAIN R/O FX FOUR VIEW RIGHT ELBOW: 09/16/02, 1355 No comparisons. There is no significant abnormality of t he bones, joints or soft tissues. Procedure Note Daren Dyer MD - 11/04/2008 FALL TRAUMATIC INJURY WITH PAIN R/O FX FOUR VIEW RIGHT ELBOW: 09/16/02, 1355 No comparisons. There is no significant abnormality of t he bones, joints or soft tissues. IMPRESSION IMPRESSION: Normal elbow. /abel Performing Organization Address City/State/ZIP Code Phon e Number [facility] [address] [facility] [address] [facility] [address] [place], [place] [address] documented in this encounter Visit Diagnoses Not on filedocumented in this encounter
--- OUTSIDE RECORDS SUMMARY | 2021-07-23 16:17 | XMS_ITS | Encounter Summary ---
:1980 Author Organization [facility] Address [address] [place] [address] Care Team Providers Name Role Phone Harry Aguirre MD Primary Care Provider Unavailable Unknown, Provider Primary Care Provider Encounter Details Date Type Department Care Team Description 06/15/2015 Historical Results [facility] - Stan Reaves, Only [facility] Rad[facility] Resul ts DO [address] [place] [address] [address], [address] [place] [address] Social History Tobacco Use Types Packs/Day Years Used Date Never Assessed Sex Assigned at Date Recorded Not on file documented as of this encounter Plan of Treatment Not on filedocumented as of this encounter Procedures Procedure Name Priority Date/Time Associated Comments Diagnosis US PELVIS 06/15/2015 14:12 Results for this TRANSVAGINAL EDT procedure are i n the results section. documented in this encounter Results US PELVIS TRANSVAGINAL (06/15/2015 14:12 EDT) Specimen Narrative [facility] - 06/16/2015 8:20 EDT ? EXAM: ULTRASOUND/TRANSVAGINAL - FELLER MACHINE OPERATOR W/ DO EX. D/ (1107) ? CLINICAL INFORMATION: ? R10.2 PELVIC PAIN ? INDICATION: R10.2 pelvic pain. ? COMPARISON: ULTRASOUND OF PELVIS - 10/06/2014. ? TECHNIQUE: Endovaginal ultrasound of the pelvis was performed. Color ? and spectral Doppler imaging was also utilized. ? FINDINGS: ? The uterus measures 6.0 cm x 3.6 cm x 4.7 cm. The endometrial stripe ? measures 5.1 mm. The uterus is ot herwise unremarkable. ? The right ovary measures 40 mm x 27 mm x 31 mm. There are a few tiny ? follicles within the right ovary. Arterial and venous spectral ? Doppler waveforms are documented within the right ovary. ? The left ovary measures 49 mm x 2 5 mm x 20 mm. There are a few tiny ? follicles within left ovary. Lori rial and venous spectral Doppler ? waveforms are documented within t he left ovary. ? No free intraperitoneal fluid or adnexal mass is identified. ? IMPRESSION: ?? No acute pelvic pr ocess identified. ? REPORT SIGNED IN OTHER VENDOR SYSTEM 06/16/2015 ?Reported B y: Matthew Sterling MD ? CC: ? Transcribed Date/Time: 06/16/2015 (0820) ? Front End Application Developer: ? Printed Date/Time: 08/02/2018 (14 24) ? PAGE 1 ? Jami d Report ? Procedure Note Matthew Sterling MD - 12/26/2018 EXAM: ULTRASOUND/TRANSVAGINAL - FELLER MACHINE OPERATOR W/ DO EX. D/ (1107) CLINICAL INFORMATION: R10.2 PELVIC PAIN INDICATION: R10.2 pelvic pain. COMPARISON: ULTRASOUND OF PELVIS - 09/20. TECHNIQUE: Endovaginal ultrasound of th e pelvis was performed. Color and spectral Doppler imaging was also u tilized. FINDINGS: The uterus measures 6.0 cm x 3.6 cm x 4 .7 cm. The endometrial stripe measures 5.1 mm. The uterus is otherwis e unremarkable. The right ovary measures 40 mm x 27 mm x 31 mm. There are a few tiny follicles within the right ovary. Arter ial and venous spectral Doppler waveforms are documented within the right ovary. The left ovary measures 49 mm x 25 mm x 20 mm. There are a few tiny follicles within left ovary. Arterial a nd venous spectral Doppler waveforms are documented within the lef t ovary. No free intraperitoneal fluid or adnexa l mass is identified. IMPRESSION: No acute pelvic process ld ntified. REPORT SIGNED IN OTHER VENDOR SYSTEM 06/16/2015 Reported By: Matthew Sterling MD CC: Transcribed Date/Time: 06/16/2015 (0820 ) Front End Application Developer: Printed Date/Time: 08/02/2018 (4728) PAGE 1 Signed Report Performing Organization Address City/State/ZIP Code Phon e Number [facility] documented in this encounter Visit Diagnoses Not on filedocumented in this encounter Care Teams Electric Motor Repairing Supervisor Relationship Specialty Start Date End Date Harry Aguirre MD PCP - General 06/21/08 Unknown, MD Stephen PCP - General 10/16/18 07/29/19 documented as of this encounter
--- OUTSIDE RECORDS SUMMARY | 2021-07-23 16:17 | XMS_ITS | Encounter Summary ---
:1980 Author Organization [facility] Address [address] [place] [address] Care Team Providers Name Role Phone Harry Aguirre MD Primary Care Provider Unavailable Unknown, Provider Primary Care Provider Encounter Details Date Type Department Care Team Description 04/27/2010 Historical Results [facility] - Stan Reaves, Only [facility] Lab - Main [facility] DO [address] [place] [address] [address], [address] [place] [phone] Social History Tobacco Use Types Packs/Day Years Used Date Never Assessed Sex Assigned at Date Recorded Not on file documented as of this encounter Plan of Treatment Not on filedocumented as of this encounter Procedures Procedure Name Priority Date/Time Associated Diagnosis Comme [facility] SURGICAL PATHOLOGY Routine 04/27/2010 Results f or this procedure are i n the results section . documented in this encounter Results SURGICAL PATHOLOGY (04/27/2010) Specimen Narrative [facility] - 011 15:03 EDT Name: SHIRIN GARCIACARLO Oconnor ? : [birth year] ?Age/Sex: 38/F ?Unit#: [id number] ? Loc: OBS ? Status: DIS IN ? Reg Date: 04/27/10 ? Pt.Phone Number : ? Specimen: [id number] ? STA TUS: SOUT ?Spec Date:04/27/10 ? Physician Copies: ?Milton Reaves DO Tissues: A ?? Female Reproductive System (PLACENTA) ?Carter Garcia ? B ?? Female Reproductive Sy stem (RIGHT ?? LEFT TUBES) ? CPT: 15530 ?? Units: ??1 ? 05689 ? 1 ?FINAL DIAGNOSIS ? A. Placenta, membranes, and umbil ical cord; ? - Mature cazares placenta (519 grams). ? - No histopathologic features. ? - Umbilical cord with accessory v essels. ? B. Fallopian tubes, right and lef t, bilateral tubal ligation; ? - No pathologic features, complet e cross section of each obtained. ? GROSS DESCRIPTION ? A. Received in formalin labeled w ith the patient's name and placenta is a ? placenta with attached memb ranes and umbilical cord. ??The placenta is ? irregularly oval shaped with a di ameter of 17 x 16 cm and a maximum thickness ? of 3.3 cm. ??The umbilical cord s hows a solid eccentric insertion 3 cm from the ? margin and measures 52 cm long x average 1.3 cm in diameter. ??No knots, varices ? or thrombosis are present. ??Cros s sectioning shows at least 3 vessels, possibly ? more. ?? membranes are moreno-g saul, somewhat opaque but pliable. ??No mecomium ? staining is grossly evident. ??Me mbranes seem to be complete. ??The trimmed ? placenta weighs 519 grams. ??The surface is purple-durand, smooth and ? glistening with the usual pattern or arborizing vessels. ??There is mild ? vascular congestion. ??No mecomiu m is appreciated. ??The maternal surface shows ? normal cotyledonous architecture, is complete and intact. ??a Single infarct is ? found at the periphery, consistan t with old infarct. ??No central infarcts are ? identified. ??Interval sectioning shows deep red spongy parenchyma without solid ? or cystic masses, r.s. 4. ? B. Received in formalin labeled w ith the patient's name and right tube left ? tube are two segments of moreno-pin k tissue, each grossly consistent with ? fallopian tube and each measuring about 1.5 cm long x 0.7 cm in diameter. ? Cross sectioning of each shows a tubular lumen, r.s. 1. CP Patient: MARIANOSENSHIRIN ARRIAGACARLO Oconnor ? #[id number] ? (Continued) Specimen: [id number] ? Rec eived: 04/27/10 ?(Continued) ?? PREOP DX/CLINICAL HISTORY ?Prior , desires sterilization. Signed ____(signature on file)____ Jacqueline Gilbert M.D. 05/06/10 By the signature above, the attending ph ysician certifies that he/she has personally conducted a gross and/or microscopic exa mination of the described specimens and rendered or confirmed the above diagnosi s. Test Performed by [facility], [address] [id number] Document Management Consultant: Jacqueline Harden MD PHD Performing Organization Address City/State/ZIP Code Phon e Number [facility] [address] [place] [address] [facility] documented in this encounter Visit Diagnoses Not on filedocumented in this encounter Care Teams Welder Gun Relationship Specialty Start Date End Date Harry Aguirre MD PCP - General 06/21/08 Unknown, ProviderMD PCP - General 10/16/18 07/29/19 documented as of this encounter
--- OUTSIDE RECORDS SUMMARY | 2021-07-23 16:17 | XMS_ITS | Encounter Summary ---
:1980 Author Organization [facility] Address [address] [place] [address] Care Team Providers Name Role Phone Harry Aguirre MD Primary Care Provider Unavailable Unknown, Provider Primary Care Provider Encounter Details Date Type Department Care Team Description 01/20/2015 Historical Results [facility] [place], Only [facility] [address] [place], [place] [phone] [place] [address] [place] [address] Social History Tobacco Use Types Packs/Day Years Used Date Never Assessed Sex Assigned at Date Recorded Not on file documented as of this encounter Plan of Treatment Not on filedocumented as of this encounter Procedures Procedure Name Priority Date/Time Associated Diagnosis Comme nts US ABDOMEN LIMITED 01/20/2015 15:23 Resul ts for this EST procedure are i n the results section. documented in this encounter Results US ABDOMEN LIMITED (01/20/2015 15:23 EST) Specimen Narrative [facility] - 02/25/2015 11:26 EST ? EXAM: ULTRASOUND/ABDOMINAL LIMITED SINGLE EX. D/ (1523) ? CLINICAL INFORMATION: ? K42.9 RECURRENT UMBILICAL HERNIA ? INDICATION: Recurrent umbilical h ernia. In the periumbilical region ? was performed.K42.9 EXQUISITE UMB ILICAL TENDERNESS FEELS A POP ? TECHNIQUE: ??Focused ultrasound e valuation at the site of palpable ? concern ? COMPARISON: CT 09/20/2013. ? FINDINGS: Focused ultrasound eval uation throughout the umbilical and ? periumbilical region was performe d. The patient was imaged at rest ? and with Valsalva. No focal defec t in the abdominal wall is visible. ? IMPRESSION: ? 1. No umbilical hernia detected a t this time. ? REPORT SIGNED IN OTHER VENDOR SYSTEM 01/20/2015 ? Reported By: Marcos Collins MD ?Reported B y: Marcos Collins MD ? CC: ? Transcribed Date/Time: 02/25/2015 (1126) ? Tobacco Packer: DUSTY ? Printed Date/Time: 08/01/2018 (13 10) ? PAGE 1 ? Jami d Report ? Procedure Note Marcos Collins MD - 12/26/2018 EXAM: ULTRASOUND/ABDOMINAL LIMITED SING LE EX. D/ (1523) CLINICAL INFORMATION: K42.9 RECURRENT UMBILICAL HERNIA INDICATION: Recurrent umbilical hernia. In the periumbilical region was performed.K42.9 EXQUISITE UMBILICAL TENDERNESS FEELS A POP TECHNIQUE: Focused ultrasound evaluatio n at the site of palpable concern COMPARISON: CT 09/20/2013. FINDINGS: Focused ultrasound evaluation throughout the umbilical and periumbilical region was performed. The patient was imaged at rest and with Valsalva. No focal defect in t he abdominal wall is visible. IMPRESSION: 1. No umbilical hernia detected at this time. REPORT SIGNED IN OTHER VENDOR SYSTEM 01/20/2015 Reported By: Marcos Collins MD Reported By: Marcos Collins MD CC: Transcribed Date/Time: 02/25/2015 (8752 ) Tobacco Packer: DUSTY Printed Date/Time: 08/01/2018 (7255) PAGE 1 Signed Report Performing Organization Address City/State/ZIP Code Phon e Number [facility] documented in this encounter Visit Diagnoses Not on filedocumented in this encounter Care Teams Arborer Relationship Specialty Start Date End Date Harry Aguirre MD PCP - General 06/21/08 Unknown, MD Stephen PCP - General 10/16/18 07/29/19 documented as of this encounter
--- OUTSIDE RECORDS SUMMARY | 2021-07-23 16:17 | XMS_ITS | Encounter Summary ---
:1980 Author Organization [facility] Address [address] [place] [address] Care Team Providers Name Role Phone Unknown, Provider Primary Care Provider Encounter Details Date Type Department Care Team Description 11/16/2018 Hospital Encounter [facility] Rose[place] Unknown, Provider, [facility] [phone] [place] [address] (Work) [phone] Social History Tobacco Use Types Packs/Day Years Used Date Never Assessed Sex Assigned at Date Recorded Not on file documented as of this encounter Discharge Disposition Disposition Code Departure Means Destination Home or Self Residential documented in this encounter Plan of Treatment Not on filedocumented as of this encounter Visit Diagnoses Not on filedocumented in this encounter Care Teams Patient Account Analyst Relationship Specialty Start Date End Date Unknown, Provider, PCP - General 10/16/18 07/29/19 documented as of this encounter
--- OUTSIDE RECORDS SUMMARY | 2021-07-23 16:17 | XMS_ITS | Encounter Summary ---
:1980 Author Organization [facility] Address [address] [place] [address] Care Team Providers Name Role Phone Harry Aguirre MD Primary Care Provider Unavailable Unknown, Provider Primary Care Provider Encounter Details Date Type Department Care Team Description 05/21/2009 Historical Results [facility] - Stan Reaves, Only [facility] Lab - Main [facility] DO [address] [place] [address] [address], [address] [place] [phone] Social History Tobacco Use Types Packs/Day Years Used Date Never Assessed Sex Assigned at Date Recorded Not on file documented as of this encounter Plan of Treatment Not on filedocumented as of this encounter Procedures Procedure Name Priority Date/Time Associated Diagnosis Comme [facility] SURGICAL PATHOLOGY Routine 05/21/2009 Results f or this procedure are i n the results section . documented in this encounter Results SURGICAL PATHOLOGY (05/21/2009) Specimen Narrative [facility] - 010 13:44 EDT Name: SHIRIN GARCIACARLO Oconnor ? : [birth year] ?Age/Sex: 38/F ?Unit#: [id number] ? Loc: SDS ? Status: DEP SDC ?? Reg Date: 05/21/09 ? Pt.Phone Number : ? Specimen: [id number] ? STA TUS: SOUT ?Spec Date:05/21/09 ? Physician Copies: ?Milton Reaves DO Tissues: A ?? Female Reproductive System (UTERUS (PRODUCTS OF CONCEPTI) ?Carter Garcia ? B ?? Female Reproductive Sy stem (UTERUS (PRODUCTS OF CONCEPTI) ? CPT: 17379 ?? Units: ??2 ?FINAL DIAGNOSIS ? A. Products of conception; ? - Gestational sac with immature c horionic villi and trophoblastic elements. ? B. Uterine contents, curettage; ? - Fragments of decidua, gestation al type endometrium and basalis. ? GROSS DESCRIPTION ? A. Received in formalin labeled w ith the patient's name and poc is an intact ? gestational sac along with a larg e volume of blood clot. ??The gestational sac ? measures 2.5 x 2 x 1 cm. ??The cl ot aggregates 6 x 4 x 2.5 cm. ??Chorionic villi ? are identified. ??No grapelike cl usters are seen. The sac is opened to release ? clear colorless fluid, r.s. 2. ? B. Received in formalin labeled w ith the patient's name and products of ? conception is a suction collecti on device containing approximately 30 cc of ? moreno-durand tissue fragments and blo od clot. ??No definite chorionic villi are ? seen. ??No parts are found. r.s. 2. CP ?? PREOP DX/CLINICAL HISTORY ? WITH BLEEDING; MISSED Signed ____(signature on file)____ Jacqueline Gilbert M.D. 05/25/09 By the signature above, the attending ph ysician certifies that he/she has personally conducted a gross and/or microscopic exa mination of the described specimens and rendered or confirmed the above diagnosi s. Test Performed by [facility], [address] [place] [address] Storeperson: Jacqueline Harden MD PHD Performing Organization Address City/State/ZIP Code Phon e Number [facility] [address] [place] [address] LAB documented in this encounter Visit Diagnoses Not on filedocumented in this encounter Care Teams Manager Inpatient Relationship Specialty Start Date End Date Harry Aguirre MD PCP - General 5/2/09 8/ 26/19 Unknown, Provider, PCP - General 10/16/18 07/29/19 documented as of this encounter
--- OUTSIDE RECORDS SUMMARY | 2021-07-23 16:17 | XMS_ITS | Encounter Summary ---
:1980 Author Organization [facility] Address [address] [place] [address] Care Team Providers Name Role Phone Carter Garcia MD Primary Care Provider Encounter Details Date Type Department Care Team Description 07/31/2019 Lab Requisition [facility] Miriam Saravia Encounter for other Pathology & [facility] general examination Laboratory Medicine [facility] [id number] [address] [facility] [phone] [place] [address] (Work) [phone] Social History Tobacco Use Types Packs/Day Years Used Date Never Assessed Sex Assigned at Date Recorded Not on file documented as of this encounter Plan of Treatment Not on filedocumented as of this encounter Procedures Procedure Name Priority Date/Time Associated Diagnosis Comme nts SURGICAL PATHOLOGY Today 07/30/2019 12:34 Encounter for othe r Results for this EDT general examination procedur e are in the results section. documented in this encounter Results SURGICAL PATHOLOGY (07/30/2019 12:34 EDT) Final Diagnosis A. UTERUS, CERVIX, AND BILATERAL FALLOPIAN TUBES , RESECTION: [facility] Electronically - Uterine cervix with mild prolapse changes CENTER signed by Toño, - Endometrial cavity with evidence of prior ablation LABORATORY Jaclyn Garcia MD on - Myometrium with no significant pathologic abnormali ty SERVICES 08/07/2019 at 1524 - Fallopian tubes no significant pathologic abnormali ty Attestation By the signature [facility] Electronica lly below, the attending CENTER signed by Toño, physician certifies LABORATORY Jaclyn Garcia MD on that they have 1) SERVICES 08/07/2019 at 1524 personally conducted a gross and/or microscopic examination of the described specimen(s), and/or personally interpreted the results of laboratory testing of the described specimen(s), and 2) personally rendered or confirmed the above diagnosis. Diagnosis Comment Immunoperoxidase stains were performed on this case to further characterize the lesion. [facility] ANTIBODY(CLONE)(BLOCK):RESULT LABORATORY P-53 (DO-7, Leica) : (A7) Wild type SERVI TRAVIS Ki67 (MIB-1) (K2, Leica) : (A7) Low proliferation inde x NOTE: One or more of the re agents used in immunoperoxidase testing in this case may not have been cleared or approved by the U.S. Food and Drug Administration (FDA). The FDA has determined that such cl earance or approval is not n ecessary. These tests are used for clinical purposes. They should not be regarded as investigational or for research. These reagents' performance characteristics have been de termined by [facility] and/or by the referring laboratory. The positive and negative controls worked appropriately. If immunoperoxidase staining has been performed on alcoh ol fixed cytology specimens, which has not been fully validated, the assays should be interpreted with caution and correlated with clinical data. This laboratory is certified under the Clinical Laborato ry Improvement Amendments of 1988 (CLIA-88) as qualified to perform high complexity clinical laboratory testing. Clinical History Tubo-ovarian abscess; [facility] pelvic pain; pelvic CENTER fullness LABORATORY SERVICES Gross Description A. Received in formalin [facility] with proper patient identification (initials W, F) and uterus and bilateral fallopian tubes is an intact uterus and cervix (88 g, 7.5 cm cervix to fundus by 5.5 cm cor [facility] nu to cornu by 4.8 cm anteri or to posterior) with attached bilateral fimbriated, previously ligated fallopian tubes (right: 5.5 cm in length by 0.6 cm in diameter; left: 4.5 cm in length by 0.7 cm in diameter). CENTER LABORATORY The serosa is moreno-baez and d ull. The ectocervix is white and wrinkled with a patent slit-like os. The endocervix is unremarkable herringbone pattern. The endometrial canal is moderately scarred and fibr SERVICES otic. Withi the right cornu is a fluid-filled cyst (1.5 x 1.2 x 0.7 cm). The endometrium is scarred with an average thickness of approximately 0.2 cm. The myometrium is trabeculated with an average thickness of 1.6 cm. The fallopian tubes have a d ark purple hemorrhagic serosa and a single fluid- filled cyst (0.5 cm in greatest dimension) on the right fallopian tube. The right fallopian tube has a central stricture and the left fallopian tube has a stricture at one end, consistent with previous ligation. Director Biostatistics sections are submitted as follows: BLOCK KOCH A1- anterior cervix A2-A3- anterior endomyometrium A4- posterior cervix A5-A6- posterior endomyometrium with cyst A7-A8- right fimbria, longitudinally bisected and 2 cr oss sections A9-A10- left fimbria, longitudinally bisected and 2 cr oss sections 08/01/2019 11:48 Scanned Images [facility] LABORATORY SERVICES Specimen Tissue - Specimen from uterus (specimen) Performing Organization Address City/State/ZIP Code Phon e Number [facility] LABORATORY [address] [place] [address] SERVICES documented in this encounter Visit Diagnoses Diagnosis Encounter for other general examination documented in this encounter Care Teams Mainframe Systems Administrator Relationship Specialty Start Date End Date Carter Garcia MD PCP - General 07/30/19 [address] [place], [place] [id number] documented as of this encounter
--- OUTSIDE RECORDS SUMMARY | 2021-07-23 16:17 | XMS_ITS | Encounter Summary ---
:[address] [facility] Address [address] [place] [address] Care Team Providers Name Role Phone Harry Aguirre MD Primary Care Provider Unavailable Unknown, Provider Primary Care Provider Encounter Details Date Type Department Care Team Description 07/04/2017 Historical Results [facility] [place], Only [facility] Lab - Main [place] Lorie Neil MD [address] [facility] [address] [place] [address] [place] [phone] Social History Tobacco Use Types Packs/Day Years Used Date Never Assessed Sex Assigned at Date Recorded Not on file documented as of this encounter Plan of Treatment Not on filedocumented as of this encounter Procedures Procedure Name Priority Date/Time Associated Diagnosis Comme nts CALCITONIN Routine 07/04/2017 7:19 EDT Results for this procedure are i n the results section . documented in this encounter Results CALCITONIN (07/04/2017 7:19 EDT) Calcitonin <5.0 <=7.6 pg/mL [facility] Comment: [facility] ADDITIONAL INFORMATION ------ The testing method is an electrochemiluminescence assay manufactured by [employer] and performed on the Izaiah system. Values obtained with different assay methods or kits may be different and cannot be used interchangeably. Test results cannot be interpreted as absolute evidenc e for the presence or absence of malignant disease. Test Performed by: [facility] [address] [place] [address] Specimen Narrative [facility] - 018 14:46 EDT Does PT Have a Latex Allergy? YES Performing Organization Address City/State/ZIP Code Phon e Number [facility] [address] [place] [address] [facility] documented in this encounter Visit Diagnoses Not on filedocumented in this encounter Care Teams Retail Key Holder Relationship Specialty Start Date End Date Harry Aguirre MD PCP - General 06/21/08 Unknown, Provider, PCP - General 10/16/18 07/29/19 documented as of this encounter
--- OUTSIDE RECORDS SUMMARY | 2021-07-23 16:17 | XMS_ITS | Encounter Summary ---
:1980 Author Organization [facility] Address [address] [place] [address] Care Team Providers Name Role Phone Harry Aguirre MD Primary Care Provider Unavailable Encounter Details Date Type Department Care Team Description 06/25/2014 Hospital Encounter [facility] [phone] [place] [address] (Work) [place] [address] Social History Tobacco Use Types Packs/Day Years Used Date Never Assessed Sex Assigned at Date Recorded Not on file documented as of this encounter Discharge Disposition Disposition Code Departure Means Destination Home or Self Senior Living documented in this encounter Plan of Treatment Not on filedocumented as of this encounter Visit Diagnoses Not on filedocumented in this encounter Care Teams Net Web Developer Relationship Specialty Start Date End Date Harry Aguirre MD PCP - General 06/21/08 documented as of this encounter
--- OUTSIDE RECORDS SUMMARY | 2021-07-23 16:17 | XMS_ITS | Encounter Summary ---
:1980 Author Organization [facility] Address [address] [place] [address] Care Team Providers Name Role Phone Harry Aguirre MD Primary Care Provider Unavailable Unknown, Provider Primary Care Provider Encounter Details Date Type Department Care Team Description 08/12/2015 Historical Results [facility] - Stan Reaves, Only [facility] - Main [facility] DO [address] [place] [address] [address], [address] [place] [phone] Social History Tobacco Use Types Packs/Day Years Used Date Never Assessed Sex Assigned at Date Recorded Not on file documented as of this encounter Plan of Treatment Not on filedocumented as of this encounter Procedures Procedure Name Priority Date/Time Associated Diagnosis Comme nts PAP TEST Routine 08/12/2015 9:51 EDT Results for this procedure are i n the results section . documented in this encounter Results PAP TEST (08/12/2015 9:51 EDT) Specimen Narrative [facility] - 016 9:03 EDT Name: JENISE WINSTON ?: [birth year] ?Age/Sex: 38/F ?Unit#: [id number] ? Loc: AGO ? Status: REG POV ?? Reg Date: 08/12/15 ? Pt.Phone Number : ? This is an Amended or Addendum report. Any previous versions are stored [facility] and are available if necessary by calling the [facility] Pathology Dept at Specimen: [id number] ?STA TUS: SOUT ?Spec Date:08/12/15 ? Physician Copies: ?Milton Reaves DO Tissues: ? Cervical/Endo Pap ?Carter Garcia ? CPT: 39812 ?? Units: ??1 ? CYTOLOGY DIAGNOSIS SPECIMEN ADEQUACY: ?Satisfactory for evaluation. Transformation zone component present. GENERAL CATEGORIZATION: ?Epithelial Cell Abnormality. DESCRIPTIVE DIAGNOSIS: ??Squamous cell A bnormality - ? Atypical squamous cells - undetermin ed significance. RECOMMENDATIONS/COMMENTS: ??Recommend gisella rosen the Updated consensus guidelines algorithms for managing abnormal cervical cancer sc reening tests and cancer precursors Management algorithms have been distributed and are also available online at www.ASCCP.org/consensus.shtml. ?HPV DNA RESULTS ?? 08/12/15 0951 HPV DNA RESULT ??POS ? Positive for on e or more of HPV types 16, 18, 31, 33, 35, ? 39, 45, 51, 52, 56, 58, 59, 66, or 68. ? Method: David a HPV HR (High Risk) DNA test. ? HPV 16 ?? 18 GENOTYPING ?? 08/12/15933 HPV 16 DNA ?Not Done ? (Negative) ?? 08/12/15933 HPV 18 DNA ?Not Done ? (Negative) ? Unable to recov er sufficient DNA for HPV testing. Patient: JENISE WINSTON ?#[id number] ? (Continued) Specimen: [id number] ?Rec eived: 08/13/15-0951 ?(Continued) ORDER QUERIES: LMP: 09/2014 ??- 10/04ABALA ?? ? N Post ? N ??PREVIOUS ATYPICAL: Y BCP/HRT? N Rad Rx? N IUD? N ??PAP PLUS HPV? Y ??REFLEX TO HR-HPV IF ASCUS N REFLEX TO HPV 16/18 IF HPV POS/PAP NEG N HPV REGARDLESS? N ??RFLX HPV IF LSIL ?? Signed ____(signature on file)____ Chitra Ferrell M.D. 09/16/15 ?? By the signature above, the attending ph ysician certifies that he/she has personally conducted a gross and/or microscopic exa mination of the described specimens and rendered or confirmed the above diagnosi s. Test Performed by [facility], [address] [place] [address] Bottle Hop: Jacqueline Harden MD PHD Performing Organization Address City/State/ZIP Code Phon e Number [facility] [address] [place] [address] LAB documented in this encounter Visit Diagnoses Not on filedocumented in this encounter Care Teams Automotive Service Technician Relationship Specialty Start Date End Date Harry Aguirre MD PCP - General 06/21/08 Unknown, MD Stephen PCP - General 10/16/18 07/29/19 documented as of this encounter
--- OUTSIDE RECORDS SUMMARY | 2021-07-23 16:17 | XMS_ITS | Encounter Summary ---
:1980 Author Organization [facility] Address [address] [place] [address] Care Team Providers Name Role Phone Harry Aguirre MD Primary Care Provider Unavailable Unknown, Provider Primary Care Provider Encounter Details Date Type Department Care Team Description 08/14/2013 Historical Results [facility] - Stan Reaves, Only [facility] - Main [facility] DO [address] [place] [address] [address], [address] [place] [phone] Social History Tobacco Use Types Packs/Day Years Used Date Never Assessed Sex Assigned at Date Recorded Not on file documented as of this encounter Plan of Treatment Not on filedocumented as of this encounter Procedures Procedure Name Priority Date/Time Associated Diagnosis Comme nts PAP TEST Routine 08/14/2013 9:46 EDT Results for this procedure are i n the results section . documented in this encounter Results PAP TEST (08/14/2013 9:46 EDT) Specimen Narrative [facility] - 014 15:46 EDT Name: JENISE WALKER ?: [birth year] ?Age/Sex: 38/F ?Unit#: [id number] ? Loc: AGO ? Status: REG POV ?? Reg Date: 08/14/13 ? Pt.Phone Number : ? Specimen: [id number] ?STA TUS: SOUT ?Spec Date:08/14/13 ? Physician Copies: ?Milton Reaves DO Tissues: ? Cervical/Endo Pap ?Carter Garcia ? CPT: 49040 ?? Units: ??1 ? CYTOLOGY DIAGNOSIS SPECIMEN ADEQUACY: ?Satisfactory for evaluation. Transformation zone component present. GENERAL CATEGORIZATION: ?Negative fo r Intraepithelial Lesion or Malignancy DESCRIPTIVE DIAGNOSIS: ? Negative fo r Intraepithelial Lesion or Malignancy. ?HPV DNA RESULTS ?? 08/14/13 0946 HPV DNA RESULT ??NEG ? Negative for HP V types 16, 18, 31, 33, 35, 39, 45, 51, 52, ? 56, 58, 59, 66, 68. ? Method: Cervist a HPV HR (High Risk) DNA test. ORDER QUERIES: LMP: 07/16/13- WNL ?Pregna nt? N Post ? N ??PREVIOUS ATYPICAL: Y BCP/HRT? N Rad Rx? N IUD? N ??PAP PLUS HPV? Y ??REFLEX TO HR-HPV IF ASCUS N REFLEX TO HPV 16/18 IF HPV POS/PAP NEG Y HPV REGARDLESS? N ??RFLX HPV IF LSIL ?? Signed Migdalia balderasN CT(ASCP) 08/19/13 By the signature above, the attending ph ysician certifies that he/she has personally conducted a gross and/or microscopic exa mination of the described specimens and rendered or confirmed the above diagnosi s. Test Performed by [facility], [address] [place] [address] Power Line Lineman: Jacqueline Harden MD PHD Performing Organization Address City/State/[facility] Code Phon e Number [facility] [address] [place] [address] LAB documented in this encounter Visit Diagnoses Not on filedocumented in this encounter Care Teams Sales Marketing Director Relationship Specialty Start Date End Date Harry Aguirre MD PCP - General 06/21/08 Unknown, MD Stephen PCP - General 10/16/18 07/29/19 documented as of this encounter
--- OUTSIDE RECORDS SUMMARY | 2021-07-23 16:17 | XMS_ITS | Encounter Summary ---
:1980 Author Organization [facility] Address [address] [place] [address] Care Team Providers Name Role Phone Harry Aguirre MD Primary Care Provider Unavailable Encounter Details Date Type Department Care Team Description 07/18/2013 Hospital Encounter [facility] [phone] [place] [address] (Work) [place] [address] Social History Tobacco Use Types Packs/Day Years Used Date Never Assessed Sex Assigned at Date Recorded Not on file documented as of this encounter Discharge Disposition Disposition Code Departure Means Destination Home or Self Longterm documented in this encounter Plan of Treatment Not on filedocumented as of this encounter Visit Diagnoses Not on filedocumented in this encounter Care Teams Agricultural Produce Sorter Relationship Specialty Start Date End Date Harry Aguirre MD PCP - General 06/21/08 documented as of this encounter
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
--- OUTSIDE RECORDS SUMMARY | 2021-07-23 16:17 | XMS_ITS | Encounter Summary ---
:1980 Author Organization [facility] Address [address] [place] [address] Care Team Providers Name Role Phone Carter Garcia MD Primary Care Provider Encounter Details Date Type Department Care Team Description 03/24/2020 Lab Requisition [facility] Outr Resulting Lab, Pathology & Laboratory Provider [facility] [address] [id number] Social History Tobacco Use Types Packs/Day Years Used Date Never Assessed Sex Assigned at Date Recorded Not on file documented as of this encounter Plan of Treatment Not on filedocumented as of this encounter Procedures Procedure Name Priority Date/Time Associated Comments Diagnosis CCP ANTIBODIES Routine 03/24/2020 11:35 Results f or this EST procedure are i n the results section. ANTI NUCLEAR AB Routine 03/24/2020 11:35 Results for this (SUGAR), IFA EST procedure are i n the results section. documented in this encounter Results ANTI NUCLEAR AB (SUGAR), IFA (03/24/2020 11:35 EST) SUGAR Interpretation NegativeComment: Negative [facility] No titer LABORATORY SERVICES performed, SUGAR Screen is negative. Specimen Blood - Venous blood (substance) Narrative [facility] LABORATORY SERVICES - 03/25/2020 12:17 EST Results were obtained with the TameVA NOV A Lite HEp-2 SUGAR Kit by indirect immunofluorescence. Performing Organization Address City/State/ZIP Code Phon e Number [facility]ORATORY [address] [place] [address] SERVICES CCP ANTIBODIES (03/24/2020 11:35 EST) Pathologist Sig nature CCP Antibodies <2.5 <5.0 U/mL [facility] LABORAT ORY SERVICES Specimen Blood - Venous blood (substance) Performing Organization Address City/State/ZIP Code Phon e Number [facility] [address] [place] [address] SERVICES documented in this encounter Visit Diagnoses Not on filedocumented in this encounter Care Teams Marketing Finance Specialist Relationship Specialty Start Date End Date Carter Garcia MD PCP - General 07/30/19 [address] [place] [address] documented as of this encounter
== END 2021-07-23 16:16 | disposition home or self-care (01) ==
LOC: LBN 16:15
PROVIDERS: PCP Internal Medicine; Visit Provider Nurse Practitioner Family
DX: R30.0 Dysuria (principal)
CPT/HCPCS: 87077; 87086; 87186

== ENCOUNTER 2021-09-02 11:30 | Outpatient (CLI) | payer MEDICAID, SELFPAY ==
[2021-09-02 13:30] LABS: Ferritin 123 ng/mL (8-252)
== END 2021-09-02 11:31 | disposition home or self-care (01) ==
LOC: LBO 11:30
PROVIDERS: PCP Internal Medicine; Visit Provider Nurse Practitioner
DX: M25.512 Pain in left shoulder (principal); R40.0 Somnolence; G25.81 Restless legs syndrome
CPT/HCPCS: 36415; 82728

== ENCOUNTER 2021-12-27 02:07 | Outpatient (CLI) | payer MEDICAID, SELFPAY ==
--- NOTE | 2021-12-27 09:00 | DI.MAMMO_ITS ---
Exam(s) MAMMO SCREENING EXAM: MAMMO SCREENING CLINICAL HISTORY: screening, Z12.39. TECHNIQUE: Bilateral full field digital CC and MLO mammographic images were obtained with 3D tomosyn thesis and utilizing computer aided detection (CAD). COMPARISON: Prior mammograms were reviewed. FINDINGS: The fibroglandular tissue pattern is again noted be moderately dense, this somewhat decreasing the se nsitivity of the mammogram for finding in underlying lesions. Asymmetric density medially in the right breast is unchanged from prior studies. Nodular density lateral aspect left breast has decreased in size from prior study. There are no new obvious spiculated masses nor malignant-appearing microcalcification either breast. There is no significant architectural distortion nor skin thickening-retraction. IMPRESSION: Benign findings. No radiographic evidence of malignancy. BI-RADS Category 2 - Benign Findings Breast Density - Category C - Heterogeneously dense Breast density Category C or D implies that the patient has dense breast tissue. Dense breast tissue can make it harder to find cancer on a mammogram. Dense breast tissue is also associated with an incr eased risk of breast cancer. This information about the result of the mammogram report was provided to the patient to raise their awareness. Use this report when you speak with the patient about their risks for breast cancer, which includes their family history. At that time, you may recommend additional screening tests (Ultrasoun d or MRI) as these tests may add significant information. A negative radiographic report should not delay biopsy if a dominant or clinically suspicious mass is present. Up to ten percent of cancers are not identified on mammography. A negative report may reinforce clinical impression. Adenosis and dense breasts may obscure an underlying neoplasm. False positive reports average 6 to 10%. Patient will receive a letter notifying them of these results.
== END 2021-12-27 02:27 ==
PROVIDERS: PCP Internal Medicine; Visit Provider Nurse Practitioner Family
DX: Z12.31 Encounter for screening mammogram for malignant neoplasm of breast (principal)
CPT/HCPCS: 77063; 77067

== ENCOUNTER 2022-02-02 18:04 | Emergency (ER) | payer MEDICAID, SELFPAY ==
[2022-02-02 18:10] VITALS: BP 136/93; PULSE 100; RESP 18; TEMP 37; O2SAT 98
--- NOTE | 2022-02-02 20:36 | W.ED.GENAD ---
Discharge Plan Disposition Patient Disposition: Home Condition: Stable Discharge Details Clinical Impression: Viral respiratory illness Primary Care Provider: Carter Garcia ED Provider: Ricki Garcia Home Meds and New Rx's Prescriptions: New ProAir RespiClick 90 mcg/actuation aerosol powdr breath activated 2 inh inhalation Q4H PRN (Reason: shortness of breath) Qty: 1 0RF benzonatate 200 mg capsule 200 mg PO TID PRN (Reason: cough) Qty: 30 0RF Continued ibuprofen [Motrin IB] 200 mg capsule 600 mg PO Q6H PRN (Reason: pain) Qty: 30 1RF acetaminophen 500 mg Tablet 1,000 mg PO Q6H PRN amitriptyline 25 mg tablet 25 mg PO HS Label Comments: TAKE 1 TABLET BY MOUTH AT BEDTIME omega-3 fatty acids Capsule 2,000 mg PO HS magnesium Tablet 1,000 tab PO HS Linzess 145 mcg capsule 145 mcg PO HS Label Comments: TAKE 1 TO 2 CAPSULES BY MOUTH AT BEDTIME Discharge Instructions Instructions: Upper Respiratory Infection (ED) Additional Instructions: Please stay well-hydrated and get plenty of rest during viral illness. If you develop any new or significant worsening of symptoms return the emergency department for reassessment and if not improving the next week follow-up with your primary care provider for recheck. Stand Alone Forms: Work Release Referrals: Carter Garcia MD [Primary Care Provider] - 1 week (if not improving) Discharge Data Discharge Date/Time-TO BE ENTERED AT DEPARTURE: 02/02/22 21:07 Medical Decision Making Cough cold fever chest tightness since last night. States that influenza has been going through home.. Did take [id number] medication prior to coming which did help with fever. Physical exam is unremarkable beyond noting ill-appearing patient but is nontoxic. Vital signs are stable. Rapid antigen testing was performed for COVID and influenza which was negative for both. Suspect viral illness and discussed conservative management of symptoms along with return and follow-up precautions. Will prescribe patient albuterol inhaler and Tessalon Perles to see if this helps with symptoms. After discussion of diagnosis and plan of care patient has no further needs, questions, or concerns and states clear understanding to return to the emergency department for any worsening symptoms. This documentation was generated using Sharingforceation system, please disregard any oddities of phrase or misspellings. Lab Data Lab results reviewed: Yes I reviewed the patient's lab results. HPI General Mode of arrival: ambulatory. Date/Time Provider Initiated Documentation: 02/02/22 18:16. Limitations to Documentation: no limitations. Information obtained by: patient and RN notes reviewed. History of Present Illness 41 year old F presents to the emergency department with the chief complaint of cough fever chest tightness, described as moderate, Quality is described as aching, Patient started experiencing this day(s) (1) and it has been constant. Medication improves symptom(s), No exacerbating factors reported . Patient did receive the following treatments prior to arrival, other (otc cold meds) Related Data Home Medications Medication Instructions Recorded Confirmed ibuprofen 200 mg capsule (Motrin 600 mg PO Q6H PRN pain #30 caps 08/01/19 02/02/22 IB) acetaminophen 500 mg tablet 1,000 mg PO Q6H PRN 05/24/21 02/02/22 amitriptyline 25 mg tablet 25 mg PO HS 05/24/21 02/02/22 linaclotide 145 mcg capsule 145 mcg PO HS 05/24/21 02/02/22 (Linzess) magnesium 1,000 tab PO HS 05/24/21 02/02/22 omega-3 fatty acids 2,000 mg PO HS 05/24/21 02/02/22 albuterol sulfate 90 mcg/actuation 2 inh inhalation Q4H PRN shortness 02/02/22 breath activated powder inhaler of breath #1 ea (ProAir RespiClick) benzonatate 200 mg capsule 200 mg PO TID PRN cough #30 caps 02/02/22 Previous Rx's Medication Instructions Recorded ibuprofen 200 mg capsule (Motrin 600 mg PO Q6H PRN pain #30 caps 08/01/19 IB) albuterol sulfate 90 mcg/actuation 2 inh inhalation Q4H PRN shortness 02/02/22 breath activated powder inhaler of breath #1 ea (ProAir RespiClick) benzonatate 200 mg capsule 200 mg PO TID PRN cough #30 caps 02/02/22 Allergies Allergy/AdvReac Type Severity Reaction Status Date / Time codeine Allergy Severe Hives, Verified 02/02/22 18:15 violent angry Latex, Natural Rubber Allergy Severe If its Verified 02/02/22 18:15 around my mouth I swell, any other area, I swell valerian Allergy Severe Hives Verified 02/02/22 18:15 zolpidem tartrate Allergy Severe minor Verified 02/02/22 18:15 [From Ambien] stroke Penicillins Allergy Mild internal Verified 02/02/22 18:15 bleeding, constipation prednisone AdvReac Mild Blisters Verified 02/02/22 18:15 in mouth, abdominal pain General Stated Complaint: RespSymp ARLETTE: 4 Review of Systems Constitutional Constitutional: Reports body ache(s), Reports chills, Reports fever(s), Denies headache(s) and Reports malaise Eyes Eyes: Denies eye discharge ENT Ears, Nose, Mouth, and Throat: Reports as per HPI, Denies ear discharge, Denies otalgia, Denies headache(s), Reports nasal congestion, Denies nasal discharge, Denies neck pain, Denies sore throat and Denies throat swelling Cardiovascular Cardiovascular: Denies chest pain and Denies dyspnea Respiratory Respiratory: Reports chest congestion, Reports cough, Reports pain with cough and Denies dyspnea Musculoskeletal Musculoskeletal: Denies joint swelling and Denies neck pain Integumentary/Breasts Skin/Breast: Denies rash Neurologic Neurologic: Denies headache(s) Allergic/Immunologic Allergic/Immunologic: Denies throat swelling PFSH All Active Problems (Updated 02/02/22 @ 20:39 by Ricki Garcia NP) Viral respiratory illness (Acute) Synovial cyst of popliteal space [Roberts], left knee (Acute) Internal derangement of right knee (Acute) Tubular adenoma (Acute ~10/16/20) Colon polyp (Acute) Melanosis coli (Acute) IBS (irritable bowel syndrome) (Chronic) Weight gain (Acute) Myalgia (Acute) Pedal edema (Acute) Fatty liver disease, nonalcoholic (Acute) Bakers cyst (Acute) Chronic headaches (Acute) Polycystic ovary disease (Acute) Cervicalgia (Acute) Left hip pain (Acute) Lumbar spine pain (Acute) Constipation by delayed colonic transit (Acute) Cubital tunnel syndrome on right (Acute) Rotator cuff impingement syndrome of right shoulder (Acute) Bursitis of right shoulder (Acute) Cervical radiculopathy (Acute) Biceps tendonitis on right (Acute) Bilateral carpal tunnel syndrome (Acute) Left breast lump (Acute ~10/2018) 6x4mm. Pt will have repeat mammo 04/2019. Umbilical hernia without mention of obstruction or gangrene (Acute) Medical History Abdominal pain Anesthesia complication Per pt. stated when she had her hysterectomy, my heart stopped. 07/31/19 here @ [facility]. Anxiety and depression Anxiety with depression Arthralgia Roberts's cyst of knee Black stools Carbon monoxide exposure Carpal tunnel syndrome Chest pain With high anxiety would give me chest pain Cough Dysuria Elevated blood pressure reading Fatigue Fatty liver Generalized headaches Headache History of IBS Hx of head injury IBS (irritable bowel syndrome) Insomnia Memory loss Natural gas exposure Near syncope Night sweats Paresthesia of both hands Right shoulder pain Stress incontinence Umbilical abnormality Surgical History section Section with Tubal ligation (04/27/10) Cholecystectomy (01/07/98) Colonoscopy - MAC (07/03/08) D+C (09/17/13) Dilation and curettage Pt reports 4 D&Cs. 3 pregnancies, 2 c/s. EGD - MAC Endometrial Ablation (10/17/14) Pt has referred to the ablation as a partial hysterectomy. H/O umbilical hernia repair 10/04/18, Dr Selena Goncalves, [facility] H/O: hysterectomy History of colonoscopy with polypectomy (~10/16/20) Repair of umbilical hernia (05/21/09) S/P laparoscopic assisted vaginal hysterectomy ([facility]) Family History Mother Colitis Depression Diverticula of colon Mental disorder Dementia Stroke Grandparents on mother and father's size Thyroid disease Father Diabetes Depression Heart disease Mental disorder Sister Diverticula of colon Fibromyalgia Social History Smoking/Tobacco Use Status: Former Tobacco Use Quit Date: 02/21/12 Smoking risk assessment performed?: Yes Alcohol Intake: current Alcohol Intake frequency: holidays/special occasions only Alcohol type: wine Drug use: Never Substance use type: does not use Number of Children: 2 Current gender identity: female Seatbelt use: always Do you feel safe at home: Yes Do you feel safe in your relationship?: Yes Female Reproductive History Menstrual Age of Menarche: 12 control method: permanent sterilization Menopause type: surgical History History 3 Para Hx # Term Pregnancies 2 Multiple births Hx # Pregnancies Ectopic pregnancies AB induced Hx Number of Living Children AB spontaneous Exam Const General: cooperative and ill appearing acutely Orientation: alert and awake HENMT Head: normal to inspection, normocephalic and atraumatic Ears: hearing grossly normal bilaterally and TM's normal bilaterally General nose exam: external nose normal Face and sinus: no erythema Mouth: oral mucosae normal, no drooling, no muffled voice and no trismus Throat: posterior oropharynx normal Neck Neck: normal visual inspection, full ROM, no lymphadenopathy, no meningeal signs, trachea midline and supple Resp Effort & Inspection: normal respiratory effort, able to speak in complete sentences and cough Quality of cough: dry Auscultation: clear to auscultation bilaterally Cardio Rate: regular rate Rhythm: regular rhythm Heart Sounds: S1 normal, S2 normal, normal S1 and S2, no click, no gallops, no murmurs and no rubs Skin General skin exam: no rashes or lesions noted and dry skin (warm) Neuro General: patient alert, patient awake, patient oriented x3, gait normal and moves all extremities Cognition: normal cognition Speech: speech normal Course Vital Signs Vital signs: Vital Signs Temperature 37.0 C 02/02/22 18:10 Pulse 100 H 02/02/22 18:10 Respiratory Rate 18 02/02/22 18:10 Blood Pressure 136/93 H 02/02/22 18:10 Pulse Oximetry 98 02/02/22 18:10 Temperature 37.0 C 02/02/22 18:10 Temperature Source Temporal Artery Scan 02/02/22 18:10 Pulse 100 H 02/02/22 18:10 Respiratory Rate 18 02/02/22 18:10 Respiratory Effort Short of Breath 02/02/22 18:13 Respiratory Depth Normal 02/02/22 18:13 Blood Pressure 136/93 H 02/02/22 18:10 Blood Pressure Position Sitting 02/02/22 18:10 Pulse Oximetry 98 02/02/22 18:10 Oxygen Delivery Method Room Air 02/02/22 18:10 Oxygen Flow Rate 0 02/02/22 18:10 Pain Level 5 02/02/22 18:10
== END 2022-02-02 21:07 | disposition home or self-care (01) ==
PROVIDERS: Emergency Provider Nurse Practitioner Family; PCP Internal Medicine
DX: B34.9 Viral infection, unspecified (principal); R07.89 Other chest pain; R06.02 Shortness of breath
CPT/HCPCS: 99283

== ENCOUNTER 2022-04-07 16:01 | Emergency (ER) | payer MEDICAID, SELFPAY ==
[2022-04-07] VITALS (15 sets, daily range): BP systolic 124–141; BP diastolic 66–103; PULSE 63–90; RESP 20; TEMP 37.2; O2SAT 98–99
[2022-04-07] MEDS: ACETAMINOPHEN 1,000 MG/100 ML BTL 400 MG IVPB (17:03)
[2022-04-07] MEDS: Normal Saline 1,000 ML 1000 ML IV (17:03)
[2022-04-07] MEDS: Ondansetron 4 MG/2 ML VIAL IVP (17:03)
[2022-04-07 17:09] LABS: Abs Immature Grans 0.02 10^3/uL (0.0-0.06); Absolute Basophil Count 0.02 10^3/uL (0.0-0.2); Absolute Eosinophil Count 0.08 10^3/uL (0.0-0.7); Absolute Monocyte Count 0.54 10^3/uL (0.1-0.8); Absolute Neutrophil Count 2.77 10^3/uL (1.2-6.7); Basophils % 0.5; HCT 38.1 % (36.0-46.0); HGB 12.9 g/dL (11.2-15.7); Immature Grans % 0.5; Lymphocytes % 14.9; MCH 29.2 pg (27.0-33.0); MCHC 33.9 % (32.0-36.0); MCV 86 fL (80-95); MPV 9.3 fL (8.0-11.0); Monocytes % 13.4; Neutrophils % 68.7; Platelet Count 248 10^3/uL (130-400); RBC 4.42 10^6/uL (3.93-5.22); RDW 13.3 % (11.7-14.6); RDW-SD 41.6 fL; WBC 4.03 10^3/uL (4.4-10.8)
[2022-04-07 17:11] LABS: Bilirubin Negative (Negative); Blood Negative (Negative); Clarity Clear (Clear); Glucose Negative (Negative); Ketones Negative (Negative); Leukocyte Esterase Negative (Negative); Nitrite Negative (Negative); Specific Gravity >= 1.030 (1.005-1.025); Urobilinogen 0.2 EU/dL (Up TO 0.2); pH 5.5 (5-8)
[2022-04-07 17:24] LABS: ALT 26 U/L (14-59); AST 17 U/L (15-37); Albumin 3.7 g/dL (3.4-5.0); Alkaline Phosphatase 62 U/L (46-116); Anion Gap 9.9 mmol/L (3-11); BUN 13 mg/dL (7-18); Bilirubin, Total 0.6 mg/dL (0.2-1.0); CO2 25.1 mmol/L (21.0-32.0); CREATININE 0.7 mg/dL (0.55-1.02); Calcium 8.9 mg/dL (8.5-10.1); Chloride 104 mmol/L (98-107); Estimated GFR 111.36 (mL/min/1.73m2); Glucose 89 mg/dL (74-106); Lipase 74 U/L (16-77); Magnesium 2.1 mg/dL (1.8-2.4); Potassium 3.9 mmol/L (3.5-5.1); Sodium 139 mmol/L (136-145); Total Protein 6.9 g/dL (6.4-8.2)
[2022-04-07] MEDS: oxyCODONE 5 mg/Acetaminophen 325 mg TAB 1 TAB PO (18:52)
--- NOTE | 2022-04-07 20:23 | W.ED.GENAD ---
Discharge Plan Disposition Patient Disposition: Against Medical Advice Discharge Details Clinical Impression: Abdominal pain Primary Care Provider: Carter Garcia ED Provider: Marisol Valencia Home Meds and New Rx's Prescriptions: Continued acetaminophen 500 mg Tablet 1,000 mg PO Q6H PRN Linzess 145 mcg capsule 145 mcg PO HS Patient Comments: TAKE 1 TO 2 CAPSULES BY MOUTH AT BEDTIME No Action benzonatate 200 mg capsule 200 mg PO TID PRN (Reason: cough) Qty: 30 0RF doxycycline hyclate 100 mg capsule 100 mg PO BID Qty: 10 0RF albuterol sulfate 90 mcg/actuation aerosol powdr breath activated 2 inh inhalation Q4H PRN (Reason: shortness of breath or wheezing) Qty: 1 0RF Discharge Instructions Instructions: Abdominal Pain (ED) Additional Instructions: You are leaving against our medical recommendation, I apologize for the delay on imaging Please return for repeat assessment at your earliest ability Discharge Data Discharge Date/Time-TO BE ENTERED AT DEPARTURE: 04/07/22 21:20 Medical Decision Making 41-year-old female presents with right lower quadrant abdominal pain, noting she had COVID-19 approximately 2 and half weeks ago and recovered completely Has had nausea and vomiting Secondary to acuity and capacity in the emergency department there is a significant delay in obtaining CT scan and patient reports that she has to be discharged to care for her children She is fully alert and oriented, of decisional capacity She is aware that she is leaving against medical recommendation as I would like to perform CT abdomen and pelvis Her labs are reassuring and her vitals are quite stable She discharged home with recommendation to return at her earliest ability for complete assessment HPI General Date/Time Provider Initiated Documentation: 04/07/22 16:34. HPI Narrative: This 41-year-old female presents with right lower quadrant abdominal pain. Patient states that been a burning stabbing pain with nausea and vomiting for the past 3 days. Subjective fevers per patient. Denies any urinary complaints. States that she had COVID 2-1/2 weeks ago but feels as though she recovered completely. Denies any chest pain or shortness of breath. Pain exacerbated with walking per patient. Denies any chance of . Denies any blood in vomitus or stool. Related Data Home Medications Medication Instructions Recorded Confirmed acetaminophen 500 mg tablet 1,000 mg PO Q6H PRN 05/24/21 04/08/22 linaclotide 145 mcg capsule 145 mcg PO HS 05/24/21 04/08/22 (Linzess) albuterol sulfate 90 mcg/actuation 2 inh inhalation Q4H PRN shortness 04/08/22 breath activated powder inhaler of breath or wheezing #1 ea benzonatate 200 mg capsule 200 mg PO TID PRN cough #30 caps 04/08/22 doxycycline hyclate 100 mg capsule 100 mg PO BID #10 caps 04/08/22 Previous Rx's Medication Instructions Recorded albuterol sulfate 90 mcg/actuation 2 inh inhalation Q4H PRN shortness 04/08/22 breath activated powder inhaler of breath or wheezing #1 ea benzonatate 200 mg capsule 200 mg PO TID PRN cough #30 caps 04/08/22 doxycycline hyclate 100 mg capsule 100 mg PO BID #10 caps 04/08/22 Allergies Allergy/AdvReac Type Severity Reaction Status Date / Time codeine Allergy Severe Hives, Verified 04/08/22 09:15 violent angry Latex, Natural Rubber Allergy Severe If its Verified 04/08/22 09:15 around my mouth I swell, any other area, I swell valerian Allergy Severe Hives Verified 04/08/22 09:15 zolpidem tartrate Allergy Severe minor Verified 04/08/22 09:15 [From Fabricio] stroke Penicillins Allergy Mild internal Verified 04/08/22 09:15 bleeding, constipation prednisone AdvReac Mild Blisters Verified 04/08/22 09:15 in mouth, abdominal pain General Stated Complaint: Abd Prob ARLETTE: 3 PFSH All Active Problems (Updated 04/08/22 @ 12:22 by Ricki Garcia NP) Abdominal pain (Acute) Pneumonia (Acute) Abdominal pain (Acute) Synovial cyst of popliteal space [Roberts], left knee (Acute) Internal derangement of right knee (Acute) Tubular adenoma (Acute ~10/16/20) Colon polyp (Acute) Melanosis coli (Acute) IBS (irritable bowel syndrome) (Chronic) Weight gain (Acute) Myalgia (Acute) Pedal edema (Acute) Fatty liver disease, nonalcoholic (Acute) Bakers cyst (Acute) Chronic headaches (Acute) Polycystic ovary disease (Acute) Cervicalgia (Acute) Left hip pain (Acute) Lumbar spine pain (Acute) Constipation by delayed colonic transit (Acute) Cubital tunnel syndrome on right (Acute) Rotator cuff impingement syndrome of right shoulder (Acute) Bursitis of right shoulder (Acute) Cervical radiculopathy (Acute) Biceps tendonitis on right (Acute) Bilateral carpal tunnel syndrome (Acute) Left breast lump (Acute ~10/2018) 6x4mm. Pt will have repeat mammo 04/2019. Umbilical hernia without mention of obstruction or gangrene (Acute) Medical History Abdominal pain Anesthesia complication Per pt. stated when she had her hysterectomy, my heart stopped. 07/31/19 here @ [facility]. Anxiety and depression Anxiety with depression Arthralgia Roberts's cyst of knee Black stools Carbon monoxide exposure Carpal tunnel syndrome Chest pain With high anxiety would give me chest pain Cough Dysuria Elevated blood pressure reading Fatigue Fatty liver Generalized headaches Headache History of IBS Hx of head injury IBS (irritable bowel syndrome) Insomnia Memory loss Natural gas exposure Near syncope Night sweats Paresthesia of both hands Right shoulder pain Stress incontinence Umbilical abnormality Surgical History section Section with Tubal ligation (04/27/10) Cholecystectomy (01/07/98) Colonoscopy - MAC (07/03/08) D+C (09/17/13) Dilation and curettage Pt reports 4 D&Cs. 3 pregnancies, 2 c/s. EGD - MAC Endometrial Ablation (10/17/14) Pt has referred to the ablation as a partial hysterectomy. H/O umbilical hernia repair 10/04/18, Dr Selena Goncalves, [facility] H/O: hysterectomy History of colonoscopy with polypectomy (~10/16/20) Repair of umbilical hernia (05/21/09) S/P laparoscopic assisted vaginal hysterectomy ([facility]) Family History Mother Colitis Depression Diverticula of colon Mental disorder Dementia Stroke Grandparents on mother and father's size Thyroid disease Father Diabetes Depression Heart disease Mental disorder Sister Diverticula of colon Fibromyalgia Social History Smoking/Tobacco Use Status: Former Tobacco Use Quit Date: 02/21/12 Smoking risk assessment performed?: Yes Alcohol Intake: current Alcohol Intake frequency: holidays/special occasions only Alcohol type: wine Drug use: Never Substance use type: does not use Number of Children: 2 Current gender identity: female Seatbelt use: always Do you feel safe at home: Yes Do you feel safe in your relationship?: Yes Female Reproductive History Menstrual Age of Menarche: 12 control method: permanent sterilization Menopause type: surgical History History 3 Para Hx # Term Pregnancies 2 Multiple births Hx # Pregnancies Ectopic pregnancies AB induced Hx Number of Living Children AB spontaneous Exam Narrative Exam Narrative: Patient appears comfortable in room, moist mucous membranes, no scleral icterus, lungs clear to auscultation bilaterally, rate rhythm regular, tenderness in right lower quadrant and left lower quadrant, predominantly right lower quadrant without rebound or guarding, no CVA tenderness, no abdominal bruit or pulsatile mass, fully alert and oriented, no calf swelling or tenderness Course Vital Signs Vital signs: Vital Signs Temperature 37.2 C 04/07/22 16:05 Pulse 90 04/07/22 16:05 Respiratory Rate 20 04/07/22 16:05 Blood Pressure 135/76 04/07/22 16:05 Pulse Oximetry 98 04/07/22 16:05 Temperature 37.2 C 04/07/22 16:05 Temperature Source Temporal Artery Scan 04/07/22 16:05 Pulse 68 04/07/22 20:01 Respiratory Rate 20 04/07/22 16:05 Respiratory Effort Normal, Non-Labored 04/07/22 16:11 Blood Pressure 138/87 04/07/22 20:01 Blood Pressure Mean 98 04/07/22 20:01 Blood Pressure Position Sitting 04/07/22 16:05 Pulse Oximetry 99 04/07/22 19:20 Oxygen Delivery Method Room Air 04/07/22 16:05 Oxygen Flow Rate 0 04/07/22 16:05 Pain Level 4 04/07/22 20:12 Lab/Test Results Lab/Test Results: Laboratory Tests Range/Units 04/07/22 04/07/22 04/07/22 16:50 16:50 16:50 WBC (4.4-10.8) 10^3/uL 4.03 L RBC (3.93-5.22) 10^6/uL 4.42 Hgb (11.2-15.7) g/dL 12.9 Hct (36.0-46.0) % 38.1 MCV (80-95) fL 86 MCH (27.0-33.0) pg 29.2 MCHC (32.0-36.0) % 33.9 RDW (11.7-14.6) % 13.3 Plt Count (130-400) 10^3/uL 248 MPV (8.0-11.0) fL 9.3 Immature Gran % 0.5 Neutrophils % 68.7 Lymphocytes % 14.9 Monocytes % 13.4 Eosinophils % 2.0 Basophils % 0.5 Nucleated RBC % (0.0-0.3) % 0.0 Absolute Neutrophils (1.2-6.7) 10^3/uL 2.77 Absolute Lymphocytes (1.2-3.4) 10^3/uL 0.60 L Absolute Monocytes (0.1-0.8) 10^3/uL 0.54 Absolute Eosinophils (0.0-0.7) 10^3/uL 0.08 Absolute Basophils (0.0-0.2) 10^3/uL 0.02 Sodium (136-145) mmol/L 139 Potassium (3.5-5.1) mmol/L 3.9 Chloride (98-107) mmol/L 104 Carbon Dioxide (21.0-32.0) mmol/L 25.1 Anion Gap (3-11) mmol/L 9.9 BUN (7-18) mg/dL 13 Creatinine (0.55-1.02) mg/dL 0.7 Est GFR (CKD-EPI 2020) (mL/min/1.73m2) 111.36 Glucose (74-106) mg/dL 89 Calcium (8.5-10.1) mg/dL 8.9 Magnesium (1.8-2.4) mg/dL 2.1 Total Bilirubin (0.2-1.0) mg/dL 0.6 AST (15-37) U/L 17 ALT (14-59) U/L 26 Alkaline Phosphatase (46-116) U/L 62 Total Protein (6.4-8.2) g/dL 6.9 Albumin (3.4-5.0) g/dL 3.7 Lipase (16-77) U/L 74 Urine Color (Yellow) Yellow Urine Clarity (Clear) Clear Urine pH (5-8) 5.5 Ur Specific [place] (1.005-1.025) >= 1.030 H Urine Protein (Negative) mg/dL Negative Urine Ketones (Negative) mg/dL Negative Urine Blood (Negative) Negative Urine Nitrite (Negative) Negative Urine Bilirubin (Negative) Negative Urine Urobilinogen (Up TO 0.2) EU/dL 0.2 Ur Leukocyte Esterase (Negative) Negative Urine Glucose (Negative) mg/dL Negative
== END 2022-04-07 21:20 | disposition left against medical advice (07) ==
PROVIDERS: Emergency Provider Physician Assistant; PCP Internal Medicine
DX: R10.31 Right lower quadrant pain (principal); R10.813 Right lower quadrant abdominal tenderness; R10.814 Left lower quadrant abdominal tenderness; R11.2 Nausea with vomiting, unspecified; Z86.16 Personal history of COVID-19; Z87.19 Personal history of other diseases of the digestive system; Z90.49 Acquired absence of other specified parts of digestive tract; Z90.710 Acquired absence of both cervix and uterus
CPT/HCPCS: 36415; 80053; 83690; 96361; 96365; 96375; 99284; 81003; 83735; 85025; J0131; J2405

== ENCOUNTER 2022-04-08 08:55 | Emergency (ER) | payer MEDICAID, SELFPAY ==
[2022-04-08 09:01] VITALS: BP 119/74; PULSE 80; RESP 18; TEMP 37.1; O2SAT 97
--- NOTE | 2022-04-08 09:15 | DI.CT_ITS ---
Exam(s) CT ABDOMEN PELVIS W EXAM: CT ABDOMEN PELVIS W CLINICAL HISTORY: RLQ pain. TECHNIQUE: Imaging Protocol: Axial computed tomography images with coronal and sagittal reformatted images were created and reviewed CONTRAST MATERIAL: Intravenous: Omnipaque 350 Contrast volume:100 ml Oral: yes / no COMPARISON: CT CT ABDOMEN PELVIS W from 09/08/2019 CR,XR XR PORTABLE CHEST AP from 05/24/2021 FINDINGS: ABDOMEN: Lung Bases: Focal area of right lower lobe consolidation. Minimal patchy densities seen at the left lung base. Liver: Mild fatty infiltration. No measurable mass. Gallbladder and biliary tract: Status post cholecystectomy. No radiodense calculus or dilation. Pancreas: Normal density, no abnormal calcifications or inflammatory process. Spleen: Normal. Kidneys: Normal size, contour and axis. No radiodense stones or obstructive uropathy. No masses seen. Adrenal glands: No masses seen. Abdominal Aorta: Abdominal portion non-dilated. PELVIS: Bladder: No gross wall thickening. No calculi.No focal mass. Bowel: No obstruction or bowel wall thickening. Appendix normal. Peritoneal cavity: No ascites, collection or mesenteric inflammatory response. Bones: Within normal limits for age. Reproductive organs: Status post hysterectomy . Ovaries appear normal. Lymph nodes: Unremarkable. Impression: Right lower lobe infiltrate. Unremarkable CT scan of the abdomen and pelvis. Findings called to Nj Garcia of the emergency department. RADIATION DOSE DELIVERED: 1,296.89mGy.cm Total DLP DATA REPOSITORY: All CT scans at this facility are submitted to the National Radiology Data Registry (NRDR) Dose Index Registry (DIR) with the [employer] ([employer]). RADIATION OPTIMIZATION: All CT scans at this facility use at least one of these dose optimization te chniques: automated exposure control; mA and/or kV adjustment per patient size (includes targeted exa ms where dose is matched to clinical indication); or iterative reconstruction.
[2022-04-08 09:25] LABS: Abs Immature Grans 0.01 10^3/uL (0.0-0.06); Absolute Basophil Count 0.02 10^3/uL (0.0-0.2); Absolute Eosinophil Count 0.07 10^3/uL (0.0-0.7); Absolute Lymphocyte Count 0.49 10^3/uL (1.2-3.4); Absolute Monocyte Count 0.59 10^3/uL (0.1-0.8); Absolute Neutrophil Count 3.37 10^3/uL (1.2-6.7); Basophils % 0.4; Eosinophils % 1.5; HCT 37.7 % (36.0-46.0); HGB 12.7 g/dL (11.2-15.7); Immature Grans % 0.2; Lymphocytes % 10.8; MCHC 33.7 % (32.0-36.0); MCV 86 fL (80-95); MPV 9.1 fL (8.0-11.0); Neutrophils % 74.1; Platelet Count 228 10^3/uL (130-400); RBC 4.38 10^6/uL (3.93-5.22); RDW 13.2 % (11.7-14.6); RDW-SD 41.1 fL; WBC 4.55 10^3/uL (4.4-10.8)
[2022-04-08] MEDS: Normal Saline 1,000 ML 1000 ML IV (09:37)
[2022-04-08] MEDS: Ondansetron 4 MG/2 ML VIAL IVP (09:39)
[2022-04-08 09:41] LABS: ALT 26 U/L (14-59); AST 15 U/L (15-37); Albumin 3.4 g/dL (3.4-5.0); Alkaline Phosphatase 57 U/L (46-116); Anion Gap 8.2 mmol/L (3-11); BUN 9 mg/dL (7-18); Bilirubin, Total 0.5 mg/dL (0.2-1.0); CO2 24.8 mmol/L (21.0-32.0); CREATININE 0.7 mg/dL (0.55-1.02); Calcium 8.7 mg/dL (8.5-10.1); Chloride 105 mmol/L (98-107); Estimated GFR 111.36 (mL/min/1.73m2); Glucose 89 mg/dL (74-106); Lipase 66 U/L (16-77); Potassium 3.9 mmol/L (3.5-5.1); Sodium 138 mmol/L (136-145); Total Protein 6.7 g/dL (6.4-8.2)
[2022-04-08] MEDS: ACETAMINOPHEN 1,000 MG/100 ML BTL 400 MG IVPB (09:41)
[2022-04-08 09:45] LABS: Bilirubin Negative (Negative); Blood Negative (Negative); Clarity Clear (Clear); Glucose Negative (Negative); Ketones Negative (Negative); Leukocyte Esterase Negative (Negative); Nitrite Negative (Negative); Specific Gravity 1.025 (1.005-1.025); Urobilinogen 0.2 EU/dL (Up TO 0.2); pH 5.5 (5-8)
[2022-04-08] MEDS: Normal Saline - Diluent 50 ML VIAL IV (10:17)
[2022-04-08] MEDS: Omnipaque 350 MG/ML 100 ML BTL IJ (10:17)
[2022-04-08] MEDS: Normal Saline Flush 10 ML SYR IVP (10:18)
--- NOTE | 2022-04-08 10:45 | DI.RAD_ITS ---
Exam(s) XR CHEST 2V PA LATERAL EXAM: XR CHEST 2V PA LATERAL CLINICAL HISTORY: Question of pneumonia on CT TECHNIQUE: 2D digital imaging was performed. COMPARISON: CR,XR XR PORTABLE CHEST AP from 05/24/2021 FINDINGS: HEART: Normal size. Aorta: Not dilated. PULMONARY VASCULATURE: Normal. LUNGS: A small infiltrate seen in the right upper lobe. Larger infiltrate seen in right lower lobe. PLEURAL SPACE: No pleural effusion or pneumothorax. BONE:Unremarkable for age. IMPRESSION: Right upper and lower lobe pneumonia. DATA REPOSITORY: RADIATION DOSE DELIVERED:
--- NOTE | 2022-04-08 10:51 | W.ED.GENAD ---
Discharge Plan Disposition Patient Disposition: Home Discharge Details Clinical Impression: Pneumonia, Abdominal pain Primary Care Provider: Carter Garcia ED Provider: Ricki Garcia Home Meds and New Rx's Prescriptions: New benzonatate 200 mg capsule 200 mg PO TID PRN (Reason: cough) Qty: 30 0RF doxycycline hyclate 100 mg capsule 100 mg PO BID Qty: 10 0RF albuterol sulfate 90 mcg/actuation aerosol powdr breath activated 2 inh inhalation Q4H PRN (Reason: shortness of breath or wheezing) Qty: 1 0RF Continued acetaminophen 500 mg Tablet 1,000 mg PO Q6H PRN Linzess 145 mcg capsule 145 mcg PO HS Patient Comments: TAKE 1 TO 2 CAPSULES BY MOUTH AT BEDTIME Discharge Instructions Instructions: Abdominal Pain (ED), Pneumonia (ED) Additional Instructions: Continue to monitor your symptoms and return to the emergency department immediately for any new or significant worsening of your condition. Otherwise stay well-hydrated and get plenty of rest and take medication as prescribed. Please follow-up with your primary care provider as directed by their office or within the next week for reassessment. Stand Alone Forms: Work Release Referrals: Carter Garcia MD [Primary Care Provider] - Discharge Data Discharge Date/Time-TO BE ENTERED AT DEPARTURE: 04/08/22 12:39 Medical Decision Making Patient presenting to the emergency department for chief complaint of right-sided pain for the past 5 days. She was here yesterday but left prior to CT imaging but states she has been worsening over the evening. She does report some vomiting, burning type pain and small blood-tinged when wiping rectum. She does state some rectal burning and recent diarrhea. Physical exam does show soft abdomen but some guarding and tenderness to the right lower quadrant more than right upper quadrant. Exam is otherwise unremarkable. Patient does have history of fatty liver, IBS, anxiety. We will plan on checking labs and CT imaging. Pending results will give antiemetics and fluids. Patient has had hysterectomy Reviewed patient's labs and CBC shows slightly low lymphocytes otherwise unremarkable, CMP completely unremarkable with normal LFTs, lipase is also within normal limits no elevation, urine shows no signs of infection. Reviewed CT imaging with radiologist that shows no intra-abdominal pathology of concern but there is question of a right lower lobe pneumonia. We will perform chest x-ray imaging. And COVID testing. Patient is negative for COVID but chest x-ray does show an upper and lower lobe pneumonia. This may be causing some of patient's right-sided pain or discomfort so we will start her on an antibiotic. Did further discuss rectal exam due to small bleed but patient states she does have history of hemorrhoids and is deferring exam at this time. We will also prescribe patient Tessalon Perles and albuterol to help with symptoms given that she is reporting some continued cough. She does state that she had COVID greater than a week ago and thought she was resolving. We will place patient on referral for primary care follow-up. After discussion of diagnosis and plan of care patient has no further needs, questions, or concerns and states clear understanding to return to the emergency department for any worsening symptoms. This documentation was generated using [employer] system, please disregard any oddities of phrase or misspellings. Medical Records Medical records reviewed: Yes I reviewed the patient's medical records. Medical records narrative: Reviewed available ER notes from yesterday's visit Imaging Data Radiologic Study: Attestation: I personally reviewed and interpreted this imaging study as follows: Imaging: CT Scan Radiologist's impression: Exam(s) CT ABDOMEN PELVIS W EXAM: CT ABDOMEN PELVIS W CLINICAL HISTORY: RLQ pain. TECHNIQUE: Imaging Protocol: Axial computed tomography images with coronal and sagittal reformatted images were created and reviewed CONTRAST MATERIAL: Intravenous: Omnipaque 350 Contrast volume:100 ml Oral: yes / no COMPARISON: CT CT ABDOMEN PELVIS W from 09/08/2019 CR,XR XR PORTABLE CHEST AP from 05/24/2021 FINDINGS: ABDOMEN: Lung Bases: Focal area of right lower lobe consolidation. Minimal patchy densities seen at the left lung base. Liver: Mild fatty infiltration. No measurable mass. Gallbladder and biliary tract: Status post cholecystectomy. No radiodense calculus or dilation. Pancreas: Normal density, no abnormal calcifications or inflammatory process. Spleen: Normal. Kidneys: Normal size, contour and axis. No radiodense stones or obstructive uropathy. No masses seen. Adrenal glands: No masses seen. Abdominal Aorta: Abdominal portion non-dilated. PELVIS: Bladder: No gross wall thickening. No calculi.No focal mass. Bowel: No obstruction or bowel wall thickening. Appendix normal. Peritoneal cavity: No ascites, collection or mesenteric inflammatory response. Bones: Within normal limits for age. Reproductive organs: Status post hysterectomy . Ovaries appear normal. Lymph nodes: Unremarkable. Impression: Right lower lobe infiltrate. Unremarkable CT scan of the abdomen and pelvis. Radiologic Study #2: Attestation: I personally reviewed and interpreted this imaging study as follows: Imaging: X-Ray Radiologist's impression: xam(s) XR CHEST 2V PA LATERAL EXAM: XR CHEST 2V PA LATERAL CLINICAL HISTORY: Question of pneumonia on CT TECHNIQUE: 2D digital imaging was performed. COMPARISON: CR,XR XR PORTABLE CHEST AP from 05/24/2021 FINDINGS: HEART: Normal size. Aorta: Not dilated. PULMONARY VASCULATURE: Normal. LUNGS: A small infiltrate seen in the right upper lobe. Larger infiltrate seen in right lower lobe. PLEURAL SPACE: No pleural effusion or pneumothorax. BONE:Unremarkable for age. IMPRESSION: Right upper and lower lobe pneumonia. Lab Data Lab results reviewed: Yes I reviewed the patient's lab results. HPI General Mode of arrival: ambulatory. Date/Time Provider Initiated Documentation: 04/08/22 09:04. Limitations to Documentation: no limitations. Information obtained by: patient and RN notes reviewed. History of Present Illness 41 year old F presents to the emergency department with the chief complaint of Abdominal pain, described as moderate and severe, with intensity rated at 8. Quality is described as aching, and is localized to the abdomen. Patient reports no radiation. Patient started experiencing this day(s) (5) and it has been constant. No relieving factors improve symptom(s), Patient notes nausea/vomiting. Patient did receive the following treatments prior to arrival, none Related Data Home Medications Medication Instructions Recorded Confirmed acetaminophen 500 mg tablet 1,000 mg PO Q6H PRN 05/24/21 04/08/22 linaclotide 145 mcg capsule 145 mcg PO HS 05/24/21 04/08/22 (Linzess) albuterol sulfate 90 mcg/actuation 2 inh inhalation Q4H PRN shortness 04/08/22 breath activated powder inhaler of breath or wheezing #1 ea benzonatate 200 mg capsule 200 mg PO TID PRN cough #30 caps 04/08/22 doxycycline hyclate 100 mg capsule 100 mg PO BID #10 caps 04/08/22 Previous Rx's Medication Instructions Recorded albuterol sulfate 90 mcg/actuation 2 inh inhalation Q4H PRN shortness 04/08/22 breath activated powder inhaler of breath or wheezing #1 ea benzonatate 200 mg capsule 200 mg PO TID PRN cough #30 caps 04/08/22 doxycycline hyclate 100 mg capsule 100 mg PO BID #10 caps 04/08/22 Allergies Allergy/AdvReac Type Severity Reaction Status Date / Time codeine Allergy Severe Hives, Verified 04/08/22 09:15 violent angry Latex, Natural Rubber Allergy Severe If its Verified 04/08/22 09:15 around my mouth I swell, any other area, I swell valerian Allergy Severe Hives Verified 04/08/22 09:15 zolpidem tartrate Allergy Severe minor Verified 04/08/22 09:15 [From Ambien] stroke Penicillins Allergy Mild internal Verified 04/08/22 09:15 bleeding, constipation prednisone AdvReac Mild Blisters Verified 04/08/22 09:15 in mouth, abdominal pain General Stated Complaint: Abd Prob ARLETTE: 3 Review of Systems Constitutional Constitutional: Denies chills, Denies fever(s), Reports malaise and Reports poor appetite Cardiovascular Cardiovascular: Denies chest pain and Denies dyspnea Respiratory Respiratory: Denies cough and Denies dyspnea Gastrointestinal Gastrointestinal: Reports as per HPI, Reports abdominal pain, Denies melena, Reports hematochezia (With anal pressure and itching), Denies change in bowel habits, Denies constipation, Reports diarrhea, Reports nausea and Reports vomiting Genitourinary Genitourinary: Denies hematuria, Denies pelvic pain and Denies urinary urgency Integumentary/Breasts Skin/Breast: Denies rash PFSH All Active Problems (Updated 04/08/22 @ 12:22 by Ricki Garcia NP) Abdominal pain (Acute) Pneumonia (Acute) Abdominal pain (Acute) Synovial cyst of popliteal space [Roberts], left knee (Acute) Internal derangement of right knee (Acute) Tubular adenoma (Acute ~10/16/20) Colon polyp (Acute) Melanosis coli (Acute) IBS (irritable bowel syndrome) (Chronic) Weight gain (Acute) Myalgia (Acute) Pedal edema (Acute) Fatty liver disease, nonalcoholic (Acute) Bakers cyst (Acute) Chronic headaches (Acute) Polycystic ovary disease (Acute) Cervicalgia (Acute) Left hip pain (Acute) Lumbar spine pain (Acute) Constipation by delayed colonic transit (Acute) Cubital tunnel syndrome on right (Acute) Rotator cuff impingement syndrome of right shoulder (Acute) Bursitis of right shoulder (Acute) Cervical radiculopathy (Acute) Biceps tendonitis on right (Acute) Bilateral carpal tunnel syndrome (Acute) Left breast lump (Acute ~10/2018) 6x4mm. Pt will have repeat mammo 04/2019. Umbilical hernia without mention of obstruction or gangrene (Acute) Medical History Abdominal pain Anesthesia complication Per pt. stated when she had her hysterectomy, my heart stopped. 07/31/19 here @ [facility]. Anxiety and depression Anxiety with depression Arthralgia Roberts's cyst of knee Black stools Carbon monoxide exposure Carpal tunnel syndrome Chest pain With high anxiety would give me chest pain Cough Dysuria Elevated blood pressure reading Fatigue Fatty liver Generalized headaches Headache History of IBS Hx of head injury IBS (irritable bowel syndrome) Insomnia Memory loss Natural gas exposure Near syncope Night sweats Paresthesia of both hands Right shoulder pain Stress incontinence Umbilical abnormality Surgical History section Section with Tubal ligation (04/27/10) Cholecystectomy (01/07/98) Colonoscopy - MAC (07/03/08) D+C (09/17/13) Dilation and curettage Pt reports 4 D&Cs. 3 pregnancies, 2 c/s. EGD - MAC Endometrial Ablation (10/17/14) Pt has referred to the ablation as a partial hysterectomy. H/O umbilical hernia repair 10/04/18, Dr Selena Goncalves, [facility] H/O: hysterectomy History of colonoscopy with polypectomy (~10/16/20) Repair of umbilical hernia (05/21/09) S/P laparoscopic assisted vaginal hysterectomy ([facility]) Family History Mother Colitis Depression Diverticula of colon Mental disorder Dementia Stroke Grandparents on mother and father's size Thyroid disease Father Diabetes Depression Heart disease Mental disorder Sister Diverticula of colon Fibromyalgia Social History Smoking/Tobacco Use Status: Former Tobacco Use Quit Date: 02/21/12 Smoking risk assessment performed?: Yes Alcohol Intake: current Alcohol Intake frequency: holidays/special occasions only Alcohol type: wine Drug use: Never Substance use type: does not use Number of Children: 2 Current gender identity: female Seatbelt use: always Do you feel safe at home: Yes Do you feel safe in your relationship?: Yes Female Reproductive History Menstrual Age of Menarche: 12 control method: permanent sterilization Menopause type: surgical History History 3 Para Hx # Term Pregnancies 2 Multiple births Hx # Pregnancies Ectopic pregnancies AB induced Hx Number of Living Children AB spontaneous Exam Const General: cooperative Orientation: alert, awake and oriented x3 Resp Effort & Inspection: normal respiratory effort and able to speak in complete sentences Auscultation: clear to auscultation bilaterally Cardio Rate: regular rate Rhythm: regular rhythm Heart Sounds: S1 normal and S2 normal GI Inspection: normal to inspection Palpation: soft, no hepatosplenomegaly, not firm, guarding in the RLQ, no masses, no pulsatile masses, not rigid, no splenomegaly and tender in the RLQ Auscultation: normal bowel sounds General: CVA tenderness on the right Neuro General: patient alert, patient awake, patient oriented x3, gait normal and moves all extremities Course Vital Signs Vital signs: Vital Signs Temperature 37.1 C 04/08/22 09:01 Pulse 80 04/08/22 09:01 Respiratory Rate 18 04/08/22 09:01 Blood Pressure 119/74 04/08/22 09:01 Pulse Oximetry 97 04/08/22 09:01 Temperature 37.1 C 04/08/22 09:01 Temperature Source Tympanic 04/08/22 09:01 Pulse 80 04/08/22 09:01 Respiratory Rate 18 04/08/22 09:01 Respiratory Effort Normal 04/08/22 09:14 Blood Pressure 119/74 04/08/22 09:01 Blood Pressure Position Sitting 04/08/22 09:01 Pulse Oximetry 97 04/08/22 09:01 Oxygen Delivery Method Room Air 04/08/22 09:01 Oxygen Flow Rate 0 04/08/22 09:01 Pain Level 7 04/08/22 09:41 Lab/Test Results Lab/Test Results: Laboratory Tests Range/Units 04/08/22 04/08/22 04/08/22 09:19 09:19 09:35 WBC (4.4-10.8) 10^3/uL 4.55 RBC (3.93-5.22) 10^6/uL 4.38 Hgb (11.2-15.7) g/dL 12.7 Hct (36.0-46.0) % 37.7 MCV (80-95) fL 86 MCH (27.0-33.0) pg 29.0 MCHC (32.0-36.0) % 33.7 RDW (11.7-14.6) % 13.2 Plt Count (130-400) 10^3/uL 228 MPV (8.0-11.0) fL 9.1 Immature Gran % 0.2 Neutrophils % 74.1 Lymphocytes % 10.8 Monocytes % 13.0 Eosinophils % 1.5 Basophils % 0.4 Nucleated RBC % (0.0-0.3) % 0.0 Absolute Neutrophils (1.2-6.7) 10^3/uL 3.37 Absolute Lymphocytes (1.2-3.4) 10^3/uL 0.49 L Absolute Monocytes (0.1-0.8) 10^3/uL 0.59 Absolute Eosinophils (0.0-0.7) 10^3/uL 0.07 Absolute Basophils (0.0-0.2) 10^3/uL 0.02 Sodium (136-145) mmol/L 138 Potassium (3.5-5.1) mmol/L 3.9 Chloride (98-107) mmol/L 105 Carbon Dioxide (21.0-32.0) mmol/L 24.8 Anion Gap (3-11) mmol/L 8.2 BUN (7-18) mg/dL 9 Creatinine (0.55-1.02) mg/dL 0.7 Est GFR (CKD-EPI 2020) (mL/min/1.73m2) 111.36 Glucose (74-106) mg/dL 89 Calcium (8.5-10.1) mg/dL 8.7 Total Bilirubin (0.2-1.0) mg/dL 0.5 AST (15-37) U/L 15 ALT (14-59) U/L 26 Alkaline Phosphatase (46-116) U/L 57 Total Protein (6.4-8.2) g/dL 6.7 Albumin (3.4-5.0) g/dL 3.4 Lipase (16-77) U/L 66 Urine Color (Yellow) Yellow Urine Clarity (Clear) Clear Urine pH (5-8) 5.5 Ur Specific [place] (1.005-1.025) 1.025 Urine Protein (Negative) mg/dL Negative Urine Ketones (Negative) mg/dL Negative Urine Blood (Negative) Negative Urine Nitrite (Negative) Negative Urine Bilirubin (Negative) Negative Urine Urobilinogen (Up TO 0.2) EU/dL 0.2 Ur Leukocyte Esterase (Negative) Negative Urine Glucose (Negative) mg/dL Negative
[2022-04-08 11:01] LABS: Source Nasal/Nares
[2022-04-08 11:33] LABS: COVID-19 PCR Negative (Negative)
[2022-04-08 12:22] VITALS: BP 136/93; PULSE 66; RESP 20; TEMP 36.6; O2SAT 98
--- NOTE | 2022-04-08 12:42 | NUR.NOTE ---
pt has referral to PCP Dr Paiz in 1 week for f/u for dyspnea - EDNursing Note:
--- NOTE | 2022-04-08 12:46 | NUR.NOTE ---
pt has been referred to PCP in week for abdominal pain and pneumonia - EDNursing Note:
== END 2022-04-08 12:39 | disposition home or self-care (01) ==
PROVIDERS: Emergency Provider Nurse Practitioner Family; PCP Internal Medicine
DX: J18.9 Pneumonia, unspecified organism (principal); R10.9 Unspecified abdominal pain; R11.10 Vomiting, unspecified; R19.7 Diarrhea, unspecified; R10.813 Right lower quadrant abdominal tenderness; R10.811 Right upper quadrant abdominal tenderness; Z90.710 Acquired absence of both cervix and uterus; Z90.49 Acquired absence of other specified parts of digestive tract; Z20.822 Contact with and (suspected) exposure to COVID-19
CPT/HCPCS: 36415; 80053; 83690; 87635; 96361; 96365; 96375; 99285; 71046; 74177; 81003; 85025; 99284; J0131; J2405; J3490

== ENCOUNTER 2022-05-12 14:38 | Outpatient (REF) | payer MEDICAID, SELFPAY ==
[2022-05-12 21:50] LABS: HCT 39.1 % (36.0-46.0); MCH 29.7 pg (27.0-33.0); MCHC 35.8 % (32.0-36.0); MCV 83 fL (80-95); MPV 9.5 fL (8.0-11.0); Platelet Count 280 10^3/uL (130-400); RBC 4.71 10^6/uL (3.93-5.22); RDW 12.9 % (11.7-14.6); RDW-SD 38.8 fL; WBC 5.81 10^3/uL (4.4-10.8)
[2022-05-12 21:52] LABS: Iron 55 ug/dL (50-170); Total Iron Binding Capacity 260 ug/dL (250-450); Transferrin Sat 21 % (15-50)
[2022-05-12 22:20] LABS: Ferritin 160 ng/mL (8-252); Magnesium 1.9 mg/dL (1.8-2.4); TSH (W/Ref FT4) 1.13 uIU/mL (0.36-3.74); Vitamin B12 605 pg/mL (193-986)
[2022-05-13 07:40] LABS: Abs Immature Grans 0.05 10^3/uL (0.0-0.06); Absolute Basophil Count 0.03 10^3/uL (0.0-0.2); Absolute Eosinophil Count 0.07 10^3/uL (0.0-0.7); Absolute Lymphocyte Count 0.57 10^3/uL (1.2-3.4); Absolute Monocyte Count 0.58 10^3/uL (0.1-0.8); Absolute Neutrophil Count 4.55 10^3/uL (1.2-6.7); Basophils % 0.5; Eosinophils % 1.2; Immature Grans % 0.9; Lymphocytes % 9.7; Monocytes % 9.9; Neutrophils % 77.8
[2022-05-13 07:58] LABS: ALT 27 U/L (14-59); AST 18 U/L (15-37); Albumin 3.8 g/dL (3.4-5.0); Alkaline Phosphatase 69 U/L (46-116); Anion Gap 11.1 mmol/L (3-11); BUN 13 mg/dL (7-18); Bilirubin, Total 0.7 mg/dL (0.2-1.0); CO2 20.9 mmol/L (21.0-32.0); CREATININE 0.9 mg/dL (0.55-1.02); Calcium 9.4 mg/dL (8.5-10.1); Chloride 103 mmol/L (98-107); Estimated GFR 82.37 (mL/min/1.73m2); Glucose 98 mg/dL (74-106); Potassium 3.9 mmol/L (3.5-5.1); Sodium 135 mmol/L (136-145); Total Protein 7.2 g/dL (6.4-8.2)
== END 2022-05-12 14:39 | disposition home or self-care (01) ==
LOC: NCHCN 14:38
PROVIDERS: PCP Internal Medicine; Visit Provider Nurse Practitioner Family
DX: R55 Syncope and collapse (principal); R07.9 Chest pain, unspecified; R19.7 Diarrhea, unspecified
CPT/HCPCS: 80053; 85027; 82607; 82728; 83540; 83550; 83735; 84443; 85007

== ENCOUNTER 2022-05-13 01:24 | Outpatient (CLI) | payer MEDICAID, SELFPAY ==
--- NOTE | 2022-05-13 | DI.CT_ITS ---
Exam(s) CT CHEST PE CTA EXAM: CT CHEST PE CTA CLINICAL HISTORY: CHEST PAIN,R07.9,COUGH, PNEUMONIA,SYNCOPE. TECHNIQUE: Imaging Protocol: Axial CT angiography was performed with multi-slice acquisition and mu lti-planar and/or 3D reconstructions. CONTRAST MATERIAL: Intravenous: Omnipaque 350 contrast volume:100 mL COMPARISON: CR XR CHEST 2V PA LATERAL from 04/08/[address] ABDOMEN PELVIS W from 04/08/2022 FINDINGS: Tracheobronchial tree: Patent where visualized. Pulmonary parenchyma: Multifocal opacities are present in the lungs. The largest areas seen in the ri ght lower lobe. Compared to the examination from 04/08/2022 the findings appear to have progressed. No architectural distortion. Pulmonary Arteries: No evidence of filling defect to suggest pulmonary emboli. Mediastinum and Brittney: There is thoracic adenopathy present. The esophagus is unremarkable. Visualized thyroid gland: Unremarkable. Pleura: No effusion or pneumothorax. Heart: The heart is not dilated. No coronary artery calcifications are seen. No pericardial effusion. Aorta: Thoracic aorta non-dilated. No evidence of dissection. Upper abdomen: Unremarkable. Soft tissues: Unremarkable. Bones: Within normal limits for the patient's age.No aggressive osseous lesions. IMPRESSION: 1. No evidence of pulmonary embolism, thoracic aortic dissection or aneurysm. 2. Multifocal pulmonary opacities suspicious for multifocal pneumonia. A follow-up examination is re commended to document complete resolution of these findings and to exclude other etiologies. RADIATION DOSE DELIVERED: 596.75mGy.cm Total DLP DATA REPOSITORY: All CT scans at this facility are submitted to the National Radiology Data Registry (NRDR) Dose Index Registry (DIR) with the [employer] (ACR). RADIATION OPTIMIZATION: All CT scans at this facility use at least one of these dose optimization te chniques: automated exposure control; mA and/or kV adjustment per patient size (includes targeted exa ms where dose is matched to clinical indication); or iterative reconstruction.
[2022-05-13] MEDS: Normal Saline - Diluent 50 ML VIAL IJ (11:31)
[2022-05-13] MEDS: Omnipaque 350 MG/ML 500 ML BTL-Imaging package IJ (11:31)
[2022-05-13] MEDS: Normal Saline Flush 10 ML SYR IVP (11:31)
== END 2022-05-13 01:44 ==
LOC: DI 01:25
PROVIDERS: PCP Internal Medicine; Visit Provider Nurse Practitioner Family
DX: R07.89 Other chest pain (principal); R05.8 Other specified cough; R55 Syncope and collapse; J18.9 Pneumonia, unspecified organism; R53.83 Other fatigue
CPT/HCPCS: 71275

== ENCOUNTER 2022-05-13 16:24 | Outpatient (REF) | payer MEDICAID, SELFPAY ==
[2022-05-13 15:02] LABS: C Diff PCR Negative (Negative)
== END 2022-05-13 16:25 | disposition home or self-care (01) ==
LOC: NCHCN 16:24
PROVIDERS: PCP Internal Medicine; Visit Provider Internal Medicine
DX: R19.7 Diarrhea, unspecified (principal)
CPT/HCPCS: 87493

== ENCOUNTER 2022-05-16 12:07 | Emergency (ER) | payer MEDICAID, SELFPAY ==
[2022-05-16 12:17] VITALS: BP 123/95; PULSE 71; RESP 18; TEMP 36.8; O2SAT 96
--- NOTE | 2022-05-16 13:00 | DI.RAD_ITS ---
Exam(s) XR CHEST 2V PA LATERAL EXAM: XR CHEST 2V PA LATERAL CLINICAL HISTORY: peristent cough, covid in february TECHNIQUE: 2D digital imaging was performed. COMPARISON: CR XR CHEST 2V PA LATERAL from 04/08/[address] CHEST PE CTA from 05/13/2022 FINDINGS: HEART: Normal size. Aorta: Not dilated. PULMONARY VASCULATURE: Normal. LUNGS: Persistent infiltrates right upper and lower lobes. Persistent infiltrate near left hilum. F indings roughly unchanged from prior. PLEURAL SPACE: No pleural effusion or pneumothorax. BONE:Unremarkable for age. IMPRESSION: Persistent infiltrates, greatest in the right lower lobe. DATA REPOSITORY: RADIATION DOSE DELIVERED:
--- NOTE | 2022-05-16 13:21 | ED.GENADUL_ITS ---
Discharge Plan Disposition Patient Disposition: Home Discharge Details Chief Complaint: RespSymp Clinical Impression: Cough, Skin change Primary Care Provider: Carter Garcia ED Provider: Willy Jimenez Home Meds and New Rx's Prescriptions: No Action benzonatate 200 mg capsule 200 mg PO TID PRN (Reason: cough) Qty: 30 0RF doxycycline hyclate 100 mg capsule 100 mg PO BID Qty: 10 0RF albuterol sulfate 90 mcg/actuation aerosol powdr breath activated 2 inh inhalation Q4H PRN (Reason: shortness of breath or wheezing) Qty: 1 0RF acetaminophen 500 mg Tablet 1,000 mg PO Q6H PRN Linzess 145 mcg capsule 145 mcg PO HS Patient Comments: TAKE 1 TO 2 CAPSULES BY MOUTH AT BEDTIME Discharge Instructions Instructions: Chronic Cough (ED) Additional Instructions: Please follow-up with pulmonology and rheumatology as referred. Please return to the emergency department for any worsening symptoms. Medical Decision Making 42-year-old female history of irritable bowel syndrome, long COVID, presents with several months of cough refractory to antibiotics and steroids in fact steroid therapy exacerbated her IBS. Patient has completed course of Levaquin and is at the end of a course of azithromycin has been seen at outside facilities without improvement. Denies history of cardiac disease thromboembolic disease or autoimmune disease. Patient also has noted around the time of her symptoms starting skin changes to her pretibial skin she has erythematous papules/nodules to the pretibial skin with overlying excoriation consider erythema nodosum; given longstanding pulmonary symptoms must consider sarcoidosis versus tuberculosis versus HIV versus long COVID versus fungal infection versus other autoimmune condition lower suspicion for active pneumonia given afebrile dry cough with symptoms on exam most consistent with laryngitis/bronchitis. Will obtain basic labs chest x-ray QuantiFERON gold HIV swab. Will refer to pulmonology and rheumotology for further work-up HPI General Date/Time Provider Initiated Documentation: 05/16/22 12:11 . HPI Narrative: 42-year-old female history of IBS, COVID with long COVID symptomatology, presents with cough since February patient has been on multiple forms of a ntibiotic over the past several months without improvement of symptoms. Recent CT scan showing multifocal pneumonia. Patient currently completing a course of azithromycin. Patient has previously completed a course of levofloxacin; patient has had a trial of steroids however steroids caused her IBS to flare. Patient has seen multiple providers at different facilities without improvement of symptomatology. Related Data Home Medications Medication Instructions Recorded Confirmed acetaminophen 500 mg tablet 1,000 mg PO Q6H PRN 05/24/21 04/08/22 linaclotide 145 mcg capsule 145 mcg PO HS 05/24/21 04/08/22 (Linzess) albuterol sulfate 90 mcg/actuation 2 inh inhalation Q4H PRN shortness 04/08/22 breath activated powder inhaler of breath or wheezing #1 ea benzonatate 200 mg capsule 200 mg PO TID PRN cough #30 caps 04/08/22 doxycycline hyclate 100 mg capsule 100 mg PO BID #10 caps 04/08/22 Previous Rx's Medication Instructions Recorded albuterol sulfate 90 mcg/actuation 2 inh inhalation Q4H PRN shortness 04/08/22 breath activated powder inhaler of breath or wheezing #1 ea benzonatate 200 mg capsule 200 mg PO TID PRN cough #30 caps 04/08/22 doxycycline hyclate 100 mg capsule 100 mg PO BID #10 caps 04/08/22 Allergies Allergy/AdvReac Type Severity Reaction Status Date / Time codeine Allergy Severe Hives, Verified 04/08/22 09:15 violent angry Latex, Natural Rubber Allergy Severe If its Verified 04/08/22 09:15 around my mouth I swell, any other area, I swell valerian Allergy Severe Hives Verified 04/08/22 09:15 zolpidem tartrate Allergy Severe minor Verified 04/08/22 09:15 [From Ambien] stroke Penicillins Allergy Mild internal Verified 04/08/22 09:15 bleeding, constipation prednisone AdvReac Mild Blisters Verified 04/08/22 09:15 in mouth, abdominal pain General Stated Complaint: RespSymp ARLETTE: 3 Review of Systems Narrative: Review of Systems Constitutional: negative Eyes: negative ENT: negative Cardiovascular: negative Respiratory: Cough Gastrointestinal: negative : negative Musculoskeletal: negative Skin: negative Neurologic: negative Psych: negative PFSH All Active Problems (Updated 05/16/22 @ 15:24 by Willy Jimenez MD) Cough (Acute) Skin change (Acute) Synovial cyst of popliteal space [Roberts], left knee (Acute) Internal derangement of right knee (Acute) Tubular adenoma (Acute ~10/16/20) Colon polyp (Acute) Melanosis coli (Acute) IBS (irritable bowel syndrome) (Chronic) Weight gain (Acute) Myalgia (Acute) Pedal edema (Acute) Fatty liver disease, nonalcoholic (Acute) Bakers cyst (Acute) Chronic headaches (Acute) Polycystic ovary disease (Acute) Cervicalgia (Acute) Left hip pain (Acute) Lumbar spine pain (Acute) Constipation by delayed colonic transit (Acute) Cubital tunnel syndrome on right (Acute) Rotator cuff impingement syndrome of right shoulder (Acute) Bursitis of right shoulder (Acute) Cervical radiculopathy (Acute) Biceps tendonitis on right (Acute) Bilateral carpal tunnel syndrome (Acute) Left breast lump (Acute ~10/2018) 6x4mm. Pt will have repeat mammo 04/2019. Umbilical hernia without mention of obstruction or gangrene (Acute) Medical History Abdominal pain Anesthesia complication Per pt. stated when she had her hysterectomy, my heart stopped. 07/31/19 here @ [facility]. Anxiety and depression Anxiety with depression Arthralgia Roberts's cyst of knee Black stools Carbon monoxide exposure Carpal tunnel syndrome Chest pain With high anxiety would give me chest pain Cough Dysuria Elevated blood pressure reading Fatigue Fatty liver Generalized headaches Headache History of IBS Hx of head injury IBS (irritable bowel syndrome) Insomnia Memory loss Natural gas exposure Near syncope Night sweats Paresthesia of both hands Right shoulder pain Stress incontinence Umbilical abnormality Surgical History section Section with Tubal ligation (04/27/10) Cholecystectomy (01/07/98) Colonoscopy - MAC (07/03/08) D+C (09/17/13) Dilation and curettage Pt reports 4 D&Cs. 3 pregnancies, 2 c/s. EGD - MAC Endometrial Ablation (10/17/14) Pt has referred to the ablation as a partial hysterectomy. H/O umbilical hernia repair 10/04/18, Dr Selena Goncalves, [facility] H/O: hysterectomy History of colonoscopy with polypectomy (~10/16/20) Repair of umbilical hernia (05/21/09) S/P laparoscopic assisted vaginal hysterectomy ([facility]) Family History Mother Colitis Depression Diverticula of colon Mental disorder Dementia Stroke Grandparents on mother and father's size Thyroid disease Father Diabetes Depression Heart disease Mental disorder Sister Diverticula of colon Fibromyalgia Social History Smoking/Tobacco Use Status: Former Tobacco Use Quit Date: 02/21/12 Smoking risk assessment performed?: Yes Alcohol Intake: current Alcohol Intake frequency: holidays/special occasions only Alcohol type: wine Drug use: Never Substance use type: does not use Number of Children: 2 Current gender identity: female Seatbelt use: always Do you feel safe at home: Yes Do you feel safe in your relationship?: Yes Female Reproductive History Menstrual Age of Menarche: 12 control method: permanent sterilization Menopause type: surgical History History 3 Para Hx # Term Pregnancies 2 Multiple births Hx # Pregnancies Ectopic pregnancies AB induced Hx Number of Living Children AB spontaneous Exam Narrative Exam Narrative: Physical Examination General: alert, awake, cooperative, resting comfortably, no acute distress HEENT: normocephalic, atraumatic; PERRL, EOM intact, conjunctiva normal; no nasal discharge; moist mucous membranes, oral and pharyngeal mucosa normal, tolerating secretions Neck: supple, trachea midline; full ROM Chest: normal to inspection Respiratory: normal respiratory effort, speaking in full sentences, clear to auscultation, no wheezing, rales or rhonchi; voice with quality of laryngitis/bronchitis; no stridor Cardiac: regular rate, regular rhythm, S1S2 intact, no murmurs rubs or gallops Skin: Superficial erythematous papules or nodules on pretibial skin with areas of excoriation Neuro: AAOx3, normal speech, moving all extremities Psych: Appropriate mood and affect Course Vital Signs Vital signs: Vital Signs Temperature 36.8 C 05/16/22 12:17 Pulse 71 05/16/22 12:17 Respiratory Rate 18 05/16/22 12:17 Blood Pressure 123/95 H 05/16/22 12:17 Pulse Oximetry 96 05/16/22 12:17 Temperature 36.8 C 05/16/22 12:17 Temperature Source Tympanic 05/16/22 12:17 Pulse 71 05/16/22 12:17 Respiratory Rate 18 05/16/22 12:17 Respiratory Effort Normal 05/16/22 12:56 Blood Pressure 123/95 H 05/16/22 12:17 Blood Pressure Position Sitting 05/16/22 12:17 Pulse Oximetry 96 05/16/22 12:17 Oxygen Delivery Method Room Air 05/16/22 12:17 Oxygen Flow Rate 0 05/16/22 12:17 Pain Level 3 05/16/22 12:17
[2022-05-16 13:42] LABS: Abs Immature Grans 0.05 10^3/uL (0.0-0.06); Absolute Basophil Count 0.02 10^3/uL (0.0-0.2); Absolute Eosinophil Count 0.11 10^3/uL (0.0-0.7); Absolute Lymphocyte Count 0.49 10^3/uL (1.2-3.4); Absolute Monocyte Count 0.54 10^3/uL (0.1-0.8); Absolute Neutrophil Count 3.55 10^3/uL (1.2-6.7); Basophils % 0.4; Eosinophils % 2.3; HCT 38.1 % (36.0-46.0); HGB 13.5 g/dL (11.2-15.7); Immature Grans % 1.1; Lymphocytes % 10.3; MCH 29.6 pg (27.0-33.0); MCHC 35.4 % (32.0-36.0); MCV 84 fL (80-95); MPV 8.9 fL (8.0-11.0); Monocytes % 11.3; Neutrophils % 74.6; Platelet Count 276 10^3/uL (130-400); RBC 4.56 10^6/uL (3.93-5.22); RDW-SD 39.2 fL; WBC 4.76 10^3/uL (4.4-10.8)
[2022-05-16 14:13] LABS: ALT 24 U/L (14-59); AST 13 U/L (15-37); Albumin 3.5 g/dL (3.4-5.0); Alkaline Phosphatase 62 U/L (46-116); BUN 11 mg/dL (7-18); Bilirubin, Total 0.6 mg/dL (0.2-1.0); CREATININE 0.8 mg/dL (0.55-1.02); Chloride 107 mmol/L (98-107); Estimated GFR 94.28 (mL/min/1.73m2); Glucose 95 mg/dL (74-106); Sodium 139 mmol/L (136-145); Total Protein 7.1 g/dL (6.4-8.2)
[2022-05-16 14:35] LABS: HIV 1/2 Ab Rapid Negative (Negative)
[2022-05-16 15:29] VITALS: BP 122/74; PULSE 87; RESP 18; O2SAT 97
--- NOTE | 2022-05-16 17:30 | NUR.NOTE ---
Nursing Note: Referral faxed to [facility] Pulmonology for inflammation of skin and lungs/ this week. Referral given to Care Management to [facility] [place] for inflammatory of skin and lungs/ this week or next.
--- NOTE | 2022-05-17 12:29 | PDOC.ERCMACT ---
- If Service Date Differs Date of service: 05/17/22 Time of Service: 12:29 Care Management Activity Note Jenise is seen in the ED for respiratory symptoms. At the request of ED provider, CM coordinates referrals to [facility] Rheumatology and to [facility] Pulmology to assist Jenise in obtaining appointments for further evaluation and treatment. She has Medicaid for insurance.
[2022-05-18 11:38] LABS: HIV-1/2 Ag & Ab Screen Negative (Negative)
[2022-05-18 14:14] LABS: TB Interpretation Negative (Negative)
== END 2022-05-16 15:30 | disposition home or self-care (01) ==
PROVIDERS: Emergency Provider Emergency Medicine; PCP Internal Medicine
DX: R05.9 Cough, unspecified (principal); L53.9 Erythematous condition, unspecified; Z87.19 Personal history of other diseases of the digestive system; Z86.16 Personal history of COVID-19; Z87.891 Personal history of nicotine dependence
CPT/HCPCS: 36415; 80053; 87389; 99283; 71046; 85025; 86480; 99281

== ENCOUNTER 2022-05-26 12:36 | Outpatient (CLI) | payer MEDICAID, SELFPAY ==
[2022-05-26 14:11] LABS: Procalcitonin < 0.1 ng/mL
[2022-05-26 22:01] LABS: Rheumatoid Factor <8.6 IU/mL (<12.0)
[2022-05-27 12:08] LABS: Leukemia/Lymphoma by FC (Blood (See below)
[2022-05-27 13:55] LABS: SS-B (La) Ab, IgG 2.5 Units (<20.0); Sm (Smith) Ab, IgG 3.5 Units (<20.0)
[2022-05-27 15:11] LABS: SS-A Antibody 1.4 Units (<20.0)
[2022-05-27 17:20] LABS: Scl 70 Antibodies, IgG <0.2 U
[2022-05-28 11:25] LABS: Myeloperoxidase Ab IgG <0.2 U; Proteinase 3 Ab (PR3) <0.2 U
[2022-05-29 14:13] LABS: Fungitell Qualitative Negative (Negative); Fungitell Quantitative Value <31 pg/mL (<60 pg/mL)
[2022-06-15 19:09] LABS: Anti-EJ Ab Negative (Negative); Anti-Jo-1 Ab <20 Units (<20); Anti-Ku Ab Negative (Negative); Anti-MDA-5 Ab (CADM-140) <20 Units (<20); Anti-Mi-2-Ab Negative (Negative); Anti-NXP-2 (P140) Ab <20 Units (<20); Anti-OJ Ab Negative (Negative); Anti-PL-12 Ab Negative (Negative); Anti-PL-7 Ab Negative (Negative); Anti-PM/Scl-100 Ab <20 Units (<20); Anti-SRP Ab Negative (Negative); Anti-SS-A 52kD Ab, IgG <20 Units (<20); Anti-TIF-1gamma Ab <20 Units (<20); Anti-U1 RNP Ab <20 Units (<20); Anti-U2 RNP Ab Negative (Negative); Anti-U3 RNP (Fibrillarin) Negative (Negative)
== END 2022-05-26 12:37 | disposition home or self-care (01) ==
LOC: LBO 12:37
PROVIDERS: PCP Internal Medicine; Visit Provider Student in an Organized Health Care Education/Training Program
DX: R91.8 Other nonspecific abnormal finding of lung field (principal)
CPT/HCPCS: 36415; 83516; 84145; 86235; 87449; 88185; 86431; 88184; 88189

== ENCOUNTER 2022-05-26 12:37 | Outpatient (REF) | payer MEDICAID, SELFPAY ==
[2022-05-31 23:52] LABS: Blastomyces Ag Result Not Detected; Blastomyces Ag Value Not Detected
== END 2022-05-26 12:38 | disposition home or self-care (01) ==
LOC: LBN 12:37
PROVIDERS: PCP Internal Medicine; Visit Provider Student in an Organized Health Care Education/Training Program
DX: R91.8 Other nonspecific abnormal finding of lung field (principal); R05.8 Other specified cough; L52 Erythema nodosum
CPT/HCPCS: 87449; 87385

== ENCOUNTER 2022-05-31 00:17 | Outpatient (CLI) | payer MEDICAID, SELFPAY ==
--- NOTE | 2022-05-31 10:51 | DI.RAD_ITS ---
Exam(s) XR CHEST 2V PA LATERAL EXAM: XR CHEST 2V PA LATERAL CLINICAL HISTORY: COUGH, R05; PNEUMONIA, J18.9. TECHNIQUE: 2D digital imaging was performed. COMPARISON: CR XR CHEST 2V PA LATERAL from 04/08/[address] CHEST PE CTA from 05/13/2022 CR XR CHEST 2V PA LATERAL from 05/16/2022 FINDINGS: 2 views: Heart size is normal. The mediastinum is not widened. There are persistent infiltrates in the right upper lobe and right lower lobes. Also left parahilar and infrahilar region. Smaller infiltrate in the left upper lobe appears size. There are no pleural effusions. No pneumothorax. IMPRESSION: Persistent multilevel bilateral infiltrates. No pleural effusions. Continued close follow-up recommended. DATA REPOSITORY: RADIATION DOSE DELIVERED:
== END 2022-05-31 00:37 ==
LOC: DI 00:17
PROVIDERS: PCP Internal Medicine; Visit Provider Nurse Practitioner Family
DX: R05.3 Chronic cough (principal); J18.9 Pneumonia, unspecified organism
CPT/HCPCS: 71046

== ENCOUNTER 2022-06-02 08:30 | Outpatient (CLI) | payer MEDICAID, SELFPAY | END 2022-06-02 08:31 | disposition home or self-care (01) | PROVIDERS: PCP Internal Medicine; Visit Provider Student in an Organized Health Care Education/Training Program | DX: R55 Syncope and collapse (principal) | CPT/HCPCS: 93246 ==

== ENCOUNTER 2022-06-02 11:20 | Outpatient (REF) | payer MEDICAID, SELFPAY ==
[2022-06-02 20:05] LABS: Calcium Urine 15.4 mg/dL (See Note); Calcium Urine 24 hr 162 mg/24hrs (100-300); Timed Urine Volume 1050 mL
== END 2022-06-02 11:21 | disposition home or self-care (01) ==
LOC: NCHCN 11:20
PROVIDERS: Student in an Organized Health Care Education/Training Program; PCP Internal Medicine; Visit Provider Internal Medicine
DX: R91.8 Other nonspecific abnormal finding of lung field (principal); R05.8 Other specified cough; R55 Syncope and collapse; R23.8 Other skin changes; R00.2 Palpitations
CPT/HCPCS: 81050; 82340

== ENCOUNTER 2022-06-22 02:01 | Outpatient (CLI) | payer MEDICAID, SELFPAY ==
--- NOTE | 2022-06-22 15:14 | DI.US_ITS ---
APPROVED REPORT EXAM: Comprehensive 2D, Doppler, and color-flow Echocardiogram Patient Location: Out-Patient Revolving Inventory Clerk: Jerome Ley RDMS, RVT Indications: syncope, palpitations, pulmonary nodules, sarcoid Other Information Study Quality: Adequate Conclusion Normal left ventricular wall thickness and chamber size. Ejection fraction is 55 to 60%. Wall motio n is normal Normal right ventricular size and systolic function Both atria are normal in size There is no structural or hemodynamically significant valvular disease Dilated ascending aorta measuring 3.51 cm Wall motion Left Ventricle The left ventricle is normal size. The left ventricular systolic function is normal. The left ventric ular ejection fraction is within the normal range. There is normal left ventricular wall thickness. T here is normal LV segmental wall motion. There is no ventricular septal defect visualized. LVEF is 55 -60%. Right Ventricle The right ventricle is normal size. The right ventricular systolic function is normal. Unable to asse ss PA pressure. Atria The left atrium size is normal. The right atrium size is normal. The interatrial septum is intact wit h no evidence for an atrial septal defect. Aortic Valve The aortic valve is normal in structure. Aortic valve is trileaflet. There is no aortic valvular sten osis. No aortic regurgitation is present. Mitral Valve The mitral valve is normal in structure. No evidence of mitral valve stenosis. Trace mitral regurgita tion. Tricuspid Valve The tricuspid valve is normal in structure. There is no tricuspid valve stenosis. Trace tricuspid reg urgitation. Pulmonic Valve The pulmonary valve is normal in structure. There is no pulmonic valvular stenosis. There is no pulmo sam valvular regurgitation. Great Vessels The aortic root is normal in size. The ascending aorta is mildly dilated. Aortic arch is normal in ca liber. IVC is normal in size and collapses >50% with inspiration. Pericardium There is no pericardial effusion. 2D Dimensions IVSD d PLAX 1.05 cm F: 0.6-1.0 LV Vol A2C d MOD 129.0 mL LVPW d PLAX 0.98 cm F: 0.6 - 1.0 LV Vol A4C d MOD 124.2 mL LVID d PLAX 4.54 cm F: 3.8 - 5.2 LA vol/ BSA A2C s A-L 19.5 mL/m2 LVDs 3.15 cm F: 2.2 - 3.5 LA vol/ BSA A4C s A-L 17.6 mL/m2 Ao Root d 3.09 cm F: 2.7 - 3.3 LA Vol/ BSA Biplane s A-L 18.6 mL/m2 RA Area A4C 12.64 cm2 LA Area A4C s MOD 15.41 cm2 RA Vol/ BSA A4C s A-L 13.8 mL/m2 LA Area A2C s MOD 16.19 cm2 Ao Asc Diam d 3.51 cm F: 2.3 - 3.1 LV EF A4C MOD 55.2 % LV EF Teichholz 56.9 % LV EF A2C MOD 55.2 % LVEF (Sanchez's) 55.54 % F: 54 - 74 LV EF Biplane MOD 55.5 % LV Volume 92.90 mL F: 46 - 106 SV 71.14 mL LV Volume Index 41.84 mL/m2 F: 29 - 61 SV Index 32.07 mL/m2 LV Vol Biplane MOD 128.1 mL FS 29.70 % LV Diastology MV E' medial 0.101 (>0.07 m/s) E/A Ratio 0.7 LV E/e MED 5.25 (<14) MV E Vmax 0.53 (0.4-1.3 m/s) MV E' lateral 0.115 (>0.1 m/s) MV A Vmax 0.75 (0.4-1.3 m/s) LV E/e LAT 4.65 (<14) MV E/A Ratio 0.71 MV E/E' medial 5.27 MV E/E' lateral 4.65 Aortic Valve LVOT Area 3.75 cm2 AoV Area Vmax 2.66 cm2 LVOT Vmax 1.03 m/s AoV Area/ BSA (Vmax) 1.20 cm2/m2 LVOT Mean Javed. 0.66 m/s BRAXTON Mean Javed. 2.37 cm2 LVOT Peak Grad 4.2 mmHg BRAXTON Mean Javed. Index 1.07 cm2/m2 LVOT Mean Grad 2.1 mmHg LVOT VTI 0.201 m LVOT Diam s 2.15 cm AoV Vmax 1.45 m/s Velocity Ratio 0.71 AoV Mean Javed. 1.04 m/s AoV Peak Grad 8.4 mmHg LVOT SV 75.44 mL AoV Mean Grad 4.9 mmHg AoV VTI 0.233 m AoV Area VTI 3.24 cm2 AoV Area/ BSA (VTI) 1.46 cm/m2 Mitral Valve MV DT 267 (160-240 msec) MV PHT 77 msec MV Area PHT 2.85 cm2 MV VTI 0.233 m MV Area VTI 3.24 (4.0-6.0 cm2) Pulmonary Valve PV Vmax 0.77 (0.5-1.5 m/s) RVOT Peak Gr. 1.13 mmHg PV Peak Grad 2.4 mmHg RVOT Mean Gr. 0.60 mmHg PV Mean Grad 1.4 mmHg RVOT VTI 0.092 m PV VTI 0.152 m RVOT Vmax 0.53 m/s
== END 2022-06-22 02:21 ==
LOC: DI 02:01
PROVIDERS: PCP Internal Medicine; Visit Provider Student in an Organized Health Care Education/Training Program
DX: R91.8 Other nonspecific abnormal finding of lung field (principal)
CPT/HCPCS: 93306

== ENCOUNTER 2022-06-27 08:57 | Outpatient (CLI) | payer MEDICAID, SELFPAY ==
--- NOTE | 2022-06-27 12:24 | W.CARDEVENT ---
Date of service: 06/27/22 Time of Service: 12:24 Cardiac Event Recorder Referring Provider:: Gsoia Bean Indications:: Syncope Cardiac Event Note: This is a 14-day cardiac event monitor Rhythm throughout was sinus with an average heart rate of 82. Minimum was 55, maximum 156 There were rare ventricular ectopic beats No supraventricular dysrhythmias were seen There was no high-grade AV block, no pauses greater than 3 seconds Patient symptoms were reported. These corresponded to sinus rhythm, heart rates ranging from 69-116.
== END 2022-06-27 08:58 | disposition home or self-care (01) ==
LOC: CARDOPNVT 08:57
PROVIDERS: PCP Internal Medicine; Visit Provider Internal Medicine Cardiovascular Disease
DX: R55 Syncope and collapse (principal)

== ENCOUNTER 2022-06-29 14:32 | Outpatient (REF) | payer MEDICAID, SELFPAY ==
[2022-06-29 21:22] LABS: HGB 13.3 g/dL (11.2-15.7); MCH 29.3 pg (27.0-33.0); MCV 84 fL (80-95); MPV 9.5 fL (8.0-11.0); Platelet Count 272 10^3/uL (130-400); RBC 4.54 10^6/uL (3.93-5.22); RDW 13.2 % (11.7-14.6); RDW-SD 40.7 fL; WBC 5.21 10^3/uL (4.4-10.8)
[2022-06-29 21:37] LABS: ALT 25 U/L (14-59); AST 16 U/L (15-37); Albumin 3.4 g/dL (3.4-5.0); Alkaline Phosphatase 68 U/L (46-116); Anion Gap 12.1 mmol/L (3-11); BUN 10 mg/dL (7-18); Bilirubin, Total 0.5 mg/dL (0.2-1.0); CO2 22.9 mmol/L (21.0-32.0); CREATININE 0.7 mg/dL (0.55-1.02); Calcium 8.9 mg/dL (8.5-10.1); Chloride 104 mmol/L (98-107); Estimated GFR 110.67 (mL/min/1.73m2); Glucose 85 mg/dL (74-106); Potassium 4.2 mmol/L (3.5-5.1); Sodium 139 mmol/L (136-145); Total Protein 6.8 g/dL (6.4-8.2)
[2022-06-29 22:05] LABS: COMMENT (LAB VIEW ONLY) 187.51 mg/dL; Prot/Crea Ur Ratio 0.03
[2022-06-30 15:07] LABS: HCG Qual (Serum) Negative
== END 2022-06-29 14:33 | disposition home or self-care (01) ==
LOC: NCHCN 14:32
PROVIDERS: PCP Internal Medicine; Visit Provider Family Medicine
DX: R53.83 Other fatigue (principal); R55 Syncope and collapse; R07.89 Other chest pain
CPT/HCPCS: 80053; 85027; 82565; 84156; 84703

== ENCOUNTER 2022-06-30 09:55 | Outpatient (CLI) | payer MEDICAID, SELFPAY ==
--- NOTE | 2022-06-30 | DI.CT_ITS ---
Exam(s) CT ABDOMEN PELVIS W EXAM: CT ABDOMEN PELVIS W CLINICAL HISTORY: ABD PAIN R10.9 ABD DISTENSION R14.0 EARLY SATIETY R68.81. TECHNIQUE: Imaging Protocol: Axial computed tomography images with coronal and sagittal reformatted images were created and reviewed CONTRAST MATERIAL: Intravenous: Omnipaque-350 100cc Oral: Yes. Oral contrast was also administered for bowel opacification. COMPARISON: CT CT CHEST PE CTA from 05/13/2022 FINDINGS: VISUALIZED LUNG BASES: Significant infiltrate in the right lower lobe again noted. No pleural effusi ons.. ABDOMEN: There is no ascites. LIVER: There are no focal hepatic lesions evident. No dilated intrahepatic ducts. GALLBLADDER/BILIARY: Gallbladder is surgically absent. CBD is not dilated. PANCREAS: No evidence of pancreatic mass nor dilatation of the pancreatic duct. However, there are slightly prominent lymph nodes noted in britt hepatis region portacaval. SPLEEN: Spleen is not enlarged. No obvious intrasplenic lesions. Splenic and portal veins are paten t. ADRENALS: There are no significant adrenal masses. KIDNEYS:No cysts evident. No solid renal masses. No calculi nor hydronephrosis.. ABDOMINAL AORTA: Abdominal aorta is not enlarged. LYMPH NODES:Mild retroperitoneal adenopathy. Also mild mildly enlarged para-aortic lymph nodes down to the level of the aortic bifurcation. ABDOMINAL WALL: No evidence of significant anterior abdominal wall nor inguinal hernia. GI: There is no evidence of bowel obstruction, free air, nor abscess. PELVIS: GI: No evidence of appendicitis.No evidence of sigmoid diverticulitis. LYMPH NODES: There is no intrapelvic nor inguinal adenopathy. REPRODUCTIVE: Uterus is surgically absent. Both ovaries are identified and appear unremarkable. No extraovarian adnexal masses. No free fluid. URINARY BLADDER: No calculi nor obvious masses evident OSSEOUS: No fractures and no significant osseous lesions. IMPRESSION: 1. The uppermost images of this abdominal CT scan reveals significant infiltrate in the right lower l obe, as was evident on the chest CT scan of 05/13/2022. That CT scan also revealed infiltrates bilat erally in both lung sena. No pleural effusions. 2. There has been previous cholecystectomy and hysterectomy. No evidence of significant dilatation o f the biliary tree and there is no evidence of bowel obstruction. 3. However, there does appear to be some retroperitoneal adenopathy including in the britt hepatis an d portacaval regions. There also multiple small para-aortic lymph nodes. No intrapelvic nor inguina l adenopathy seen. Spleen size is upper normal. 4. There is no ascites. RADIATION DOSE DELIVERED: 1,346.27mGy.cm Total DLP DATA REPOSITORY: All CT scans at this facility are submitted to the National Radiology Data Registry (NRDR) Dose Index Registry (DIR) with the [employer] (ACR). RADIATION OPTIMIZATION: All CT scans at this facility use at least one of these dose optimization te chniques: automated exposure control; mA and/or kV adjustment per patient size (includes targeted exa ms where dose is matched to clinical indication); or iterative reconstruction.
[2022-06-30] MEDS: Omnipaque 350 MG/ML 50 ML BTL IJ (11:36)
[2022-06-30] MEDS: Omnipaque 350 MG/ML 100 ML BTL IJ (12:58)
[2022-06-30] MEDS: Normal Saline Flush 10 ML SYR IVP (12:59)
== END 2022-06-30 10:15 ==
LOC: DI 09:59
PROVIDERS: PCP Internal Medicine; Visit Provider Family Medicine
DX: R10.9 Unspecified abdominal pain (principal); R14.0 Abdominal distension (gaseous); R68.81 Early satiety; R91.8 Other nonspecific abnormal finding of lung field; R59.0 Localized enlarged lymph nodes; Z90.49 Acquired absence of other specified parts of digestive tract; Z90.710 Acquired absence of both cervix and uterus
CPT/HCPCS: 74177; J3490; Q9967

== ENCOUNTER 2022-06-30 13:52 | Outpatient (REF) | payer MEDICAID, SELFPAY ==
--- NOTE | 2022-06-30 09:30 | SKI_PTH ---
PATIENT: Jenise Ortiz LOC: [facility]#:[id number] AGE/SX: 42/F ROOM: RE06/30/[address]: Abril Doyle : 1980 BED: DIS: 06/30/2022 SPEC #: [id number] RECD: 06/30/22 16:02 STATUS: NAINA NARAYAN #: [id number] VINCE: 06/30/22 09:[address]: Abril Doyle DEPT: Surgical Specimen RECD BY: Ana Sotelo ENTERED: 06/30/22 16:05 SP TYPE: CYN ESPOSITO DR: Carter Garcia Tissues: 1 - SKIN BIOPSY(SHAVE/PUNCH) Procedures: SKIN LEVEL 4 Comments: [id number]
== END 2022-06-30 13:53 | disposition home or self-care (01) ==
LOC: NCHCN 13:52
PROVIDERS: PCP Internal Medicine; Visit Provider Family Medicine
DX: L52 Erythema nodosum (principal); L90.5 Scar conditions and fibrosis of skin
CPT/HCPCS: 88305

== ENCOUNTER 2022-07-07 09:33 | Outpatient (CLI) | payer MEDICAID, SELFPAY ==
--- NOTE | 2022-07-07 09:30 | RT.EKG_ITS ---
APPROVED REPORT Exam: Resting ECG Reason for Exam: syncope Patient Location: O HR:86 bpm ECG Measurements Heart Rate 86 AXIS IL 130 P 21 QRSd 86 QRS 35 QT 365 T 39 QTc 437 Conclusion Sinus rhythm...normal P axis, V-rate 50- 99 Normal Electrocardiogram
== END 2022-07-07 09:34 | disposition home or self-care (01) ==
LOC: DI.CARD 09:35
PROVIDERS: PCP Internal Medicine; Visit Provider Internal Medicine Cardiovascular Disease
DX: R55 Syncope and collapse (principal)
CPT/HCPCS: 93010

== ENCOUNTER 2022-07-27 04:38 | Outpatient (CLI) | payer MEDICAID, SELFPAY ==
[2022-07-28 10:03] LABS: Hepatitis A Antibody IgM Negative (Negative); Hepatitis B Core Antibody Negative (Negative); Hepatitis B surface Ag Negative (Negative); Hepatitis C Ab w Rflx HCV PCR Negative (Negative)
[2022-07-30 07:22] LABS: TB Interpretation Negative (Negative)
== END 2022-07-27 04:39 | disposition home or self-care (01) ==
LOC: LOS 04:38
PROVIDERS: PCP Internal Medicine; Visit Provider Student in an Organized Health Care Education/Training Program
DX: D86.89 Sarcoidosis of other sites (principal); R91.8 Other nonspecific abnormal finding of lung field; Z11.59 Encounter for screening for other viral diseases; Z11.1 Encounter for screening for respiratory tuberculosis; Z01.84 Encounter for antibody response examination
CPT/HCPCS: 36415; 86704; 86709; 86803; 87340; 86480

== ENCOUNTER 2022-08-16 02:17 | Outpatient (CLI) | payer MEDICAID, SELFPAY ==
[2022-08-16] MEDS: Albuterol HFA 18 GM 200 PUFF INH IH (09:08)
[2022-08-16] MEDS: Inhaler, Assist Device 1 EACH MC (09:08)
--- NOTE | 2022-08-16 12:51 | W.PFT ---
Date of service: 08/16/22 Time of Service: 07:59 Pulmonary Function Test Result Indications: Sarcoidosis Interpretation Spirometry: There is no airflow limitation. No significant bronchodilator response. Lung Volumes: Normal lung volumes Diffusion Capacity: Reduced diffusion Airway Pressure: Normal airways resistance Note: Isolated diffusion deficit. This can be seen in ILD, pulmonary vascular disease or emphysema. Clinical Correlation therefore is recommended.
== END 2022-08-16 02:18 | disposition home or self-care (01) ==
LOC: RT 02:17
PROVIDERS: PCP Internal Medicine; Visit Provider Student in an Organized Health Care Education/Training Program
DX: D86.9 Sarcoidosis, unspecified (principal)
CPT/HCPCS: 94060; 94726; 94729

== ENCOUNTER 2022-08-25 11:38 | Emergency (ER) | payer MEDICAID, SELFPAY ==
[2022-08-25 11:44] VITALS: BP 141/107; PULSE 82; RESP 16; TEMP 36.6; O2SAT 99
--- NOTE | 2022-08-25 11:45 | DI.CT_ITS ---
Exam(s) CT ABDOMEN PELVIS W EXAM: CT ABDOMEN PELVIS W CLINICAL HISTORY: abd pain nausea, hx mass and sarcoid. TECHNIQUE: Imaging Protocol: Axial computed tomography images with coronal and sagittal reformatted images were created and reviewed CONTRAST MATERIAL: Intravenous: Omnipaque 350 Contrast volume:100 ml Oral: no COMPARISON: CR,XR XR PORTABLE CHEST AP from 05/24/[address] CHEST PE CTA from 05/13/[address] ABDOMEN PELVIS W from 06/30/2022 FINDINGS: ABDOMEN: Lung Bases: Masslike density at the right lower lobe roughly unchanged Liver: Mild fat extending ptosis. No measurable mass. Gallbladder and biliary tract: Status post cholecystectomy. No radiodense calculus or dilation. Pancreas: Normal density, no abnormal calcifications or inflammatory process. Spleen: Upper limits of normal in size at 12 cm in length. Kidneys: Normal size, contour and axis. No radiodense stones or obstructive uropathy. No suspicious m asses seen. Lymph nodes: Small lymph nodes again noted in the britt hepatis and portacaval regions. Adrenal glands: No masses seen. Abdominal Aorta: Abdominal portion non-dilated. Soft tissues: Unremarkable. PELVIS: Bladder: No gross wall thickening. No calculi.No focal mass. Bowel: No obstruction. No bowel wall thickening. Appendix normal. Normal quantity of stool. Peritoneal cavity: No ascites, collection or mesenteric inflammatory response. Bones: Unremarkable for age. Reproductive organs: Status post hysterectomy Lymph nodes: Unremarkable. Impression: Stable right lower lobe infiltrates/mass. Stable mildly enlarged portacaval lymph nodes. No acute abnormality in the abdomen or pelvis. RADIATION DOSE DELIVERED: 1,236.01mGy.cm Total DLP DATA REPOSITORY: All CT scans at this facility are submitted to the National Radiology Data Registry (NRDR) Dose Index Registry (DIR) with the [employer] (ACR). RADIATION OPTIMIZATION: All CT scans at this facility use at least one of these dose optimization te chniques: automated exposure control; mA and/or kV adjustment per patient size (includes targeted exa ms where dose is matched to clinical indication); or iterative reconstruction.
[2022-08-25] MEDS: Normal Saline 1,000 ML 1000 ML IV (12:33)
[2022-08-25] MEDS: Ondansetron 4 MG/2 ML VIAL IVP (12:33)
[2022-08-25] MEDS: Ketorolac 15 MG/ML VIAL IVP (12:33)
--- NOTE | 2022-08-25 12:33 | W.ED.GENAD ---
Discharge Plan Disposition Patient Disposition: Home Condition: Improving Discharge Details Clinical Impression: Abdominal lymphadenopathy Primary Care Provider: Carter Garcia ED Provider: Willy Jimenez Home Meds and New Rx's Prescriptions: New metoclopramide HCl [Reglan] 10 mg tablet 10 mg PO Q6H PRN (Reason: nausea and vomiting) Qty: 20 0RF Discontinued prochlorperazine maleate 5 mg tablet See Rx Instructions PO TID PRN (Reason: headache and/or nausea) Qty: 30 3RF Rx Instructions: 5-10 mg orally three times a day PRN; No Action folic acid 1 mg tablet 1 mg PO DAILY Qty: 60 6RF Rx Instructions: Take while on Methotrexate hydroxychloroquine [Plaquenil] 200 mg tablet 200 mg PO BID Patient Comments: pt sates she has not started taking yet Rx Instructions: has not started taking yet - isurace issue topiramate [Topamax] 50 mg tablet 50 mg PO QHS Qty: 30 3RF methotrexate sodium 5 mg tablet 5 mg PO QWEEK Ex-Lax Maximum Strength 25 mg tablet 25 mg PO DAILY Patient Comments: pt states not taking ondansetron 4 mg tablet,disintegrating 4 mg PO Q8H methotrexate (PF) 12.5 mg/0.25 mL auto-injector 12.5 mg subcut QWEEK Qty: 1 12RF methotrexate (PF) 12.5 mg/0.5 mL syringe 12.5 mg subcut QWEEK Qty: 1 0RF Patient Comments: pt states no longer taking Rx Instructions: for 2 doses albuterol sulfate 90 mcg/actuation aerosol powdr breath activated 2 inh inhalation Q4H PRN (Reason: shortness of breath or wheezing) Qty: 1 0RF acetaminophen 500 mg Tablet 1,000 mg PO Q6H PRN Linzess 145 mcg capsule 145 mcg PO HS Patient Comments: TAKE 1 TO 2 CAPSULES BY MOUTH AT BEDTIME Discharge Instructions Additional Instructions: Please follow-up with Dr. Waller. Please return to emergency department for any worsening symptoms Medical Decision Making 42-year-old female history of sarcoidosis presents with worsening abdominal pain nausea decreased p.o. intake over the past several weeks to months. Prior CT scan showing lymphadenopathy intra-abdominal and patient describes recent diagnosis of abdominal mass. Consider sarcoidosis flare versus abdominal malignancy versus enterocolitis versus colitis versus foodborne illness versus less likely SBO 15: 03 Labs and imaging largely unchanged, stable intra-abdominal lymphadenopathy and granulomatous right lower lobe finding consistent with acute on chronic sarcoid. Patient has had issues controlling her symptoms and finding medications that work for her, had a bad reaction to steroids, as well as methotrexate, also had a frustrating interaction with [facility] rheumatology. Follows closely with Dr. Waller of pulmonary critical care who I was able to speak to this afternoon and plans t follow-up closely with patient in the coming weeks to revisit rheumatology work-up and treatment. Patient feeling much more comfortable after second dose of medication, Zofran has not been working for her we will transition to [facility] Date/Time Provider Initiated Documentation: 08/25/22 11:48. HPI Narrative: 42-year-old female history of sarcoidosis, presents with weeks to months of abdominal discomfort decreased p.o. intake and nausea. Related Data Home Medications Medication Instructions Recorded Confirmed acetaminophen 500 mg tablet 1,000 mg PO Q6H PRN 05/24/21 08/25/22 linaclotide 145 mcg capsule 145 mcg PO HS 05/24/21 08/25/22 (Linzess) albuterol sulfate 90 mcg/actuation 2 inh inhalation Q4H PRN shortness 04/08/22 08/25/22 breath activated powder inhaler of breath or wheezing #1 ea ondansetron 4 mg disintegrating 4 mg PO Q8H 06/07/22 08/25/22 tablet sennosides 25 mg tablet (Ex-Lax 25 mg PO DAILY 06/07/22 08/17/22 Maximum Strength) folic acid 1 mg tablet 1 mg PO DAILY #60 tabs 08/04/22 08/25/22 methotrexate sodium 5 mg tablet 5 mg PO QWEEK 08/15/22 08/25/22 hydroxychloroquine 200 mg tablet 200 mg PO BID 08/17/22 08/17/22 (Plaquenil) topiramate 50 mg tablet (Topamax) 50 mg PO QHS #30 tabs 08/17/22 08/25/22 methotrexate (PF) 12.5 mg/0.25 mL 12.5 mg (0.25 mL) subcut QWEEK #1 08/19/22 08/25/22 subcutaneous auto-injector mL methotrexate (PF) 12.5 mg/0.5 mL 12.5 mg (0.5 mL) subcut QWEEK #1 mL 08/19/22 subcutaneous syringe metoclopramide HCl 10 mg tablet 10 mg PO Q6H PRN nausea and 08/25/22 (Reglan) vomiting #20 tabs Previous Rx's Medication Instructions Recorded albuterol sulfate 90 mcg/actuation 2 inh inhalation Q4H PRN shortness 04/08/22 breath activated powder inhaler of breath or wheezing #1 ea folic acid 1 mg tablet 1 mg PO DAILY #60 tabs 08/04/22 topiramate 50 mg tablet (Topamax) 50 mg PO QHS #30 tabs 08/17/22 methotrexate (PF) 12.5 mg/0.25 mL 12.5 mg (0.25 mL) subcut QWEEK #1 08/19/22 subcutaneous auto-injector mL methotrexate (PF) 12.5 mg/0.5 mL 12.5 mg (0.5 mL) subcut QWEEK #1 mL 08/19/22 subcutaneous syringe metoclopramide HCl 10 mg tablet 10 mg PO Q6H PRN nausea and 08/25/22 (Reglan) vomiting #20 tabs Allergies Allergy/AdvReac Type Severity Reaction Status Date / Time codeine Allergy Severe Hives, Verified 08/25/22 11:50 violent angry Latex, Natural Rubber Allergy Severe If its Verified 08/25/22 11:50 around my mouth I swell, any other area, I swell valerian Allergy Severe Hives Verified 08/25/22 11:50 zolpidem tartrate Allergy Severe minor Verified 08/25/22 11:50 [From Ambien] stroke Penicillins Allergy Mild internal Verified 08/25/22 11:50 bleeding, constipation prednisone AdvReac Mild Blisters Verified 08/25/22 11:50 in mouth, abdominal pain General Stated Complaint: Abd Prob ARLETTE: 3 Review of Systems Narrative: Review of Systems Constitutional: negative Eyes: negative ENT: negative Cardiovascular: negative Respiratory: negative Gastrointestinal: Nausea abdominal pain decreased. : negative Musculoskeletal: negative Skin: negative Neurologic: negative Psych: negative PFSH All Active Problems (Updated 08/25/22 @ 15:05 by Willy Jimenez MD) Umbilical hernia without mention of obstruction or gangrene (Acute) Left breast lump (Acute ~10/2018) 6x4mm. Pt will have repeat mammo 04/2019. Bilateral carpal tunnel syndrome (Acute) Biceps tendonitis on right (Acute) Cervical radiculopathy (Acute) Bursitis of right shoulder (Acute) Rotator cuff impingement syndrome of right shoulder (Acute) Cubital tunnel syndrome on right (Acute) IBS (irritable bowel syndrome) (Chronic) Constipation by delayed colonic transit (Acute) Weight gain (Acute) Myalgia (Acute) Pedal edema (Acute) Fatty liver disease, nonalcoholic (Acute) Bakers cyst (Acute) Chronic headaches (Acute) Polycystic ovary disease (Acute) Cervicalgia (Acute) Left hip pain (Acute) Lumbar spine pain (Acute) Melanosis coli (Acute) Colon polyp (Acute) Tubular adenoma (Acute ~10/16/20) Internal derangement of right knee (Acute) Synovial cyst of popliteal space [Roberts], left knee (Acute) Syncope (Chronic) Erythema nodosum (Acute) Migraine headache without aura (Acute) Sarcoidosis (Acute) Abdominal lymphadenopathy (Acute) Medical History Abdominal pain Anesthesia complication Per pt. stated when she had her hysterectomy, my heart stopped. 07/31/19 here @ [facility]. Anxiety and depression Anxiety with depression Arthralgia Roberts's cyst of knee Black stools Carbon monoxide exposure Carpal tunnel syndrome Chest pain With high anxiety would give me chest pain Cough Dysuria Elevated blood pressure reading Fatigue Fatty liver Generalized headaches Headache History of IBS Hx of head injury IBS (irritable bowel syndrome) Insomnia Memory loss Natural gas exposure Near syncope Night sweats Paresthesia of both hands Pulmonary nodules Right shoulder pain Stress incontinence Umbilical abnormality Surgical History section Section with Tubal ligation (04/27/10) Cholecystectomy (01/07/98) Colonoscopy - MAC (07/03/08) D+C (09/17/13) Dilation and curettage Pt reports 4 D&Cs. 3 pregnancies, 2 c/s. EGD - MAC Endometrial Ablation (10/17/14) Pt has referred to the ablation as a partial hysterectomy. H/O umbilical hernia repair 10/04/18, Dr Selena Goncalves, [facility] H/O: hysterectomy History of colonoscopy with polypectomy (~10/16/20) Repair of umbilical hernia (05/21/09) S/P laparoscopic assisted vaginal hysterectomy ([facility]) Family History Mother Colitis Depression Diverticula of colon Mental disorder Dementia Stroke Grandparents on mother and father's size Thyroid disease Father Diabetes Depression Heart disease Mental disorder Sister Diverticula of colon Fibromyalgia Social History Smoking/Tobacco Use Status: Former Tobacco Use tobacco type: cigarettes Quit Date: 02/21/12 Smoking risk assessment performed?: Yes Alcohol Intake: current Alcohol Intake frequency: holidays/special occasions only Alcohol type: wine Drug use: Never Substance use type: does not use Number of Children: 2 Current gender identity: female Seatbelt use: always Do you feel safe at home: Yes Do you feel safe in your relationship?: Yes Female Reproductive History Menstrual Age of Menarche: 12 control method: permanent sterilization Menopause type: surgical History History 3 Para Hx # Term Pregnancies 2 Multiple births Hx # Pregnancies Ectopic pregnancies AB induced Hx Number of Living Children AB spontaneous Exam Narrative Exam Narrative: Physical Examination General: alert, awake, cooperative, resting comfortably, no acute distress HEENT: normocephalic, atraumatic; PERRL, EOM intact, conjunctiva normal; no nasal discharge; moist mucous membranes, oral and pharyngeal mucosa normal, tolerating secretions Neck: supple, trachea midline; full ROM Chest: normal to inspection Respiratory: normal respiratory effort, speaking in full sentences, clear to auscultation, no wheezing, rales or rhonchi Cardiac: regular rate, regular rhythm, S1S2 intact, no murmurs rubs or gallops GI: abdomen soft, non-tender, non-distended; no palpable mass or hepatosplenomegaly Skin: no lesions, rashes or trauma appreciated Neuro: AAOx3, normal speech, moving all extremities Psych: Appropriate mood and affect Course Vital Signs Vital signs: Vital Signs Temperature 36.6 C 08/25/22 11:44 Pulse 82 08/25/22 11:44 Respiratory Rate 16 08/25/22 11:44 Blood Pressure 141/107 H 08/25/22 11:44 Pulse Oximetry 99 08/25/22 11:44 Temperature 36.6 C 08/25/22 11:44 Temperature Source Oral 08/25/22 11:44 Pulse 82 08/25/22 11:44 Respiratory Rate 16 08/25/22 11:44 Blood Pressure 141/107 H 08/25/22 11:44 Blood Pressure Position Sitting 08/25/22 11:44 Pulse Oximetry 99 08/25/22 11:44 Oxygen Delivery Method Room Air 08/25/22 11:44 Oxygen Flow Rate 0 08/25/22 11:44 Pain Level 6 08/25/22 11:44 Comment abdomen 08/25/22 11:44
[2022-08-25 12:50] LABS: Abs Immature Grans 0.07 10^3/uL (0.0-0.06); Absolute Basophil Count 0.03 10^3/uL (0.0-0.2); Absolute Eosinophil Count 0.09 10^3/uL (0.0-0.7); Absolute Lymphocyte Count 0.55 10^3/uL (1.2-3.4); Absolute Monocyte Count 0.54 10^3/uL (0.1-0.8); Absolute Neutrophil Count 3.61 10^3/uL (1.2-6.7); Basophils % 0.6; Eosinophils % 1.8; HCT 39.2 % (36.0-46.0); HGB 13.8 g/dL (11.2-15.7); Immature Grans % 1.4; Lymphocytes % 11.2; MCH 29.7 pg (27.0-33.0); MCHC 35.2 % (32.0-36.0); MCV 84 fL (80-95); MPV 8.9 fL (8.0-11.0); Platelet Count 292 10^3/uL (130-400); RBC 4.65 10^6/uL (3.93-5.22); RDW 13.3 % (11.7-14.6); RDW-SD 41.1 fL; WBC 4.89 10^3/uL (4.4-10.8)
[2022-08-25 13:04] LABS: ALT 20 U/L (14-59); AST 14 U/L (15-37); Albumin 3.7 g/dL (3.4-5.0); Alkaline Phosphatase 76 U/L (46-116); Anion Gap 11.1 mmol/L (3-11); BUN 13 mg/dL (7-18); Bilirubin, Total 0.7 mg/dL (0.2-1.0); CO2 22.9 mmol/L (21.0-32.0); CREATININE 0.9 mg/dL (0.55-1.02); Calcium 8.9 mg/dL (8.5-10.1); Chloride 107 mmol/L (98-107); Estimated GFR 81.86 (mL/min/1.73m2); Glucose 100 mg/dL (74-106); Lipase 56 U/L (16-77); Sodium 141 mmol/L (136-145); Total Protein 7.5 g/dL (6.4-8.2)
[2022-08-25] MEDS: Omnipaque 350 MG/ML 100 ML BTL IJ (13:31)
[2022-08-25] MEDS: Normal Saline - Diluent 50 ML VIAL IJ (13:32)
[2022-08-25] MEDS: fentaNYL 100 MCG/2 ML VIAL 25 MCG IVP (14:33)
[2022-08-25] MEDS: diphenhydrAMINE 50 MG/ML VIAL 25 MG IVP (14:33)
[2022-08-25] MEDS: Metoclopramide 10 MG/2 ML VIAL IVP (14:34)
== END 2022-08-25 15:29 | disposition home or self-care (01) ==
PROVIDERS: Emergency Provider Emergency Medicine; PCP Internal Medicine
DX: R59.0 Localized enlarged lymph nodes (principal)
CPT/HCPCS: 80053; 83690; 96361; 96374; 96375; 99285; 74177; 85025; 99284; J1200; J1885; J2405; J2765; J3010; J3490

== ENCOUNTER 2022-09-07 04:07 | Outpatient (CLI) | payer MEDICAID, SELFPAY ==
[2022-09-07 13:04] LABS: Abs Immature Grans 0.05 10^3/uL (0.0-0.06); Absolute Basophil Count 0.03 10^3/uL (0.0-0.2); Absolute Eosinophil Count 0.08 10^3/uL (0.0-0.7); Absolute Monocyte Count 0.43 10^3/uL (0.1-0.8); Absolute Neutrophil Count 3.65 10^3/uL (1.2-6.7); Basophils % 0.6; Eosinophils % 1.7; HCT 38.2 % (36.0-46.0); HGB 13.4 g/dL (11.2-15.7); Immature Grans % 1.1; Lymphocytes % 10.5; MCH 29.3 pg (27.0-33.0); MCHC 35.1 % (32.0-36.0); MCV 84 fL (80-95); MPV 9.1 fL (8.0-11.0); Monocytes % 9.1; Platelet Count 270 10^3/uL (130-400); RBC 4.57 10^6/uL (3.93-5.22); RDW 13.4 % (11.7-14.6); RDW-SD 40.4 fL; WBC 4.74 10^3/uL (4.4-10.8)
[2022-09-07 13:41] LABS: ALT 24 U/L (14-59); AST 15 U/L (15-37); Albumin 3.5 g/dL (3.4-5.0); Alkaline Phosphatase 76 U/L (46-116); Anion Gap 11.8 mmol/L (3-11); BUN 10 mg/dL (7-18); Bilirubin, Total 0.6 mg/dL (0.2-1.0); CO2 22.2 mmol/L (21.0-32.0); CREATININE 0.8 mg/dL (0.55-1.02); Calcium 9.4 mg/dL (8.5-10.1); Chloride 109 mmol/L (98-107); Estimated GFR 94.28 (mL/min/1.73m2); Glucose 147 mg/dL (74-106); Potassium 3.9 mmol/L (3.5-5.1); Sodium 143 mmol/L (136-145); Total Protein 6.6 g/dL (6.4-8.2)
== END 2022-09-07 04:08 | disposition home or self-care (01) ==
LOC: LBO 04:07
PROVIDERS: Student in an Organized Health Care Education/Training Program; PCP Internal Medicine; Visit Provider Internal Medicine
DX: D86.89 Sarcoidosis of other sites (principal)
CPT/HCPCS: 36415; 80053; 85025

== ENCOUNTER 2022-09-19 11:49 | Outpatient (REF) | payer MEDICAID, SELFPAY ==
[2022-09-19 16:54] LABS: Hemoglobin A1C 5.3 % (<5.7)
== END 2022-09-19 11:50 | disposition home or self-care (01) ==
LOC: NCHCN 11:49
PROVIDERS: PCP Internal Medicine; Visit Provider Nurse Practitioner Family
DX: D86.89 Sarcoidosis of other sites (principal); R73.09 Other abnormal glucose
CPT/HCPCS: 83036

== ENCOUNTER 2022-09-21 02:24 | Outpatient (CLI) | payer MEDICAID, SELFPAY ==
[2022-09-21] MEDS: Gadoterate meglumine 20 ML VIAL IVP (13:47)
[2022-09-21] MEDS: Normal Saline Flush 10 ML SYR IVP (13:48)
--- NOTE | 2022-09-21 14:15 | DI.MRI_ITS ---
Exam(s) MR BRAIN WO/W EXAM: MR BRAIN WO/W CLINICAL HISTORY: r/o neurosarcoidosis, other space occupying lesion, MIGRAINE MARINA WO AURA TECHNIQUE: Multiplanar multisequence MRI of the brain was performed. Both noninfused and contrast i nfused sequences were performed. IV Contrast injected was cc Dotarem. COMPARISON: No exams were available for comparison FINDINGS: CEREBRAL PARENCHYMA: No evidence of intracranial hemorrhage, mass effect nor shift of midline structu re. No extraaxial fluid collections. Ventricles are not enlarged nor shifted. There is no significant focal signal abnormality in the cerebellar hemispheres nor within the jeff, m idbrain, and thalami. There is no abnormal signal abnormality in the periventricular white matter. DWI: No areas of restricted diffusion to suggest acute ischemic event. SWI: No microhemorrhages evident. There are no ring enhancing lesions in the brain. There is no abnormal meningeal enhancement. PITUITARY GLAND: No mass nor parasellar abnormality. No obvious abnormality in the cavernous sinuses. FLOW VOIDS: The expected flow void are noted. No evidence of obvious aneurysm nor obvious vascular ma lformation. PARANASAL SINUSES: The visualized paranasal sinuses appear unremarkable. ORBITS: No obvious abnormal findings. IMPRESSION: 1. No significant intracranial findings on this MRI scan of the brain. 2. No abnormal enhancing intracranial findings. There are no ring enhancing lesions in the brain and there is no abnormal meningeal enhancement. DATA REPOSITORY:
== END 2022-09-21 02:44 ==
LOC: DI 02:24
PROVIDERS: PCP Internal Medicine; Visit Provider Nurse Practitioner Adult Health
DX: D86.9 Sarcoidosis, unspecified (principal); G43.009 Migraine without aura, not intractable, without status migrainosus; R41.3 Other amnesia
CPT/HCPCS: 70553

== ENCOUNTER → 2022-10-05 01:56 | Outpatient (CLI) | payer MEDICAID, SELFPAY ==
--- NOTE | 2022-10-05 11:00 | DI.CT_ITS ---
Exam(s) CT CHEST WO EXAM: CT CHEST WO CLINICAL HISTORY: f/u infiltrates/ nodules, R91.8 TECHNIQUE: Imaging Protocol: Axial computed tomography images with coronal and sagittal reformatted images were created and reviewed CONTRAST MATERIAL: Intravenous: Omnipaque 350 Contrast volume:structured data ml. COMPARISON: CR XR CHEST 2V PA LATERAL from 04/08/[address] ABDOMEN PELVIS W from 04/08/[address] CHEST PE CTA from 05/13/2022 CR XR CHEST 2V PA LATERAL from 05/16/2022 CR XR CHEST 2V PA LATERAL from 05/31/[address] ABDOMEN PELVIS W from 08/25/2022 FINDINGS: Pulmonary parenchyma: Multifocal areas of consolidation are noted, greatest at the right lower lobe a nd medial left upper lobe. The findings appear slightly improved although this could be secondary to improved pulmonary inflation on the current exam. (The previous exam was performed as a pulmonary e mbolism study which is done in expiration, limiting evaluation of the lungs.) Tracheobronchial tree: No bronchiectasis or mucous plugging. Mediastinum and Brittney: Multiple tiny nodes in the superior mediastinum. Adenopathy again noted in christin ateral hilar, right paratracheal and subcarinal regions, roughly stable. Pleura: No effusion or pneumothorax. Heart: The heart is not dilated. No coronary artery calcifications are seen. Aorta: Thoracic aorta non-dilated. Mild atherosclerotic changes. Upper abdomen: Status post cholecystectomy. Bones: Mild degenerative changes in the spine. Soft tissues: Unremarkable. IMPRESSION: Persistent bilateral infiltrates and adenopathy consistent with patient's history of sarcoid. There may be mild improvement in the infiltrates from the prior exam versus differences in inspiration. RADIATION DOSE DELIVERED: 684.24mGy.cm Total DLP DATA REPOSITORY: All CT scans at this facility are submitted to the National Radiology Data Registry (NRDR) Dose Index Registry (DIR) with the [employer] (ACR). RADIATION OPTIMIZATION: All CT scans at this facility use at least one of these dose optimization te chniques: automated exposure control; mA and/or kV adjustment per patient size (includes targeted exa ms where dose is matched to clinical indication); or iterative reconstruction.
== END ==
PROVIDERS: PCP Internal Medicine; Visit Provider Student in an Organized Health Care Education/Training Program
DX: D86.9 Sarcoidosis, unspecified (principal); Z90.49 Acquired absence of other specified parts of digestive tract
CPT/HCPCS: 71250

== ENCOUNTER 2023-02-08 15:39 | Outpatient (REF) | payer MEDICAID, SELFPAY ==
[2023-02-08 21:10] LABS: ALT 20 U/L (14-59); AST 14 U/L (15-37); Albumin 3.5 g/dL (3.4-5.0); Alkaline Phosphatase 73 U/L (46-116); Anion Gap 11.9 mmol/L (3-11); BUN 11 mg/dL (7-18); Bilirubin, Total 0.7 mg/dL (0.2-1.0); C-Reactive Protein 0.51 mg/dL (0.0-0.3); CO2 21.1 mmol/L (21.0-32.0); CREATININE 0.8 mg/dL (0.55-1.02); Calcium 8.7 mg/dL (8.5-10.1); Chloride 106 mmol/L (98-107); Creatine Kinase 89 U/L (26-192); Estimated GFR 94.28 (mL/min/1.73m2); Glucose 136 mg/dL (74-106); Potassium 3.9 mmol/L (3.5-5.1); Sodium 139 mmol/L (136-145); Total Protein 6.8 g/dL (6.4-8.2)
== END 2023-02-08 15:40 | disposition home or self-care (01) ==
LOC: NCHCN 15:39
PROVIDERS: PCP Internal Medicine; Visit Provider Family Medicine
DX: M79.18 Myalgia, other site (principal); R79.89 Other specified abnormal findings of blood chemistry; R79.82 Elevated C-reactive protein (CRP)
CPT/HCPCS: 80053; 82550; 83735; 86140

== ENCOUNTER 2023-04-06 16:21 | Outpatient (REF) | payer MEDICAID, SELFPAY ==
[2023-04-06 15:34] LABS: COVID-19 PCR Negative (Negative); Influenza A PCR Negative (Negative); Influenza B PCR Negative (Negative); RSV PCR Negative (Negative)
[2023-04-06 15:56] LABS: Source Nasopharynx
--- OUTSIDE RECORDS SUMMARY | 2023-04-06 16:24 | XMS_ITS | CCD ---
Author Name Unknown Address [address] [place] [address] [id number] Organization Unknown Address [address] [place] [address] [id number] Care Team Providers Care Book Packer Name Role Phone CHAR ZAMORA Attending Physician [phone] .MIRTA CHOWDHURY Er Physician 1 [phone] MARIANNA Oviedo Registered Nurse [phone] Vital Signs Vital Sign Value Unit Date/Time Recent/Initial ? BMI (Body Mass Index) 24.41 kg/m^2 04/13/2022 12: 55 Initial VS Weight Measured 180 lbs 04/13/2022 12:55 Ini tial VS Height 72 in 04/13/2022 12:55 Initial VS BSA (Body Surface Area) 2.04 m^2 04/13/2022 1 2:55 Initial VS BP Systolic 155 mmHg 04/13/2022 12:55 Initial VS BP Diastolic 95 mmHg 04/13/2022 12:55 Initia l VS Respiratory Rate 20 bpm 04/13/2022 12:55 In itial VS Heart Rate 85 bpm 04/13/2022 12:55 Initial VS O2 % BldC Oximetry 96 % 04/13/2022 12:55 Initial VS Body Temperature 37.4 degrees 04/13/2022 12:55 In itial VS BP Systolic 129 mmHg 04/13/2022 17:00 Most Re cent VS BP Diastolic 82 mmHg 04/13/2022 17:00 Most R ecent VS Respiratory Rate 16 bpm 04/13/2022 17:[address] Recent VS Heart Rate 68 bpm 04/13/2022 17:00 Most Rec ent VS O2 % BldC Oximetry 98 % 04/13/2022 17:00 Most Recent VS Allergies Allergy Code Allergy Type Reaction Status CODEINE 2670 Drug allergy Hives; Dyspnea Active AMBIEN 838253 Drug allergy MINI STROKE Active KIWI 0 Food allergy RASH; SWELLING Active PREDNISONE 8640 Drug allergy Active PENICILLIN 0 Drug allergy Hives Active LATEX 3844875 Allergy to substance Hives; Dyspnea; Swelling Active Procedures Unknown or Not Available. History of Immunizations Unknown or Not Available. Problems Problem Code Start Date Resolved Date Status Uterine cancer 848096964 Active COVID-19 pneumonia [id number] Resolved Results BASIC METABOLIC PANEL (BMP) - Collect Date/Time: 04/13/2022 12:45 Test Name Code Test Result Test Units Test Ref Rang e GLUCOSE 2345-7 84 mg/dL L=70 H=116 BUN 3094-0 13 mg/dL L=6 H=25 CREATININE 2160-0 0.72 mg/dL L=0.51 H=0.95 SODIUM SERUM 2951-2 140 mmol/L L=136 H=145 POTASSIUM SERUM 2823-3 3.6 mmol/L L=3.4 H=5 .2 CHLORIDE SERUM 2075-0 106 mmol/L L=96 H=110 CARBON DIOXIDE (CO2) 2028-9 25 mmol/L L=22 H=34 ANION GAP 15722-2 9.3 mmol/L CALCIUM SERUM 85371-4 8.9 mg/dL L=8.2 H=10. 2 AGE 41 years eGFR (non-Afr.Amer.) 81903-4 89 mL/min eGFR (Afr-Uzbek) 99123-6 108 mL/min MAGNESIUM SERUM* - Collect D ate/Time: 04/13/2022 12:45 Test Name Code Test Result Test Units Test Ref Rang e MAGNESIUM 00940-9 1.8 mg/dL L=1.8 H=2.4 TROPONIN HIGH SENSITIVITY* - Collect Date/Time: 04/13/2022 12:45 Test Name Code Test Result Test Units Test Ref Rang e TROPONIN HS 4.8 pg/mL L=0.0 H=60.4 Specimen seq. RANDOM N/A CBC W/ DIFFERENTIAL* - Colle ct Date/Time: 04/13/2022 12:45 Test Name Code Test Result Test Units Test Ref Rang e WBC 6690-2 4.86 th/cmm L=5.00 H=10.00 NEUT % 74.7 % L=40.0 H=80.0 LYMPH % 10.3 % L=10.0 H=50.0 MONO % 71330-9 12.6 % L=2.0 H=12.0 EOS % 1.0 % L=0.0 H=8.0 BASO % 0.6 % L=0.0 H=3.0 IG % 2514-8 0.8 % L=0.0 H=1.1 NRBC % 51554-4 0.0 % L=0.0 H=0.0 NEUT abs count 751-8 3.6 th/cmm L=1.6 H=8. 4 LYMPH abs count 731-0 0.5 th/cmm L=1.5 H=4 .0 MONO abs count 742-7 0.6 th/cmm L=0.2 H=1. 0 EOS abs count 711-2 0.1 th/cmm L=0.0 H=0.5 BASO abs count 704-7 0.0 th/cmm L=0.0 H=0. 2 IG abs count 46146-0 0.0 th/cmm L=0.0 H=0.1 NRBC abs count 84041-5 0.0 mil/cmm L=0.0 H=0. 0 RBC 789-8 4.67 mil/cmm L=3.90 H=5.40 HEMOGLOBIN 718-7 13.8 gm/dL L=12.0 H=16.0 HEMATOCRIT 4544-3 40 % L=37 H=47 MCV 787-2 85 fL L=82 H=92 MCH 785-6 29.6 pg L=27.0 H=31.0 MCHC 786-4 34.8 % L=32.0 H=36.0 RDW-SD 788-0 40.8 fL L=39.0 H=49.0 PLATELET COUNT 777-3 INVALID N/A L=150 H=[address] invalid N/A Platelet est. Adequate N/A Smudge cells 1+ N/A Tear drops 1+ N/A Ovalocytes 1+ N/A TEST QUAL (URINE) - Collect Date/Time: 04/13/2022 13:21 Test Name Code Test Result Test Units Test Ref Rang e TEST 2105-04 NEGATIVE N/A URINALYSIS WITH REFLEX CULT IF POSITIVE* - Collect Date/Time: 04/13/2022 13:21 Test Name Code Test Result Test Units Test Ref Rang e COLLECTION MODE: 62767-9 CLEAN CATCH N/A Color 5778-6 YELLOW N/A yellow Appearance 5767-9 CLEAR N/A clear Glucose urine 18891-7 NEGATIVE N/A negative mg /dl Bilirubin 5770-3 NEGATIVE N/A negative Ketones 2514-8 NEGATIVE N/A negative mg/dl Spec gravity 5811-5 >=1.030 N/A 1.003 - 1.03 0 pH urine 2756-5 5.5 N/A 5.0 - 7.0 Protein 64419-3 NEGATIVE N/A negative mg/dl Urobilinogen 26043-8 0.2 N/A <or= 1 EU/dl Nitrite. 5802-4 NEGATIVE N/A negative Blood 5794-3 NEGATIVE N/A negative Leukocytes. NEGATIVE N/A negative MICROSCOPIC NOT INDICAT N/A Active Medications Medications Administered During Visit Medication Dose Units Frequency Route Date/Time of Last Dose SODIUM CHLORIDE 0.9% 1000ML 1000 ML X1 04/13/2022 12:59 ACETAMINOPHEN INJ IVPB: 1000MG/100ML 1000 MG X1 04/13/2022 12:5 9 ONDANSETRON INJ SDV: 4MG/2ML 4 MG X1 I SPORTS ADMINISTRATOR 04/13/2022 12:59 LEVOFLOXACIN IVPB PREMIX BAMG/150ML 750 MG X1 04/13/2022 1 4:55 Encounters Encounter Diagnosis Diagnosis Code Start Date Pneumonia, unspecified organism J189 04/13/2022 Social History Smoking Status Code Start Date End Date Former smoker [id number] Patient Decision Aids Unknown or Not Available. Discharge Instructions You were admitted to [facility] on 04/13/2022 12:22 with a principal diagnosis of Pneumonia, unspecified organism You had the following tests done: TEST QUAL (URINE)URINALYSIS WITH REFLEX CULT IF POSITIVE*BASIC METABOLIC PANEL (BMP)CBC W/ DIFFERENTIAL*MAGNESIUM SERUM*TROPONIN HIGH SENSITIVITY* You were discharged from [facility] on 04/13/2022 17:20 Should you have any questions prior to discharge, please contact a member of your healthcare team. If you have left the hospital and have any questions, please contact your primary care physician. Chief Complaint and Reason For Visit Chief Complaint Date of Onset SYNCOPY Function Status Unknown or Not Available. Plan of Care Unknown or Not Available. Referral/Transition of Care Unknown or Not Available.
== END 2023-04-06 16:22 | disposition home or self-care (01) ==
LOC: LBN 16:21
PROVIDERS: PCP Internal Medicine; Visit Provider Physician Assistant Surgical
DX: D84.821 Immunodeficiency due to drugs (principal); Z79.899 Other long term (current) drug therapy; J02.9 Acute pharyngitis, unspecified
CPT/HCPCS: 87637; 87081

== ENCOUNTER → 2023-04-06 17:29 | Outpatient (CLI) | payer MEDICAID, SELFPAY ==
--- NOTE | 2023-04-06 14:00 | DI.RAD_ITS ---
Exam(s) XR CHEST 2V PA LATERAL EXAM: XR CHEST 2V PA LATERAL CLINICAL HISTORY: D86.9 sarcoidosis unspecified; increased cough and congestion TECHNIQUE: 2D digital imaging was performed. COMPARISON: CR XR CHEST 2V PA LATERAL from 05/31/[address] CHEST WO from 10/05/2022 FINDINGS: Lateral view limited by poor pulmonary inflation. The PA view is also somewhat underinflated. HEART: Normal size. Aorta: Not dilated. PULMONARY VASCULATURE: Normal. LUNGS: Right lower lobe infiltrate, not definitely changed from 31 May 2022. Remainder of lung fie lds appear clear. PLEURAL SPACE: No pleural effusion or pneumothorax. BONE:Unremarkable for age. Soft tissues: Unremarkable. IMPRESSION: Stable appearance of posterior right lower lobe infiltrate. DATA REPOSITORY: RADIATION DOSE DELIVERED:
== END ==
PROVIDERS: PCP Internal Medicine; Visit Provider Physician Assistant Surgical
DX: D86.9 Sarcoidosis, unspecified (principal)
CPT/HCPCS: 71046

== ENCOUNTER → 2023-04-10 04:25 | Outpatient (CLI) | payer MEDICAID, SELFPAY ==
--- NOTE | 2023-04-10 | DI.MRI_ITS ---
Exam(s) MR LUMBAR SPINE WO/W EXAM: MR LUMBAR SPINE WO/W CLINICAL HISTORY: LUMBAR RADICULOPATHY,M54.16,RADICULAR PAIN DOWN RT LEG,SUBCUTANEOUS NODULE,. TECHNIQUE: Multiplanar multisequence MRI of the Lumbar Spine was performed. CONTRAST MATERIAL: IV Contrast: 20 mL of Dotarem contrast administered. COMPARISON: CT CT ABDOMEN PELVIS W from 08/25/2022 FINDINGS: Bones: The last intervertebral disc space is designated the L5/S1 level for the numbering purpose of this examination. The vertebral body heights are well maintained. Alignment is satisfactory. There a re degenerative endplate signal changes noted particularly at L5-S1. Cord: The conus tip ends at the T12 level. It is of normal size and signal intensity. T12-L1: No disc herniations or bulges are present. No central spinal canal or neural foraminal stenos is. L1-2: No disc herniations or bulges are present. No central spinal canal or neural foraminal stenosis . L2-3: No disc herniations or bulges are present. No central spinal canal or neural foraminal stenosis . L3-4: There is a diffuse disc bulge. There are degenerative changes of the facets. No significant c entral spinal canal or right neural foraminal stenosis is seen. There is mild left neural foraminal narrowing. L4-5: No disc herniations or bulges are present. There are degenerative changes of the facets present . No significant central spinal canal stenosis is present.There is no significant right neural maye inal stenosis. There is mild left neural foraminal stenosis. L5-S1: No disc herniations or bulges are present. There are mild degenerative changes seen at the fac ets. No significant central spinal canal stenosis is seen.There is mild narrowing of the left neural foramen. No significant right neural foraminal stenosis. Soft tissues: The visualized SI joints and sacrum are well maintained. No discrete mass is seen in th e paraspinal soft tissues. The paraspinal musculature shows normal signal and size. There is normal fat seen in the subcutaneous tissues. There are vessel seen in the subcutaneous fat which appears s lightly more numerous compared to the contralateral area. Following contrast administration there is enhancement of the vessels in the region. There is mild i nfiltration of the soft tissues which may represent the mild inflammatory or infectious process. But no focal fluid collection is seen to suggest an abscess. IMPRESSION: 1. No mass or enhancing lesion is seen in the subcutaneous tissues to correspond to the palpable abno rmality. 2. There is a collection of vessels in the region. A vascular malformation may be considered. There is mild infiltration of the surrounding soft tissues and a mild inflammatory/infectious process marla ot be excluded. No abscess is identified. 3. Degenerative changes in the lower lumbar spine as described above. The findings do result in mild left neural foraminal narrowing from L3-4 through L5-S1. DATA REPOSITORY:
[2023-04-10] MEDS: Normal Saline Flush 10 ML SYR IVP (10:43)
[2023-04-10] MEDS: Gadoterate meglumine 20 ML VIAL IVP (10:43)
== END ==
PROVIDERS: PCP Internal Medicine; Visit Provider Family Medicine
DX: M51.27 Other intervertebral disc displacement, lumbosacral region (principal)
CPT/HCPCS: 72158

== ENCOUNTER → 2023-06-27 05:26 | Outpatient (CLI) | payer MEDICAID, SELFPAY ==
--- NOTE | 2023-06-27 | DI.MAMMO_ITS ---
Exam(s) MAMMO SCREENING EXAM: MAMMO SCREENING CLINICAL HISTORY: SCREENING, Z12.39 TECHNIQUE: Bilateral full field digital CC and MLO mammographic images were obtained with 3D tomosyn thesis and utilizing computer aided detection (CAD). COMPARISON: Available for comparison. FINDINGS: Masses/Architectural Distortion: None seen. Microcalcifications: No suspicious pleomorphic-type are seen. Skin Thickening/Nipple Retraction: None. IMPRESSION: 1. No significant interval change with no specific features of malignancy noted. 2. Unless there is more urgent need, screening mammography is recommended, as per [employer] guidelines. BI-RADS Category 1 - Negative Breast Density - Category B - Scattered areas of fibroglandular density Breast density category C or D implies that the patient has dense breast tissue. Dense breast tissue is very common and is not abnormal but dense breast tissue can make it harder to find cancer on a ma mmogram. Also, dense breast tissue may increase their breast cancer risk. This information about the result of the mammogram report was provided to the patient to raise their awareness. Use this report when you speak with the patient about their risks for breast cancer, which includes their family hist ory. At that time, you may recommend for more screening tests (Ultrasound or MRI) as they might be us eful based on their risk. A negative radiographic report should not delay biopsy if a dominant or clinically suspicious mass is present. Up to ten percent of cancers are not identified on mammography. A negative report may reinforce clinical impression. Adenosis and dense breasts may obscure an underlying neoplasm. False positive reports average 6 to 10%. Patient will receive a letter notifying them of these results.
== END ==
PROVIDERS: PCP Nurse Practitioner Family; Visit Provider Obstetrics & Gynecology
DX: Z12.31 Encounter for screening mammogram for malignant neoplasm of breast (principal)
CPT/HCPCS: 77063; 77067

== ENCOUNTER 2023-06-30 02:53 | Outpatient (CLI) | payer MEDICAID, SELFPAY ==
--- NOTE | 2023-07-03 09:17 | W.PFT ---
Date of service: 06/30/23 Time of Service: 15:03 Pulmonary Function Test Result Indications: Sarcoidosis Interpretation Spirometry: There is no airflow limitation. Lung Volumes: Normal lung volumes Diffusion Capacity: Mild decrease in diffusion Airway Pressure: Normal airways resistance Impression Mildly decreased diffusion, however improved from prior study. Clinical Correlation therefore is recommended.
== END 2023-06-30 02:54 | disposition home or self-care (01) ==
LOC: RT 02:53
PROVIDERS: PCP Nurse Practitioner Family; Visit Provider Student in an Organized Health Care Education/Training Program
DX: D86.0 Sarcoidosis of lung (principal)
CPT/HCPCS: 94726; 94729; 94010

== ENCOUNTER → 2023-08-21 03:26 | Outpatient (CLI) | payer MEDICAID, SELFPAY ==
--- NOTE | 2023-08-21 07:00 | DI.MRI_ITS ---
Exam(s) MR CERVICAL SPINE WO EXAM: MR CERVICAL SPINE WO CLINICAL HISTORY: ? MYELOPATHY,RT SIDED WEAKNESS,NUMBNESS IN FEET,BALANCE PROBLEM,SARCOIDOSIS TECHNIQUE: Multiplanar multisequence MRI of the cervical spine was performed without intravenous con trast. Patient was apparently not able to tolerate enough scanning to perform the contrast infused sequences and these will be performed in few days time. COMPARISON: MR MR CERVICAL SPINE WO from 03/28/2019 FINDINGS: CERVICOMEDULLARY JUNCTION: Intact with no evidence of cerebellar tonsillar ectopia. No obvious abnor mality of the odontoid process. No evidence of Chiari 1 malformation. CERVICAL SPINAL CORD: There is no abnormal signal in the cervical spinal cord and no evidence of foca l cord atrophy nor focal cord swelling. OSSEOUS:There are no cervical fractures evident. No significant osseous lesions in the cervical vert ebrae. Previously described probable hemangioma in the T1 vertebral bodies again noted. INDIVIDUAL LEVELS: C2-3: No disc herniation nor central canal stenosis. No foraminal stenosis. No facet arthropathy. C3-4: Mild right-sided annular bulging. Central canal dimensions lower normal.No facet arthropathy. No foraminal stenosis. C4-5: Mild annular bulging. No prominent disc herniation. Central canal dimensions lower normal.No facet arthropathy. No significant foraminal stenosis C5-6: Normal disc height and signal. No disc herniation or central canal stenosis. No facet arthrop athy. No foraminal stenosis. No Luschka joint osteophytes C6-7: Normal disc height and signal. No disc herniation or central canal stenosis. No significant f acet arthropathy. No evidence of foraminal stenosis. No Luschka joint osteophytes. C7-T1: No disc herniation nor central canal stenosis. No facet arthropathy.No foraminal stenosis. IMPRESSION: 1. Minimal findings as above. No new significant findings when compared to prior MRI scan of 020. Unchanged benign intraosseous hemangioma is again noted in the T1 vertebral body. 2. Please note that this patient will be returning for contrast infused sequences and an addendum josephine l follow at that time. DATA REPOSITORY:
--- NOTE | 2023-08-21 07:00 | DI.MRI_ITS ---
Exam(s) MR BRAIN WO EXAM: MR BRAIN WO CLINICAL HISTORY: RT SIDED WEAKNESS,BALANCE PROBLEM,SARCOIDOSIS,R53.1,?NEUROSARCOID TECHNIQUE: Multiplanar multisequence MRI of the brain was performed. COMPARISON: No exams were available for comparison FINDINGS: CEREBRAL PARENCHYMA: There is no evidence of intracranial hemorrhage, mass effect, or shift of midline structures. There are no extra-axial fluid collections. Ventricles are not enlarged or shifted. There is no significant focal signal abnormality in the cerebellar hemispheres nor within the jeff, m idbrain, and thalami. There is no abnormal signal abnormality in the periventricular white matter. No T2 nor FLAIR bright lesions evident. There is no significant focal signal abnormality evident on diffusion imaging to suggest acute ischem ic event. No areas of restricted diffusion. PITUITARY GLAND: No mass nor parasellar abnormality. No obvious abnormality in the cavernous sinuses. FLOW VOIDS: The expected flow void are noted. No evidence of obvious aneurysm nor obvious vascular ma lformation. PARANASAL SINUSES: The visualized paranasal sinuses appear unremarkable. No obvious finding ORBITS: No obvious findings. IMPRESSION: No significant intracranial findings on this noninfused MRI scan of the brain. There are no T2/FLAIR bright lesions in the periventricular and deep white matter DATA REPOSITORY:
== END ==
PROVIDERS: PCP Nurse Practitioner Family; Visit Provider Nurse Practitioner Adult Health
DX: R53.1 Weakness (principal); R26.89 Other abnormalities of gait and mobility; D86.9 Sarcoidosis, unspecified; R20.0 Anesthesia of skin
CPT/HCPCS: 70551; 72141

== ENCOUNTER → 2023-08-28 02:51 | Outpatient (CLI) | payer MEDICAID, SELFPAY ==
--- NOTE | 2023-08-28 | DI.MRI_ITS ---
Exam(s) MR BRAIN W EXAM: MR BRAIN W CLINICAL HISTORY: FU IMAGING W/ CONTRAST FROM 08/20 PER RAD REPORT. TECHNIQUE: Multiplanar multisequence MRI of the brain was performed. CONTRAST MATERIAL: IV Contrast: 20 ML of Dotarem contrast administered. COMPARISON: MR MR BRAIN WO from 08/21/2023 FINDINGS: VENTRICLES AND EXTRA AXIAL SPACES: Normal in size and morphology for the patient's age. HEMORRHAGE: None. CEREBRAL PARENCHYMA: No abnormal enhancing lesions. No space-occupying lesion identified. MIDLINE SHIFT: None. BRAINSTEM/CEREBELLUM: Normal. CALVARIUM: Normal. ENHANCEMENT: No suspicious enhancement identified. No meningeal enhancement. VISUALIZED PARANASAL SINUSES/MASTOIDS: Clear. Orbits: Unremarkable. Pituitary: Normal. Vasculature: Normal flow voids. IMPRESSION: Unremarkable MRI of the brain. DATA REPOSITORY:
--- NOTE | 2023-08-28 | DI.MRI_ITS ---
Exam(s) MR CERVICAL SPINE W EXAM: MR CERVICAL SPINE W CLINICAL HISTORY: FU IMAGING W/ CONTRAST FROM 08/20 PER RAD REPORT TECHNIQUE: Multiplanar multisequence MRI of the cervical spine was performed. CONTRAST MATERIAL: IV Contrast: 20 ML of Dotarem contrast administered. COMPARISON: MR MR CERVICAL SPINE WO from 08/21/2023 FINDINGS: BONES: Vertebral body heights are maintained. Intervertebral disc spaces are normal. Alignment is nor mal. Bone marrow signal intensity is within normal limits. Hemangioma at T1 does not enhance. CERVICAL CORD: Craniovertebral junction is unremarkable. The cervical cord is normal size and signal intensity. No lesion is present. SOFT TISSUES: Unremarkable. ENHANCEMENT: No suspicious enhancement identified. C2-3: No disc herniation or bulge is identified. C3-4: No disc herniation or bulge is identified. C4-5: No disc herniation or bulge is identified. C5-6: No disc herniation or bulge is identified. C6-7: No disc herniation or bulge is identified. C7-T1: No disc herniation or bulge is identified. IMPRESSION: Unremarkable postcontrast MRI of the cervical spine. DATA REPOSITORY:
[2023-08-28] MEDS: Gadoterate meglumine 20 ML VIAL IVP (09:31)
[2023-08-28] MEDS: Normal Saline Flush 10 ML SYR IJ (09:33)
== END ==
PROVIDERS: PCP Nurse Practitioner Family; Visit Provider Nurse Practitioner Adult Health
DX: R20.0 Anesthesia of skin (principal); R53.1 Weakness; R26.89 Other abnormalities of gait and mobility; D86.9 Sarcoidosis, unspecified
CPT/HCPCS: 70552; 72142

== ENCOUNTER 2023-09-15 01:52 | Outpatient (CLI) | payer MEDICAID, SELFPAY ==
[2023-09-15 16:52] LABS: Abs Immature Grans 0.04 10^3/uL (0.0-0.06); Absolute Basophil Count 0.03 10^3/uL (0.0-0.2); Absolute Lymphocyte Count 0.56 10^3/uL (1.2-3.4); Absolute Monocyte Count 0.45 10^3/uL (0.1-0.8); Absolute Neutrophil Count 5.04 10^3/uL (1.2-6.7); Basophils % 0.5 %; Eosinophils % 1.6 %; HCT 38.2 % (36.0-46.0); HGB 13.3 g/dL (11.2-15.7); Immature Grans % 0.6 %; MCH 30.3 pg (27.0-33.0); MCHC 34.8 % (32.0-36.0); MCV 87 fL (80-95); MPV 9.1 fL (8.0-11.0); Monocytes % 7.2 %; Neutrophils % 81.1 %; Platelet Count 277 10^3/uL (130-400); RBC 4.39 10^6/uL (3.93-5.22); RDW 14.6 % (11.7-14.6); RDW-SD 46.6 fL; WBC 6.22 10^3/uL (4.4-10.8)
[2023-09-15 19:48] LABS: ALT 26 U/L (14-59); AST 18 U/L (15-37); Albumin 3.5 g/dL (3.4-5.0); Alkaline Phosphatase 73 U/L (46-116); Anion Gap 12.4 mmol/L (3-11); BUN 14 mg/dL (7-18); Bilirubin, Total 0.75 mg/dL (0.2-1.0); CO2 19.6 mmol/L (21.0-32.0); CREATININE 1.1 mg/dL (0.55-1.02); Calcium 8.7 mg/dL (8.5-10.1); Chloride 106 mmol/L (98-107); Estimated GFR 63.94 (mL/min/1.73m2); Glucose 92 mg/dL (74-106); Potassium 3.8 mmol/L (3.5-5.1); Sodium 138 mmol/L (136-145); Total Protein 7.1 g/dL (6.4-8.2)
== END 2023-09-15 01:53 | disposition home or self-care (01) ==
LOC: LBO 01:52
PROVIDERS: PCP Nurse Practitioner Family; Visit Provider Physician Assistant Surgical
DX: D86.9 Sarcoidosis, unspecified (principal)
CPT/HCPCS: 36415; 80053; 85025

== ENCOUNTER 2023-10-03 09:23 | Outpatient (CLI) | payer MEDICAID, SELFPAY ==
[2023-10-03 09:34] LABS: Anion Gap 14.6 mmol/L (3-11); BUN 11 mg/dL (7-18); CO2 19.4 mmol/L (21.0-32.0); Calcium 9.1 mg/dL (8.5-10.1); Chloride 106 mmol/L (98-107); Estimated GFR 71.69 (mL/min/1.73m2); Glucose 139 mg/dL (74-106); Potassium 3.6 mmol/L (3.5-5.1); Sodium 140 mmol/L (136-145)
== END 2023-10-03 09:24 | disposition home or self-care (01) ==
LOC: LBO 09:24
PROVIDERS: PCP Nurse Practitioner Family; Visit Provider Physician Assistant Surgical
DX: D86.9 Sarcoidosis, unspecified (principal)
CPT/HCPCS: 36415; 80048

== ENCOUNTER 2024-01-04 21:52 | Outpatient (REF) | payer MEDICAID, SELFPAY | END 2024-01-04 21:53 | disposition home or self-care (01) | LOC: LBN 21:52 | PROVIDERS: PCP Nurse Practitioner Family; Visit Provider Physician Assistant Medical | DX: J02.9 Acute pharyngitis, unspecified (principal) | CPT/HCPCS: 87070 ==

== ENCOUNTER 2024-01-30 10:11 | Outpatient (CLI) | payer MEDICAID, SELFPAY ==
[2024-01-30 10:44] LABS: Abs Immature Grans 0.09 10^3/uL (0.0-0.06); Absolute Basophil Count 0.04 10^3/uL (0.0-0.2); Absolute Eosinophil Count 0.17 10^3/uL (0.0-0.7); Absolute Lymphocyte Count 0.59 10^3/uL (1.2-3.4); Absolute Monocyte Count 0.55 10^3/uL (0.1-0.8); Absolute Neutrophil Count 4.37 10^3/uL (1.2-6.7); Basophils % 0.7 %; Eosinophils % 2.9 %; HCT 38.4 % (36.0-46.0); HGB 13.5 g/dL (11.2-15.7); Immature Grans % 1.5 %; Lymphocytes % 10.2 %; MCHC 35.2 % (32.0-36.0); MCV 88 fL (80-95); MPV 8.9 fL (8.0-11.0); Monocytes % 9.5 %; Neutrophils % 75.2 %; Platelet Count 287 10^3/uL (130-400); RBC 4.36 10^6/uL (3.93-5.22); RDW 13.8 % (11.7-14.6); RDW-SD 44.2 fL; WBC 5.81 10^3/uL (4.4-10.8)
[2024-01-30 11:05] LABS: ALT 21 U/L (14-59); AST 15 U/L (15-37); Albumin 3.6 g/dL (3.4-5.0); Alkaline Phosphatase 77 U/L (46-116); Bilirubin, Direct 0.2 mg/dL (0.0-0.2); Bilirubin, Total 0.93 mg/dL (0.2-1.0); Calcium 8.9 mg/dL (8.5-10.1); Estimated GFR 71.69 (mL/min/1.73m2); Total Protein 7.2 g/dL (6.4-8.2)
== END 2024-01-30 10:12 | disposition home or self-care (01) ==
LOC: LBO 10:13
PROVIDERS: PCP Nurse Practitioner Family; Visit Provider Internal Medicine Rheumatology
DX: D86.9 Sarcoidosis, unspecified (principal)
CPT/HCPCS: 36415; 80076; 82310; 82565; 85025

== ENCOUNTER 2024-03-08 21:39 | Outpatient (REF) | payer MEDICAID, SELFPAY | END 2024-03-08 21:40 | disposition home or self-care (01) | LOC: NCHCN 21:39 | PROVIDERS: PCP Family Medicine; Visit Provider Family Medicine | DX: N39.0 Urinary tract infection, site not specified (principal) | CPT/HCPCS: 87077; 87086; 87186 ==

== ENCOUNTER 2024-03-11 14:43 | Emergency (ER) | payer MEDICAID, SELFPAY ==
[2024-03-11] VITALS (26 sets, daily range): BP systolic 110–173; BP diastolic 51–102; PULSE 63–89; RESP 11–23; TEMP 36.5–37.3; O2SAT 94–98
--- NOTE | 2024-03-11 15:34 | W.ED.GENAD ---
Discharge Plan Disposition Patient Disposition: Home Discharge Details Clinical Impression: Abdominal pain Primary Care Provider: Abril Doyle ED Provider: Deya Dozier Home Meds and New Rx's Prescriptions: No Action scopolamine base 1 mg over 3 days patch 3 day 1 patch transdermal Q3D PRN topiramate [Topamax] 25 mg tablet 25 mg PO QHS Qty: 90 3RF topiramate [Topamax] 50 mg tablet 50 mg PO QHS Qty: 90 3RF methotrexate (PF) 20 mg/0.4 mL auto-injector 20 mg subcut QWEEK doxepin 10 mg capsule 10 mg PO QHS famotidine 40 mg tablet 40 mg PO DAILY folic acid 1 mg tablet 1 mg PO DAILY Linzess 145 mcg capsule 290 mcg PO HS Patient Comments: take one capsule by mouth every day when actively taking antibiotics for pulmonary infection methocarbamol 750 mg tablet 750 mg PO QHS Rx Instructions: 1-2 tablets every 8 hours as needed for muscle spasms oxycodone 5 mg tablet 5 mg PO ONCE PRN triamcinolone acetonide 0.1 % cream 1 applic topical BID albuterol sulfate 90 mcg/actuation aerosol powdr breath activated 2 inh inhalation Q4H PRN (Reason: shortness of breath or wheezing) Qty: 1 0RF Discharge Instructions Instructions: Abdominal Pain, Adult ED Additional Instructions: Your lab work and CT imaging today are unremarkable. No clear cause of your abdominal pain was found. You are provided with a few doses of medication to take as needed for severe pain. Please cut these pills in half and take 1 every 6-8 hours as needed. Please follow-up with your primary team for any ongoing issues or if your pain continues to persist. Discharge Data Discharge Date/Time-TO BE ENTERED AT DEPARTURE: 03/11/24 18:02 HPI General Date/Time Provider Initiated Documentation: 03/11/24 14:44. Limitations to Documentation: no limitations. Information obtained by: patient. HPI Narrative: 43-year-old female with past medical history of sarcoidosis currently on methotrexate presents for evaluation of right flank pain. She reports that she recently had a scan that shows infiltrative disease of her liver and spleen when she was told to take caution with her liver. She reports that starting today she has had intermittent sharp stabbing pain from the right back to the right upper quadrant. Not associated with fever chills or vomiting. She reports that she was recently treated for a UTI and has completed the course of antibiotics yesterday. Denies any change in bowel or bladder. Related Data Home Medications ?Medication ?Instructions ?Recorded ?Confirmed albuterol sulfate 90 mcg/actuation 2 inh inhalation Q4H PRN shortness 04/08/22 03/11/24 breath activated powder inhaler of breath or wheezing #1 ea topiramate 25 mg tablet (Topamax) 25 mg PO QHS #90 tabs 10/10/23 03/11/24 topiramate 50 mg tablet (Topamax) 50 mg PO QHS #90 tabs 10/10/23 03/11/24 scopolamine base 1 mg over 3 days 1 patch transdermal Q3D PRN 12/25/23 03/11/24 transdermal patch doxepin 10 mg capsule 10 mg PO QHS 02/02/24 03/11/24 famotidine 40 mg tablet 40 mg PO DAILY 02/02/24 03/11/24 folic acid 1 mg tablet 1 mg PO DAILY 02/02/24 03/11/24 linaclotide 145 mcg capsule 290 mcg PO HS 02/02/24 03/11/24 (Linzess) methocarbamol 750 mg tablet 750 mg PO QHS 02/02/24 03/11/24 oxycodone 5 mg tablet 5 mg PO ONCE PRN 02/02/24 03/11/24 triamcinolone acetonide 0.1 % 1 applic topical BID 02/02/24 03/11/24 topical cream methotrexate (PF) 20 mg/0.4 mL 20 mg subcut QWEEK 02/12/24 03/11/24 subcutaneous auto-injector Previous Rx's ?Medication ?Instructions ?Recorded albuterol sulfate 90 mcg/actuation 2 inh inhalation Q4H PRN shortness 04/08/22 breath activated powder inhaler of breath or wheezing #1 ea topiramate 25 mg tablet (Topamax) 25 mg PO QHS #90 tabs 10/10/23 topiramate 50 mg tablet (Topamax) 50 mg PO QHS #90 tabs 10/10/23 Allergies Allergy/AdvReac Type Severity Reaction Status Date / Time codeine Allergy Severe Hives, Verified 03/11/24 14:56 violent angry Latex, Natural Rubber Allergy Severe If its Verified 03/11/24 14:56 around my mouth I swell, any other area, I swell valerian Allergy Severe Hives Verified 03/11/24 14:56 zolpidem tartrate (From Allergy Severe minor Verified 03/11/24 14:56 Ambien) stroke Penicillins Allergy Mild internal Verified 03/11/24 14:56 bleeding, constipation adalimumab (From Humira) AdvReac Severe Other (See Verified 03/11/24 14:56 Comment) methotrexate AdvReac Severe muscle Verified 03/11/24 14:56 spasm prednisone AdvReac Mild Blisters Verified 03/11/24 14:56 in mouth, abdominal pain General Stated Complaint: Abd Prob ARLETTE: 3 Exam Narrative Exam Narrative: Review of Systems: All systems reviewed & are unremarkable except as noted in HPI and below Well-developed, no acute distress NCAT PERRL, normal conjunctiva no jaundice RRR no murmur Unlabored respiratory effort clear bilaterally Nondistended abdomen mild right CVA tenderness, no distention, negative Wallace's Extremities w/o edema Course Vital Signs Vital signs: Vital Signs Temperature 37.3 C 03/11/24 14:50 Pulse 69 03/11/24 14:50 Respiratory Rate 16 03/11/24 14:50 Blood Pressure 157/102 H 03/11/24 14:50 Pulse Oximetry 97 03/11/24 14:50 Temperature 37.3 C 03/11/24 14:50 Temperature Source Tympanic 03/11/24 14:50 Pulse 84 03/11/24 15:15 Pulse 80 03/11/24 15:15 Respiratory Rate 18 03/11/24 15:15 Blood Pressure 148/97 H 03/11/24 15:15 Blood Pressure Mean 112 03/11/24 15:15 Blood Pressure Position Sitting 03/11/24 14:50 Pulse Oximetry 96 03/11/24 15:15 Oxygen Delivery Method Room Air 03/11/24 14:50 Oxygen Flow Rate 0 03/11/24 14:50 Pain Level 9 03/11/24 15:17 Comment no meds for 3 days, see recent VS 03/11/24 15:17 Comment pain 9/10 03/11/24 15:15 Medical Decision Making Emergent evaluation of abdominal pain. Patient has history of invasive sarcoidosis. She is hemodynamically stable at this time and has no concerns for infectious etiology that she was recently treated for UTI. Initial differential includes renal colic, pyelonephritis, biliary colic. She was given antiemetic and IV narcotic pain medication. A CT of her abdomen was obtained which does not reveal an acute abnormality. Lab work reviewed. No elevated white blood cell count or anemia. Electrolytes without derangement. Bilirubin and LFTs are within normal limits. Her urinalysis does not reveal blood or infection. Lab work reviewed. Normal white blood cell count, no anemia. Electrolytes without significant derangement. LFTs are within normal limits. Her urinalysis does not demonstrate any signs of infection or hematuria. CT imaging was obtained and this did not reveal an acute abnormality. After her IV medication, the patient reports resolution of her symptoms. At this time I feel she is stable for discharge home and she was provided some pain medication to go home with to take as needed. Strict return precautions were advised. I do recommend that she follow-up with her rheumatology team if any symptoms persist. Quality:SDOH Health Related Social Needs: Health related social needs feeling lonely/isolated (Z60.8) [facility] All Active Problems (Updated 03/11/24 @ 17:51 by Deya Dozier MD) Abdominal pain (Acute) Lipoma (Acute) Right carpal tunnel syndrome (Acute) Numbness in feet (Acute) Balance problem (Acute) Right sided weakness (Acute) Sarcoidosis (Acute) Migraine headache without aura (Acute) Erythema nodosum (Acute) Syncope (Chronic) Synovial cyst of popliteal space [Roberts], left knee (Acute) Internal derangement of right knee (Acute) Tubular adenoma (Acute ~10/16/20) Colon polyp (Acute) Melanosis coli (Acute) Lumbar spine pain (Acute) Left hip pain (Acute) Cervicalgia (Acute) Polycystic ovary disease (Acute) Chronic headaches (Acute) Bakers cyst (Acute) Fatty liver disease, nonalcoholic (Acute) Pedal edema (Acute) Myalgia (Acute) Weight gain (Acute) Constipation by delayed colonic transit (Acute) IBS (irritable bowel syndrome) (Chronic) Cubital tunnel syndrome on right (Acute) Rotator cuff impingement syndrome of right shoulder (Acute) Bursitis of right shoulder (Acute) Biceps tendonitis on right (Acute) Bilateral carpal tunnel syndrome (Acute) Left breast lump (Acute ~10/2018) 6x4mm. Pt will have repeat mammo 04/2019. Umbilical hernia without mention of obstruction or gangrene (Acute) Medical History Pulmonary nodules Anxiety with depression History of IBS Roberts's cyst of knee Carpal tunnel syndrome Fatty liver Arthralgia Insomnia Right shoulder pain Near syncope Cough Stress incontinence Memory loss Headache Hx of head injury 2020 Dysuria Elevated blood pressure reading Black stools Anesthesia complication Per pt. stated when she had her hysterectomy, my heart stopped. 07/31/19 here @ [facility]. Anxiety and depression IBS (irritable bowel syndrome) Fatigue Generalized headaches Natural gas exposure Carbon monoxide exposure Paresthesia of both hands Umbilical abnormality Abdominal pain Chest pain With high anxiety would give me chest pain Night sweats Surgical History H/O: hysterectomy History of colonoscopy with polypectomy (~10/16/20) S/P laparoscopic assisted vaginal hysterectomy ([facility]) H/O umbilical hernia repair 10/04/18, Dr Selena Goncalves, [facility] section Repair of umbilical hernia (05/21/09) Endometrial Ablation (10/17/14) Pt has referred to the ablation as a partial hysterectomy. EGD - MAC D+C (09/17/13) Dilation and curettage Pt reports 4 D&Cs. 3 pregnancies, 2 c/s. Colonoscopy - MAC (07/03/08) Cholecystectomy (01/07/98) Section with Tubal ligation (04/27/10) Family History Mother Colitis Depression Diverticula of colon Mental disorder Dementia Stroke Grandparents on mother and father's size Thyroid disease Father Diabetes Depression Heart disease Mental disorder Sister Diverticula of colon Fibromyalgia Social History Smoking/Tobacco Use Status: Former Tobacco Use tobacco type: cigarettes Quit Date: 02/21/12 Smoking risk assessment performed?: Yes Alcohol Intake: never Drug use: Never Substance use type: does not use Housing: house Number of Children: 2 Current gender identity: female Seatbelt use: always Do you feel safe at home: Yes Do you feel safe in your relationship?: Yes Female Reproductive History Menstrual Age of Menarche: 12 control method: permanent sterilization Menopause type: surgical History History 3 Para Hx # Term Pregnancies 2 Multiple births Hx # Pregnancies Ectopic pregnancies AB induced Hx Number of Living Children AB spontaneous
[2024-03-11] MEDS: MORPHine 4 MG/ML SYR IVP (15:56)
[2024-03-11] MEDS: Ondansetron 4 MG/2 ML VIAL IVP (15:56)
[2024-03-11 16:01] LABS: Abs Immature Grans 0.04 10^3/uL (0.0-0.06); Absolute Basophil Count 0.02 10^3/uL (0.0-0.2); Absolute Eosinophil Count 0.18 10^3/uL (0.0-0.7); Absolute Lymphocyte Count 0.48 10^3/uL (1.2-3.4); Absolute Monocyte Count 0.51 10^3/uL (0.1-0.8); Absolute Neutrophil Count 4.21 10^3/uL (1.2-6.7); Basophils % 0.4 %; Eosinophils % 3.3 %; HCT 36.4 % (36.0-46.0); HGB 12.6 g/dL (11.2-15.7); Immature Grans % 0.7 %; Lymphocytes % 8.8 %; MCHC 34.6 % (32.0-36.0); MCV 89 fL (80-95); MPV 9.2 fL (8.0-11.0); Monocytes % 9.4 %; Neutrophils % 77.4 %; Platelet Count 240 10^3/uL (130-400); RBC 4.07 10^6/uL (3.93-5.22); RDW 14.1 % (11.7-14.6); RDW-SD 45.2 fL; WBC 5.44 10^3/uL (4.4-10.8)
[2024-03-11 16:09] LABS: Bilirubin Negative (Negative); Blood Negative (Negative); Clarity Clear (Clear); Glucose Negative (Negative); Ketones Negative (Negative); Leukocyte Esterase Negative (Negative); Nitrite Negative (Negative)
[2024-03-11 16:15] LABS: ALT 23 U/L (14-59); AST 16 U/L (15-37); Albumin 3.2 g/dL (3.4-5.0); Alkaline Phosphatase 74 U/L (46-116); Anion Gap 10.2 mmol/L (3-11); BUN 9 mg/dL (7-18); Bilirubin, Total 0.64 mg/dL (0.2-1.0); CO2 22.8 mmol/L (21.0-32.0); CREATININE 0.9 mg/dL (0.55-1.02); Chloride 108 mmol/L (98-107); Estimated GFR 81.35 (mL/min/1.73m2); Glucose 115 mg/dL (74-106); Lipase 57 U/L (<78); Potassium 3.7 mmol/L (3.5-5.1); Sodium 141 mmol/L (136-145); Total Protein 6.6 g/dL (6.4-8.2)
--- NOTE | 2024-03-11 16:15 | DI.CT_ITS ---
Exam(s) CT ABDOMEN PELVIS WO EXAM: CT ABDOMEN PELVIS WO CLINICAL HISTORY: r flank pain. TECHNIQUE: Imaging Protocol: Axial computed tomography images with coronal and sagittal reformatted images were created and reviewed. Oral: / no COMPARISON: CT CT ABDOMEN PELVIS W from 08/25/[address] CHEST WO from 10/05/2022 CR XR CHEST 2V PA LATERAL from 04/06/2023 FINDINGS: Lung Bases: No acute findings. Scarring right lung base. Liver: Normal density. No suspicious mass. Gallbladder and biliary tract: Cholecystectomy. No biliary dilation. Pancreas: Normal density. No abnormal calcifications or inflammatory process. Spleen: Normal. Kidneys: Normal size, contour and axis. No radiodense stones. No obstructive uropathy. No suspicious masses seen. Adrenal glands: No masses seen. Lymph nodes: Within normal limits. Vasculature: Abdominal aorta non-dilated. Soft tissues: Unremarkable. Bladder: No wall thickening. No mass or calculi. Bowel: No obstruction or bowel wall thickening. Appendix normal. Normal quantity of stool. Peritoneal cavity: No ascites. No focal collection. No mesenteric inflammatory response. Reproductive organs: Hysterectomy. Ovaries unremarkable. Bones: Unremarkable for age. IMPRESSION: No acute abnormality in the abdomen or pelvis. RADIATION DOSE DELIVERED: Total DLP DATA REPOSITORY: All CT scans at this facility are submitted to the National Radiology Data Registry (NRDR) Dose Index Registry (DIR) with the [employer] [place] [employer] (A[employer]). RADIATION OPTIMIZATION: All CT scans at this facility use at least one of these dose optimization te chniques: automated exposure control; mA and/or kV adjustment per patient size (includes targeted exa ms where dose is matched to clinical indication); or iterative reconstruction.
[2024-03-11 16:20] LABS: Calcium 8.9 mg/dL (8.5-10.1)
[2024-03-11] MEDS: MORPHine IR 15 MG TAB, 4 TABS/BTL PO (17:58)
== END 2024-03-11 18:02 | disposition home or self-care (01) ==
PROVIDERS: Emergency Provider Emergency Medicine; PCP Family Medicine
DX: R10.11 Right upper quadrant pain (principal); D86.89 Sarcoidosis of other sites; Z79.631 Long term (current) use of antimetabolite agent; Z87.891 Personal history of nicotine dependence
CPT/HCPCS: 36415; 80053; 83690; 96374; 96375; 99284; 74176; 81003; 85025; J2270; J2405

== ENCOUNTER 2024-04-23 14:42 | Outpatient (CLI) | payer MEDICAID, SELFPAY ==
[2024-04-23 14:47] LABS: Abs Immature Grans 0.04 10^3/uL (0.0-0.06); Absolute Basophil Count 0.03 10^3/uL (0.0-0.2); Absolute Eosinophil Count 0.06 10^3/uL (0.0-0.7); Absolute Lymphocyte Count 0.67 10^3/uL (1.2-3.4); Absolute Monocyte Count 0.51 10^3/uL (0.1-0.8); Absolute Neutrophil Count 3.79 10^3/uL (1.2-6.7); Basophils % 0.6 %; Eosinophils % 1.2 %; HCT 38.5 % (36.0-46.0); HGB 13.2 g/dL (11.2-15.7); Immature Grans % 0.8 %; Lymphocytes % 13.1 %; MCH 31.6 pg (27.0-33.0); MCHC 34.3 % (32.0-36.0); MCV 92 fL (80-95); MPV 8.8 fL (8.0-11.0); Neutrophils % 74.3 %; Platelet Count 226 10^3/uL (130-400); RBC 4.18 10^6/uL (3.93-5.22); RDW 13.9 % (11.7-14.6); RDW-SD 46.9 fL
[2024-04-23 15:53] LABS: ALT 25 U/L (14-59); AST 13 U/L (15-37); Albumin 3.4 g/dL (3.4-5.0); Alkaline Phosphatase 65 U/L (46-116); Bilirubin, Total 0.69 mg/dL (0.2-1.0); CREATININE 0.9 mg/dL (0.55-1.02); Calcium 9.3 mg/dL (8.5-10.1); Estimated GFR 81.35 (mL/min/1.73m2); Total Protein 6.8 g/dL (6.4-8.2)
[2024-04-23 16:22] LABS: Bilirubin, Direct 0.2 mg/dL (0.0-0.2)
== END 2024-04-23 14:43 | disposition home or self-care (01) ==
LOC: LBO 14:42
PROVIDERS: PCP Family Medicine; Visit Provider Internal Medicine Rheumatology
DX: D86.9 Sarcoidosis, unspecified (principal)
CPT/HCPCS: 36415; 80076; 82310; 82565; 85025

== ENCOUNTER 2024-06-14 00:36 | Outpatient (RCR) | payer MEDICAID, SELFPAY ==
[2024-06-14] MEDS: Normal Saline Flush 5 ML SYR IVP (08:31)
[2024-06-14 08:35] VITALS: BP 132/89; PULSE 85; RESP 17; TEMP 36.4; O2SAT 96
[2024-06-14 08:50] VITALS: BP 122/74; PULSE 80; RESP 17; TEMP 36.5; O2SAT 97
[2024-06-14 09:08] VITALS: BP 133/85; PULSE 85; RESP 20; TEMP 36.5; O2SAT 97
[2024-06-14 09:20] VITALS: BP 150/78; PULSE 83; RESP 17; TEMP 36.5; O2SAT 100
[2024-06-14 09:50] VITALS: BP 127/84; PULSE 81; RESP 16; TEMP 36.3; O2SAT 98
[2024-06-14 10:20] VITALS: BP 136/88; PULSE 83; RESP 17; TEMP 36.5; O2SAT 98
== END 2024-06-19 23:59 | disposition home or self-care (01) ==
LOC: INF 00:36
PROVIDERS: PCP Family Medicine; Visit Provider Family Medicine
DX: D86.9 Sarcoidosis, unspecified (principal)
CPT/HCPCS: 96365; 96366; Q5103

== ENCOUNTER 2024-07-17 02:20 | Outpatient (CLI) | payer MEDICAID, SELFPAY ==
[2024-07-17 12:06] LABS: Abs Immature Grans 0.09 10^3/uL (0.0-0.06); Absolute Basophil Count 0.02 10^3/uL (0.0-0.2); Absolute Lymphocyte Count 0.85 10^3/uL (1.2-3.4); Absolute Monocyte Count 0.57 10^3/uL (0.1-0.8); Absolute Neutrophil Count 3.59 10^3/uL (1.2-6.7); Basophils % 0.4 %; Eosinophils % 1.9 %; HCT 37.3 % (36.0-46.0); HGB 13.2 g/dL (11.2-15.7); Immature Grans % 1.7 %; Lymphocytes % 16.3 %; MCH 32.1 pg (27.0-33.0); MCHC 35.4 % (32.0-36.0); MCV 91 fL (80-95); Monocytes % 10.9 %; Neutrophils % 68.8 %; Platelet Count 238 10^3/uL (130-400); RBC 4.11 10^6/uL (3.93-5.22); RDW 13.3 % (11.7-14.6); RDW-SD 43.5 fL; WBC 5.22 10^3/uL (4.4-10.8)
[2024-07-17 13:31] LABS: ALT 40 U/L (14-59); AST 26 U/L (15-37); Albumin 3.4 g/dL (3.4-5.0); Alkaline Phosphatase 65 U/L (46-116); Bilirubin, Direct 0.1 mg/dL (0.0-0.2); Bilirubin, Total 0.7 mg/dL (0.2-1.0); CREATININE 0.8 mg/dL (0.55-1.02); Calcium 8.5 mg/dL (8.5-10.1); Estimated GFR 93.12 (mL/min/1.73m2); Total Protein 6.7 g/dL (6.4-8.2)
== END 2024-07-17 02:21 | disposition home or self-care (01) ==
PROVIDERS: PCP Family Medicine; Visit Provider Internal Medicine Rheumatology
DX: D86.9 Sarcoidosis, unspecified (principal)
CPT/HCPCS: 36415; 80076; 82310; 82565; 85025

== ENCOUNTER 2024-07-22 03:41 | Outpatient (RCR) | payer MEDICAID, SELFPAY ==
[2024-07-22] VITALS (7 sets, daily range): BP systolic 117–143; BP diastolic 73–85; PULSE 76–83; RESP 17–18; TEMP 36.6–36.9; O2SAT 98–100
[2024-07-22] MEDS: diphenhydrAMINE 25 MG CAP PO (07:44)
[2024-07-22] MEDS: Normal Saline Flush 10 ML SYR IVP (07:44)
[2024-07-22] MEDS: Acetaminophen 325 MG TAB 650 MG PO (07:44)
== END 2024-08-19 23:59 | disposition home or self-care (01) ==
LOC: INF 03:41
PROVIDERS: PCP Family Medicine; Visit Provider Family Medicine
DX: D86.9 Sarcoidosis, unspecified
CPT/HCPCS: 96365; 96366; Q5103

== ENCOUNTER 2024-07-24 01:42 | Outpatient (CLI) | payer MEDICAID, SELFPAY ==
--- NOTE | 2024-07-24 | DI.US_ITS ---
Exam(s) US SOFT TISSUE HEAD OR NECK EXAM: US SOFT TISSUE HEAD OR NECK CLINICAL HISTORY: Sense of fullness and pressure in posterior soft tissues and region of thyr. TECHNIQUE: Ultrasound was performed using standard protocol. COMPARISON: No exams were available for comparison FINDINGS: Sonographic assessment utilizing grayscale and color Doppler imaging was performed and targeted to th e area of clinical concern. The posterior right neck was evaluated bilaterally sonographically. No cystic or solid masses are se en sonographically. The visualized parotid glands are unremarkable bilaterally sonographically. Inc idental note is made of 2 nodules in the left thyroid gland. The larger measures 1.5 x 0.9 x 1.1 cm and is isoechoic. The smaller measures 0.8 x 0.4 x 0.8 cm. A complete thyroid ultrasound was not pe rformed on this examination. IMPRESSION: 1. No sonographic evidence of a cystic or solid mass in the posterior neck sonographically. 2. Incidental note is made of 2 thyroid nodules. Follow-up as clinically appropriate. DATA REPOSITORY:
== END 2024-07-24 02:02 ==
LOC: DI 01:42
PROVIDERS: PCP Family Medicine; Visit Provider Family Medicine
DX: E04.2 Nontoxic multinodular goiter (principal)
CPT/HCPCS: 76536

== ENCOUNTER 2024-08-09 01:19 | Outpatient (CLI) | payer MEDICAID, SELFPAY ==
[2024-08-09 16:33] LABS: Abs Immature Grans 0.09 10^3/uL (0.0-0.06); Absolute Basophil Count 0.04 10^3/uL (0.0-0.2); Absolute Eosinophil Count 0.06 10^3/uL (0.0-0.7); Absolute Lymphocyte Count 1.05 10^3/uL (1.2-3.4); Absolute Monocyte Count 0.63 10^3/uL (0.1-0.8); Absolute Neutrophil Count 4.83 10^3/uL (1.2-6.7); Basophils % 0.6 %; Eosinophils % 0.9 %; HCT 37.5 % (36.0-46.0); HGB 13.3 g/dL (11.2-15.7); Immature Grans % 1.3 %; Lymphocytes % 15.7 %; MCH 32.3 pg (27.0-33.0); MCHC 35.5 % (32.0-36.0); MCV 91 fL (80-95); MPV 9.4 fL (8.0-11.0); Monocytes % 9.4 %; Neutrophils % 72.1 %; Platelet Count 298 10^3/uL (130-400); RBC 4.12 10^6/uL (3.93-5.22); RDW 13.4 % (11.7-14.6); RDW-SD 44.1 fL
[2024-08-09 16:34] LABS: Bilirubin Negative (Negative); Blood Negative (Negative); Clarity Clear (Clear); Glucose Negative (Negative); Ketones Negative (Negative); Leukocyte Esterase Negative (Negative); Nitrite Negative (Negative); pH 7.5 (5-8)
[2024-08-09 17:04] LABS: ALT 45 U/L (14-59); AST 20 U/L (15-37); Albumin 3.5 g/dL (3.4-5.0); Alkaline Phosphatase 64 U/L (46-116); Bilirubin, Direct 0.1 mg/dL (0.0-0.2); Bilirubin, Total 0.6 mg/dL (0.2-1.0); CREATININE 1.2 mg/dL (0.55-1.02); Creatine Kinase 164 U/L (26-192); Estimated GFR 57.24 (mL/min/1.73m2); TSH 1.92 uIU/mL (0.36-3.74); Total Protein 6.8 g/dL (6.4-8.2)
[2024-08-09 17:11] LABS: C-Reactive Protein < 0.50 mg/dL (<or=0.5)
[2024-08-13 19:05] LABS: Angiotensin Converting Enzyme 65 U/L (16 - 85)
== END 2024-08-09 01:20 | disposition home or self-care (01) ==
LOC: LBO 01:19
PROVIDERS: PCP Family Medicine; Visit Provider Internal Medicine Rheumatology
DX: Z79.899 Other long term (current) drug therapy (principal); D86.9 Sarcoidosis, unspecified; M89.9 Disorder of bone, unspecified; R53.83 Other fatigue
CPT/HCPCS: 36415; 80076; 82164; 82550; 81003; 82310; 82565; 84443; 85025; 86140

== ENCOUNTER 2024-08-16 10:22 | Outpatient (REF) | payer BC, MEDICAID, SELFPAY ==
[2024-08-16 14:50] LABS: FREE T4 0.94 ng/dL (0.76-1.46); TSH 2.63 uIU/mL (0.36-3.74)
== END 2024-08-16 10:23 | disposition home or self-care (01) ==
LOC: NCHCN 10:22
PROVIDERS: PCP Family Medicine; Visit Provider Family Medicine
DX: E04.1 Nontoxic single thyroid nodule (principal)
CPT/HCPCS: 84439; 84443

== ENCOUNTER 2024-09-13 16:55 | Outpatient (REF) | payer BC, MEDICAID, SELFPAY ==
[2024-09-13 16:18] LABS: Calculated LDL 85 mg/dL (<100); Cholesterol 189 mg/dL (<200); HDL Cholesterol 42 mg/dL (>or=50); Triglyceride 312 mg/dL (<150)
== END 2024-09-13 16:56 | disposition home or self-care (01) ==
LOC: NCHCN 16:55
PROVIDERS: PCP Family Medicine; Visit Provider Family Medicine
DX: I70.90 Unspecified atherosclerosis (principal)
CPT/HCPCS: 80061; 83695

== ENCOUNTER 2024-10-11 01:14 | Outpatient (CLI) | payer BC, SELFPAY ==
--- NOTE | 2024-10-11 14:06 | DI.MAMMO_ITS ---
Exam(s) MAMMO SCREENING EXAM: MAMMO SCREENING CLINICAL HISTORY: SCREENING, Z12.31. TECHNIQUE: Bilateral full field digital CC and MLO mammographic images were obtained with 3D tomosynthesis and utilizing computer aided detection (CAD). COMPARISON: Prior mammograms were reviewed. FINDINGS: There are no CAD designations There are no new right breast findings. In the left breast on the CC view there is an asymmetric density-possible nodule in the medial aspect breast approximately 7 cm in from the nipple and measuring approximately 9 by 4 mm. Spot compression recommended. There are no malignant- appearing microcalcification groups in this region or elsewhere in either breast There is no significant architectural distortion nor skin thickening-retraction. IMPRESSION: 1. No radiographic evidence of malignancy in the right breast. 2. Possible left breast nodule located medially. Spot compression view and ultrasound recommended. BI-RADS Category 0 - Incomplete: Need additional imaging evaluation Breast Density - Category C - The breast are heterogeneously dense, which may obscure small masses. Breast density Category C or D implies that the patient has dense breast tissue. Dense breast tissue can make it harder to find cancer on a mammogram. Dense breast tissue is also associated with an increased risk of breast cancer. This information about the result of the mammogram report was provided to the patient to raise their awareness. Use this report when you speak with the patient about their risks for breast cancer, which includes their family history. At that time, you may recommend additional screening tests (Ultrasound or MRI) as these tests may add significant information. A negative radiographic report should not delay biopsy if a dominant or clinically suspicious mass is present. Up to ten percent of cancers are not identified on mammography. A negative report may reinforce clinical impression. Adenosis and dense breasts may obscure an underlying neoplasm. False positive reports average 6 to 10%. Patient will receive a letter notifying them of these results.
== END 2024-10-11 01:34 ==
LOC: DI 01:14
PROVIDERS: PCP Family Medicine; Visit Provider Family Medicine
DX: Z12.31 Encounter for screening mammogram for malignant neoplasm of breast (principal); R92.333 Mammographic heterogeneous density, bilateral breasts
CPT/HCPCS: 77063; 77067

== ENCOUNTER 2024-10-11 18:30 | Outpatient (REF) | payer BC, MEDICAID, SELFPAY ==
[2024-10-11 16:29] LABS: Cholesterol 237 mg/dL (<200); HDL Cholesterol 39 mg/dL (>or=50); Triglyceride 502 mg/dL (<150)
[2024-10-11 17:16] LABS: LDL CHOLESTEROL 107 mg/dL (<100)
[2024-10-11 22:09] LABS: FSH 10.0 mIU/mL (See Note)
[2024-10-11 22:35] LABS: CA 125 9 U/mL (<30)
== END 2024-10-11 18:31 | disposition home or self-care (01) ==
LOC: NCHCN 18:30
PROVIDERS: PCP Family Medicine; Visit Provider Family Medicine
DX: N83.8 Other noninflammatory disorders of ovary, fallopian tube and broad ligament (principal); E78.1 Pure hyperglyceridemia
CPT/HCPCS: 80061; 83721; 86304; 83001

== ENCOUNTER 2024-10-17 16:36 | Outpatient (CLI) | payer BC, MEDICAID, SELFPAY ==
--- NOTE | 2024-10-17 14:25 | DI.MAMMO_ITS ---
Exam(s) MAMMO SCREEN CALL BACK UNI EXAM: MAMMO SCREEN CALL BACK UNI CLINICAL HISTORY: F/U MAMMO, R92.8,LT ASYMMETRIC DENSITY, ? LT NODULE. TECHNIQUE: Craniocaudal and mediolateral oblique Full Field Digital Mammography views of the left breast with Computer Aided Diagnosis. COMPARISON: Comparison is made with prior examinations. FINDINGS: Mammography/Tomosynthesis: Masses/Architectural Distortion: There are no suspicious masses or areas of architectural distortion present. The area of concern is less prominent on the additional views. The area is unchanged compared to the prior examinations. Microcalcifictions: No suspicious pleomorphic-type are seen. Skin Thickening/Nipple Retraction: None. IMPRESSION: 1. No evidence of malignancy is noted. 2. Unless there is more urgent need, follow-up screening mammography is recommended, as per [place] [employer] guidelines. 3. The findings were discussed with the patient on the date of the examination. BI-RADS Category 1 - Negative Breast Density - Category C - The breast are heterogeneously dense, which may obscure small masses. Breast density Category C or D implies that the patient has dense breast tissue. Dense breast tissue can make it harder to find cancer on a mammogram. Dense breast tissue is also associated with an increased risk of breast cancer. This information about the result of the mammogram report was provided to the patient to raise their awareness. Use this report when you speak with the patient about their risks for breast cancer, which includes their family history. At that time, you may recommend additional screening tests (Ultrasound or MRI) as these tests may add significant information. A negative radiographic report should not delay biopsy if a dominant or clinically suspicious mass is present. Up to ten percent of cancers are not identified on mammography. A negative report may reinforce clinical impression. Adenosis and dense breasts may obscure an underlying neoplasm. False positive reports average 6 to 10%. Patient will receive a letter notifying them of these results.
== END 2024-10-17 16:56 ==
LOC: DI 16:36
PROVIDERS: PCP Family Medicine; Visit Provider Family Medicine
DX: Z12.31 Encounter for screening mammogram for malignant neoplasm of breast (principal); R92.8 Other abnormal and inconclusive findings on diagnostic imaging of breast; R92.333 Mammographic heterogeneous density, bilateral breasts
CPT/HCPCS: 77063; 77067

== ENCOUNTER 2024-11-05 03:27 | Outpatient (CLI) | payer BC, MEDICAID, SELFPAY ==
--- NOTE | 2024-11-05 06:00 | DI.US_ITS ---
Exam(s) US NEEDLE LOCAL OTHER WO RAD EXAM: Left thyroid nodule,ULTRASOUND GUIDED BX,E04.1 COMPARISON: No exams were available for comparison TECHNIQUE: Ultrasound performed using standard protocol. FINDINGS: Sonography was provided for Dr. Emery during the performance of a left thyroid nodule biopsy. Please refer to the procedure report for complete details. DATA REPOSITORY:
--- NOTE | 2024-11-05 11:25 | PAPNONF_PTH ---
PATIENT: Jenise Ortiz LOC: [facility] U#:[id number] AGE/SX: 44/F ROOM: RE11/05/[address]: Veto Emery MD : [id number] BED: DIS: 11/05/2024 SPEC #: [id number] RECD: 11/05/24 12:52 STATUS: NAINA REMaisha #: [id number] VINCE: 11/05/24 11:[address]: Veto Emery DEPT: [facility] Cytology RECD BY: Marisol Portillo ENTERED: 11/05/24 12:53 SP TYPE: DARIUS ESPOSITO DR: Abril Doyle Tissues: 1 - BODY FLUID CYTO-FINE NEEDLE ASPIRATE-[facility] Procedures: BODY FLUID CYTO-FINE NEEDLE ASPIRATE-[facility] Comments: [id number] (PATH FNA CONSULT) (REFRIGERATED)
--- NOTE | 2024-11-05 11:51 | W.PROCNOTE ---
Date of service: 11/05/24 Time of Service: 11:51 Procedure Note Date of procedure: 11/05/24 Procedure: Ultrasound guided FNA, left thyroid nodule, pathology present Surgeon/Proceduralist/Physician: Veto Emery Procedure Diagnosis: Left thyroid nodule Procedure Indications: Patient has a left-sided 1.4 cm thyroid nodule meeting criteria for biopsy. Options were explained to the patient regarding further management. She elected to undergo the procedure. Risks including bleeding, infection, failure to get an answer, need for other treatment were discussed at length. Written consent was obtained. The below was then performed. Procedure Description: The patient was positioned in a supine position with her neck slightly extended. She was prepped and draped in appropriate fashion and ultrasound used to localize the left sided thyroid nodule. 1% lidocaine with 1/100,000 epinephrine was injected into the soft tissues over the medial aspect of the nodule, and then a 25-gauge needle was passed into the thyroid nodule verifying position of the needle with the ultrasound. Specimen was handed to pathology who verified cellular adequacy. 2 additional passes were then made for potential Afirma testing. After ensuring adequate hemostasis, sterile dressing was applied the patient was allowed to sit, stand, and ambulate. Her vital signs remained stable. She will remove the bandage in a couple of hours and not replace it. She will call with any concerns or problems or if she does not hear from me within 1 week with regard to pathology. She may use ibuprofen or Tylenol for any discomfort. She had no further questions. She is comfortable with the plan. She is should avoid any heavy lifting today.
== END 2024-11-05 03:47 ==
LOC: DI 03:27
PROVIDERS: PCP Family Medicine; Visit Provider Otolaryngology
DX: E04.1 Nontoxic single thyroid nodule (principal)
CPT/HCPCS: 10005; 76942; 88104

== ENCOUNTER 2024-11-06 01:50 | Outpatient (CLI) | payer BC, MEDICAID, SELFPAY ==
[2024-11-06 11:32] LABS: Abs Immature Grans 0.03 10^3/uL (0.0-0.06); HCT 38.6 % (36.0-46.0); HGB 13.4 g/dL (11.2-15.7); Immature Grans % 0.5 %; MCH 31.4 pg (27.0-33.0); MCHC 34.7 % (32.0-36.0); MCV 90 fL (80-95); MPV 9.0 fL (8.0-11.0); Platelet Count 250 10^3/uL (130-400); RBC 4.27 10^6/uL (3.93-5.22); RDW 12.7 % (11.7-14.6); RDW-SD 42.1 fL; WBC 5.47 10^3/uL (4.4-10.8)
[2024-11-06 12:18] LABS: ALT 22 U/L (14-59); AST 16 U/L (15-37); Albumin 3.3 g/dL (3.4-5.0); Alkaline Phosphatase 57 U/L (46-116); Calcium 8.9 mg/dL (8.5-10.1); Estimated GFR 93.12 (mL/min/1.73m2); Total Protein 6.8 g/dL (6.4-8.2)
[2024-11-06 12:29] LABS: Bilirubin, Total 0.7 mg/dL (0.2-1.0)
[2024-11-06 16:04] LABS: Bilirubin, Direct 0.1 mg/dL (0.0-0.2)
== END 2024-11-06 01:51 | disposition home or self-care (01) ==
PROVIDERS: PCP Family Medicine; Visit Provider Internal Medicine Rheumatology
DX: D86.9 Sarcoidosis, unspecified (principal)
CPT/HCPCS: 36415; 80076; 82310; 82565; 85025

== ENCOUNTER 2024-12-19 11:09 | Outpatient (REF) | payer BC, MEDICAID, MEDICARE, SELFPAY ==
[2024-12-19 17:04] LABS: Glucose Negative (Negative)
[2024-12-19 17:14] LABS: C & S Indicated? No; RBC Negative HPF (0-2); WBC 0-2 HPF (0-5)
== END 2024-12-19 11:10 | disposition home or self-care (01) ==
LOC: NCHCN 11:09
PROVIDERS: PCP Family Medicine; Visit Provider Family Medicine
DX: R82.90 Unspecified abnormal findings in urine (principal)
CPT/HCPCS: 81003; 81015

== ENCOUNTER 2025-01-02 02:09 | Outpatient (CLI) | payer BC, SELFPAY ==
[2025-01-02 09:17] LABS: Abs Immature Grans 0.03 10^3/uL (0.0-0.06); HCT 39.2 % (36.0-46.0); HGB 13.6 g/dL (11.2-15.7); Immature Grans % 0.6 %; MCH 31.6 pg (27.0-33.0); MCHC 34.7 % (32.0-36.0); MCV 91 fL (80-95); MPV 9.2 fL (8.0-11.0); Platelet Count 280 10^3/uL (130-400); RBC 4.30 10^6/uL (3.93-5.22); RDW 13.1 % (11.7-14.6); RDW-SD 42.4 fL; WBC 4.88 10^3/uL (4.4-10.8)
[2025-01-02 10:03] LABS: ALT 31 U/L (10-49); AST 27 U/L (<34); Albumin 4.1 g/dL (3.4-5.0); Alkaline Phosphatase 44 U/L (46-116); Bilirubin, Direct 0.2 mg/dL (<=0.3); Bilirubin, Total 0.60 mg/dL (0.2-1.2); Calcium 8.9 mg/dL (8.3-10.6); Total Protein 6.5 g/dL (5.7-8.2)
== END 2025-01-02 02:10 | disposition home or self-care (01) ==
PROVIDERS: PCP Family Medicine; Visit Provider Internal Medicine Rheumatology
DX: D86.9 Sarcoidosis, unspecified (principal)
CPT/HCPCS: 36415; 80076; 82310; 82565; 85025